=== PATIENT | male | born 1990 | race Two or more races ===

== ENCOUNTER 2021-09-11 11:18 | Inpatient (IN) | payer MEDICAID ==
[~2021-09-11] VITALS: Ht 170.2 cm; Wt 81.5 kg
[2021-09-11] MEDS ORDERED: REMDESIVIR PER PHARMACY 0 ML IV SCH (11:30)
[2021-09-11] MEDS ORDERED: ZINC SULFATE 220mg CAP or TAB PO ONE (11:30)
[2021-09-11] MEDS ORDERED: ASCORBIC ACID 500 MG TAB PO ONE (11:30)
[2021-09-11] MEDS ORDERED: AZITHROMYCIN 500MG/ 250ML 250 ML IV ONE (11:30)
[2021-09-11] MEDS ORDERED: CHOLECALCIFEROL (VITD3) 2,000 UNIT CAP/TAB PO ONE (11:30)
[2021-09-11] MEDS ORDERED: methylPREDNISolone SOD SUCC 125 MG/2 ML VL IV ONE (11:30)
[2021-09-11 11:59] LABS: Basophils # (auto) 0 10 ^3/uL (0-0.2); Basophils % (auto) 0.2 % (0.0-2.0); Eosinophils # (auto) 0 10 ^3/uL (0-0.8); Hematocrit 41.9 % (41.0-53.0); Hemoglobin 14.7 g/dL (13.5-17.5); Lymphocytes # (auto) 1.1 10 ^3/uL (0.4-5.4); Lymphocytes % (auto) 9.3 % (10.0-50.0); Mean Corpuscular Hemoglobin 27.9 pg (28.0-32.0); Mean Corpuscular Hgb Conc. 35.2 g/dL (32.0-36.0); Mean Corpuscular Volume 79.5 fL (80.0-100.0); Monocytes # (auto) 0.6 10 ^3/uL (0-1.3); Monocytes % (auto) 5.3 % (0.0-12.0); Neutrophils # (auto) 9.9 10 ^3/uL (1.6-8.6); Neutrophils % (auto) 85.2 % (37.0-80.0); Nucleated Red Blood Cells % 0.1 %; Red Blood Cells 5.27 10^6/uL (4.5-5.90); Red Cell Distribution Width 13.5 % (11.8-14.3); White Blood Cell 11.6 10^3/uL (4.4-10.8)
[2021-09-11] MEDS ORDERED: ALBUTEROL SULF HFA 90MCG INH 200DOSE IN PRN (12:00)
[2021-09-11] MEDS ORDERED: BUDESONIDE (INHALATION) 180 MCG IH IN SCH (12:02)
[2021-09-11 12:18] LABS: Potassium 3.3 mmol/L (3.5-5.1)
[2021-09-11 12:22] LABS: Albumin 2.3 g/dL (3.4-5.0); BUN/Creatinine Ratio 9.5; Calcium 7.8 mg/dL (8.5-10.1)
[2021-09-11 12:30] LABS: Bilirubin, Total 0.6 mg/dL (0.2-1.0); CRP High Sensitivity 13.8 mg/dL (< 0.3)
[2021-09-11] MEDS ORDERED: POTASSIUM CHL 20 Meq TABLET PO ONE (14:15)
[2021-09-11] MEDS ORDERED: ACETAMINOPHEN 500 MG TAB PO PRN (14:15)
[2021-09-11 16:11] VITALS: BP 110/65
[2021-09-11] MEDS ORDERED: REMDESIVIR 200 MG in NS 210ml LOADING DOSE ADULT IV ONE (21:00)
[2021-09-11] MEDS: BUDESONIDE (INHALATION) 180 MCG IH IN SCH (21:09)
[2021-09-11] MEDS: ALBUTEROL SULF HFA 90MCG INH 200DOSE IN PRN (21:09)
[2021-09-11] MEDS: ENOXAPARIN SOD 40 MG/0.4 ML SYRINGE SC SCH (22:13)
[2021-09-11 22:20] VITALS: BP 133/75
[2021-09-12 05:00] VITALS: BP 121/70
[2021-09-12 07:04] LABS: Basophils # (auto) 0 10 ^3/uL (0-0.2); Basophils % (auto) 0.2 % (0.0-2.0); Eosinophils # (auto) 0 10 ^3/uL (0-0.8); Hematocrit 43.9 % (41.0-53.0); Hemoglobin 15.1 g/dL (13.5-17.5); Lymphocytes % (auto) 8.1 % (10.0-50.0); Mean Corpuscular Hgb Conc. 34.5 g/dL (32.0-36.0); Mean Corpuscular Volume 81.3 fL (80.0-100.0); Monocytes # (auto) 1.1 10 ^3/uL (0-1.3); Neutrophils % (auto) 82.7 % (37.0-80.0); Nucleated Red Blood Cells % 0.1 %; Red Cell Distribution Width 13.8 % (11.8-14.3); White Blood Cell 12.1 10^3/uL (4.4-10.8)
[2021-09-12 07:31] LABS: Albumin 2.4 g/dL (3.4-5.0); BUN/Creatinine Ratio 16.4; Bilirubin, Total 0.5 mg/dL (0.2-1.0); Calcium 7.7 mg/dL (8.5-10.1); Total Protein 6.6 g/dL (6.4-8.2)
[2021-09-12 09:00] VITALS: BP 128/71
[2021-09-12] MEDS: DexAMETHasone SOD PHOS 10MG/1ML VIAL INJ IV SCH (09:53)
[2021-09-12] MEDS: ZINC SULFATE 220mg CAP or TAB PO SCH (09:54)
[2021-09-12] MEDS: ASCORBIC ACID 1,000 MG TAB PO SCH (09:54)
[2021-09-12] MEDS: AZITHROMYCIN 500MG/ 250ML 250 ML IV SCH (09:54)
[2021-09-12] MEDS: ENOXAPARIN SOD 40 MG/0.4 ML SYRINGE SC SCH ×2 (09:54→21:17)
[2021-09-12] MEDS: IVERMECTIN 3 MG TAB PO SCH (09:54)
[2021-09-12] MEDS: CHOLECALCIFEROL (VITD3) 2,000 UNIT CAP/TAB PO SCH (09:54)
[2021-09-12] MEDS: BUDESONIDE (INHALATION) 180 MCG IH IN SCH ×2 (10:00→19:56)
[2021-09-12 13:00] VITALS: BP 130/80
[2021-09-12] MEDS: REMDESIVIR 100mg 100 MG in SODIUM CHL 0.9% 230 ML IV SCH (15:35)
[2021-09-12 17:00] VITALS: BP 106/58
[2021-09-12] MEDS: ALBUTEROL SULF HFA 90MCG INH 200DOSE IN PRN (19:56)
[2021-09-12 22:00] VITALS: BP 123/71
[2021-09-13 05:00] VITALS: BP 128/73
[2021-09-13 06:55] LABS: Basophils # (auto) 0 10 ^3/uL (0-0.2); Basophils % (auto) 0.1 % (0.0-2.0); Eosinophils # (auto) 0 10 ^3/uL (0-0.8); Hemoglobin 14.9 g/dL (13.5-17.5); Lymphocytes # (auto) 0.8 10 ^3/uL (0.4-5.4); Lymphocytes % (auto) 4.5 % (10.0-50.0); Mean Corpuscular Hemoglobin 28.5 pg (28.0-32.0); Mean Corpuscular Hgb Conc. 34.6 g/dL (32.0-36.0); Mean Corpuscular Volume 82.6 fL (80.0-100.0); Monocytes # (auto) 1.3 10 ^3/uL (0-1.3); Neutrophils # (auto) 16.4 10 ^3/uL (1.6-8.6); Neutrophils % (auto) 88.4 % (37.0-80.0); Nucleated Red Blood Cells % 0.1 %; Red Blood Cells 5.21 10^6/uL (4.5-5.90); Red Cell Distribution Width 13.4 % (11.8-14.3); White Blood Cell 18.6 10^3/uL (4.4-10.8)
[2021-09-13 07:05] LABS: Albumin 2.3 g/dL (3.4-5.0); Calcium 7.9 mg/dL (8.5-10.1)
[2021-09-13 07:08] LABS: Bilirubin, Total 0.6 mg/dL (0.2-1.0)
[2021-09-13] MEDS: BUDESONIDE (INHALATION) 180 MCG IH IN SCH ×3 (08:10→22:01)
[2021-09-13] MEDS: ALBUTEROL SULF HFA 90MCG INH 200DOSE IN PRN ×2 (08:10→22:01)
[2021-09-13 09:00] VITALS: BP 131/72
[2021-09-13] MEDS: DexAMETHasone SOD PHOS 10MG/1ML VIAL INJ IV SCH (09:04)
[2021-09-13] MEDS: ASCORBIC ACID 1,000 MG TAB PO SCH (09:05)
[2021-09-13] MEDS: CHOLECALCIFEROL (VITD3) 2,000 UNIT CAP/TAB PO SCH (09:05)
[2021-09-13] MEDS: ZINC SULFATE 220mg CAP or TAB PO SCH (09:05)
[2021-09-13] MEDS: AZITHROMYCIN 500MG/ 250ML 250 ML IV SCH (09:05)
[2021-09-13] MEDS: ENOXAPARIN SOD 40 MG/0.4 ML SYRINGE SC SCH ×2 (09:05→22:00)
[2021-09-13] MEDS: IVERMECTIN 3 MG TAB PO SCH (09:06)
[2021-09-13 13:00] VITALS: BP 133/71
[2021-09-13] MEDS: REMDESIVIR 100mg 100 MG in SODIUM CHL 0.9% 230 ML IV SCH (14:49)
[2021-09-13 17:00] VITALS: BP 138/84
[2021-09-13 22:00] VITALS: BP 135/83
[2021-09-14] VITALS (75 sets, daily range): BP systolic 84–140; BP diastolic 44–113
[2021-09-14] MEDS ORDERED: LORazepam 0.5 MG TAB PO PRN (03:45)
[2021-09-14] MEDS: ALBUTEROL SULF HFA 90MCG INH 200DOSE IN PRN (05:58)
[2021-09-14] MEDS ORDERED: ETOMIDATE (2MG/ML) 20ML VIAL IV ONE ×2 (06:59→08:00)
[2021-09-14] MEDS ORDERED: SUCCINYLCHOLINE CHLORIDE 20 MG/ML 10ML VIAL IV ONE ×2 (06:59→08:00)
[2021-09-14] MEDS ORDERED: ROCURONIUM 10MG/ML 10ML VIAL IV ONE ×3 (06:59→07:45)
[2021-09-14] MEDS ORDERED: PROPOFOL 100 ML IV ONE (07:06)
[2021-09-14] MEDS ORDERED: fentaNYL Drip 2500mCg/250mlNS 250 ML IV ONE (07:06)
[2021-09-14 07:15] LABS: Albumin 2.4 g/dL (3.4-5.0); BUN/Creatinine Ratio 19.1; Bilirubin, Total 1.1 mg/dL (0.2-1.0); Calcium 7.8 mg/dL (8.5-10.1); Total Protein 6.2 g/dL (6.4-8.2)
[2021-09-14] MEDS: MIDAZOLAM DRIP 50 mg/50mL 50 ML IV SCH (07:25)
[2021-09-14] MEDS: PROPOFOL 100 ML IV SCH (07:25)
[2021-09-14] MEDS ORDERED: MIDAZOLAM DRIP 50 mg/50mL 50 ML IV ONE (07:30)
[2021-09-14] MEDS ORDERED: fentaNYL Drip 2500mCg/250mlNS 250 ML IV SCH (07:45)
[2021-09-14] MEDS: NOREPINEPHRINE 8 MG/250ML KIT 250 ML IV SCH (08:20)
[2021-09-14 09:46] LABS: Hematocrit 43.7 % (41.0-53.0); Hemoglobin 14.6 g/dL (13.5-17.5); Mean Corpuscular Hemoglobin 28.4 pg (28.0-32.0); Mean Corpuscular Hgb Conc. 33.3 g/dL (32.0-36.0); Mean Corpuscular Volume 85.1 fL (80.0-100.0); Red Blood Cells 5.14 10^6/uL (4.5-5.90); Red Cell Distribution Width 13.7 % (11.8-14.3); White Blood Cell 24.6 10^3/uL (4.4-10.8)
[2021-09-14 09:47] LABS: Basophils % (manual) 0 (0.0-2.0); Blast Cells 0; Eosinophils % (manual) 0 (0-7); Metamyelocytes % 0; Myelocytes % 0; Promyelocytes % 0; Reactive Lymphocytes 0
[2021-09-14] MEDS: BUDESONIDE (INHALATION) 0.5 MG/2 ML NEB NEB SCH ×2 (10:00→22:08)
[2021-09-14 10:10] LABS: Albumin 2.3 g/dL (3.4-5.0); Calcium 7.9 mg/dL (8.5-10.1)
[2021-09-14 10:13] LABS: BUN/Creatinine Ratio 15.2; Bilirubin, Total 1.3 mg/dL (0.2-1.0); Total Protein 6.8 g/dL (6.4-8.2)
[2021-09-14] MEDS: IVERMECTIN 3 MG TAB PO SCH (10:22)
[2021-09-14] MEDS: AZITHROMYCIN 500MG/ 250ML 250 ML IV SCH (10:22)
[2021-09-14] MEDS: DexAMETHasone SOD PHOS 10MG/1ML VIAL INJ IV SCH ×2 (10:22→22:13)
[2021-09-14] MEDS: ZINC SULFATE 220mg CAP or TAB PO SCH (10:22)
[2021-09-14] MEDS: ASCORBIC ACID 1,000 MG TAB PO SCH (10:22)
[2021-09-14] MEDS: ENOXAPARIN SOD 40 MG/0.4 ML SYRINGE SC SCH ×2 (10:23→22:14)
[2021-09-14] MEDS: CHOLECALCIFEROL (VITD3) 2,000 UNIT CAP/TAB PO SCH (10:23)
[2021-09-14 10:28] LABS: INR 1.38 (0.9-1.15); Partial Thromboplastin Time 28.2 sec (23.6-33.0)
[2021-09-14] MEDS: ATRACURIUM BESYLATE 1,000 MG in D5W 5% 150 ML IV SCH (10:44)
[2021-09-14 11:54] LABS: Band Neutrophils % (manual) 14; Lymphocytes % (manual) 7 (10.0-50.0); Monocytes % (manual) 3 (0-12)
[2021-09-14] MEDS: fentaNYL Drip 2500mCg/250mlNS 250 ML IV SCH (13:45)
[2021-09-14] MEDS: ALBUTEROL SULF 2.5 MG/0.5ML(0.5%) NEB SOLN NEB SCH ×2 (13:53→22:08)
[2021-09-14] MEDS ORDERED: PIPERACILLIN-TAZOB 3.375GM 100 ML IV ONE (14:15)
[2021-09-14] MEDS ORDERED: ARTIFICIAL TEAR OPTH(EYE) OINT 3.5GM EACHEYE ONE (14:30)
[2021-09-14] MEDS ORDERED: PANTOPRAZOLE 40 MG/10 ML VIAL INJ IV ONE (14:45)
[2021-09-14] MEDS: REMDESIVIR 100mg 100 MG in SODIUM CHL 0.9% 230 ML IV SCH (16:18)
[2021-09-14] MEDS ORDERED: ARTIFICIAL TEAR OPTH(EYE) OINT 3.5GM EACHEYE SCH (22:00)
[2021-09-14] MEDS: PIPERACILLIN-TAZOB 3.375GM 100 ML IV SCH (22:14)
[2021-09-15] VITALS (103 sets, daily range): BP systolic 86–140; BP diastolic 35–74
[2021-09-15 05:18] LABS: Hemoglobin 13.8 g/dL (13.5-17.5); Mean Corpuscular Hemoglobin 29.6 pg (28.0-32.0); Mean Corpuscular Hgb Conc. 34.6 g/dL (32.0-36.0); Mean Corpuscular Volume 85.4 fL (80.0-100.0); Red Blood Cells 4.68 10^6/uL (4.5-5.90); Red Cell Distribution Width 13.6 % (11.8-14.3); White Blood Cell 18.2 10^3/uL (4.4-10.8)
[2021-09-15 05:26] LABS: Basophils % (manual) 0 (0.0-2.0); Blast Cells 0; Eosinophils % (manual) 0 (0-7); Promyelocytes % 0; Reactive Lymphocytes 0
[2021-09-15 05:32] LABS: Potassium 4.3 mmol/L (3.5-5.1)
[2021-09-15 05:42] LABS: Albumin 1.9 g/dL (3.4-5.0); BUN/Creatinine Ratio 15.8; Bilirubin, Total 0.8 mg/dL (0.2-1.0); Calcium 8.2 mg/dL (8.5-10.1); Total Protein 6.6 g/dL (6.4-8.2)
[2021-09-15] MEDS: PIPERACILLIN-TAZOB 3.375GM 100 ML IV SCH ×3 (06:00→21:15)
[2021-09-15] MEDS: ALBUTEROL SULF 2.5 MG/0.5ML(0.5%) NEB SOLN NEB SCH ×3 (06:08→19:00)
[2021-09-15] MEDS: BUDESONIDE (INHALATION) 0.5 MG/2 ML NEB NEB SCH ×2 (06:08→19:00)
[2021-09-15 06:10] LABS: Band Neutrophils % (manual) 22; Lymphocytes % (manual) 4 (10.0-50.0); Metamyelocytes % 1; Monocytes % (manual) 5 (0-12); Myelocytes % 2
[2021-09-15] MEDS: MIDAZOLAM DRIP 50 mg/50mL 50 ML IV SCH (07:45)
[2021-09-15] MEDS: NOREPINEPHRINE 8 MG/250ML KIT 250 ML IV SCH (07:45)
[2021-09-15] MEDS: PROPOFOL 100 ML IV SCH ×2 (07:45→14:25)
[2021-09-15] MEDS: ATRACURIUM BESYLATE 1,000 MG in D5W 5% 150 ML IV SCH (09:00)
[2021-09-15] MEDS: ZINC SULFATE 220mg CAP or TAB PO SCH (09:54)
[2021-09-15] MEDS: PANTOPRAZOLE 40 MG/10 ML VIAL INJ IV SCH (09:54)
[2021-09-15] MEDS: DexAMETHasone SOD PHOS 10MG/1ML VIAL INJ IV SCH ×2 (09:54→21:15)
[2021-09-15] MEDS: CHOLECALCIFEROL (VITD3) 2,000 UNIT CAP/TAB PO SCH (09:55)
[2021-09-15] MEDS: IVERMECTIN 3 MG TAB PO SCH (09:55)
[2021-09-15] MEDS: ENOXAPARIN SOD 40 MG/0.4 ML SYRINGE SC SCH ×2 (09:55→21:16)
[2021-09-15] MEDS: ASCORBIC ACID 1,000 MG TAB PO SCH (09:55)
[2021-09-15] MEDS: fentaNYL Drip 2500mCg/250mlNS 250 ML IV SCH (13:21)
[2021-09-15] MEDS ORDERED: Jevity 1.2 Cal/Fiber 1 Liter GT SCH (14:15)
[2021-09-15] MEDS: REMDESIVIR 100mg 100 MG in SODIUM CHL 0.9% 230 ML IV SCH (15:03)
[2021-09-15] MEDS: SODIUM CHLOR 0.9% PF (SALINE LOCK) 10ML VIAL/SYR IV SCH (21:15)
[2021-09-15] MEDS ORDERED: TOCILIZUMAB 400 MG in SODIUM CHL 0.9% 80 ML IV SCH (22:00)
[2021-09-16] VITALS (96 sets, daily range): BP systolic 118–147; BP diastolic 58–83
[2021-09-16 02:59] LABS: Albumin 1.8 g/dL (3.4-5.0); BUN/Creatinine Ratio 15.4; Calcium 7.8 mg/dL (8.5-10.1); Potassium 3.8 mmol/L (3.5-5.1)
[2021-09-16 03:00] LABS: Hematocrit 35.1 % (41.0-53.0); Mean Corpuscular Hemoglobin 29.4 pg (28.0-32.0); Mean Corpuscular Hgb Conc. 34.2 g/dL (32.0-36.0); Mean Corpuscular Volume 85.9 fL (80.0-100.0); Red Blood Cells 4.09 10^6/uL (4.5-5.90); White Blood Cell 18.5 10^3/uL (4.4-10.8)
[2021-09-16 03:02] LABS: Basophils % (manual) 0 (0.0-2.0); Bilirubin, Total 0.6 mg/dL (0.2-1.0); Blast Cells 0; Eosinophils % (manual) 0 (0-7); Metamyelocytes % 0; Promyelocytes % 0; Reactive Lymphocytes 0; Total Protein 6.2 g/dL (6.4-8.2)
[2021-09-16] MEDS: PIPERACILLIN-TAZOB 3.375GM 100 ML IV SCH ×3 (05:30→22:05)
[2021-09-16 06:59] LABS: Band Neutrophils % (manual) 17; Lymphocytes % (manual) 5 (10.0-50.0); Monocytes % (manual) 4 (0-12); Myelocytes % 6
[2021-09-16] MEDS: NOREPINEPHRINE 8 MG/250ML KIT 250 ML IV SCH (07:45)
[2021-09-16] MEDS: ALBUTEROL SULF 2.5 MG/0.5ML(0.5%) NEB SOLN NEB SCH ×2 (08:34→22:36)
[2021-09-16] MEDS: BUDESONIDE (INHALATION) 0.5 MG/2 ML NEB NEB SCH ×2 (08:34→22:36)
[2021-09-16] MEDS: ZINC SULFATE 220mg CAP or TAB PO SCH (09:16)
[2021-09-16] MEDS: MIDAZOLAM DRIP 50 mg/50mL 50 ML IV SCH ×4 (09:16→20:13)
[2021-09-16] MEDS: ASCORBIC ACID 1,000 MG TAB PO SCH (09:17)
[2021-09-16] MEDS: CHOLECALCIFEROL (VITD3) 2,000 UNIT CAP/TAB PO SCH (09:17)
[2021-09-16] MEDS: ENOXAPARIN SOD 40 MG/0.4 ML SYRINGE SC SCH ×2 (09:17→22:02)
[2021-09-16] MEDS: IVERMECTIN 3 MG TAB PO SCH (09:17)
[2021-09-16] MEDS: DexAMETHasone SOD PHOS 10MG/1ML VIAL INJ IV SCH (09:21)
[2021-09-16] MEDS: PANTOPRAZOLE 40 MG/10 ML VIAL INJ IV SCH ×2 (09:23→22:02)
[2021-09-16] MEDS: SODIUM CHLOR 0.9% PF (SALINE LOCK) 10ML VIAL/SYR IV SCH ×2 (09:24→22:02)
[2021-09-16] MEDS: PROPOFOL 100 ML IV SCH ×6 (10:09→23:20)
[2021-09-16] MEDS: fentaNYL Drip 2500mCg/250mlNS 250 ML IV SCH (13:00)
[2021-09-16] MEDS: TOCILIZUMAB 400 MG in SODIUM CHL 0.9% 80 ML IV SCH (20:03)
[2021-09-16] MEDS: ATRACURIUM BESYLATE 1,000 MG in D5W 5% 150 ML IV SCH (20:11)
[2021-09-16] MEDS: DexAMETHasone SOD PHOS 4 MG/1ML SDV INJ IV SCH (22:01)
[2021-09-17] VITALS (89 sets, daily range): BP systolic 110–149; BP diastolic 45–82
[2021-09-17] MEDS: PROPOFOL 100 ML IV SCH ×4 (02:06→19:35)
[2021-09-17 05:42] LABS: Potassium 3.2 mmol/L (3.5-5.1)
[2021-09-17] MEDS: PIPERACILLIN-TAZOB 3.375GM 100 ML IV SCH ×3 (05:49→22:06)
[2021-09-17] MEDS: MIDAZOLAM DRIP 50 mg/50mL 50 ML IV SCH ×3 (06:18→23:44)
[2021-09-17 06:35] LABS: Hematocrit 31.4 % (41.0-53.0); Hemoglobin 11.5 g/dL (13.5-17.5); Mean Corpuscular Hemoglobin 30.9 pg (28.0-32.0); Mean Corpuscular Volume 84.3 fL (80.0-100.0); Red Blood Cells 3.72 10^6/uL (4.5-5.90); White Blood Cell 12.3 10^3/uL (4.4-10.8)
[2021-09-17 06:36] LABS: Mean Corpuscular Hgb Conc. 36.6 g/dL (32.0-36.0)
[2021-09-17 06:37] LABS: Basophils % (manual) 0 (0.0-2.0); Blast Cells 0; Eosinophils % (manual) 0 (0-7); Promyelocytes % 0; Reactive Lymphocytes 0
[2021-09-17] MEDS: BUDESONIDE (INHALATION) 0.5 MG/2 ML NEB NEB SCH ×2 (06:39→22:48)
[2021-09-17] MEDS: ALBUTEROL SULF 2.5 MG/0.5ML(0.5%) NEB SOLN NEB SCH ×3 (06:39→22:48)
[2021-09-17 06:51] LABS: Calcium 5.6 mg/dL (8.5-10.1)
[2021-09-17] MEDS: NOREPINEPHRINE 8 MG/250ML KIT 250 ML IV SCH (07:45)
[2021-09-17 08:12] LABS: Band Neutrophils % (manual) 13; Lymphocytes % (manual) 8 (10.0-50.0); Metamyelocytes % 3; Monocytes % (manual) 7 (0-12); Myelocytes % 1
[2021-09-17] MEDS: ATRACURIUM BESYLATE 1,000 MG in D5W 5% 150 ML IV SCH (09:00)
[2021-09-17] MEDS ORDERED: FUROSEMIDE 20 MG/2 ML VIAL IV ONE (09:30)
[2021-09-17] MEDS ORDERED: CALCIUM GLUC 1,000mg/50ml-NS 50 ML IV ONE (09:30)
[2021-09-17] MEDS: TOCILIZUMAB 400 MG in SODIUM CHL 0.9% 80 ML IV SCH (09:50)
[2021-09-17] MEDS: POTASSIUM CHL 20MEQ/100ML 100 ML IV SCH ×3 (10:44→15:08)
[2021-09-17] MEDS: ENOXAPARIN SOD 40 MG/0.4 ML SYRINGE SC SCH ×2 (10:45→22:06)
[2021-09-17] MEDS: PANTOPRAZOLE 40 MG/10 ML VIAL INJ IV SCH ×2 (10:45→22:06)
[2021-09-17] MEDS: DexAMETHasone SOD PHOS 4 MG/1ML SDV INJ IV SCH ×2 (10:45→22:06)
[2021-09-17] MEDS: ZINC SULFATE 220mg CAP or TAB PO SCH (10:46)
[2021-09-17] MEDS: CHOLECALCIFEROL (VITD3) 2,000 UNIT CAP/TAB PO SCH (10:46)
[2021-09-17] MEDS: ASCORBIC ACID 1,000 MG TAB PO SCH (10:46)
[2021-09-17] MEDS: SODIUM CHLOR 0.9% PF (SALINE LOCK) 10ML VIAL/SYR IV SCH ×2 (10:47→22:07)
[2021-09-17] MEDS: fentaNYL Drip 2500mCg/250mlNS 250 ML IV SCH ×2 (11:00→19:34)
[2021-09-17] MEDS ORDERED: TPN PER PHARMACY 0 ML IV SCH (13:00)
[2021-09-17] MEDS ORDERED: REMDESIVIR PER PHARMACY 0 ML IV SCH (13:30)
[2021-09-17] MEDS: REMDESIVIR 100mg 100 MG in SODIUM CHL 0.9% 230 ML IV SCH (17:00)
[2021-09-17] MEDS ORDERED: AMINO ACID INFUSION IN D10W 1,000 ML IV NR (20:00)
[2021-09-17] MEDS ORDERED: POTASSIUM PHOSP 22MEQ(15MMOLE) in NS 100 ML IV ONE (21:00)
[2021-09-18] VITALS (106 sets, daily range): BP systolic 124–159; BP diastolic 56–84
[2021-09-18] MEDS ORDERED: DEXTROSE (50%) 50ML SYRG IV SCH
[2021-09-18] MEDS: InsuLIN REG 1unit/0.01ml Soln (100units/ml) SC SCH ×4 (00:06→18:25)
[2021-09-18] MEDS: ACCU-CHEK COMFORT CURVE STRIP VI SCH ×4 (00:06→18:25)
[2021-09-18] MEDS: PROPOFOL 100 ML IV SCH ×3 (00:25→22:29)
[2021-09-18] MEDS: fentaNYL Drip 2500mCg/250mlNS 250 ML IV SCH (02:42)
[2021-09-18] MEDS: ATRACURIUM BESYLATE 1,000 MG in D5W 5% 150 ML IV SCH (02:44)
[2021-09-18 04:14] LABS: Hemoglobin 11.7 g/dL (13.5-17.5)
[2021-09-18 04:17] LABS: Hematocrit 35.4 % (41.0-53.0); Mean Corpuscular Hemoglobin 28.8 pg (28.0-32.0); Mean Corpuscular Hgb Conc. 32.9 g/dL (32.0-36.0); Mean Corpuscular Volume 87.5 fL (80.0-100.0); Red Blood Cells 4.05 10^6/uL (4.5-5.90); Red Cell Distribution Width 14.4 % (11.8-14.3); White Blood Cell 14.5 10^3/uL (4.4-10.8)
[2021-09-18 04:33] LABS: Basophils % (manual) 0 (0.0-2.0); Blast Cells 0; Eosinophils % (manual) 0 (0-7); Metamyelocytes % 0; Promyelocytes % 0; Reactive Lymphocytes 0
[2021-09-18 04:45] LABS: Albumin 1.6 g/dL (3.4-5.0); Bilirubin, Direct 0.7 mg/dL (0-0.2); Calcium 6.7 mg/dL (8.5-10.1); Magnesium 3.3 mg/dL (1.6-2.6); Potassium 4.9 mmol/L (3.5-5.1)
[2021-09-18 05:00] LABS: BUN/Creatinine Ratio 30.8; Bilirubin, Total 0.9 mg/dL (0.2-1.0); Phosphorus 4.5 mg/dL (2.5-4.90); Total Protein 5.8 g/dL (6.4-8.2)
[2021-09-18] MEDS: MIDAZOLAM DRIP 50 mg/50mL 50 ML IV SCH ×2 (05:02→23:32)
[2021-09-18 05:21] LABS: Band Neutrophils % (manual) 13; Lymphocytes % (manual) 5 (10.0-50.0); Monocytes % (manual) 5 (0-12); Myelocytes % 13
[2021-09-18 05:22] LABS: Pre Albumin 25.3 mg/dL (20.0-40.0)
[2021-09-18] MEDS: PIPERACILLIN-TAZOB 3.375GM 100 ML IV SCH ×3 (05:46→22:27)
[2021-09-18] MEDS: ALBUTEROL SULF 2.5 MG/0.5ML(0.5%) NEB SOLN NEB SCH ×3 (06:16→22:27)
[2021-09-18] MEDS: BUDESONIDE (INHALATION) 0.5 MG/2 ML NEB NEB SCH ×2 (06:18→22:27)
[2021-09-18] MEDS: NOREPINEPHRINE 8 MG/250ML KIT 250 ML IV SCH (07:45)
[2021-09-18] MEDS: DexAMETHasone SOD PHOS 4 MG/1ML SDV INJ IV SCH ×2 (10:23→22:28)
[2021-09-18] MEDS: PANTOPRAZOLE 40 MG/10 ML VIAL INJ IV SCH ×2 (10:23→22:28)
[2021-09-18] MEDS: SODIUM CHLOR 0.9% PF (SALINE LOCK) 10ML VIAL/SYR IV SCH ×2 (10:23→22:12)
[2021-09-18] MEDS: FUROSEMIDE 20 MG/2 ML VIAL IV SCH (10:23)
[2021-09-18] MEDS: ZINC SULFATE 220mg CAP or TAB PO SCH (10:24)
[2021-09-18] MEDS: POTASSIUM CHL 20 Meq TABLET PO SCH (10:24)
[2021-09-18] MEDS: ASCORBIC ACID 1,000 MG TAB PO SCH (10:25)
[2021-09-18] MEDS: ENOXAPARIN SOD 40 MG/0.4 ML SYRINGE SC SCH ×2 (10:25→22:28)
[2021-09-18] MEDS: CHOLECALCIFEROL (VITD3) 2,000 UNIT CAP/TAB PO SCH (10:25)
[2021-09-18] MEDS: REMDESIVIR 100mg 100 MG in SODIUM CHL 0.9% 230 ML IV SCH (15:00)
[2021-09-18] MEDS: TPN PER PHARMACY IV NR ×6 (20:53)
[2021-09-19] VITALS (105 sets, daily range): BP systolic 99–172; BP diastolic 44–91
[2021-09-19] MEDS: ACCU-CHEK COMFORT CURVE STRIP VI SCH ×5 (00:27→23:42)
[2021-09-19] MEDS: InsuLIN REG 1unit/0.01ml Soln (100units/ml) SC SCH ×4 (00:28→17:35)
[2021-09-19] MEDS: PROPOFOL 100 ML IV SCH ×9 (00:32→23:31)
[2021-09-19] MEDS: MIDAZOLAM DRIP 50 mg/50mL 50 ML IV SCH ×6 (03:18→21:30)
[2021-09-19] MEDS: fentaNYL Drip 2500mCg/250mlNS 250 ML IV SCH ×3 (03:25→17:41)
[2021-09-19 04:52] LABS: Hemoglobin 12.6 g/dL (13.5-17.5); Mean Corpuscular Hemoglobin 29.2 pg (28.0-32.0); Mean Corpuscular Hgb Conc. 33.3 g/dL (32.0-36.0); Mean Corpuscular Volume 87.6 fL (80.0-100.0); Red Blood Cells 4.33 10^6/uL (4.5-5.90); Red Cell Distribution Width 13.8 % (11.8-14.3); White Blood Cell 13.3 10^3/uL (4.4-10.8)
[2021-09-19 05:04] LABS: Basophils % (manual) 0 (0.0-2.0); Blast Cells 0; Eosinophils % (manual) 0 (0-7); Promyelocytes % 0; Reactive Lymphocytes 0
[2021-09-19 05:08] LABS: Potassium 4.9 mmol/L (3.5-5.1)
[2021-09-19 05:17] LABS: BUN/Creatinine Ratio 35.2; Bilirubin, Total 0.7 mg/dL (0.2-1.0); Calcium 7.5 mg/dL (8.5-10.1); Magnesium 3.1 mg/dL (1.6-2.6); Phosphorus 3.2 mg/dL (2.5-4.90); Total Protein 6.4 g/dL (6.4-8.2)
[2021-09-19] MEDS: PIPERACILLIN-TAZOB 3.375GM 100 ML IV SCH ×3 (05:47→21:56)
[2021-09-19] MEDS: BUDESONIDE (INHALATION) 0.5 MG/2 ML NEB NEB SCH ×2 (06:12→22:09)
[2021-09-19] MEDS: ALBUTEROL SULF 2.5 MG/0.5ML(0.5%) NEB SOLN NEB SCH ×3 (06:12→22:09)
[2021-09-19] MEDS: NOREPINEPHRINE 8 MG/250ML KIT 250 ML IV SCH (07:45)
[2021-09-19] MEDS: ATRACURIUM BESYLATE 1,000 MG in D5W 5% 150 ML IV SCH (09:00)
[2021-09-19] MEDS: PANTOPRAZOLE 40 MG/10 ML VIAL INJ IV SCH ×2 (09:58→21:56)
[2021-09-19] MEDS: DexAMETHasone SOD PHOS 4 MG/1ML SDV INJ IV SCH ×2 (09:58→21:56)
[2021-09-19] MEDS: FUROSEMIDE 20 MG/2 ML VIAL IV SCH (09:58)
[2021-09-19] MEDS: SODIUM CHLOR 0.9% PF (SALINE LOCK) 10ML VIAL/SYR IV SCH ×2 (09:58→21:56)
[2021-09-19] MEDS: POTASSIUM CHL 20 Meq TABLET PO SCH (09:59)
[2021-09-19] MEDS: ASCORBIC ACID 1,000 MG TAB PO SCH (09:59)
[2021-09-19] MEDS: CHOLECALCIFEROL (VITD3) 2,000 UNIT CAP/TAB PO SCH (09:59)
[2021-09-19] MEDS: ENOXAPARIN SOD 40 MG/0.4 ML SYRINGE SC SCH (09:59)
[2021-09-19] MEDS: ZINC SULFATE 220mg CAP or TAB PO SCH (09:59)
[2021-09-19 10:50] LABS: Band Neutrophils % (manual) 8; Lymphocytes % (manual) 4 (10.0-50.0); Metamyelocytes % 4; Monocytes % (manual) 6 (0-12); Myelocytes % 1
[2021-09-19] MEDS ORDERED: ENOXAPARIN SOD 80 MG/0.8ML SYRINGE SC ONE (14:00)
[2021-09-19] MEDS: REMDESIVIR 100mg 100 MG in SODIUM CHL 0.9% 230 ML IV SCH (15:35)
[2021-09-19] MEDS: TPN PER PHARMACY IV NR ×6 (19:33)
[2021-09-19] MEDS ORDERED: TPN PER PHARMACY IV NR ×7 (20:00)
[2021-09-19] MEDS: ENOXAPARIN SOD 120 MG/0.8 ML SYRINGE SC SCH (21:56)
[2021-09-20] VITALS (106 sets, daily range): BP systolic 106–137; BP diastolic 40–77
[2021-09-20] MEDS: InsuLIN REG 1unit/0.01ml Soln (100units/ml) SC SCH ×5 (00:09→23:03)
[2021-09-20] MEDS: MIDAZOLAM DRIP 50 mg/50mL 50 ML IV SCH ×6 (02:19→18:21)
[2021-09-20] MEDS: fentaNYL Drip 2500mCg/250mlNS 250 ML IV SCH ×3 (02:28→15:36)
[2021-09-20] MEDS: PROPOFOL 100 ML IV SCH ×5 (02:28→18:20)
[2021-09-20 04:35] LABS: Hematocrit 39.5 % (41.0-53.0); Mean Corpuscular Hemoglobin 28.6 pg (28.0-32.0); Mean Corpuscular Hgb Conc. 32.9 g/dL (32.0-36.0); Red Blood Cells 4.54 10^6/uL (4.5-5.90); Red Cell Distribution Width 13.7 % (11.8-14.3); White Blood Cell 19.2 10^3/uL (4.4-10.8)
[2021-09-20 04:47] LABS: Magnesium 2.7 mg/dL (1.6-2.6)
[2021-09-20 04:50] LABS: BUN/Creatinine Ratio 32.2
[2021-09-20 04:53] LABS: Basophils % (manual) 0 (0.0-2.0); Bilirubin, Total 0.6 mg/dL (0.2-1.0); Blast Cells 0; Phosphorus 4.3 mg/dL (2.5-4.90); Promyelocytes % 0; Reactive Lymphocytes 0; Total Protein 6.1 g/dL (6.4-8.2)
[2021-09-20] MEDS: PIPERACILLIN-TAZOB 3.375GM 100 ML IV SCH ×3 (05:49→21:36)
[2021-09-20] MEDS: ACCU-CHEK COMFORT CURVE STRIP VI SCH ×4 (05:50→23:03)
[2021-09-20] MEDS: BUDESONIDE (INHALATION) 0.5 MG/2 ML NEB NEB SCH ×2 (06:29→19:09)
[2021-09-20] MEDS: ALBUTEROL SULF 2.5 MG/0.5ML(0.5%) NEB SOLN NEB SCH ×3 (06:29→19:09)
[2021-09-20] MEDS: ATRACURIUM BESYLATE 1,000 MG in D5W 5% 150 ML IV SCH (06:53)
[2021-09-20] MEDS: NOREPINEPHRINE 8 MG/250ML KIT 250 ML IV SCH (07:45)
[2021-09-20 08:02] LABS: Band Neutrophils % (manual) 7; Eosinophils % (manual) 1 (0-7); Lymphocytes % (manual) 7 (10.0-50.0); Metamyelocytes % 5; Monocytes % (manual) 7 (0-12); Myelocytes % 2
[2021-09-20] MEDS: POTASSIUM CHL 20 Meq TABLET PO SCH (10:00)
[2021-09-20] MEDS: DexAMETHasone SOD PHOS 4 MG/1ML SDV INJ IV SCH ×2 (10:04→21:35)
[2021-09-20] MEDS: PANTOPRAZOLE 40 MG/10 ML VIAL INJ IV SCH ×2 (10:04→21:36)
[2021-09-20] MEDS: ZINC SULFATE 220mg CAP or TAB PO SCH (10:04)
[2021-09-20] MEDS: SODIUM CHLOR 0.9% PF (SALINE LOCK) 10ML VIAL/SYR IV SCH ×2 (10:04→21:36)
[2021-09-20] MEDS: FUROSEMIDE 20 MG/2 ML VIAL IV SCH (10:04)
[2021-09-20] MEDS: ENOXAPARIN SOD 120 MG/0.8 ML SYRINGE SC SCH ×2 (10:05→21:36)
[2021-09-20] MEDS: CHOLECALCIFEROL (VITD3) 2,000 UNIT CAP/TAB PO SCH (10:05)
[2021-09-20] MEDS: ASCORBIC ACID 1,000 MG TAB PO SCH (10:05)
[2021-09-20] MEDS: REMDESIVIR 100mg 100 MG in SODIUM CHL 0.9% 230 ML IV SCH (15:35)
[2021-09-20] MEDS ORDERED: TPN PER PHARMACY IV NR ×5 (20:00)
[2021-09-21] VITALS (106 sets, daily range): BP systolic 91–120; BP diastolic 45–70
[2021-09-21] MEDS ORDERED: ATRACURIUM BESYLATE (10 MG/ ML) 10 ML VIAL ONE (00:05)
[2021-09-21 03:56] LABS: Hemoglobin 12.9 g/dL (13.5-17.5); Mean Corpuscular Hemoglobin 27.6 pg (28.0-32.0); Mean Corpuscular Hgb Conc. 32.9 g/dL (32.0-36.0); Mean Corpuscular Volume 83.9 fL (80.0-100.0); Red Blood Cells 4.65 10^6/uL (4.5-5.90); Red Cell Distribution Width 13.6 % (11.8-14.3); White Blood Cell 18.4 10^3/uL (4.4-10.8)
[2021-09-21 04:13] LABS: Basophils % (manual) 0 (0.0-2.0); Blast Cells 0; Eosinophils % (manual) 0 (0-7); Promyelocytes % 0; Reactive Lymphocytes 0
[2021-09-21 04:23] LABS: Calcium 6.8 mg/dL (8.5-10.1); Potassium 3.3 mmol/L (3.5-5.1)
[2021-09-21 04:28] LABS: Albumin 1.7 g/dL (3.4-5.0); BUN/Creatinine Ratio 30.1; Bilirubin, Total 0.6 mg/dL (0.2-1.0); Magnesium 2.1 mg/dL (1.6-2.6); Phosphorus 1.7 mg/dL (2.5-4.90); Total Protein 5.4 g/dL (6.4-8.2)
[2021-09-21 05:09] LABS: Band Neutrophils % (manual) 3; Lymphocytes % (manual) 17 (10.0-50.0); Metamyelocytes % 1; Monocytes % (manual) 7 (0-12); Myelocytes % 18
[2021-09-21] MEDS: InsuLIN REG 1unit/0.01ml Soln (100units/ml) SC SCH ×4 (05:30→23:57)
[2021-09-21] MEDS: ACCU-CHEK COMFORT CURVE STRIP VI SCH ×4 (05:31→23:57)
[2021-09-21] MEDS: PIPERACILLIN-TAZOB 3.375GM 100 ML IV SCH ×3 (05:41→22:00)
[2021-09-21] MEDS: BUDESONIDE (INHALATION) 0.5 MG/2 ML NEB NEB SCH ×2 (06:11→22:18)
[2021-09-21] MEDS: ALBUTEROL SULF 2.5 MG/0.5ML(0.5%) NEB SOLN NEB SCH ×3 (06:11→22:18)
[2021-09-21] MEDS: NOREPINEPHRINE 8 MG/250ML KIT 250 ML IV SCH (07:45)
[2021-09-21] MEDS: PROPOFOL 100 ML IV SCH ×4 (08:33→15:14)
[2021-09-21] MEDS: ATRACURIUM BESYLATE 1,000 MG in D5W 5% 150 ML IV SCH (09:00)
[2021-09-21] MEDS ORDERED: POTASSIUM PHOSPHATE 44 MEQ in D5W 5% 250 ML IV ONE (09:00)
[2021-09-21] MEDS: ZINC SULFATE 220mg CAP or TAB PO SCH (09:28)
[2021-09-21] MEDS: PANTOPRAZOLE 40 MG/10 ML VIAL INJ IV SCH ×2 (09:28→22:00)
[2021-09-21] MEDS: DexAMETHasone SOD PHOS 4 MG/1ML SDV INJ IV SCH ×2 (09:28→22:00)
[2021-09-21] MEDS: ASCORBIC ACID 1,000 MG TAB PO SCH (09:28)
[2021-09-21] MEDS: SODIUM CHLOR 0.9% PF (SALINE LOCK) 10ML VIAL/SYR IV SCH ×2 (09:28→22:00)
[2021-09-21] MEDS: FUROSEMIDE 20 MG/2 ML VIAL IV SCH (09:28)
[2021-09-21] MEDS: ENOXAPARIN SOD 120 MG/0.8 ML SYRINGE SC SCH ×2 (09:29→22:00)
[2021-09-21] MEDS: CHOLECALCIFEROL (VITD3) 2,000 UNIT CAP/TAB PO SCH (09:29)
[2021-09-21] MEDS: fentaNYL Drip 2500mCg/250mlNS 250 ML IV SCH (14:11)
[2021-09-21] MEDS: REMDESIVIR 100mg 100 MG in SODIUM CHL 0.9% 230 ML IV SCH (14:37)
[2021-09-21] MEDS ORDERED: POTASSIUM EFFERVESENT TAB 25 MEQ GT ONE (16:00)
[2021-09-21] MEDS: MIDAZOLAM DRIP 50 mg/50mL 50 ML IV SCH (16:35)
[2021-09-21] MEDS ORDERED: TPN PER PHARMACY IV NR ×10 (20:00)
[2021-09-21] MEDS: LACTULOSE 20Gm/30ML SOLN PO SCH (22:00)
[2021-09-22] VITALS (99 sets, daily range): BP systolic 91–125; BP diastolic 43–74
[2021-09-22 03:19] LABS: Hematocrit 39.3 % (41.0-53.0); Hemoglobin 13.2 g/dL (13.5-17.5); Mean Corpuscular Hemoglobin 28.2 pg (28.0-32.0); Mean Corpuscular Hgb Conc. 33.5 g/dL (32.0-36.0); Mean Corpuscular Volume 84.3 fL (80.0-100.0); Red Blood Cells 4.66 10^6/uL (4.5-5.90); Red Cell Distribution Width 13.5 % (11.8-14.3); White Blood Cell 23.4 10^3/uL (4.4-10.8)
[2021-09-22 03:23] LABS: Basophils % (manual) 0 (0.0-2.0); Blast Cells 0; Eosinophils % (manual) 0 (0-7); Metamyelocytes % 0; Promyelocytes % 0; Reactive Lymphocytes 0
[2021-09-22 03:27] LABS: Albumin 1.7 g/dL (3.4-5.0); BUN/Creatinine Ratio 30.8; Calcium 7.1 mg/dL (8.5-10.1); Magnesium 2.2 mg/dL (1.6-2.6); Potassium 4.2 mmol/L (3.5-5.1)
[2021-09-22 03:30] LABS: Bilirubin, Total 0.6 mg/dL (0.2-1.0); Phosphorus 3.4 mg/dL (2.5-4.90); Total Protein 5.2 g/dL (6.4-8.2)
[2021-09-22 04:11] LABS: Band Neutrophils % (manual) 11; Lymphocytes % (manual) 8 (10.0-50.0); Monocytes % (manual) 4 (0-12); Myelocytes % 11
[2021-09-22] MEDS: InsuLIN REG 1unit/0.01ml Soln (100units/ml) SC SCH ×4 (05:52→23:31)
[2021-09-22] MEDS: ACCU-CHEK COMFORT CURVE STRIP VI SCH ×4 (05:52→23:31)
[2021-09-22] MEDS: PIPERACILLIN-TAZOB 3.375GM 100 ML IV SCH ×3 (06:05→21:41)
[2021-09-22] MEDS: BUDESONIDE (INHALATION) 0.5 MG/2 ML NEB NEB SCH ×2 (06:28→21:03)
[2021-09-22] MEDS: ALBUTEROL SULF 2.5 MG/0.5ML(0.5%) NEB SOLN NEB SCH ×3 (06:28→21:03)
[2021-09-22] MEDS: NOREPINEPHRINE 8 MG/250ML KIT 250 ML IV SCH (07:20)
[2021-09-22] MEDS: ASCORBIC ACID 1,000 MG TAB PO SCH (09:18)
[2021-09-22] MEDS: CHOLECALCIFEROL (VITD3) 2,000 UNIT CAP/TAB PO SCH (09:19)
[2021-09-22] MEDS: PANTOPRAZOLE 40 MG/10 ML VIAL INJ IV SCH ×2 (09:19→21:40)
[2021-09-22] MEDS: LACTULOSE 20Gm/30ML SOLN PO SCH ×2 (09:19→21:41)
[2021-09-22] MEDS: ZINC SULFATE 220mg CAP or TAB PO SCH (09:19)
[2021-09-22] MEDS: DexAMETHasone SOD PHOS 4 MG/1ML SDV INJ IV SCH ×2 (09:19→21:40)
[2021-09-22] MEDS: ENOXAPARIN SOD 120 MG/0.8 ML SYRINGE SC SCH ×2 (09:20→21:41)
[2021-09-22] MEDS: SODIUM CHLOR 0.9% PF (SALINE LOCK) 10ML VIAL/SYR IV SCH ×2 (09:20→21:40)
[2021-09-22] MEDS: FUROSEMIDE 20 MG/2 ML VIAL IV SCH (09:20)
[2021-09-22] MEDS: PROPOFOL 100 ML IV SCH ×4 (09:22→18:51)
[2021-09-22] MEDS: MIDAZOLAM DRIP 50 mg/50mL 50 ML IV SCH ×3 (09:24→17:33)
[2021-09-22] MEDS: fentaNYL Drip 2500mCg/250mlNS 250 ML IV SCH (14:16)
[2021-09-22] MEDS: ATRACURIUM BESYLATE 1,000 MG in D5W 5% 150 ML IV SCH (15:28)
[2021-09-22] MEDS ORDERED: TPN PER PHARMACY IV NR ×10 (20:00)
[2021-09-23] VITALS (104 sets, daily range): BP systolic 94–109; BP diastolic 46–61
[2021-09-23 02:14] LABS: Hematocrit 39.2 % (41.0-53.0); Hemoglobin 12.7 g/dL (13.5-17.5); Mean Corpuscular Hemoglobin 27.5 pg (28.0-32.0); Mean Corpuscular Hgb Conc. 32.3 g/dL (32.0-36.0); Red Blood Cells 4.61 10^6/uL (4.5-5.90); Red Cell Distribution Width 13.5 % (11.8-14.3)
[2021-09-23 02:16] LABS: Basophils % (manual) 0 (0.0-2.0); Blast Cells 0; Eosinophils % (manual) 0 (0-7); Promyelocytes % 0; Reactive Lymphocytes 0
[2021-09-23 02:31] LABS: Band Neutrophils % (manual) 18; Lymphocytes % (manual) 5 (10.0-50.0); Metamyelocytes % 2; Monocytes % (manual) 4 (0-12); Myelocytes % 7
[2021-09-23 02:32] LABS: BUN/Creatinine Ratio 34.6; Calcium 7.8 mg/dL (8.5-10.1); Magnesium 2.3 mg/dL (1.6-2.6)
[2021-09-23 02:35] LABS: Bilirubin, Total 0.4 mg/dL (0.2-1.0); Total Protein 5.6 g/dL (6.4-8.2)
[2021-09-23] MEDS: ACCU-CHEK COMFORT CURVE STRIP VI SCH ×3 (06:00→17:23)
[2021-09-23] MEDS: PIPERACILLIN-TAZOB 3.375GM 100 ML IV SCH ×3 (06:00→22:00)
[2021-09-23] MEDS: InsuLIN REG 1unit/0.01ml Soln (100units/ml) SC SCH ×3 (06:00→17:23)
[2021-09-23] MEDS: ALBUTEROL SULF 2.5 MG/0.5ML(0.5%) NEB SOLN NEB SCH ×3 (06:48→22:24)
[2021-09-23] MEDS: BUDESONIDE (INHALATION) 0.5 MG/2 ML NEB NEB SCH ×2 (06:49→22:23)
[2021-09-23] MEDS: PROPOFOL 100 ML IV SCH ×4 (07:39→16:38)
[2021-09-23] MEDS: NOREPINEPHRINE 8 MG/250ML KIT 250 ML IV SCH (07:45)
[2021-09-23] MEDS: FUROSEMIDE 20 MG/2 ML VIAL IV SCH (09:18)
[2021-09-23] MEDS: DexAMETHasone SOD PHOS 4 MG/1ML SDV INJ IV SCH ×2 (09:18→22:00)
[2021-09-23] MEDS: ZINC SULFATE 220mg CAP or TAB PO SCH (09:19)
[2021-09-23] MEDS: ASCORBIC ACID 1,000 MG TAB PO SCH (09:19)
[2021-09-23] MEDS: CHOLECALCIFEROL (VITD3) 2,000 UNIT CAP/TAB PO SCH (09:19)
[2021-09-23] MEDS: LACTULOSE 20Gm/30ML SOLN PO SCH ×2 (09:19→22:00)
[2021-09-23] MEDS: SODIUM CHLOR 0.9% PF (SALINE LOCK) 10ML VIAL/SYR IV SCH ×2 (09:20→22:00)
[2021-09-23] MEDS: ENOXAPARIN SOD 120 MG/0.8 ML SYRINGE SC SCH ×2 (09:20→22:00)
[2021-09-23] MEDS: PANTOPRAZOLE 40 MG/10 ML VIAL INJ IV SCH ×2 (09:21→22:00)
[2021-09-23] MEDS: MIDAZOLAM DRIP 50 mg/50mL 50 ML IV SCH ×3 (09:53→16:38)
[2021-09-23] MEDS: ATRACURIUM BESYLATE 1,000 MG in D5W 5% 150 ML IV SCH (09:54)
[2021-09-23] MEDS ORDERED: FUROSEMIDE 20 MG/2 ML VIAL IV ONE (13:30)
[2021-09-23 14:10] LABS: Urine Bacteria FEW /hpf (None Seen); Urine Blood Negative /uL (Negative); Urine Specific Gravity 1.005 (1.001-1.035); Urine WBC <1 /hpf (0 - 3)
[2021-09-23] MEDS: fentaNYL Drip 2500mCg/250mlNS 250 ML IV SCH (14:34)
[2021-09-23] MEDS ORDERED: TPN PER PHARMACY IV NR ×10 (20:00)
[2021-09-24] VITALS (107 sets, daily range): BP systolic 93–155; BP diastolic 45–80
[2021-09-24 02:49] LABS: Hematocrit 34.6 % (41.0-53.0); Hemoglobin 12.3 g/dL (13.5-17.5); Mean Corpuscular Hemoglobin 30.1 pg (28.0-32.0); Mean Corpuscular Hgb Conc. 35.6 g/dL (32.0-36.0); Mean Corpuscular Volume 84.5 fL (80.0-100.0); Red Blood Cells 4.09 10^6/uL (4.5-5.90); Red Cell Distribution Width 13.2 % (11.8-14.3); White Blood Cell 18.5 10^3/uL (4.4-10.8)
[2021-09-24 03:06] LABS: Albumin 1.7 g/dL (3.4-5.0); Calcium 6.1 mg/dL (8.5-10.1); Magnesium 2.4 mg/dL (1.6-2.6); Potassium 4.2 mmol/L (3.5-5.1)
[2021-09-24 03:11] LABS: Bilirubin, Total 0.8 mg/dL (0.2-1.0); Phosphorus 2.8 mg/dL (2.5-4.90)
[2021-09-24 03:19] LABS: Basophils % (manual) 0 (0.0-2.0); Blast Cells 0; Eosinophils % (manual) 0 (0-7); Metamyelocytes % 0; Monocytes % (manual) 0 (0-12); Promyelocytes % 0; Reactive Lymphocytes 0
[2021-09-24 03:44] LABS: BUN/Creatinine Ratio 52.5
[2021-09-24 04:43] LABS: Total Protein 5.2 g/dL (6.4-8.2)
[2021-09-24] MEDS: ACCU-CHEK COMFORT CURVE STRIP VI SCH ×4 (05:54→17:24)
[2021-09-24] MEDS: InsuLIN REG 1unit/0.01ml Soln (100units/ml) SC SCH ×5 (05:54→23:58)
[2021-09-24] MEDS: PIPERACILLIN-TAZOB 3.375GM 100 ML IV SCH ×3 (05:54→22:06)
[2021-09-24 06:08] LABS: Band Neutrophils % (manual) 25; Lymphocytes % (manual) 7 (10.0-50.0); Myelocytes % 15
[2021-09-24] MEDS: ALBUTEROL SULF 2.5 MG/0.5ML(0.5%) NEB SOLN NEB SCH ×3 (06:39→21:59)
[2021-09-24] MEDS: BUDESONIDE (INHALATION) 0.5 MG/2 ML NEB NEB SCH ×2 (06:39→21:59)
[2021-09-24] MEDS: fentaNYL Drip 2500mCg/250mlNS 250 ML IV SCH ×2 (06:57→14:48)
[2021-09-24] MEDS: MIDAZOLAM DRIP 50 mg/50mL 50 ML IV SCH ×5 (07:00→22:07)
[2021-09-24] MEDS: NOREPINEPHRINE 8 MG/250ML KIT 250 ML IV SCH (07:45)
[2021-09-24] MEDS: PROPOFOL 100 ML IV SCH ×5 (07:59→22:09)
[2021-09-24] MEDS: ATRACURIUM BESYLATE 1,000 MG in D5W 5% 150 ML IV SCH (09:00)
[2021-09-24] MEDS: CHOLECALCIFEROL (VITD3) 2,000 UNIT CAP/TAB PO SCH (09:24)
[2021-09-24] MEDS: ZINC SULFATE 220mg CAP or TAB PO SCH (09:24)
[2021-09-24] MEDS: ASCORBIC ACID 1,000 MG TAB PO SCH (09:24)
[2021-09-24] MEDS: DexAMETHasone SOD PHOS 4 MG/1ML SDV INJ IV SCH ×2 (09:25→22:05)
[2021-09-24] MEDS: LACTULOSE 20Gm/30ML SOLN PO SCH ×2 (09:25→22:06)
[2021-09-24] MEDS: FUROSEMIDE 20 MG/2 ML VIAL IV SCH (09:25)
[2021-09-24] MEDS: PANTOPRAZOLE 40 MG/10 ML VIAL INJ IV SCH ×2 (09:25→22:06)
[2021-09-24] MEDS: ENOXAPARIN SOD 120 MG/0.8 ML SYRINGE SC SCH ×2 (09:26→22:06)
[2021-09-24] MEDS: SODIUM CHLOR 0.9% PF (SALINE LOCK) 10ML VIAL/SYR IV SCH ×2 (09:26→22:06)
[2021-09-24] MEDS ORDERED: CALCIUM GLUC 1,000mg/50ml-NS 50 ML IV ONE (10:00)
[2021-09-24] MEDS ORDERED: TPN PER PHARMACY IV NR ×11 (20:00)
[2021-09-25] VITALS (107 sets, daily range): BP systolic 95–117; BP diastolic 47–64
[2021-09-25] MEDS: PROPOFOL 100 ML IV SCH ×8 (01:07→21:40)
[2021-09-25] MEDS: MIDAZOLAM DRIP 50 mg/50mL 50 ML IV SCH ×6 (01:08→21:40)
[2021-09-25] MEDS: ACCU-CHEK COMFORT CURVE STRIP VI SCH ×5 (01:09→23:33)
[2021-09-25 05:08] LABS: Hematocrit 31.4 % (41.0-53.0); Hemoglobin 11.2 g/dL (13.5-17.5); Mean Corpuscular Hemoglobin 30.9 pg (28.0-32.0); Mean Corpuscular Hgb Conc. 35.8 g/dL (32.0-36.0); Mean Corpuscular Volume 86.5 fL (80.0-100.0); Red Blood Cells 3.63 10^6/uL (4.5-5.90); Red Cell Distribution Width 13.7 % (11.8-14.3); White Blood Cell 21.6 10^3/uL (4.4-10.8)
[2021-09-25 05:23] LABS: Basophils % (manual) 0 (0.0-2.0); Blast Cells 0; Eosinophils % (manual) 0 (0-7); Promyelocytes % 0; Reactive Lymphocytes 0
[2021-09-25 05:53] LABS: Albumin 1.8 g/dL (3.4-5.0); Magnesium 2.6 mg/dL (1.6-2.6); Potassium 3.2 mmol/L (3.5-5.1)
[2021-09-25 05:57] LABS: Metamyelocytes % 2; Myelocytes % 11
[2021-09-25 05:58] LABS: Bilirubin, Total 0.9 mg/dL (0.2-1.0); Phosphorus 3.8 mg/dL (2.5-4.90)
[2021-09-25 05:59] LABS: Band Neutrophils % (manual) 25; Lymphocytes % (manual) 5 (10.0-50.0); Monocytes % (manual) 4 (0-12)
[2021-09-25] MEDS: PIPERACILLIN-TAZOB 3.375GM 100 ML IV SCH ×3 (05:59→21:39)
[2021-09-25] MEDS: InsuLIN REG 1unit/0.01ml Soln (100units/ml) SC SCH ×4 (06:00→23:34)
[2021-09-25 06:10] LABS: Pre Albumin > 60.0 mg/dL (20.0-40.0); Triglycerides 1990 mg/dL (< 150)
[2021-09-25 06:32] LABS: BUN/Creatinine Ratio 38.9; Total Protein 4.9 g/dL (6.4-8.2)
[2021-09-25 06:38] LABS: Calcium 5.4 mg/dL (8.5-10.1)
[2021-09-25] MEDS: fentaNYL Drip 2500mCg/250mlNS 250 ML IV SCH ×3 (07:01→14:50)
[2021-09-25] MEDS: NOREPINEPHRINE 8 MG/250ML KIT 250 ML IV SCH (07:45)
[2021-09-25] MEDS: ALBUTEROL SULF 2.5 MG/0.5ML(0.5%) NEB SOLN NEB SCH ×3 (07:49→22:12)
[2021-09-25] MEDS: BUDESONIDE (INHALATION) 0.5 MG/2 ML NEB NEB SCH ×2 (07:49→22:11)
[2021-09-25] MEDS: POTASSIUM CHL 20MEQ/100ML 100 ML IV SCH ×4 (08:50→16:41)
[2021-09-25] MEDS: ATRACURIUM BESYLATE 1,000 MG in D5W 5% 150 ML IV SCH (09:00)
[2021-09-25] MEDS: ASCORBIC ACID 1,000 MG TAB PO SCH (09:20)
[2021-09-25] MEDS: CHOLECALCIFEROL (VITD3) 2,000 UNIT CAP/TAB PO SCH (09:21)
[2021-09-25] MEDS: LACTULOSE 20Gm/30ML SOLN PO SCH ×3 (09:21→23:24)
[2021-09-25] MEDS: ZINC SULFATE 220mg CAP or TAB PO SCH (09:21)
[2021-09-25] MEDS: FUROSEMIDE 20 MG/2 ML VIAL IV SCH (09:21)
[2021-09-25] MEDS: ENOXAPARIN SOD 120 MG/0.8 ML SYRINGE SC SCH ×2 (09:21→21:39)
[2021-09-25] MEDS: PANTOPRAZOLE 40 MG/10 ML VIAL INJ IV SCH ×2 (09:21→21:38)
[2021-09-25] MEDS: DexAMETHasone SOD PHOS 4 MG/1ML SDV INJ IV SCH ×2 (09:21→21:38)
[2021-09-25] MEDS: SODIUM CHLOR 0.9% PF (SALINE LOCK) 10ML VIAL/SYR IV SCH ×2 (09:22→22:00)
[2021-09-25] MEDS ORDERED: FUROSEMIDE 20 MG/2 ML VIAL IV ONE (14:45)
[2021-09-25] MEDS ORDERED: TPN PER PHARMACY IV NR ×9 (20:00)
[2021-09-26] VITALS (104 sets, daily range): BP systolic 92–134; BP diastolic 45–78
[2021-09-26] MEDS: MIDAZOLAM DRIP 50 mg/50mL 50 ML IV SCH ×4 (00:47→22:54)
[2021-09-26] MEDS: PROPOFOL 100 ML IV SCH ×6 (00:55→22:00)
[2021-09-26] MEDS: fentaNYL Drip 2500mCg/250mlNS 250 ML IV SCH ×4 (00:57→22:00)
[2021-09-26] MEDS: PIPERACILLIN-TAZOB 3.375GM 100 ML IV SCH ×3 (05:29→22:00)
[2021-09-26] MEDS: ACCU-CHEK COMFORT CURVE STRIP VI SCH ×3 (05:55→18:17)
[2021-09-26] MEDS: LACTULOSE 20Gm/30ML SOLN PO SCH ×3 (05:55→17:06)
[2021-09-26] MEDS: InsuLIN REG 1unit/0.01ml Soln (100units/ml) SC SCH ×3 (05:56→18:00)
[2021-09-26] MEDS: BUDESONIDE (INHALATION) 0.5 MG/2 ML NEB NEB SCH ×2 (07:02→22:03)
[2021-09-26] MEDS: ALBUTEROL SULF 2.5 MG/0.5ML(0.5%) NEB SOLN NEB SCH ×3 (07:02→22:03)
[2021-09-26] MEDS: NOREPINEPHRINE 8 MG/250ML KIT 250 ML IV SCH (07:45)
[2021-09-26] MEDS: ATRACURIUM BESYLATE 1,000 MG in D5W 5% 150 ML IV SCH (09:00)
[2021-09-26 09:21] LABS: Hematocrit 34.3 % (41.0-53.0); Hemoglobin 11.5 g/dL (13.5-17.5); Mean Corpuscular Hgb Conc. 33.4 g/dL (32.0-36.0); Mean Corpuscular Volume 83.7 fL (80.0-100.0); Red Cell Distribution Width 13.4 % (11.8-14.3); White Blood Cell 17.7 10^3/uL (4.4-10.8)
[2021-09-26 09:34] LABS: BUN/Creatinine Ratio 47.1; Calcium 8.1 mg/dL (8.5-10.1); Potassium 3.7 mmol/L (3.5-5.1)
[2021-09-26 09:53] LABS: Basophils % (manual) 0 (0.0-2.0); Blast Cells 0; Promyelocytes % 0; Reactive Lymphocytes 0
[2021-09-26] MEDS: ENOXAPARIN SOD 120 MG/0.8 ML SYRINGE SC SCH ×2 (10:00→22:00)
[2021-09-26] MEDS: FUROSEMIDE 20 MG/2 ML VIAL IV SCH (10:52)
[2021-09-26] MEDS: DexAMETHasone SOD PHOS 4 MG/1ML SDV INJ IV SCH ×2 (10:52→22:00)
[2021-09-26] MEDS: SODIUM CHLOR 0.9% PF (SALINE LOCK) 10ML VIAL/SYR IV SCH ×2 (10:52→22:00)
[2021-09-26] MEDS: ZINC SULFATE 220mg CAP or TAB PO SCH (10:52)
[2021-09-26] MEDS: PANTOPRAZOLE 40 MG/10 ML VIAL INJ IV SCH ×2 (10:52→22:00)
[2021-09-26] MEDS: CHOLECALCIFEROL (VITD3) 2,000 UNIT CAP/TAB PO SCH (10:53)
[2021-09-26] MEDS: ASCORBIC ACID 1,000 MG TAB PO SCH (10:53)
[2021-09-26 11:04] LABS: Band Neutrophils % (manual) 8; Eosinophils % (manual) 2 (0-7); Lymphocytes % (manual) 10 (10.0-50.0); Metamyelocytes % 1; Monocytes % (manual) 3 (0-12); Myelocytes % 3
[2021-09-26 13:27] LABS: Albumin 2.3 g/dL (3.4-5.0); Calcium 7.8 mg/dL (8.5-10.1); Potassium 3.7 mmol/L (3.5-5.1)
[2021-09-26 13:30] LABS: BUN/Creatinine Ratio 53.2; Bilirubin, Total 0.4 mg/dL (0.2-1.0); Total Protein 5.4 g/dL (6.4-8.2)
[2021-09-26] MEDS ORDERED: FUROSEMIDE 20 MG/2 ML VIAL IV ONE (15:00)
[2021-09-26] MEDS ORDERED: MAGNESIUM CITRATE SOLUTION 300 ML BTL PO ONE (15:00)
[2021-09-26] MEDS: TPN PER PHARMACY IV NR ×8 (19:48)
[2021-09-27] VITALS (101 sets, daily range): BP systolic 87–128; BP diastolic 51–82
[2021-09-27] MEDS: MIDAZOLAM DRIP 50 mg/50mL 50 ML IV SCH ×6 (00:47→22:44)
[2021-09-27] MEDS: PROPOFOL 100 ML IV SCH ×4 (01:23→19:54)
[2021-09-27] MEDS: PIPERACILLIN-TAZOB 3.375GM 100 ML IV SCH ×3 (05:59→21:25)
[2021-09-27] MEDS: InsuLIN REG 1unit/0.01ml Soln (100units/ml) SC SCH ×4 (05:59→17:50)
[2021-09-27] MEDS: LACTULOSE 20Gm/30ML SOLN PO SCH ×4 (05:59→17:50)
[2021-09-27] MEDS: ACCU-CHEK COMFORT CURVE STRIP VI SCH ×4 (06:00→17:50)
[2021-09-27] MEDS: fentaNYL Drip 2500mCg/250mlNS 250 ML IV SCH ×3 (06:12→22:46)
[2021-09-27] MEDS: ALBUTEROL SULF 2.5 MG/0.5ML(0.5%) NEB SOLN NEB SCH ×3 (06:50→22:31)
[2021-09-27] MEDS: BUDESONIDE (INHALATION) 0.5 MG/2 ML NEB NEB SCH ×2 (06:50→22:31)
[2021-09-27] MEDS: NOREPINEPHRINE 8 MG/250ML KIT 250 ML IV SCH (07:45)
[2021-09-27] MEDS: ATRACURIUM BESYLATE 1,000 MG in D5W 5% 150 ML IV SCH (09:00)
[2021-09-27 09:34] LABS: Hematocrit 33.1 % (41.0-53.0); Hemoglobin 11.7 g/dL (13.5-17.5); Mean Corpuscular Hemoglobin 30.2 pg (28.0-32.0); Mean Corpuscular Hgb Conc. 35.2 g/dL (32.0-36.0); Mean Corpuscular Volume 85.7 fL (80.0-100.0); Red Blood Cells 3.86 10^6/uL (4.5-5.90); Red Cell Distribution Width 13.7 % (11.8-14.3); White Blood Cell 17.9 10^3/uL (4.4-10.8)
[2021-09-27 09:39] LABS: Basophils % (manual) 0 (0.0-2.0); Blast Cells 0; Eosinophils % (manual) 0 (0-7); Promyelocytes % 0; Reactive Lymphocytes 0
[2021-09-27 09:46] LABS: Albumin 2.3 g/dL (3.4-5.0); Calcium 6.4 mg/dL (8.5-10.1); Potassium 3.1 mmol/L (3.5-5.1)
[2021-09-27 09:52] LABS: Bilirubin, Total 0.8 mg/dL (0.2-1.0); Phosphorus 2.4 mg/dL (2.5-4.90)
[2021-09-27] MEDS: PANTOPRAZOLE 40 MG/10 ML VIAL INJ IV SCH ×2 (09:52→21:26)
[2021-09-27] MEDS: ZINC SULFATE 220mg CAP or TAB PO SCH (09:52)
[2021-09-27] MEDS: CHOLECALCIFEROL (VITD3) 2,000 UNIT CAP/TAB PO SCH (09:52)
[2021-09-27] MEDS: ASCORBIC ACID 1,000 MG TAB PO SCH (09:52)
[2021-09-27] MEDS: DexAMETHasone SOD PHOS 4 MG/1ML SDV INJ IV SCH ×2 (09:52→21:26)
[2021-09-27] MEDS: SODIUM CHLOR 0.9% PF (SALINE LOCK) 10ML VIAL/SYR IV SCH ×2 (09:53→21:26)
[2021-09-27] MEDS: ENOXAPARIN SOD 120 MG/0.8 ML SYRINGE SC SCH ×2 (10:00→21:26)
[2021-09-27 10:05] LABS: Total Protein 5.3 g/dL (6.4-8.2)
[2021-09-27] MEDS ORDERED: CALCIUM GLUC 1,000mg/50ml-NS 50 ML IV ONE (10:30)
[2021-09-27 12:04] LABS: Band Neutrophils % (manual) 6; Lymphocytes % (manual) 10 (10.0-50.0); Metamyelocytes % 4; Monocytes % (manual) 7 (0-12); Myelocytes % 2
[2021-09-27] MEDS: POTASSIUM CHL 20MEQ/100ML 100 ML IV SCH ×2 (13:10→15:04)
[2021-09-27] MEDS: FUROSEMIDE 20 MG/2 ML VIAL IV SCH (13:22)
[2021-09-27] MEDS ORDERED: SODIUM PHOSPHATES 20 MEQ in SODIUM CHL 0.9% 100 ML IV ONE (15:00)
[2021-09-27] MEDS: TPN PER PHARMACY IV NR ×8 (19:02)
[2021-09-27] MEDS ORDERED: TPN PER PHARMACY IV NR ×9 (20:00)
[2021-09-28] VITALS (105 sets, daily range): BP systolic 101–137; BP diastolic 56–84
[2021-09-28] MEDS: ACCU-CHEK COMFORT CURVE STRIP VI SCH ×5 (00:11→23:35)
[2021-09-28] MEDS: LACTULOSE 20Gm/30ML SOLN PO SCH ×3 (00:11→12:00)
[2021-09-28] MEDS: PROPOFOL 100 ML IV SCH ×5 (00:26→21:07)
[2021-09-28 04:18] LABS: Hematocrit 34.3 % (41.0-53.0); Hemoglobin 11.6 g/dL (13.5-17.5); Mean Corpuscular Hemoglobin 28.2 pg (28.0-32.0); Mean Corpuscular Volume 83.1 fL (80.0-100.0); Red Blood Cells 4.13 10^6/uL (4.5-5.90); Red Cell Distribution Width 13.6 % (11.8-14.3); White Blood Cell 18.9 10^3/uL (4.4-10.8)
[2021-09-28 04:28] LABS: Basophils % (manual) 0 (0.0-2.0); Blast Cells 0; Eosinophils % (manual) 0 (0-7); Metamyelocytes % 0; Promyelocytes % 0; Reactive Lymphocytes 0
[2021-09-28 04:37] LABS: Calcium 7.4 mg/dL (8.5-10.1); Potassium 3.9 mmol/L (3.5-5.1)
[2021-09-28 04:43] LABS: Albumin 2.4 g/dL (3.4-5.0); Bilirubin, Total 0.5 mg/dL (0.2-1.0); Magnesium 3.2 mg/dL (1.6-2.6); Phosphorus 3.2 mg/dL (2.5-4.90); Total Protein 5.4 g/dL (6.4-8.2)
[2021-09-28] MEDS: MIDAZOLAM DRIP 50 mg/50mL 50 ML IV SCH ×3 (04:45→19:17)
[2021-09-28] MEDS: ARTIFICIAL TEARS 15ml EACHEYE PRN ×2 (04:46→05:36)
[2021-09-28 05:18] LABS: Band Neutrophils % (manual) 7; Lymphocytes % (manual) 6 (10.0-50.0); Monocytes % (manual) 4 (0-12); Myelocytes % 3
[2021-09-28] MEDS: PIPERACILLIN-TAZOB 3.375GM 100 ML IV SCH ×3 (05:34→22:04)
[2021-09-28] MEDS: ACETAMINOPHEN 650 mg PER 20.3 mL UD GT PRN (05:35)
[2021-09-28] MEDS: InsuLIN REG 1unit/0.01ml Soln (100units/ml) SC SCH ×5 (06:00→23:36)
[2021-09-28] MEDS: BUDESONIDE (INHALATION) 0.5 MG/2 ML NEB NEB SCH ×2 (06:18→22:22)
[2021-09-28] MEDS: ALBUTEROL SULF 2.5 MG/0.5ML(0.5%) NEB SOLN NEB SCH ×3 (06:18→22:22)
[2021-09-28] MEDS: fentaNYL Drip 2500mCg/250mlNS 250 ML IV SCH ×2 (06:20→21:38)
[2021-09-28] MEDS: NOREPINEPHRINE 8 MG/250ML KIT 250 ML IV SCH (07:45)
[2021-09-28] MEDS: ATRACURIUM BESYLATE 1,000 MG in D5W 5% 150 ML IV SCH (09:00)
[2021-09-28] MEDS: DexAMETHasone SOD PHOS 4 MG/1ML SDV INJ IV SCH ×2 (09:45→22:04)
[2021-09-28] MEDS: ZINC SULFATE 220mg CAP or TAB PO SCH (09:45)
[2021-09-28] MEDS: CHOLECALCIFEROL (VITD3) 2,000 UNIT CAP/TAB PO SCH (09:45)
[2021-09-28] MEDS: ASCORBIC ACID 1,000 MG TAB PO SCH (09:45)
[2021-09-28] MEDS: PANTOPRAZOLE 40 MG/10 ML VIAL INJ IV SCH ×2 (09:45→22:04)
[2021-09-28] MEDS: FUROSEMIDE 20 MG/2 ML VIAL IV SCH (09:46)
[2021-09-28] MEDS: SODIUM CHLOR 0.9% PF (SALINE LOCK) 10ML VIAL/SYR IV SCH ×2 (09:46→22:04)
[2021-09-28] MEDS: ENOXAPARIN SOD 120 MG/0.8 ML SYRINGE SC SCH ×2 (10:00→22:00)
[2021-09-28] MEDS ORDERED: TPN PER PHARMACY IV NR ×9 (20:00)
[2021-09-28 22:03] LABS: Urine WBC None Seen /hpf (0 - 3)
[2021-09-28 22:36] LABS: Urine Amorphous Crystal FEW /hpf (None Seen); Urine Bacteria NONE SEEN /hpf (None Seen); Urine Blood 3+ /uL (Negative); Urine Specific Gravity 1.038 (1.001-1.035)
[2021-09-29] VITALS (103 sets, daily range): BP systolic 91–124; BP diastolic 39–76
[2021-09-29] MEDS: ACETAMINOPHEN 650 mg PER 20.3 mL UD GT PRN (00:40)
[2021-09-29] MEDS: ARTIFICIAL TEARS 15ml EACHEYE PRN (00:40)
[2021-09-29] MEDS: PROPOFOL 100 ML IV SCH ×4 (01:40→21:43)
[2021-09-29] MEDS: MIDAZOLAM DRIP 50 mg/50mL 50 ML IV SCH ×2 (04:26→19:59)
[2021-09-29 04:39] LABS: Hematocrit 39.2 % (41.0-53.0); Hemoglobin 12.9 g/dL (13.5-17.5); Mean Corpuscular Hemoglobin 28.2 pg (28.0-32.0); Mean Corpuscular Hgb Conc. 33.1 g/dL (32.0-36.0); Mean Corpuscular Volume 85.4 fL (80.0-100.0); Red Blood Cells 4.58 10^6/uL (4.5-5.90); Red Cell Distribution Width 13.4 % (11.8-14.3); White Blood Cell 26.4 10^3/uL (4.4-10.8)
[2021-09-29 04:47] LABS: Albumin 2.3 g/dL (3.4-5.0); Calcium 7.2 mg/dL (8.5-10.1); Magnesium 2.9 mg/dL (1.6-2.6); Potassium 3.3 mmol/L (3.5-5.1)
[2021-09-29 04:48] LABS: Basophils % (manual) 0 (0.0-2.0); Blast Cells 0; Eosinophils % (manual) 0 (0-7); Metamyelocytes % 0; Promyelocytes % 0; Reactive Lymphocytes 0
[2021-09-29 04:50] LABS: Bilirubin, Total 0.6 mg/dL (0.2-1.0); Phosphorus 3.2 mg/dL (2.5-4.90); Total Protein 5.2 g/dL (6.4-8.2)
[2021-09-29] MEDS: InsuLIN REG 1unit/0.01ml Soln (100units/ml) SC SCH ×4 (06:00→23:24)
[2021-09-29] MEDS: PIPERACILLIN-TAZOB 3.375GM 100 ML IV SCH ×3 (06:02→22:04)
[2021-09-29] MEDS: ACCU-CHEK COMFORT CURVE STRIP VI SCH ×3 (06:03→23:21)
[2021-09-29] MEDS: fentaNYL Drip 2500mCg/250mlNS 250 ML IV SCH ×2 (06:05→20:01)
[2021-09-29 06:55] LABS: Band Neutrophils % (manual) 20; Lymphocytes % (manual) 4 (10.0-50.0); Monocytes % (manual) 5 (0-12); Myelocytes % 1
[2021-09-29] MEDS ORDERED: IOHEXOL 350 MG/ML 100ML IJ ONE (08:15)
[2021-09-29] MEDS: ATRACURIUM BESYLATE 1,000 MG in D5W 5% 150 ML IV SCH (08:30)
[2021-09-29] MEDS: NOREPINEPHRINE 8 MG/250ML KIT 250 ML IV SCH (08:30)
[2021-09-29] MEDS: BUDESONIDE (INHALATION) 0.5 MG/2 ML NEB NEB SCH ×2 (08:56→21:40)
[2021-09-29] MEDS: ALBUTEROL SULF 2.5 MG/0.5ML(0.5%) NEB SOLN NEB SCH ×3 (08:56→21:40)
[2021-09-29] MEDS: ENOXAPARIN SOD 120 MG/0.8 ML SYRINGE SC SCH (10:00)
[2021-09-29] MEDS: CHOLECALCIFEROL (VITD3) 2,000 UNIT CAP/TAB PO SCH (10:00)
[2021-09-29] MEDS: DexAMETHasone SOD PHOS 4 MG/1ML SDV INJ IV SCH ×2 (10:08→22:02)
[2021-09-29] MEDS: PANTOPRAZOLE 40 MG/10 ML VIAL INJ IV SCH ×2 (10:08→22:02)
[2021-09-29] MEDS: ASCORBIC ACID 1,000 MG TAB PO SCH (10:09)
[2021-09-29] MEDS: SODIUM CHLOR 0.9% PF (SALINE LOCK) 10ML VIAL/SYR IV SCH ×2 (10:09→22:03)
[2021-09-29] MEDS: FUROSEMIDE 20 MG/2 ML VIAL IV SCH (10:09)
[2021-09-29] MEDS: ZINC SULFATE 220mg CAP or TAB PO SCH (10:10)
[2021-09-29] MEDS: POTASSIUM CHL 20MEQ/100ML 100 ML IV SCH ×2 (11:55→14:00)
[2021-09-29] MEDS ORDERED: MEROPENEM 1GM IVPB 100 ML IV ONE (13:00)
[2021-09-29] MEDS ORDERED: TPN PER PHARMACY IV NR ×9 (20:00)
[2021-09-29] MEDS: MEROPENEM 1GM IVPB 100 ML IV SCH (22:02)
[2021-09-29] MEDS: ENOXAPARIN SOD 60 MG/0.6 ML SYRINGE SC SCH (22:02)
[2021-09-30] VITALS (100 sets, daily range): BP systolic 88–123; BP diastolic 41–70
[2021-09-30] MEDS: PROPOFOL 100 ML IV SCH ×6 (03:02→23:50)
[2021-09-30] MEDS: fentaNYL Drip 2500mCg/250mlNS 250 ML IV SCH ×3 (03:29→21:00)
[2021-09-30] MEDS: MEROPENEM 1GM IVPB 100 ML IV SCH ×3 (04:44→22:27)
[2021-09-30 04:47] LABS: Basophils # (auto) 0 10 ^3/uL (0-0.2); Basophils % (auto) 0.2 % (0.0-2.0); Eosinophils # (auto) 0 10 ^3/uL (0-0.8); Eosinophils % (auto) 0.2 % (0.0-7.0); Hematocrit 32.4 % (41.0-53.0); Hemoglobin 10.9 g/dL (13.5-17.5); Lymphocytes # (auto) 0.9 10 ^3/uL (0.4-5.4); Lymphocytes % (auto) 4.9 % (10.0-50.0); Mean Corpuscular Hemoglobin 27.8 pg (28.0-32.0); Mean Corpuscular Hgb Conc. 33.5 g/dL (32.0-36.0); Mean Corpuscular Volume 82.9 fL (80.0-100.0); Monocytes # (auto) 0.7 10 ^3/uL (0-1.3); Monocytes % (auto) 3.7 % (0.0-12.0); Neutrophils # (auto) 16.8 10 ^3/uL (1.6-8.6); Nucleated Red Blood Cells % 0.2 %; Red Blood Cells 3.91 10^6/uL (4.5-5.90); Red Cell Distribution Width 13.6 % (11.8-14.3); White Blood Cell 18.5 10^3/uL (4.4-10.8)
[2021-09-30 05:06] LABS: Potassium 3.6 mmol/L (3.5-5.1)
[2021-09-30 05:15] LABS: Albumin 2.2 g/dL (3.4-5.0); BUN/Creatinine Ratio 64.3; Bilirubin, Total 0.6 mg/dL (0.2-1.0); Calcium 7.2 mg/dL (8.5-10.1); Magnesium 2.8 mg/dL (1.6-2.6); Phosphorus 2.6 mg/dL (2.5-4.90)
[2021-09-30] MEDS: PIPERACILLIN-TAZOB 3.375GM 100 ML IV SCH (05:56)
[2021-09-30] MEDS: ACCU-CHEK COMFORT CURVE STRIP VI SCH ×2 (05:56→11:36)
[2021-09-30] MEDS: InsuLIN REG 1unit/0.01ml Soln (100units/ml) SC SCH ×2 (05:57→11:36)
[2021-09-30] MEDS: NOREPINEPHRINE 8 MG/250ML KIT 250 ML IV SCH (07:45)
[2021-09-30] MEDS: ATRACURIUM BESYLATE 1,000 MG in D5W 5% 150 ML IV SCH (09:00)
[2021-09-30] MEDS: ENOXAPARIN SOD 60 MG/0.6 ML SYRINGE SC SCH ×2 (09:06→22:27)
[2021-09-30] MEDS: CHOLECALCIFEROL (VITD3) 2,000 UNIT CAP/TAB PO SCH (09:06)
[2021-09-30] MEDS: DexAMETHasone SOD PHOS 4 MG/1ML SDV INJ IV SCH ×2 (09:06→22:27)
[2021-09-30] MEDS: FUROSEMIDE 20 MG/2 ML VIAL IV SCH (09:06)
[2021-09-30] MEDS: ASCORBIC ACID 1,000 MG TAB PO SCH (09:07)
[2021-09-30] MEDS: SODIUM CHLOR 0.9% PF (SALINE LOCK) 10ML VIAL/SYR IV SCH ×2 (09:07→22:27)
[2021-09-30] MEDS: PANTOPRAZOLE 40 MG/10 ML VIAL INJ IV SCH ×2 (09:07→22:27)
[2021-09-30] MEDS: MIDAZOLAM DRIP 50 mg/50mL 50 ML IV SCH ×3 (11:46→22:25)
[2021-09-30] MEDS: ALBUTEROL SULF 2.5 MG/0.5ML(0.5%) NEB SOLN NEB SCH ×3 (14:34→18:28)
[2021-09-30] MEDS: BUDESONIDE (INHALATION) 0.5 MG/2 ML NEB NEB SCH ×2 (14:35→18:28)
[2021-09-30] MEDS ORDERED: TPN PER PHARMACY IV NR ×9 (20:00)
[2021-10-01] VITALS (106 sets, daily range): BP systolic 90–125; BP diastolic 47–79
[2021-10-01] MEDS: fentaNYL Drip 2500mCg/250mlNS 250 ML IV SCH ×3 (03:17→20:30)
[2021-10-01 04:38] LABS: Basophils # (auto) 0.1 10 ^3/uL (0-0.2); Basophils % (auto) 0.6 % (0.0-2.0); Eosinophils # (auto) 0.1 10 ^3/uL (0-0.8); Eosinophils % (auto) 0.6 % (0.0-7.0); Hematocrit 31.9 % (41.0-53.0); Hemoglobin 10.6 g/dL (13.5-17.5); Lymphocytes # (auto) 0.9 10 ^3/uL (0.4-5.4); Lymphocytes % (auto) 7.1 % (10.0-50.0); Mean Corpuscular Hemoglobin 27.7 pg (28.0-32.0); Mean Corpuscular Hgb Conc. 33.3 g/dL (32.0-36.0); Mean Corpuscular Volume 83.3 fL (80.0-100.0); Monocytes # (auto) 0.6 10 ^3/uL (0-1.3); Monocytes % (auto) 4.5 % (0.0-12.0); Neutrophils # (auto) 11.4 10 ^3/uL (1.6-8.6); Neutrophils % (auto) 87.2 % (37.0-80.0); Nucleated Red Blood Cells % 0.1 %; Red Blood Cells 3.83 10^6/uL (4.5-5.90); Red Cell Distribution Width 13.3 % (11.8-14.3)
[2021-10-01 05:08] LABS: Albumin 2.3 g/dL (3.4-5.0); BUN/Creatinine Ratio 67.6; Calcium 7.3 mg/dL (8.5-10.1); Potassium 3.9 mmol/L (3.5-5.1)
[2021-10-01] MEDS: PROPOFOL 100 ML IV SCH ×4 (05:10→21:09)
[2021-10-01 05:11] LABS: Bilirubin, Total 0.6 mg/dL (0.2-1.0); Total Protein 4.9 g/dL (6.4-8.2)
[2021-10-01] MEDS: MEROPENEM 1GM IVPB 100 ML IV SCH ×3 (05:30→21:08)
[2021-10-01] MEDS: Jevity 1.2 Cal/Fiber 1 Liter GT SCH (06:35)
[2021-10-01] MEDS: BUDESONIDE (INHALATION) 0.5 MG/2 ML NEB NEB SCH ×2 (07:21→23:05)
[2021-10-01] MEDS: ALBUTEROL SULF 2.5 MG/0.5ML(0.5%) NEB SOLN NEB SCH ×3 (07:21→23:06)
[2021-10-01] MEDS: NOREPINEPHRINE 8 MG/250ML KIT 250 ML IV SCH (07:35)
[2021-10-01] MEDS: MIDAZOLAM DRIP 50 mg/50mL 50 ML IV SCH ×2 (07:51→15:44)
[2021-10-01] MEDS: ATRACURIUM BESYLATE 1,000 MG in D5W 5% 150 ML IV SCH (09:00)
[2021-10-01] MEDS: FUROSEMIDE 20 MG/2 ML VIAL IV SCH (09:04)
[2021-10-01] MEDS: CHOLECALCIFEROL (VITD3) 2,000 UNIT CAP/TAB PO SCH (09:04)
[2021-10-01] MEDS: ASCORBIC ACID 1,000 MG TAB PO SCH (09:04)
[2021-10-01] MEDS: DexAMETHasone SOD PHOS 4 MG/1ML SDV INJ IV SCH ×2 (09:04→22:00)
[2021-10-01] MEDS: PANTOPRAZOLE 40 MG/10 ML VIAL INJ IV SCH ×2 (09:05→21:08)
[2021-10-01] MEDS: SODIUM CHLOR 0.9% PF (SALINE LOCK) 10ML VIAL/SYR IV SCH ×2 (09:05→21:08)
[2021-10-01] MEDS: ENOXAPARIN SOD 60 MG/0.6 ML SYRINGE SC SCH ×2 (09:05→21:08)
[2021-10-02] VITALS (108 sets, daily range): BP systolic 82–119; BP diastolic 44–89
[2021-10-02] MEDS: MIDAZOLAM DRIP 50 mg/50mL 50 ML IV SCH ×4 (01:09→18:40)
[2021-10-02] MEDS: fentaNYL Drip 2500mCg/250mlNS 250 ML IV SCH ×3 (04:02→21:59)
[2021-10-02 05:03] LABS: Basophils # (auto) 0.1 10 ^3/uL (0-0.2); Basophils % (auto) 0.8 % (0.0-2.0); Eosinophils # (auto) 0 10 ^3/uL (0-0.8); Eosinophils % (auto) 0.3 % (0.0-7.0); Hematocrit 31.2 % (41.0-53.0); Hemoglobin 10.9 g/dL (13.5-17.5); Lymphocytes # (auto) 1.2 10 ^3/uL (0.4-5.4); Lymphocytes % (auto) 10.9 % (10.0-50.0); Mean Corpuscular Hemoglobin 28.9 pg (28.0-32.0); Mean Corpuscular Hgb Conc. 34.8 g/dL (32.0-36.0); Monocytes # (auto) 0.8 10 ^3/uL (0-1.3); Monocytes % (auto) 7.1 % (0.0-12.0); Neutrophils # (auto) 8.9 10 ^3/uL (1.6-8.6); Neutrophils % (auto) 80.9 % (37.0-80.0); Nucleated Red Blood Cells % 0.4 %; Red Blood Cells 3.76 10^6/uL (4.5-5.90); Red Cell Distribution Width 13.4 % (11.8-14.3)
[2021-10-02 05:26] LABS: Calcium 7.7 mg/dL (8.5-10.1); Potassium 3.5 mmol/L (3.5-5.1)
[2021-10-02 05:30] LABS: BUN/Creatinine Ratio 56.8
[2021-10-02] MEDS: MEROPENEM 1GM IVPB 100 ML IV SCH ×3 (05:32→22:00)
[2021-10-02] MEDS: PROPOFOL 100 ML IV SCH ×4 (05:33→16:18)
[2021-10-02] MEDS: BUDESONIDE (INHALATION) 0.5 MG/2 ML NEB NEB SCH ×2 (06:31→21:54)
[2021-10-02] MEDS: ALBUTEROL SULF 2.5 MG/0.5ML(0.5%) NEB SOLN NEB SCH ×3 (06:31→21:55)
[2021-10-02] MEDS: NOREPINEPHRINE 8 MG/250ML KIT 250 ML IV SCH (07:17)
[2021-10-02] MEDS: ASCORBIC ACID 1,000 MG TAB PO SCH (09:15)
[2021-10-02] MEDS: CHOLECALCIFEROL (VITD3) 2,000 UNIT CAP/TAB PO SCH (09:15)
[2021-10-02] MEDS: PANTOPRAZOLE 40 MG/10 ML VIAL INJ IV SCH ×2 (09:16→22:00)
[2021-10-02] MEDS: DexAMETHasone SOD PHOS 4 MG/1ML SDV INJ IV SCH ×2 (09:16→22:00)
[2021-10-02] MEDS: FUROSEMIDE 20 MG/2 ML VIAL IV SCH (09:16)
[2021-10-02] MEDS: ENOXAPARIN SOD 60 MG/0.6 ML SYRINGE SC SCH ×2 (09:16→22:01)
[2021-10-02] MEDS: SODIUM CHLOR 0.9% PF (SALINE LOCK) 10ML VIAL/SYR IV SCH ×2 (09:16→22:00)
[2021-10-03] VITALS (105 sets, daily range): BP systolic 84–119; BP diastolic 46–72
[2021-10-03] MEDS: MIDAZOLAM DRIP 50 mg/50mL 50 ML IV SCH ×6 (00:02→21:15)
[2021-10-03] MEDS: fentaNYL Drip 2500mCg/250mlNS 250 ML IV SCH ×3 (04:02→19:52)
[2021-10-03 05:53] LABS: Calcium 7.9 mg/dL (8.5-10.1); Potassium 3.8 mmol/L (3.5-5.1)
[2021-10-03 05:57] LABS: BUN/Creatinine Ratio 54.3
[2021-10-03 06:02] LABS: Basophils # (auto) 0.1 10 ^3/uL (0-0.2); Basophils % (auto) 0.4 % (0.0-2.0); Eosinophils # (auto) 0 10 ^3/uL (0-0.8); Eosinophils % (auto) 0.3 % (0.0-7.0); Hematocrit 33.3 % (41.0-53.0); Hemoglobin 11.1 g/dL (13.5-17.5); Lymphocytes # (auto) 1.5 10 ^3/uL (0.4-5.4); Lymphocytes % (auto) 11.6 % (10.0-50.0); Mean Corpuscular Hemoglobin 27.8 pg (28.0-32.0); Mean Corpuscular Hgb Conc. 33.2 g/dL (32.0-36.0); Mean Corpuscular Volume 83.5 fL (80.0-100.0); Monocytes # (auto) 0.9 10 ^3/uL (0-1.3); Monocytes % (auto) 6.8 % (0.0-12.0); Neutrophils # (auto) 10.8 10 ^3/uL (1.6-8.6); Neutrophils % (auto) 80.9 % (37.0-80.0); Nucleated Red Blood Cells % 0.6 %; Red Blood Cells 3.99 10^6/uL (4.5-5.90); Red Cell Distribution Width 13.7 % (11.8-14.3); White Blood Cell 13.3 10^3/uL (4.4-10.8)
[2021-10-03] MEDS: MEROPENEM 1GM IVPB 100 ML IV SCH ×3 (06:45→21:40)
[2021-10-03] MEDS: PROPOFOL 100 ML IV SCH ×6 (06:54→23:10)
[2021-10-03] MEDS: NOREPINEPHRINE 8 MG/250ML KIT 250 ML IV SCH (07:45)
[2021-10-03] MEDS: PANTOPRAZOLE 40 MG/10 ML VIAL INJ IV SCH ×2 (09:02→21:41)
[2021-10-03] MEDS: FUROSEMIDE 20 MG/2 ML VIAL IV SCH (09:02)
[2021-10-03] MEDS: CHOLECALCIFEROL (VITD3) 2,000 UNIT CAP/TAB PO SCH (09:03)
[2021-10-03] MEDS: SODIUM CHLOR 0.9% PF (SALINE LOCK) 10ML VIAL/SYR IV SCH ×2 (09:03→21:41)
[2021-10-03] MEDS: ASCORBIC ACID 1,000 MG TAB PO SCH (09:03)
[2021-10-03] MEDS: DexAMETHasone SOD PHOS 4 MG/1ML SDV INJ IV SCH ×2 (09:03→21:40)
[2021-10-03] MEDS: ENOXAPARIN SOD 60 MG/0.6 ML SYRINGE SC SCH ×2 (09:03→21:41)
[2021-10-03] MEDS: BUDESONIDE (INHALATION) 0.5 MG/2 ML NEB NEB SCH ×2 (15:51→18:40)
[2021-10-03] MEDS: ALBUTEROL SULF 2.5 MG/0.5ML(0.5%) NEB SOLN NEB SCH ×2 (15:51→18:40)
[2021-10-04] VITALS (108 sets, daily range): BP systolic 90–132; BP diastolic 50–85
[2021-10-04] MEDS: PROPOFOL 100 ML IV SCH ×9 (03:15→22:45)
[2021-10-04] MEDS: fentaNYL Drip 2500mCg/250mlNS 250 ML IV SCH ×3 (04:49→17:56)
[2021-10-04 05:07] LABS: Basophils # (auto) 0 10 ^3/uL (0-0.2); Basophils % (auto) 0.4 % (0.0-2.0); Eosinophils # (auto) 0.1 10 ^3/uL (0-0.8); Eosinophils % (auto) 0.7 % (0.0-7.0); Hematocrit 30.1 % (41.0-53.0); Hemoglobin 10.8 g/dL (13.5-17.5); Lymphocytes # (auto) 1.1 10 ^3/uL (0.4-5.4); Lymphocytes % (auto) 10.4 % (10.0-50.0); Mean Corpuscular Hemoglobin 30.7 pg (28.0-32.0); Mean Corpuscular Hgb Conc. 35.8 g/dL (32.0-36.0); Mean Corpuscular Volume 85.6 fL (80.0-100.0); Monocytes # (auto) 0.7 10 ^3/uL (0-1.3); Monocytes % (auto) 6.6 % (0.0-12.0); Neutrophils # (auto) 8.4 10 ^3/uL (1.6-8.6); Neutrophils % (auto) 81.9 % (37.0-80.0); Nucleated Red Blood Cells % 0.6 %; Red Blood Cells 3.52 10^6/uL (4.5-5.90); Red Cell Distribution Width 13.8 % (11.8-14.3); White Blood Cell 10.3 10^3/uL (4.4-10.8)
[2021-10-04] MEDS: MEROPENEM 1GM IVPB 100 ML IV SCH ×3 (05:39→22:00)
[2021-10-04] MEDS: MIDAZOLAM DRIP 50 mg/50mL 50 ML IV SCH ×6 (05:39→22:46)
[2021-10-04] MEDS: BUDESONIDE (INHALATION) 0.5 MG/2 ML NEB NEB SCH ×2 (06:30→22:23)
[2021-10-04] MEDS: ALBUTEROL SULF 2.5 MG/0.5ML(0.5%) NEB SOLN NEB SCH ×3 (06:30→22:23)
[2021-10-04] MEDS: NOREPINEPHRINE 8 MG/250ML KIT 250 ML IV SCH (07:45)
[2021-10-04] MEDS: PANTOPRAZOLE 40 MG/10 ML VIAL INJ IV SCH ×2 (09:07→22:00)
[2021-10-04] MEDS: SODIUM CHLOR 0.9% PF (SALINE LOCK) 10ML VIAL/SYR IV SCH ×2 (09:07→22:01)
[2021-10-04] MEDS: DexAMETHasone SOD PHOS 4 MG/1ML SDV INJ IV SCH ×2 (09:07→22:00)
[2021-10-04] MEDS: FUROSEMIDE 20 MG/2 ML VIAL IV SCH (09:07)
[2021-10-04] MEDS: ENOXAPARIN SOD 60 MG/0.6 ML SYRINGE SC SCH ×2 (09:08→22:00)
[2021-10-04] MEDS: ASCORBIC ACID 1,000 MG TAB PO SCH (09:08)
[2021-10-04] MEDS: CHOLECALCIFEROL (VITD3) 2,000 UNIT CAP/TAB PO SCH (09:08)
[2021-10-05] VITALS (104 sets, daily range): BP systolic 85–126; BP diastolic 41–78
[2021-10-05] MEDS: MIDAZOLAM DRIP 50 mg/50mL 50 ML IV SCH ×3 (01:46→22:02)
[2021-10-05] MEDS: PROPOFOL 100 ML IV SCH ×7 (01:46→22:02)
[2021-10-05] MEDS: fentaNYL Drip 2500mCg/250mlNS 250 ML IV SCH ×4 (01:56→23:33)
[2021-10-05] MEDS: MEROPENEM 1GM IVPB 100 ML IV SCH ×3 (05:13→21:59)
[2021-10-05] MEDS: ALBUTEROL SULF 2.5 MG/0.5ML(0.5%) NEB SOLN NEB SCH ×3 (06:20→22:21)
[2021-10-05] MEDS: BUDESONIDE (INHALATION) 0.5 MG/2 ML NEB NEB SCH ×2 (06:20→22:21)
[2021-10-05] MEDS: NOREPINEPHRINE 8 MG/250ML KIT 250 ML IV SCH (07:45)
[2021-10-05 08:14] LABS: Basophils # (auto) 0.1 10 ^3/uL (0-0.2); Basophils % (auto) 0.8 % (0.0-2.0); Eosinophils # (auto) 0.2 10 ^3/uL (0-0.8); Eosinophils % (auto) 1.9 % (0.0-7.0); Hematocrit 35.5 % (41.0-53.0); Hemoglobin 11.7 g/dL (13.5-17.5); Lymphocytes % (auto) 21.7 % (10.0-50.0); Mean Corpuscular Hemoglobin 28.3 pg (28.0-32.0); Mean Corpuscular Hgb Conc. 32.9 g/dL (32.0-36.0); Monocytes # (auto) 0.6 10 ^3/uL (0-1.3); Monocytes % (auto) 6.8 % (0.0-12.0); Neutrophils # (auto) 6.3 10 ^3/uL (1.6-8.6); Neutrophils % (auto) 68.8 % (37.0-80.0); Nucleated Red Blood Cells % 0.6 %; Red Blood Cells 4.13 10^6/uL (4.5-5.90); Red Cell Distribution Width 14.1 % (11.8-14.3); White Blood Cell 9.1 10^3/uL (4.4-10.8)
[2021-10-05 08:35] LABS: Albumin 2.7 g/dL (3.4-5.0); Potassium 3.4 mmol/L (3.5-5.1)
[2021-10-05 08:40] LABS: BUN/Creatinine Ratio 51.5; Bilirubin, Total 0.5 mg/dL (0.2-1.0); Total Protein 5.7 g/dL (6.4-8.2)
[2021-10-05] MEDS: DexAMETHasone SOD PHOS 4 MG/1ML SDV INJ IV SCH ×2 (09:39→21:59)
[2021-10-05] MEDS: SODIUM CHLOR 0.9% PF (SALINE LOCK) 10ML VIAL/SYR IV SCH ×2 (09:40→22:00)
[2021-10-05] MEDS: CHOLECALCIFEROL (VITD3) 2,000 UNIT CAP/TAB PO SCH (09:40)
[2021-10-05] MEDS: PANTOPRAZOLE 40 MG/10 ML VIAL INJ IV SCH ×2 (09:40→21:59)
[2021-10-05] MEDS: FUROSEMIDE 20 MG/2 ML VIAL IV SCH (09:40)
[2021-10-05] MEDS: ASCORBIC ACID 1,000 MG TAB PO SCH (09:40)
[2021-10-05] MEDS: ENOXAPARIN SOD 60 MG/0.6 ML SYRINGE SC SCH ×2 (09:40→21:59)
[2021-10-05] MEDS: POTASSIUM CHL 20MEQ/100ML 100 ML IV SCH ×2 (10:53→12:32)
[2021-10-06] VITALS (101 sets, daily range): BP systolic 91–119; BP diastolic 53–80
[2021-10-06] MEDS: PROPOFOL 100 ML IV SCH ×6 (02:47→22:41)
[2021-10-06] MEDS: MIDAZOLAM DRIP 50 mg/50mL 50 ML IV SCH ×5 (02:48→22:40)
[2021-10-06 03:05] LABS: Calcium 8.1 mg/dL (8.5-10.1)
[2021-10-06 03:07] LABS: BUN/Creatinine Ratio 46.3
[2021-10-06] MEDS: MEROPENEM 1GM IVPB 100 ML IV SCH ×3 (06:00→22:06)
[2021-10-06] MEDS: BUDESONIDE (INHALATION) 0.5 MG/2 ML NEB NEB SCH ×2 (06:15→20:20)
[2021-10-06] MEDS: ALBUTEROL SULF 2.5 MG/0.5ML(0.5%) NEB SOLN NEB SCH ×3 (06:15→20:20)
[2021-10-06] MEDS: fentaNYL Drip 2500mCg/250mlNS 250 ML IV SCH ×3 (07:23→22:44)
[2021-10-06] MEDS: NOREPINEPHRINE 8 MG/250ML KIT 250 ML IV SCH (07:45)
[2021-10-06] MEDS: DexAMETHasone SOD PHOS 4 MG/1ML SDV INJ IV SCH ×2 (09:23→22:05)
[2021-10-06] MEDS: PANTOPRAZOLE 40 MG/10 ML VIAL INJ IV SCH ×2 (09:24→22:06)
[2021-10-06] MEDS: FUROSEMIDE 20 MG/2 ML VIAL IV SCH (09:24)
[2021-10-06] MEDS: SODIUM CHLOR 0.9% PF (SALINE LOCK) 10ML VIAL/SYR IV SCH ×2 (09:24→22:06)
[2021-10-06] MEDS: CHOLECALCIFEROL (VITD3) 2,000 UNIT CAP/TAB PO SCH (09:25)
[2021-10-06] MEDS: ASCORBIC ACID 1,000 MG TAB PO SCH (09:25)
[2021-10-06] MEDS: ENOXAPARIN SOD 60 MG/0.6 ML SYRINGE SC SCH ×2 (09:25→22:06)
[2021-10-06 12:53] LABS: Basophils # (auto) 0.1 10 ^3/uL (0-0.2); Basophils % (auto) 0.5 % (0.0-2.0); Eosinophils # (auto) 0.1 10 ^3/uL (0-0.8); Eosinophils % (auto) 0.6 % (0.0-7.0); Hematocrit 36.1 % (41.0-53.0); Hemoglobin 11.5 g/dL (13.5-17.5); Lymphocytes # (auto) 0.9 10 ^3/uL (0.4-5.4); Lymphocytes % (auto) 7.7 % (10.0-50.0); Mean Corpuscular Hgb Conc. 31.8 g/dL (32.0-36.0); Mean Corpuscular Volume 87.9 fL (80.0-100.0); Monocytes # (auto) 0.7 10 ^3/uL (0-1.3); Monocytes % (auto) 5.5 % (0.0-12.0); Neutrophils # (auto) 10.5 10 ^3/uL (1.6-8.6); Neutrophils % (auto) 85.7 % (37.0-80.0); Nucleated Red Blood Cells % 0.1 %; Red Blood Cells 4.11 10^6/uL (4.5-5.90); Red Cell Distribution Width 14.6 % (11.8-14.3); White Blood Cell 12.3 10^3/uL (4.4-10.8)
[2021-10-07] VITALS (99 sets, daily range): BP systolic 89–124; BP diastolic 48–74
[2021-10-07] MEDS: MIDAZOLAM DRIP 50 mg/50mL 50 ML IV SCH ×6 (02:10→22:54)
[2021-10-07] MEDS: PROPOFOL 100 ML IV SCH ×6 (02:10→22:55)
[2021-10-07 04:03] LABS: Basophils # (auto) 0 10 ^3/uL (0-0.2); Basophils % (auto) 0.4 % (0.0-2.0); Eosinophils # (auto) 0.1 10 ^3/uL (0-0.8); Eosinophils % (auto) 0.6 % (0.0-7.0); Hematocrit 29.9 % (41.0-53.0); Hemoglobin 10.8 g/dL (13.5-17.5); Lymphocytes # (auto) 0.6 10 ^3/uL (0.4-5.4); Mean Corpuscular Hemoglobin 31.5 pg (28.0-32.0); Mean Corpuscular Hgb Conc. 36.1 g/dL (32.0-36.0); Mean Corpuscular Volume 87.2 fL (80.0-100.0); Monocytes # (auto) 0.5 10 ^3/uL (0-1.3); Neutrophils # (auto) 8.6 10 ^3/uL (1.6-8.6); Nucleated Red Blood Cells % 0.1 %; Red Blood Cells 3.43 10^6/uL (4.5-5.90); Red Cell Distribution Width 15.3 % (11.8-14.3); White Blood Cell 9.8 10^3/uL (4.4-10.8)
[2021-10-07 04:18] LABS: Calcium 6.1 mg/dL (8.5-10.1); Potassium 3.8 mmol/L (3.5-5.1)
[2021-10-07 04:57] LABS: BUN/Creatinine Ratio 58.8
[2021-10-07] MEDS: MEROPENEM 1GM IVPB 100 ML IV SCH ×3 (05:20→22:26)
[2021-10-07] MEDS: Jevity 1.2 Cal/Fiber 1 Liter GT SCH (05:38)
[2021-10-07] MEDS: ALBUTEROL SULF 2.5 MG/0.5ML(0.5%) NEB SOLN NEB SCH ×3 (06:00→22:14)
[2021-10-07] MEDS: NOREPINEPHRINE 8 MG/250ML KIT 250 ML IV SCH (07:45)
[2021-10-07] MEDS: BUDESONIDE (INHALATION) 0.5 MG/2 ML NEB NEB SCH ×2 (10:00→22:14)
[2021-10-07] MEDS: DexAMETHasone SOD PHOS 4 MG/1ML SDV INJ IV SCH ×2 (10:28→22:26)
[2021-10-07] MEDS: ASCORBIC ACID 1,000 MG TAB PO SCH (10:29)
[2021-10-07] MEDS: CHOLECALCIFEROL (VITD3) 2,000 UNIT CAP/TAB PO SCH (10:29)
[2021-10-07] MEDS: FUROSEMIDE 20 MG/2 ML VIAL IV SCH (10:29)
[2021-10-07] MEDS: PANTOPRAZOLE 40 MG/10 ML VIAL INJ IV SCH ×2 (10:29→22:26)
[2021-10-07] MEDS: SODIUM CHLOR 0.9% PF (SALINE LOCK) 10ML VIAL/SYR IV SCH ×2 (10:29→22:28)
[2021-10-07] MEDS: ENOXAPARIN SOD 60 MG/0.6 ML SYRINGE SC SCH ×2 (10:30→22:28)
[2021-10-07] MEDS: fentaNYL Drip 2500mCg/250mlNS 250 ML IV SCH (10:32)
[2021-10-07] MEDS: ATRACURIUM BESYLATE 1,000 MG in D5W 5% 150 ML IV SCH (16:00)
[2021-10-07] MEDS: LACTULOSE 20Gm/30ML SOLN PO SCH ×2 (17:49→18:08)
[2021-10-07] MEDS: MORPHINE SULFATE INJECTION 2 MG/ML SYRG IV PRN (18:00)
[2021-10-07] MEDS: ACETAMINOPHEN 650 mg PER 20.3 mL UD GT PRN (23:34)
[2021-10-08] VITALS (105 sets, daily range): BP systolic 90–132; BP diastolic 44–80
[2021-10-08] MEDS: fentaNYL Drip 2500mCg/250mlNS 250 ML IV SCH ×3 (01:20→18:47)
[2021-10-08] MEDS: PROPOFOL 100 ML IV SCH ×6 (01:51→21:49)
[2021-10-08 03:57] LABS: Hematocrit 29.9 % (41.0-53.0); Hemoglobin 10.9 g/dL (13.5-17.5); Mean Corpuscular Hemoglobin 31.4 pg (28.0-32.0); Mean Corpuscular Hgb Conc. 36.4 g/dL (32.0-36.0); Mean Corpuscular Volume 86.3 fL (80.0-100.0); Red Blood Cells 3.46 10^6/uL (4.5-5.90); Red Cell Distribution Width 15.4 % (11.8-14.3); White Blood Cell 9.7 10^3/uL (4.4-10.8)
[2021-10-08 04:21] LABS: Basophils % (manual) 0 (0.0-2.0); Blast Cells 0; Metamyelocytes % 0; Promyelocytes % 0; Reactive Lymphocytes 0
[2021-10-08 04:26] LABS: Potassium 3.1 mmol/L (3.5-5.1)
[2021-10-08] MEDS: MIDAZOLAM DRIP 50 mg/50mL 50 ML IV SCH ×4 (04:26→22:46)
[2021-10-08 04:50] LABS: Calcium 5.8 mg/dL (8.5-10.1)
[2021-10-08] MEDS: LACTULOSE 20Gm/30ML SOLN PO SCH ×4 (06:22→17:33)
[2021-10-08 06:23] LABS: Band Neutrophils % (manual) 29; Eosinophils % (manual) 1 (0-7); Lymphocytes % (manual) 7 (10.0-50.0); Monocytes % (manual) 4 (0-12); Myelocytes % 3
[2021-10-08] MEDS: MEROPENEM 1GM IVPB 100 ML IV SCH ×3 (07:39→21:49)
[2021-10-08] MEDS: NOREPINEPHRINE 8 MG/250ML KIT 250 ML IV SCH (07:39)
[2021-10-08] MEDS: DexAMETHasone SOD PHOS 4 MG/1ML SDV INJ IV SCH (09:28)
[2021-10-08] MEDS: FUROSEMIDE 20 MG/2 ML VIAL IV SCH (09:30)
[2021-10-08] MEDS: PANTOPRAZOLE 40 MG/10 ML VIAL INJ IV SCH ×2 (09:31→21:49)
[2021-10-08] MEDS: SODIUM CHLOR 0.9% PF (SALINE LOCK) 10ML VIAL/SYR IV SCH ×2 (09:31→21:50)
[2021-10-08] MEDS: ASCORBIC ACID 1,000 MG TAB PO SCH (09:31)
[2021-10-08] MEDS: CHOLECALCIFEROL (VITD3) 2,000 UNIT CAP/TAB PO SCH (09:32)
[2021-10-08] MEDS: ENOXAPARIN SOD 60 MG/0.6 ML SYRINGE SC SCH ×2 (09:32→21:50)
[2021-10-08] MEDS: ALBUTEROL SULF 2.5 MG/0.5ML(0.5%) NEB SOLN NEB SCH ×2 (09:44→19:25)
[2021-10-08] MEDS: BUDESONIDE (INHALATION) 0.5 MG/2 ML NEB NEB SCH ×2 (09:44→19:26)
[2021-10-08 10:07] LABS: BUN/Creatinine Ratio 47.8
[2021-10-08] MEDS ORDERED: POTASSIUM EFFERVESENT TAB 25 MEQ GT ONE (10:30)
[2021-10-08] MEDS: MORPHINE SULFATE INJECTION 2 MG/ML SYRG IV PRN (12:27)
[2021-10-08] MEDS ORDERED: CALCIUM GLUC 1,000mg/50ml-NS 50 ML IV ONE (14:30)
[2021-10-08] MEDS ORDERED: MORPHINE SULFATE INJECTION 2 MG/ML SYRG IV ONE (15:00)
[2021-10-08] MEDS ORDERED: SODIUM CHLORIDE 0.9% 250 ML IV ONE (15:00)
[2021-10-08] MEDS: ATRACURIUM BESYLATE 1,000 MG in D5W 5% 150 ML IV SCH (15:58)
[2021-10-09] VITALS (102 sets, daily range): BP systolic 74–114; BP diastolic 41–69
[2021-10-09] MEDS: PROPOFOL 100 ML IV SCH ×6 (00:27→22:50)
[2021-10-09] MEDS: fentaNYL Drip 2500mCg/250mlNS 250 ML IV SCH ×2 (02:04→18:56)
[2021-10-09] MEDS: MIDAZOLAM DRIP 50 mg/50mL 50 ML IV SCH ×5 (02:39→19:54)
[2021-10-09] MEDS: MORPHINE SULFATE INJECTION 2 MG/ML SYRG IV PRN (02:57)
[2021-10-09 04:37] LABS: Basophils # (auto) 0.1 10 ^3/uL (0-0.2); Eosinophils # (auto) 0.7 10 ^3/uL (0-0.8)
[2021-10-09 04:39] LABS: Basophils % (auto) 0.7 % (0.0-2.0); Hemoglobin 11.3 g/dL (13.5-17.5); Lymphocytes # (auto) 1.1 10 ^3/uL (0.4-5.4); Lymphocytes % (auto) 9.6 % (10.0-50.0); Mean Corpuscular Hemoglobin 31.4 pg (28.0-32.0); Mean Corpuscular Hgb Conc. 36.4 g/dL (32.0-36.0); Mean Corpuscular Volume 86.4 fL (80.0-100.0); Monocytes # (auto) 0.5 10 ^3/uL (0-1.3); Monocytes % (auto) 4.4 % (0.0-12.0); Neutrophils # (auto) 8.8 10 ^3/uL (1.6-8.6); Neutrophils % (auto) 79.3 % (37.0-80.0); Nucleated Red Blood Cells % 0.1 %; Red Blood Cells 3.59 10^6/uL (4.5-5.90); Red Cell Distribution Width 16.2 % (11.8-14.3); White Blood Cell 11.2 10^3/uL (4.4-10.8)
[2021-10-09 05:03] LABS: Albumin 1.7 g/dL (3.4-5.0); Calcium 6.1 mg/dL (8.5-10.1)
[2021-10-09 05:12] LABS: Bilirubin, Total 1.3 mg/dL (0.2-1.0)
[2021-10-09] MEDS: MEROPENEM 1GM IVPB 100 ML IV SCH ×3 (06:10→21:00)
[2021-10-09] MEDS: LACTULOSE 20Gm/30ML SOLN PO SCH ×5 (06:11→23:20)
[2021-10-09] MEDS: ALBUTEROL SULF 2.5 MG/0.5ML(0.5%) NEB SOLN NEB SCH ×3 (07:03→22:24)
[2021-10-09] MEDS: BUDESONIDE (INHALATION) 0.5 MG/2 ML NEB NEB SCH ×2 (07:03→22:24)
[2021-10-09] MEDS: NOREPINEPHRINE 8 MG/250ML KIT 250 ML IV SCH (07:40)
[2021-10-09] MEDS: DexAMETHasone SOD PHOS 4 MG/1ML SDV INJ IV SCH (08:31)
[2021-10-09] MEDS: FUROSEMIDE 20 MG/2 ML VIAL IV SCH (08:31)
[2021-10-09] MEDS: ASCORBIC ACID 1,000 MG TAB PO SCH (08:32)
[2021-10-09] MEDS: ENOXAPARIN SOD 60 MG/0.6 ML SYRINGE SC SCH ×2 (08:32→21:00)
[2021-10-09] MEDS: SODIUM CHLOR 0.9% PF (SALINE LOCK) 10ML VIAL/SYR IV SCH ×2 (08:32→21:01)
[2021-10-09] MEDS: PANTOPRAZOLE 40 MG/10 ML VIAL INJ IV SCH ×2 (08:32→21:01)
[2021-10-09] MEDS: CHOLECALCIFEROL (VITD3) 2,000 UNIT CAP/TAB PO SCH (08:32)
[2021-10-09 08:33] LABS: Total Protein 4.1 g/dL (6.4-8.2)
[2021-10-09] MEDS: ATRACURIUM BESYLATE 1,000 MG in D5W 5% 150 ML IV SCH (14:45)
[2021-10-09] MEDS: POTASSIUM CHL 20MEQ/100ML 100 ML IV SCH ×2 (15:34→19:17)
[2021-10-09] MEDS ORDERED: FUROSEMIDE 20 MG/2 ML VIAL IV ONE (20:00)
[2021-10-09] MEDS ORDERED: POTASSIUM CHL 20MEQ/100ML 100 ML IV SCH (20:00)
[2021-10-09] MEDS: ROCURONIUM 10MG/ML 10ML VIAL IV SCH (23:21)
[2021-10-10] VITALS (107 sets, daily range): BP systolic 90–169; BP diastolic 45–90
[2021-10-10] MEDS: MIDAZOLAM DRIP 50 mg/50mL 50 ML IV SCH ×4 (00:20→22:00)
[2021-10-10] MEDS: PROPOFOL 100 ML IV SCH ×5 (00:50→20:00)
[2021-10-10] MEDS: fentaNYL Drip 2500mCg/250mlNS 250 ML IV SCH ×3 (01:22→16:21)
[2021-10-10] MEDS: ATRACURIUM BESYLATE 1,000 MG in D5W 5% 150 ML IV SCH (01:31)
[2021-10-10] MEDS: ROCURONIUM 10MG/ML 10ML VIAL IV SCH ×3 (06:00→18:00)
[2021-10-10] MEDS: LACTULOSE 20Gm/30ML SOLN PO SCH ×3 (06:00→18:00)
[2021-10-10] MEDS: ALBUTEROL SULF 2.5 MG/0.5ML(0.5%) NEB SOLN NEB SCH ×3 (06:40→22:12)
[2021-10-10] MEDS: BUDESONIDE (INHALATION) 0.5 MG/2 ML NEB NEB SCH ×2 (06:40→22:12)
[2021-10-10] MEDS: MEROPENEM 1GM IVPB 100 ML IV SCH ×3 (07:19→22:00)
[2021-10-10] MEDS: FUROSEMIDE 20 MG/2 ML VIAL IV SCH (07:21)
[2021-10-10] MEDS: NOREPINEPHRINE 8 MG/250ML KIT 250 ML IV SCH (07:45)
[2021-10-10 09:40] LABS: Albumin 1.4 g/dL (3.4-5.0); Potassium 3.1 mmol/L (3.5-5.1)
[2021-10-10 09:44] LABS: BUN/Creatinine Ratio 38.5; Bilirubin, Total 0.6 mg/dL (0.2-1.0); Total Protein 3.7 g/dL (6.4-8.2)
[2021-10-10] MEDS: SODIUM CHLOR 0.9% PF (SALINE LOCK) 10ML VIAL/SYR IV SCH ×2 (10:02→22:00)
[2021-10-10] MEDS: DexAMETHasone SOD PHOS 4 MG/1ML SDV INJ IV SCH (10:02)
[2021-10-10] MEDS: PANTOPRAZOLE 40 MG/10 ML VIAL INJ IV SCH ×2 (10:02→22:00)
[2021-10-10] MEDS: ASCORBIC ACID 1,000 MG TAB PO SCH (10:02)
[2021-10-10] MEDS: CHOLECALCIFEROL (VITD3) 2,000 UNIT CAP/TAB PO SCH (10:02)
[2021-10-10] MEDS: ENOXAPARIN SOD 60 MG/0.6 ML SYRINGE SC SCH ×2 (10:03→22:00)
[2021-10-10 10:10] LABS: Calcium 5.8 mg/dL (8.5-10.1)
[2021-10-10] MEDS ORDERED: CALCIUM GLUC 1,000mg/50ml-NS 50 ML IV ONE ×2 (10:24→10:30)
[2021-10-10] MEDS: POTASSIUM CHL 20MEQ/100ML 100 ML IV SCH ×2 (10:50→13:50)
[2021-10-10 12:02] LABS: Basophils # (auto) 0.1 10 ^3/uL (0-0.2); Basophils % (auto) 0.6 % (0.0-2.0); Eosinophils # (auto) 0.1 10 ^3/uL (0-0.8); Eosinophils % (auto) 0.9 % (0.0-7.0); Hematocrit 26.5 % (41.0-53.0); Hemoglobin 9.7 g/dL (13.5-17.5); Lymphocytes # (auto) 0.7 10 ^3/uL (0.4-5.4); Lymphocytes % (auto) 7.5 % (10.0-50.0); Mean Corpuscular Hemoglobin 32.9 pg (28.0-32.0); Mean Corpuscular Volume 89.4 fL (80.0-100.0); Monocytes # (auto) 0.7 10 ^3/uL (0-1.3); Monocytes % (auto) 7.2 % (0.0-12.0); Neutrophils # (auto) 8.3 10 ^3/uL (1.6-8.6); Neutrophils % (auto) 83.8 % (37.0-80.0); Nucleated Red Blood Cells % 0.5 %; Red Blood Cells 2.96 10^6/uL (4.5-5.90); Red Cell Distribution Width 16.5 % (11.8-14.3); White Blood Cell 9.9 10^3/uL (4.4-10.8)
[2021-10-10 12:03] LABS: Mean Corpuscular Hgb Conc. 36.8 g/dL (32.0-36.0)
[2021-10-10] MEDS ORDERED: SOD CHL 0.9%/ KCL 40MEQ 1,000 ML IV ONE (12:30)
[2021-10-10] MEDS ORDERED: MAGNESIUM SULFATE 1GM/100ML 100 ML IV ONE (12:45)
[2021-10-10] MEDS: LINEZOLID 600MG/300ML 300 ML IV SCH (16:47)
[2021-10-11] VITALS (100 sets, daily range): BP systolic 88–124; BP diastolic 48–72
[2021-10-11] MEDS: MIDAZOLAM DRIP 50 mg/50mL 50 ML IV SCH ×4 (01:30→18:04)
[2021-10-11] MEDS: LINEZOLID 600MG/300ML 300 ML IV SCH ×2 (03:38→16:06)
[2021-10-11 04:32] LABS: Basophils # (auto) 0 10 ^3/uL (0-0.2); Basophils % (auto) 0.2 % (0.0-2.0); Eosinophils # (auto) 0 10 ^3/uL (0-0.8); Eosinophils % (auto) 0.4 % (0.0-7.0); Hematocrit 27.8 % (41.0-53.0); Hemoglobin 9.4 g/dL (13.5-17.5); Lymphocytes # (auto) 0.7 10 ^3/uL (0.4-5.4); Lymphocytes % (auto) 7.5 % (10.0-50.0); Mean Corpuscular Hgb Conc. 33.8 g/dL (32.0-36.0); Mean Corpuscular Volume 85.8 fL (80.0-100.0); Monocytes # (auto) 0.9 10 ^3/uL (0-1.3); Monocytes % (auto) 9.4 % (0.0-12.0); Neutrophils # (auto) 7.6 10 ^3/uL (1.6-8.6); Neutrophils % (auto) 82.5 % (37.0-80.0); Nucleated Red Blood Cells % 0.2 %; Red Blood Cells 3.25 10^6/uL (4.5-5.90); Red Cell Distribution Width 15.6 % (11.8-14.3); White Blood Cell 9.3 10^3/uL (4.4-10.8)
[2021-10-11] MEDS: PROPOFOL 100 ML IV SCH ×7 (04:44→22:58)
[2021-10-11 04:45] LABS: Potassium 5.1 mmol/L (3.5-5.1)
[2021-10-11 04:49] LABS: Albumin 1.7 g/dL (3.4-5.0); BUN/Creatinine Ratio 58.3; Calcium 7.6 mg/dL (8.5-10.1); Magnesium 2.3 mg/dL (1.6-2.6)
[2021-10-11 04:52] LABS: Bilirubin, Total 0.4 mg/dL (0.2-1.0); Phosphorus 2.9 mg/dL (2.5-4.90); Total Protein 4.6 g/dL (6.4-8.2)
[2021-10-11] MEDS: LACTULOSE 20Gm/30ML SOLN PO SCH ×5 (06:00→23:26)
[2021-10-11] MEDS: MEROPENEM 1GM IVPB 100 ML IV SCH ×3 (06:00→22:11)
[2021-10-11] MEDS: ROCURONIUM 10MG/ML 10ML VIAL IV SCH ×5 (06:00→23:26)
[2021-10-11] MEDS: NOREPINEPHRINE 8 MG/250ML KIT 250 ML IV SCH (07:45)
[2021-10-11] MEDS: BUDESONIDE (INHALATION) 0.5 MG/2 ML NEB NEB SCH ×2 (09:36→22:27)
[2021-10-11] MEDS: ALBUTEROL SULF 2.5 MG/0.5ML(0.5%) NEB SOLN NEB SCH ×3 (09:36→22:27)
[2021-10-11] MEDS: FUROSEMIDE 20 MG/2 ML VIAL IV SCH (09:56)
[2021-10-11] MEDS: DexAMETHasone SOD PHOS 4 MG/1ML SDV INJ IV SCH (09:56)
[2021-10-11] MEDS: ASCORBIC ACID 1,000 MG TAB PO SCH (09:57)
[2021-10-11] MEDS: ENOXAPARIN SOD 60 MG/0.6 ML SYRINGE SC SCH ×2 (09:57→22:37)
[2021-10-11] MEDS: CHOLECALCIFEROL (VITD3) 2,000 UNIT CAP/TAB PO SCH (09:57)
[2021-10-11] MEDS: PANTOPRAZOLE 40 MG/10 ML VIAL INJ IV SCH ×2 (09:57→22:37)
[2021-10-11] MEDS: SODIUM CHLOR 0.9% PF (SALINE LOCK) 10ML VIAL/SYR IV SCH ×2 (09:57→22:09)
[2021-10-11] MEDS: fentaNYL Drip 2500mCg/250mlNS 250 ML IV SCH ×2 (14:30→20:30)
[2021-10-11] MEDS: ATRACURIUM BESYLATE 1,000 MG in D5W 5% 150 ML IV SCH (16:00)
[2021-10-12] VITALS (99 sets, daily range): BP systolic 90–129; BP diastolic 45–80
[2021-10-12] MEDS: PROPOFOL 100 ML IV SCH ×6 (01:35→23:01)
[2021-10-12] MEDS: LINEZOLID 600MG/300ML 300 ML IV SCH ×2 (04:46→16:05)
[2021-10-12 05:28] LABS: Basophils # (auto) 0 10 ^3/uL (0-0.2); Basophils % (auto) 0.4 % (0.0-2.0); Eosinophils # (auto) 0.1 10 ^3/uL (0-0.8); Eosinophils % (auto) 1.5 % (0.0-7.0); Hematocrit 29.6 % (41.0-53.0); Hemoglobin 9.8 g/dL (13.5-17.5); Lymphocytes # (auto) 1.4 10 ^3/uL (0.4-5.4); Lymphocytes % (auto) 14.7 % (10.0-50.0); Mean Corpuscular Hemoglobin 28.5 pg (28.0-32.0); Mean Corpuscular Hgb Conc. 33.1 g/dL (32.0-36.0); Mean Corpuscular Volume 86.4 fL (80.0-100.0); Monocytes # (auto) 1.2 10 ^3/uL (0-1.3); Monocytes % (auto) 12.5 % (0.0-12.0); Neutrophils % (auto) 70.9 % (37.0-80.0); Nucleated Red Blood Cells % 0.6 %; Red Blood Cells 3.43 10^6/uL (4.5-5.90); Red Cell Distribution Width 15.7 % (11.8-14.3); White Blood Cell 9.8 10^3/uL (4.4-10.8)
[2021-10-12] MEDS: MIDAZOLAM DRIP 50 mg/50mL 50 ML IV SCH ×5 (05:30→22:39)
[2021-10-12 05:47] LABS: Calcium 7.7 mg/dL (8.5-10.1)
[2021-10-12] MEDS: ROCURONIUM 10MG/ML 10ML VIAL IV SCH ×4 (06:00→23:56)
[2021-10-12] MEDS: LACTULOSE 20Gm/30ML SOLN PO SCH ×4 (06:00→23:56)
[2021-10-12] MEDS: ALBUTEROL SULF 2.5 MG/0.5ML(0.5%) NEB SOLN NEB SCH ×3 (06:28→22:40)
[2021-10-12] MEDS: BUDESONIDE (INHALATION) 0.5 MG/2 ML NEB NEB SCH ×2 (06:28→22:40)
[2021-10-12] MEDS: fentaNYL Drip 2500mCg/250mlNS 250 ML IV SCH ×3 (06:33→22:20)
[2021-10-12] MEDS: MEROPENEM 1GM IVPB 100 ML IV SCH ×3 (06:33→22:12)
[2021-10-12] MEDS: NOREPINEPHRINE 8 MG/250ML KIT 250 ML IV SCH (07:45)
[2021-10-12] MEDS: FUROSEMIDE 20 MG/2 ML VIAL IV SCH (09:23)
[2021-10-12] MEDS: DexAMETHasone SOD PHOS 4 MG/1ML SDV INJ IV SCH (09:23)
[2021-10-12] MEDS: PANTOPRAZOLE 40 MG/10 ML VIAL INJ IV SCH ×2 (09:23→22:17)
[2021-10-12] MEDS: ASCORBIC ACID 1,000 MG TAB PO SCH (09:24)
[2021-10-12] MEDS: SODIUM CHLOR 0.9% PF (SALINE LOCK) 10ML VIAL/SYR IV SCH ×2 (09:24→22:19)
[2021-10-12] MEDS: ENOXAPARIN SOD 60 MG/0.6 ML SYRINGE SC SCH ×2 (09:24→22:19)
[2021-10-12] MEDS: CHOLECALCIFEROL (VITD3) 2,000 UNIT CAP/TAB PO SCH (09:24)
[2021-10-12] MEDS ORDERED: SODIUM CHLORIDE 0.9% 250 ML IV ONE (13:15)
[2021-10-12] MEDS: ATRACURIUM BESYLATE 1,000 MG in D5W 5% 150 ML IV SCH ×2 (16:00→22:38)
[2021-10-12] MEDS ORDERED: FUROSEMIDE 20 MG/2 ML VIAL IV ONE (17:30)
[2021-10-13] VITALS (101 sets, daily range): BP systolic 90–131; BP diastolic 45–83
[2021-10-13] MEDS: PROPOFOL 100 ML IV SCH ×6 (01:34→17:22)
[2021-10-13] MEDS: MIDAZOLAM DRIP 50 mg/50mL 50 ML IV SCH ×5 (02:00→16:32)
[2021-10-13] MEDS: LINEZOLID 600MG/300ML 300 ML IV SCH ×2 (04:22→15:50)
[2021-10-13 04:50] LABS: Calcium 7.9 mg/dL (8.5-10.1); Potassium 3.3 mmol/L (3.5-5.1)
[2021-10-13 04:54] LABS: BUN/Creatinine Ratio 45.8; Bilirubin, Total 0.4 mg/dL (0.2-1.0)
[2021-10-13 05:10] LABS: Basophils # (auto) 0.1 10 ^3/uL (0-0.2); Basophils % (auto) 0.6 % (0.0-2.0); Eosinophils # (auto) 0.3 10 ^3/uL (0-0.8); Eosinophils % (auto) 2.7 % (0.0-7.0); Hemoglobin 9.8 g/dL (13.5-17.5); Lymphocytes # (auto) 1.6 10 ^3/uL (0.4-5.4); Lymphocytes % (auto) 15.3 % (10.0-50.0); Mean Corpuscular Hemoglobin 28.2 pg (28.0-32.0); Mean Corpuscular Hgb Conc. 32.7 g/dL (32.0-36.0); Mean Corpuscular Volume 86.3 fL (80.0-100.0); Monocytes # (auto) 1.4 10 ^3/uL (0-1.3); Monocytes % (auto) 13.1 % (0.0-12.0); Neutrophils # (auto) 7.3 10 ^3/uL (1.6-8.6); Neutrophils % (auto) 68.3 % (37.0-80.0); Nucleated Red Blood Cells % 0.1 %; Red Blood Cells 3.48 10^6/uL (4.5-5.90); Red Cell Distribution Width 15.4 % (11.8-14.3); White Blood Cell 10.7 10^3/uL (4.4-10.8)
[2021-10-13] MEDS: ROCURONIUM 10MG/ML 10ML VIAL IV SCH ×3 (06:00→17:18)
[2021-10-13] MEDS: LACTULOSE 20Gm/30ML SOLN PO SCH ×3 (06:00→17:18)
[2021-10-13] MEDS: fentaNYL Drip 2500mCg/250mlNS 250 ML IV SCH ×2 (06:24→13:48)
[2021-10-13] MEDS: ALBUTEROL SULF 2.5 MG/0.5ML(0.5%) NEB SOLN NEB SCH ×3 (06:28→19:02)
[2021-10-13] MEDS: MEROPENEM 1GM IVPB 100 ML IV SCH ×3 (06:36→21:30)
[2021-10-13] MEDS: NOREPINEPHRINE 8 MG/250ML KIT 250 ML IV SCH (07:27)
[2021-10-13] MEDS ORDERED: POTASSIUM CHL 20MEQ/100ML 100 ML IV ONE (07:30)
[2021-10-13] MEDS: ATRACURIUM BESYLATE 1,000 MG in D5W 5% 150 ML IV SCH ×2 (07:59→17:56)
[2021-10-13] MEDS ORDERED: DexAMETHasone SOD PHOS 4 MG/1ML SDV INJ ONE (09:18)
[2021-10-13] MEDS: ASCORBIC ACID 1,000 MG TAB PO SCH (09:21)
[2021-10-13] MEDS: PANTOPRAZOLE 40 MG/10 ML VIAL INJ IV SCH ×2 (09:22→21:30)
[2021-10-13] MEDS: FUROSEMIDE 20 MG/2 ML VIAL IV SCH (09:22)
[2021-10-13] MEDS: ENOXAPARIN SOD 60 MG/0.6 ML SYRINGE SC SCH ×2 (09:22→21:30)
[2021-10-13] MEDS: CHOLECALCIFEROL (VITD3) 2,000 UNIT CAP/TAB PO SCH (09:22)
[2021-10-13] MEDS: SODIUM CHLOR 0.9% PF (SALINE LOCK) 10ML VIAL/SYR IV SCH ×2 (09:23→21:30)
[2021-10-13] MEDS: BUDESONIDE (INHALATION) 0.5 MG/2 ML NEB NEB SCH ×2 (10:12→19:02)
[2021-10-13] MEDS: DexAMETHasone SOD PHOS 4 MG/1ML SDV INJ IV SCH (10:44)
[2021-10-13] MEDS ORDERED: FUROSEMIDE 20 MG/2 ML VIAL IV ONE (13:45)
[2021-10-13] MEDS ORDERED: POTASSIUM EFFERVESENT TAB 25 MEQ GT ONE (13:45)
[2021-10-13] MEDS: ALBUMIN 25% 50 ML IV SCH ×2 (14:11→21:15)
[2021-10-13] MEDS ORDERED: TPN PER PHARMACY 0 ML IV SCH (14:45)
[2021-10-13] MEDS: TOCILIZUMAB 400 MG in SODIUM CHL 0.9% 80 ML IV SCH (18:11)
[2021-10-14] VITALS (99 sets, daily range): BP systolic 93–146; BP diastolic 49–90
[2021-10-14 03:52] LABS: Albumin 2.3 g/dL (3.4-5.0); Potassium 3.5 mmol/L (3.5-5.1)
[2021-10-14 03:59] LABS: Bilirubin, Total 0.6 mg/dL (0.2-1.0); Total Protein 4.9 g/dL (6.4-8.2)
[2021-10-14] MEDS: LINEZOLID 600MG/300ML 300 ML IV SCH ×2 (04:00→16:21)
[2021-10-14 04:01] LABS: Hematocrit 28.8 % (41.0-53.0); Hemoglobin 9.5 g/dL (13.5-17.5); Mean Corpuscular Hemoglobin 28.4 pg (28.0-32.0); Mean Corpuscular Volume 86.1 fL (80.0-100.0); Red Blood Cells 3.34 10^6/uL (4.5-5.90); Red Cell Distribution Width 15.7 % (11.8-14.3); White Blood Cell 9.8 10^3/uL (4.4-10.8)
[2021-10-14 04:07] LABS: Basophils % (manual) 0 (0.0-2.0); Blast Cells 0; Promyelocytes % 0; Reactive Lymphocytes 0
[2021-10-14] MEDS: ALBUMIN 25% 50 ML IV SCH (05:30)
[2021-10-14] MEDS: LACTULOSE 20Gm/30ML SOLN PO SCH ×4 (05:34→17:11)
[2021-10-14] MEDS: ROCURONIUM 10MG/ML 10ML VIAL IV SCH ×4 (05:34→17:11)
[2021-10-14 05:48] LABS: Band Neutrophils % (manual) 24; Eosinophils % (manual) 5 (0-7); Lymphocytes % (manual) 16 (10.0-50.0); Metamyelocytes % 3
[2021-10-14 05:49] LABS: Monocytes % (manual) 7 (0-12); Myelocytes % 5
[2021-10-14] MEDS: MEROPENEM 1GM IVPB 100 ML IV SCH ×3 (06:00→21:00)
[2021-10-14] MEDS: NOREPINEPHRINE 8 MG/250ML KIT 250 ML IV SCH (07:38)
[2021-10-14] MEDS: TOCILIZUMAB 400 MG in SODIUM CHL 0.9% 80 ML IV SCH (08:18)
[2021-10-14] MEDS: PROPOFOL 100 ML IV SCH ×4 (08:49→17:47)
[2021-10-14] MEDS: MIDAZOLAM DRIP 50 mg/50mL 50 ML IV SCH ×3 (08:50→16:21)
[2021-10-14] MEDS: ASCORBIC ACID 1,000 MG TAB PO SCH (09:27)
[2021-10-14] MEDS: ENOXAPARIN SOD 60 MG/0.6 ML SYRINGE SC SCH ×2 (09:27→21:00)
[2021-10-14] MEDS: PANTOPRAZOLE 40 MG/10 ML VIAL INJ IV SCH ×2 (09:27→21:00)
[2021-10-14] MEDS: CHOLECALCIFEROL (VITD3) 2,000 UNIT CAP/TAB PO SCH (09:28)
[2021-10-14] MEDS: DexAMETHasone SOD PHOS 4 MG/1ML SDV INJ IV SCH (09:28)
[2021-10-14] MEDS: FUROSEMIDE 20 MG/2 ML VIAL IV SCH (09:28)
[2021-10-14] MEDS: SODIUM CHLOR 0.9% PF (SALINE LOCK) 10ML VIAL/SYR IV SCH ×2 (09:29→21:00)
[2021-10-14] MEDS: BUDESONIDE (INHALATION) 0.5 MG/2 ML NEB NEB SCH ×2 (10:00→22:10)
[2021-10-14] MEDS: ATRACURIUM BESYLATE 1,000 MG in D5W 5% 150 ML IV SCH (14:16)
[2021-10-14] MEDS: fentaNYL Drip 2500mCg/250mlNS 250 ML IV SCH (14:19)
[2021-10-14] MEDS ORDERED: HYDROmorphone HCL 2 MG/ML VL IV ONE (16:45)
[2021-10-14] MEDS: ALBUTEROL SULF 2.5 MG/0.5ML(0.5%) NEB SOLN NEB PRN (22:10)
[2021-10-15] VITALS (102 sets, daily range): BP systolic 92–144; BP diastolic 53–88
[2021-10-15] MEDS: ROCURONIUM 10MG/ML 10ML VIAL IV SCH ×4 (01:20→17:11)
[2021-10-15 04:00] LABS: Basophils # (auto) 0.1 10 ^3/uL (0-0.2); Basophils % (auto) 0.9 % (0.0-2.0); Eosinophils # (auto) 0.4 10 ^3/uL (0-0.8); Eosinophils % (auto) 3.3 % (0.0-7.0); Hematocrit 33.8 % (41.0-53.0); Hemoglobin 11.1 g/dL (13.5-17.5); Lymphocytes % (auto) 18.1 % (10.0-50.0); Mean Corpuscular Hemoglobin 28.3 pg (28.0-32.0); Mean Corpuscular Volume 85.5 fL (80.0-100.0); Monocytes # (auto) 0.6 10 ^3/uL (0-1.3); Monocytes % (auto) 5.6 % (0.0-12.0); Neutrophils # (auto) 7.8 10 ^3/uL (1.6-8.6); Neutrophils % (auto) 72.1 % (37.0-80.0); Nucleated Red Blood Cells % 0.1 %; Red Blood Cells 3.95 10^6/uL (4.5-5.90); Red Cell Distribution Width 15.8 % (11.8-14.3); White Blood Cell 10.8 10^3/uL (4.4-10.8)
[2021-10-15 04:17] LABS: BUN/Creatinine Ratio 40.9; Calcium 8.2 mg/dL (8.5-10.1); Potassium 3.5 mmol/L (3.5-5.1)
[2021-10-15] MEDS: LINEZOLID 600MG/300ML 300 ML IV SCH ×2 (04:30→16:11)
[2021-10-15] MEDS: MEROPENEM 1GM IVPB 100 ML IV SCH ×3 (06:00→21:45)
[2021-10-15] MEDS: LACTULOSE 20Gm/30ML SOLN PO SCH ×4 (06:00→17:11)
[2021-10-15] MEDS: NOREPINEPHRINE 8 MG/250ML KIT 250 ML IV SCH (07:45)
[2021-10-15] MEDS: BUDESONIDE (INHALATION) 0.5 MG/2 ML NEB NEB SCH ×2 (07:49→22:06)
[2021-10-15] MEDS: ALBUTEROL SULF 2.5 MG/0.5ML(0.5%) NEB SOLN NEB PRN ×2 (07:49→22:06)
[2021-10-15] MEDS: PROPOFOL 100 ML IV SCH ×6 (08:25→23:09)
[2021-10-15] MEDS: FUROSEMIDE 20 MG/2 ML VIAL IV SCH (09:30)
[2021-10-15] MEDS: DexAMETHasone SOD PHOS 4 MG/1ML SDV INJ IV SCH (09:30)
[2021-10-15] MEDS: ASCORBIC ACID 1,000 MG TAB PO SCH (09:30)
[2021-10-15] MEDS: CHOLECALCIFEROL (VITD3) 2,000 UNIT CAP/TAB PO SCH (09:30)
[2021-10-15] MEDS: ENOXAPARIN SOD 60 MG/0.6 ML SYRINGE SC SCH ×2 (09:31→21:46)
[2021-10-15] MEDS: PANTOPRAZOLE 40 MG/10 ML VIAL INJ IV SCH ×2 (09:31→21:45)
[2021-10-15] MEDS: SODIUM CHLOR 0.9% PF (SALINE LOCK) 10ML VIAL/SYR IV SCH ×2 (09:31→21:46)
[2021-10-15] MEDS: MIDAZOLAM DRIP 50 mg/50mL 50 ML IV SCH ×4 (10:14→21:45)
[2021-10-15] MEDS: ATRACURIUM BESYLATE 1,000 MG in D5W 5% 150 ML IV SCH ×2 (12:38→23:51)
[2021-10-15] MEDS: fentaNYL Drip 2500mCg/250mlNS 250 ML IV SCH ×2 (14:20→22:41)
[2021-10-15] MEDS ORDERED: FUROSEMIDE 20 MG/2 ML VIAL IV ONE (15:15)
[2021-10-15] MEDS ORDERED: POTASSIUM EFFERVESENT TAB 25 MEQ GT ONE (15:15)
[2021-10-15] MEDS ORDERED: AMINO ACID INFUSION IN D10W 1,000 ML IV NR (22:00)
[2021-10-16] VITALS (100 sets, daily range): BP systolic 105–144; BP diastolic 56–88
[2021-10-16] MEDS ORDERED: DEXTROSE (50%) 50ML SYRG IV SCH
[2021-10-16] MEDS: ACCU-CHEK COMFORT CURVE STRIP VI SCH ×5 (01:12→23:51)
[2021-10-16] MEDS: LACTULOSE 20Gm/30ML SOLN PO SCH ×5 (01:12→23:52)
[2021-10-16] MEDS: ROCURONIUM 10MG/ML 10ML VIAL IV SCH ×5 (01:13→20:26)
[2021-10-16] MEDS: PROPOFOL 100 ML IV SCH ×6 (02:26→20:33)
[2021-10-16] MEDS: MIDAZOLAM DRIP 50 mg/50mL 50 ML IV SCH ×5 (02:27→20:34)
[2021-10-16] MEDS: LINEZOLID 600MG/300ML 300 ML IV SCH ×2 (04:43→16:54)
[2021-10-16 05:03] LABS: Basophils # (auto) 0.1 10 ^3/uL (0-0.2); Basophils % (auto) 0.8 % (0.0-2.0); Eosinophils # (auto) 0.4 10 ^3/uL (0-0.8); Eosinophils % (auto) 2.8 % (0.0-7.0); Hematocrit 36.2 % (41.0-53.0); Hemoglobin 11.9 g/dL (13.5-17.5); Lymphocytes # (auto) 2.7 10 ^3/uL (0.4-5.4); Lymphocytes % (auto) 19.3 % (10.0-50.0); Mean Corpuscular Hemoglobin 28.2 pg (28.0-32.0); Mean Corpuscular Hgb Conc. 32.9 g/dL (32.0-36.0); Mean Corpuscular Volume 85.7 fL (80.0-100.0); Monocytes # (auto) 0.7 10 ^3/uL (0-1.3); Monocytes % (auto) 5.3 % (0.0-12.0); Neutrophils # (auto) 9.9 10 ^3/uL (1.6-8.6); Neutrophils % (auto) 71.8 % (37.0-80.0); Nucleated Red Blood Cells % 0.2 %; Red Blood Cells 4.23 10^6/uL (4.5-5.90); Red Cell Distribution Width 16.1 % (11.8-14.3); White Blood Cell 13.7 10^3/uL (4.4-10.8)
[2021-10-16 05:32] LABS: Albumin 2.7 g/dL (3.4-5.0); Magnesium 2.6 mg/dL (1.6-2.6)
[2021-10-16 05:36] LABS: BUN/Creatinine Ratio 34.5; Bilirubin, Total 0.4 mg/dL (0.2-1.0); Phosphorus 3.5 mg/dL (2.5-4.90); Pre Albumin 31.4 mg/dL (20.0-40.0); Total Protein 5.4 g/dL (6.4-8.2)
[2021-10-16] MEDS: InsuLIN REG 1unit/0.01ml Soln (100units/ml) SC SCH ×5 (06:00→23:51)
[2021-10-16] MEDS: ALBUTEROL SULF 2.5 MG/0.5ML(0.5%) NEB SOLN NEB PRN ×2 (06:50→18:37)
[2021-10-16] MEDS: BUDESONIDE (INHALATION) 0.5 MG/2 ML NEB NEB SCH ×2 (06:50→18:37)
[2021-10-16] MEDS: MEROPENEM 1GM IVPB 100 ML IV SCH ×3 (07:00→22:09)
[2021-10-16] MEDS: NOREPINEPHRINE 8 MG/250ML KIT 250 ML IV SCH (07:45)
[2021-10-16] MEDS ORDERED: POTASSIUM EFFERVESENT TAB 25 MEQ GT ONE ×2 (08:00→09:20)
[2021-10-16] MEDS ORDERED: POTASSIUM CHL 20MEQ/50ML 50 ML IV SCH (08:45)
[2021-10-16] MEDS: ENOXAPARIN SOD 60 MG/0.6 ML SYRINGE SC SCH ×2 (09:14→22:10)
[2021-10-16] MEDS: DexAMETHasone SOD PHOS 4 MG/1ML SDV INJ IV SCH (09:15)
[2021-10-16] MEDS: ASCORBIC ACID 1,000 MG TAB PO SCH (09:15)
[2021-10-16] MEDS: PANTOPRAZOLE 40 MG/10 ML VIAL INJ IV SCH ×2 (09:15→22:09)
[2021-10-16] MEDS: CHOLECALCIFEROL (VITD3) 2,000 UNIT CAP/TAB PO SCH (09:15)
[2021-10-16] MEDS: SODIUM CHLOR 0.9% PF (SALINE LOCK) 10ML VIAL/SYR IV SCH ×2 (09:15→22:10)
[2021-10-16] MEDS: FUROSEMIDE 20 MG/2 ML VIAL IV SCH (09:17)
[2021-10-16] MEDS: ATRACURIUM BESYLATE 1,000 MG in D5W 5% 150 ML IV SCH ×2 (10:02→20:26)
[2021-10-16] MEDS: fentaNYL Drip 2500mCg/250mlNS 250 ML IV SCH ×2 (13:52→23:10)
[2021-10-16] MEDS ORDERED: TPN PER PHARMACY IV NR ×8 (20:00)
[2021-10-17] VITALS (97 sets, daily range): BP systolic 89–149; BP diastolic 51–86
[2021-10-17] MEDS: MIDAZOLAM DRIP 50 mg/50mL 50 ML IV SCH ×6 (00:10→23:49)
[2021-10-17] MEDS: PROPOFOL 100 ML IV SCH ×6 (02:01→21:58)
[2021-10-17] MEDS: LINEZOLID 600MG/300ML 300 ML IV SCH ×2 (04:14→15:38)
[2021-10-17 04:27] LABS: Basophils # (auto) 0.1 10 ^3/uL (0-0.2); Basophils % (auto) 0.5 % (0.0-2.0); Eosinophils # (auto) 0.2 10 ^3/uL (0-0.8); Eosinophils % (auto) 2.3 % (0.0-7.0); Hemoglobin 11.9 g/dL (13.5-17.5); Lymphocytes # (auto) 2.1 10 ^3/uL (0.4-5.4); Lymphocytes % (auto) 19.4 % (10.0-50.0); Mean Corpuscular Hemoglobin 27.7 pg (28.0-32.0); Mean Corpuscular Hgb Conc. 32.2 g/dL (32.0-36.0); Monocytes # (auto) 0.7 10 ^3/uL (0-1.3); Monocytes % (auto) 6.6 % (0.0-12.0); Neutrophils # (auto) 7.7 10 ^3/uL (1.6-8.6); Neutrophils % (auto) 71.2 % (37.0-80.0); Red Cell Distribution Width 16.4 % (11.8-14.3); White Blood Cell 10.9 10^3/uL (4.4-10.8)
[2021-10-17 04:52] LABS: Potassium 3.4 mmol/L (3.5-5.1)
[2021-10-17 05:00] LABS: Albumin 2.7 g/dL (3.4-5.0); Bilirubin, Total 0.3 mg/dL (0.2-1.0); Calcium 8.1 mg/dL (8.5-10.1); Magnesium 2.6 mg/dL (1.6-2.6); Phosphorus 2.5 mg/dL (2.5-4.90); Total Protein 5.2 g/dL (6.4-8.2)
[2021-10-17] MEDS: ROCURONIUM 10MG/ML 10ML VIAL IV SCH (05:40)
[2021-10-17] MEDS: LACTULOSE 20Gm/30ML SOLN PO SCH ×4 (05:40→23:50)
[2021-10-17] MEDS: ACCU-CHEK COMFORT CURVE STRIP VI SCH ×4 (05:41→23:51)
[2021-10-17] MEDS: MEROPENEM 1GM IVPB 100 ML IV SCH ×3 (05:41→22:21)
[2021-10-17] MEDS: InsuLIN REG 1unit/0.01ml Soln (100units/ml) SC SCH ×4 (05:42→23:51)
[2021-10-17] MEDS: BUDESONIDE (INHALATION) 0.5 MG/2 ML NEB NEB SCH ×2 (06:01→22:22)
[2021-10-17] MEDS: ALBUTEROL SULF 2.5 MG/0.5ML(0.5%) NEB SOLN NEB PRN ×3 (06:15→22:22)
[2021-10-17] MEDS: NOREPINEPHRINE 8 MG/250ML KIT 250 ML IV SCH (06:27)
[2021-10-17] MEDS: ATRACURIUM BESYLATE 1,000 MG in D5W 5% 150 ML IV SCH ×2 (06:57→16:15)
[2021-10-17] MEDS ORDERED: ROCURONIUM 10MG/ML 10ML VIAL IV PRN (09:30)
[2021-10-17] MEDS: CHOLECALCIFEROL (VITD3) 2,000 UNIT CAP/TAB PO SCH (09:40)
[2021-10-17] MEDS: ENOXAPARIN SOD 60 MG/0.6 ML SYRINGE SC SCH ×2 (09:40→22:22)
[2021-10-17] MEDS: FUROSEMIDE 20 MG/2 ML VIAL IV SCH ×2 (09:40→22:21)
[2021-10-17] MEDS: DexAMETHasone SOD PHOS 4 MG/1ML SDV INJ IV SCH (09:40)
[2021-10-17] MEDS: SODIUM CHLOR 0.9% PF (SALINE LOCK) 10ML VIAL/SYR IV SCH ×2 (09:41→22:21)
[2021-10-17] MEDS: PANTOPRAZOLE 40 MG/10 ML VIAL INJ IV SCH ×2 (09:41→22:21)
[2021-10-17] MEDS: ASCORBIC ACID 1,000 MG TAB PO SCH (09:41)
[2021-10-17] MEDS ORDERED: POTASSIUM EFFERVESENT TAB 25 MEQ GT ONE ×2 (10:00→14:45)
[2021-10-17] MEDS ORDERED: FUROSEMIDE 20 MG/2 ML VIAL IV ONE (14:45)
[2021-10-17] MEDS: fentaNYL Drip 2500mCg/250mlNS 250 ML IV SCH ×2 (15:20→22:49)
[2021-10-17] MEDS ORDERED: TPN PER PHARMACY IV NR ×9 (20:00)
[2021-10-17] MEDS: POTASSIUM EFFERVESENT TAB 25 MEQ GT SCH (22:20)
[2021-10-18] VITALS (94 sets, daily range): BP systolic 82–135; BP diastolic 39–72
[2021-10-18] MEDS: PROPOFOL 100 ML IV SCH ×6 (01:00→18:02)
[2021-10-18] MEDS: ATRACURIUM BESYLATE 1,000 MG in D5W 5% 150 ML IV SCH ×2 (03:24→13:11)
[2021-10-18] MEDS: MIDAZOLAM DRIP 50 mg/50mL 50 ML IV SCH ×3 (03:25→13:09)
[2021-10-18] MEDS: LINEZOLID 600MG/300ML 300 ML IV SCH (04:07)
[2021-10-18 05:22] LABS: Basophils # (auto) 0.1 10 ^3/uL (0-0.2); Basophils % (auto) 0.8 % (0.0-2.0); Eosinophils # (auto) 0.3 10 ^3/uL (0-0.8); Eosinophils % (auto) 1.9 % (0.0-7.0); Hematocrit 37.5 % (41.0-53.0); Hemoglobin 12.2 g/dL (13.5-17.5); Lymphocytes # (auto) 2.3 10 ^3/uL (0.4-5.4); Lymphocytes % (auto) 13.9 % (10.0-50.0); Mean Corpuscular Hemoglobin 28.2 pg (28.0-32.0); Mean Corpuscular Hgb Conc. 32.4 g/dL (32.0-36.0); Mean Corpuscular Volume 86.9 fL (80.0-100.0); Monocytes # (auto) 0.8 10 ^3/uL (0-1.3); Monocytes % (auto) 4.9 % (0.0-12.0); Neutrophils # (auto) 13.1 10 ^3/uL (1.6-8.6); Neutrophils % (auto) 78.5 % (37.0-80.0); Nucleated Red Blood Cells % 0.1 %; Red Blood Cells 4.32 10^6/uL (4.5-5.90); Red Cell Distribution Width 16.7 % (11.8-14.3); White Blood Cell 16.7 10^3/uL (4.4-10.8)
[2021-10-18 05:24] LABS: Albumin 2.7 g/dL (3.4-5.0); Calcium 8.1 mg/dL (8.5-10.1); Magnesium 1.8 mg/dL (1.6-2.6)
[2021-10-18 05:28] LABS: BUN/Creatinine Ratio 33.3; Bilirubin, Total 0.3 mg/dL (0.2-1.0); Phosphorus 2.5 mg/dL (2.5-4.90); Total Protein 5.2 g/dL (6.4-8.2)
[2021-10-18] MEDS: ACCU-CHEK COMFORT CURVE STRIP VI SCH ×3 (05:58→17:33)
[2021-10-18] MEDS: InsuLIN REG 1unit/0.01ml Soln (100units/ml) SC SCH ×3 (05:59→17:34)
[2021-10-18] MEDS: LACTULOSE 20Gm/30ML SOLN PO SCH ×3 (05:59→18:00)
[2021-10-18] MEDS: BUDESONIDE (INHALATION) 0.5 MG/2 ML NEB NEB SCH ×2 (06:14→22:20)
[2021-10-18] MEDS: ALBUTEROL SULF 2.5 MG/0.5ML(0.5%) NEB SOLN NEB PRN ×2 (06:15→22:19)
[2021-10-18] MEDS: NOREPINEPHRINE 8 MG/250ML KIT 250 ML IV SCH (07:45)
[2021-10-18] MEDS: MEROPENEM 1GM IVPB 100 ML IV SCH (09:35)
[2021-10-18] MEDS: PANTOPRAZOLE 40 MG/10 ML VIAL INJ IV SCH ×2 (09:41→22:06)
[2021-10-18] MEDS: FUROSEMIDE 20 MG/2 ML VIAL IV SCH ×3 (09:42→22:06)
[2021-10-18] MEDS: DexAMETHasone SOD PHOS 4 MG/1ML SDV INJ IV SCH (09:42)
[2021-10-18] MEDS: ENOXAPARIN SOD 60 MG/0.6 ML SYRINGE SC SCH ×2 (09:42→22:07)
[2021-10-18] MEDS: ASCORBIC ACID 1,000 MG TAB PO SCH (09:42)
[2021-10-18] MEDS: POTASSIUM EFFERVESENT TAB 25 MEQ GT SCH ×2 (09:43→22:05)
[2021-10-18] MEDS: CHOLECALCIFEROL (VITD3) 2,000 UNIT CAP/TAB PO SCH (09:43)
[2021-10-18] MEDS: SODIUM CHLOR 0.9% PF (SALINE LOCK) 10ML VIAL/SYR IV SCH ×2 (09:43→22:06)
[2021-10-18] MEDS ORDERED: GENTAMICIN SULFATE 280 MG in D5W 5% 100 ML IV ONE (10:30)
[2021-10-18] MEDS ORDERED: levoFLOXacin 500MG 100 ML IV ONE (10:30)
[2021-10-18] MEDS ORDERED: MICAFUNGIN SODIUM 100 MG in SODIUM CHL 0.9% 100 ML IV ONE (10:30)
[2021-10-18] MEDS: ARTIFICIAL TEARS 15ml EACHEYE PRN (13:11)
[2021-10-18] MEDS: fentaNYL Drip 2500mCg/250mlNS 250 ML IV SCH (15:14)
[2021-10-18] MEDS: TPN PER PHARMACY IV NR ×8 (19:58)
[2021-10-19] VITALS (100 sets, daily range): BP systolic 95–130; BP diastolic 52–79
[2021-10-19 02:42] LABS: Albumin 2.4 g/dL (3.4-5.0); BUN/Creatinine Ratio 45.5; Calcium 7.7 mg/dL (8.5-10.1); Magnesium 1.3 mg/dL (1.6-2.6); Potassium 3.4 mmol/L (3.5-5.1)
[2021-10-19 02:46] LABS: Bilirubin, Total 0.5 mg/dL (0.2-1.0); Phosphorus 1.9 mg/dL (2.5-4.90); Total Protein 4.6 g/dL (6.4-8.2)
[2021-10-19 02:47] LABS: Basophils # (auto) 0.1 10 ^3/uL (0-0.2); Basophils % (auto) 0.9 % (0.0-2.0); Eosinophils # (auto) 0.2 10 ^3/uL (0-0.8); Eosinophils % (auto) 1.3 % (0.0-7.0); Hematocrit 33.2 % (41.0-53.0); Lymphocytes % (auto) 12.6 % (10.0-50.0); Mean Corpuscular Hemoglobin 28.3 pg (28.0-32.0); Mean Corpuscular Hgb Conc. 33.1 g/dL (32.0-36.0); Mean Corpuscular Volume 85.5 fL (80.0-100.0); Monocytes # (auto) 0.9 10 ^3/uL (0-1.3); Monocytes % (auto) 5.4 % (0.0-12.0); Neutrophils # (auto) 12.7 10 ^3/uL (1.6-8.6); Neutrophils % (auto) 79.8 % (37.0-80.0); Nucleated Red Blood Cells % 0.1 %; Red Blood Cells 3.88 10^6/uL (4.5-5.90); Red Cell Distribution Width 16.9 % (11.8-14.3); White Blood Cell 15.9 10^3/uL (4.4-10.8)
[2021-10-19] MEDS: LACTULOSE 20Gm/30ML SOLN PO SCH ×4 (05:18→17:30)
[2021-10-19] MEDS: ACCU-CHEK COMFORT CURVE STRIP VI SCH ×4 (05:18→18:00)
[2021-10-19] MEDS: InsuLIN REG 1unit/0.01ml Soln (100units/ml) SC SCH ×4 (05:18→18:00)
[2021-10-19] MEDS: ATRACURIUM BESYLATE 1,000 MG in D5W 5% 150 ML IV SCH (07:30)
[2021-10-19] MEDS: NOREPINEPHRINE 8 MG/250ML KIT 250 ML IV SCH (08:16)
[2021-10-19] MEDS ORDERED: POTASSIUM PHOSPHATE 44 MEQ in D5W 5% 250 ML IV ONE (08:30)
[2021-10-19] MEDS: PROPOFOL 100 ML IV SCH ×3 (09:15→23:00)
[2021-10-19] MEDS: MIDAZOLAM DRIP 50 mg/50mL 50 ML IV SCH ×3 (09:15→23:00)
[2021-10-19] MEDS: POTASSIUM EFFERVESENT TAB 25 MEQ GT SCH ×2 (09:30→21:42)
[2021-10-19] MEDS: ASCORBIC ACID 1,000 MG TAB PO SCH (09:31)
[2021-10-19] MEDS: DexAMETHasone SOD PHOS 4 MG/1ML SDV INJ IV SCH (09:32)
[2021-10-19] MEDS: CHOLECALCIFEROL (VITD3) 2,000 UNIT CAP/TAB PO SCH (09:32)
[2021-10-19] MEDS: FUROSEMIDE 20 MG/2 ML VIAL IV SCH ×2 (09:34→21:46)
[2021-10-19] MEDS: levoFLOXacin 500MG 100 ML IV SCH (09:35)
[2021-10-19] MEDS: PANTOPRAZOLE 40 MG/10 ML VIAL INJ IV SCH ×2 (09:35→21:47)
[2021-10-19] MEDS: SODIUM CHLOR 0.9% PF (SALINE LOCK) 10ML VIAL/SYR IV SCH ×2 (09:36→21:47)
[2021-10-19] MEDS: ENOXAPARIN SOD 60 MG/0.6 ML SYRINGE SC SCH ×2 (09:36→21:47)
[2021-10-19] MEDS: MICAFUNGIN SODIUM 100 MG in SODIUM CHL 0.9% 100 ML IV SCH (10:00)
[2021-10-19] MEDS: BUDESONIDE (INHALATION) 0.5 MG/2 ML NEB NEB SCH ×2 (12:09→22:08)
[2021-10-19] MEDS ORDERED: MAGNESIUM SULFATE 1GM/100ML 100 ML IV ONE (15:00)
[2021-10-19] MEDS: fentaNYL Drip 2500mCg/250mlNS 250 ML IV SCH ×2 (15:07→23:00)
[2021-10-19] MEDS ORDERED: Jevity 1.2 Cal/Fiber 1 Liter GT SCH (15:15)
[2021-10-19] MEDS: ROCURONIUM BROMIDE 1,000 MG in D5W 5% 150 ML IV SCH (15:21)
[2021-10-19] MEDS: TPN PER PHARMACY IV NR ×8 (19:57)
[2021-10-19] MEDS ORDERED: TPN PER PHARMACY IV NR ×8 (20:00)
[2021-10-19] MEDS: ALBUTEROL SULF 2.5 MG/0.5ML(0.5%) NEB SOLN NEB PRN (22:08)
[2021-10-20] VITALS (100 sets, daily range): BP systolic 98–135; BP diastolic 46–87
[2021-10-20] MEDS: ACCU-CHEK COMFORT CURVE STRIP VI SCH ×4 (00:14→17:50)
[2021-10-20 05:09] LABS: Albumin 2.7 g/dL (3.4-5.0); Calcium 8.1 mg/dL (8.5-10.1); Magnesium 2.5 mg/dL (1.6-2.6); Potassium 3.7 mmol/L (3.5-5.1)
[2021-10-20 05:15] LABS: BUN/Creatinine Ratio 45.7; Bilirubin, Total 0.4 mg/dL (0.2-1.0); Phosphorus 5.1 mg/dL (2.5-4.90)
[2021-10-20] MEDS: ROCURONIUM BROMIDE 1,000 MG in D5W 5% 150 ML IV SCH ×2 (05:22→23:33)
[2021-10-20 05:32] LABS: Basophils # (auto) 0.1 10 ^3/uL (0-0.2); Basophils % (auto) 0.9 % (0.0-2.0); Eosinophils # (auto) 0.2 10 ^3/uL (0-0.8); Eosinophils % (auto) 1.8 % (0.0-7.0); Hematocrit 34.6 % (41.0-53.0); Hemoglobin 11.4 g/dL (13.5-17.5); Lymphocytes # (auto) 2.8 10 ^3/uL (0.4-5.4); Mean Corpuscular Volume 85.1 fL (80.0-100.0); Monocytes # (auto) 1.1 10 ^3/uL (0-1.3); Monocytes % (auto) 8.3 % (0.0-12.0); Neutrophils # (auto) 8.9 10 ^3/uL (1.6-8.6); Nucleated Red Blood Cells % 0.3 %; Red Blood Cells 4.07 10^6/uL (4.5-5.90); Red Cell Distribution Width 17.3 % (11.8-14.3); White Blood Cell 13.1 10^3/uL (4.4-10.8)
[2021-10-20] MEDS: LACTULOSE 20Gm/30ML SOLN PO SCH ×4 (05:46→17:49)
[2021-10-20] MEDS: InsuLIN REG 1unit/0.01ml Soln (100units/ml) SC SCH ×4 (05:47→17:51)
[2021-10-20] MEDS: BUDESONIDE (INHALATION) 0.5 MG/2 ML NEB NEB SCH ×2 (05:58→23:15)
[2021-10-20] MEDS: ALBUTEROL SULF 2.5 MG/0.5ML(0.5%) NEB SOLN NEB PRN ×2 (05:59→23:15)
[2021-10-20] MEDS: PROPOFOL 100 ML IV SCH ×6 (06:00→23:34)
[2021-10-20] MEDS: MIDAZOLAM DRIP 50 mg/50mL 50 ML IV SCH ×5 (06:00→23:34)
[2021-10-20] MEDS: fentaNYL Drip 2500mCg/250mlNS 250 ML IV SCH ×3 (06:30→23:46)
[2021-10-20] MEDS: ENOXAPARIN SOD 60 MG/0.6 ML SYRINGE SC SCH ×2 (09:23→21:24)
[2021-10-20] MEDS: CHOLECALCIFEROL (VITD3) 2,000 UNIT CAP/TAB PO SCH (09:23)
[2021-10-20] MEDS: ASCORBIC ACID 500 MG TAB PO SCH (09:24)
[2021-10-20] MEDS: PANTOPRAZOLE 40 MG/10 ML VIAL INJ IV SCH ×2 (09:24→21:24)
[2021-10-20] MEDS: SODIUM CHLOR 0.9% PF (SALINE LOCK) 10ML VIAL/SYR IV SCH ×2 (09:24→21:24)
[2021-10-20] MEDS: POTASSIUM EFFERVESENT TAB 25 MEQ GT SCH ×2 (09:26→21:24)
[2021-10-20] MEDS: MICAFUNGIN SODIUM 100 MG in SODIUM CHL 0.9% 100 ML IV SCH (09:26)
[2021-10-20] MEDS: levoFLOXacin 500MG 100 ML IV SCH (09:26)
[2021-10-20] MEDS: DexAMETHasone SOD PHOS 4 MG/1ML SDV INJ IV SCH (09:28)
[2021-10-20] MEDS: FUROSEMIDE 20 MG/2 ML VIAL IV SCH ×2 (09:28→21:25)
[2021-10-20] MEDS: NOREPINEPHRINE 8 MG/250ML KIT 250 ML IV SCH (12:39)
[2021-10-20] MEDS ORDERED: SODIUM CHLORIDE IV NR ×8 (20:00)
[2021-10-20] MEDS ORDERED: POTASSIUM CHLORIDE IV NR ×8 (20:00)
[2021-10-20] MEDS ORDERED: [UNRECOGNIZED DRUG - OTHER] IV NR ×8 (20:00)
[2021-10-20 21:27] LABS: Basophils # (auto) 0.2 10 ^3/uL (0-0.2); Basophils % (auto) 1.1 % (0.0-2.0); Eosinophils # (auto) 0.1 10 ^3/uL (0-0.8); Eosinophils % (auto) 0.4 % (0.0-7.0); Hematocrit 34.9 % (41.0-53.0); Hemoglobin 11.7 g/dL (13.5-17.5); Lymphocytes # (auto) 1.5 10 ^3/uL (0.4-5.4); Lymphocytes % (auto) 10.3 % (10.0-50.0); Mean Corpuscular Hemoglobin 28.6 pg (28.0-32.0); Mean Corpuscular Hgb Conc. 33.6 g/dL (32.0-36.0); Mean Corpuscular Volume 85.2 fL (80.0-100.0); Monocytes # (auto) 1.1 10 ^3/uL (0-1.3); Monocytes % (auto) 7.2 % (0.0-12.0); Neutrophils # (auto) 11.9 10 ^3/uL (1.6-8.6); White Blood Cell 14.7 10^3/uL (4.4-10.8)
[2021-10-21] VITALS (99 sets, daily range): BP systolic 109–154; BP diastolic 58–98
[2021-10-21] MEDS: ACCU-CHEK COMFORT CURVE STRIP VI SCH ×4 (01:11→17:42)
[2021-10-21 04:35] LABS: Basophils # (auto) 0.1 10 ^3/uL (0-0.2); Basophils % (auto) 0.8 % (0.0-2.0); Eosinophils # (auto) 0.3 10 ^3/uL (0-0.8); Eosinophils % (auto) 1.7 % (0.0-7.0); Hematocrit 34.3 % (41.0-53.0); Hemoglobin 11.4 g/dL (13.5-17.5); Lymphocytes # (auto) 2.3 10 ^3/uL (0.4-5.4); Lymphocytes % (auto) 15.6 % (10.0-50.0); Mean Corpuscular Hemoglobin 28.9 pg (28.0-32.0); Mean Corpuscular Hgb Conc. 33.3 g/dL (32.0-36.0); Mean Corpuscular Volume 86.8 fL (80.0-100.0); Monocytes # (auto) 1.5 10 ^3/uL (0-1.3); Monocytes % (auto) 10.4 % (0.0-12.0); Neutrophils # (auto) 10.5 10 ^3/uL (1.6-8.6); Neutrophils % (auto) 71.5 % (37.0-80.0); Nucleated Red Blood Cells % 0.1 %; Red Blood Cells 3.95 10^6/uL (4.5-5.90); Red Cell Distribution Width 17.6 % (11.8-14.3); White Blood Cell 14.7 10^3/uL (4.4-10.8)
[2021-10-21 04:54] LABS: Albumin 2.6 g/dL (3.4-5.0); Calcium 6.9 mg/dL (8.5-10.1); Magnesium 2.3 mg/dL (1.6-2.6); Potassium 3.3 mmol/L (3.5-5.1)
[2021-10-21 04:59] LABS: BUN/Creatinine Ratio 39.4; Bilirubin, Total 0.5 mg/dL (0.2-1.0); Phosphorus 3.6 mg/dL (2.5-4.90)
[2021-10-21] MEDS: LACTULOSE 20Gm/30ML SOLN PO SCH ×5 (05:37→23:05)
[2021-10-21] MEDS: InsuLIN REG 1unit/0.01ml Soln (100units/ml) SC SCH ×4 (05:38→17:42)
[2021-10-21] MEDS: MIDAZOLAM DRIP 50 mg/50mL 50 ML IV SCH ×5 (05:39→16:49)
[2021-10-21] MEDS: PROPOFOL 100 ML IV SCH ×5 (05:39→16:49)
[2021-10-21] MEDS: ROCURONIUM BROMIDE 1,000 MG in D5W 5% 150 ML IV SCH (08:46)
[2021-10-21] MEDS: MICAFUNGIN SODIUM 100 MG in SODIUM CHL 0.9% 100 ML IV SCH (09:26)
[2021-10-21] MEDS: fentaNYL Drip 2500mCg/250mlNS 250 ML IV SCH ×2 (09:27→17:42)
[2021-10-21] MEDS: ASCORBIC ACID 500 MG TAB PO SCH (09:28)
[2021-10-21] MEDS: DexAMETHasone SOD PHOS 4 MG/1ML SDV INJ IV SCH (09:28)
[2021-10-21] MEDS: FUROSEMIDE 20 MG/2 ML VIAL IV SCH ×2 (09:28→23:05)
[2021-10-21] MEDS: PANTOPRAZOLE 40 MG/10 ML VIAL INJ IV SCH ×2 (09:28→23:03)
[2021-10-21] MEDS: SODIUM CHLOR 0.9% PF (SALINE LOCK) 10ML VIAL/SYR IV SCH ×2 (09:29→23:03)
[2021-10-21] MEDS: levoFLOXacin 500MG 100 ML IV SCH (09:30)
[2021-10-21] MEDS: ENOXAPARIN SOD 60 MG/0.6 ML SYRINGE SC SCH ×2 (10:00→22:00)
[2021-10-21] MEDS: POTASSIUM EFFERVESENT TAB 25 MEQ GT SCH ×2 (10:00→23:03)
[2021-10-21] MEDS: CHOLECALCIFEROL (VITD3) 2,000 UNIT CAP/TAB PO SCH (11:13)
[2021-10-21] MEDS: POTASSIUM CHL 20MEQ/50ML 50 ML IV SCH ×2 (11:14→15:15)
[2021-10-21] MEDS ORDERED: CALCIUM GLUC 1,000mg/50ml-NS 50 ML IV ONE (14:00)
[2021-10-21] MEDS: ALBUTEROL SULF 2.5 MG/0.5ML(0.5%) NEB SOLN NEB PRN (18:34)
[2021-10-21] MEDS: BUDESONIDE (INHALATION) 0.5 MG/2 ML NEB NEB SCH (18:34)
[2021-10-21] MEDS ORDERED: TPN PER PHARMACY IV NR ×9 (20:00)
[2021-10-22] VITALS (98 sets, daily range): BP systolic 95–150; BP diastolic 51–95
[2021-10-22] MEDS: ACCU-CHEK COMFORT CURVE STRIP VI SCH ×4 (00:02→17:41)
[2021-10-22 03:18] LABS: Hematocrit 32.6 % (41.0-53.0); Hemoglobin 10.8 g/dL (13.5-17.5); Mean Corpuscular Hemoglobin 28.4 pg (28.0-32.0); Mean Corpuscular Volume 86.1 fL (80.0-100.0); Red Blood Cells 3.79 10^6/uL (4.5-5.90); Red Cell Distribution Width 17.5 % (11.8-14.3)
[2021-10-22 03:29] LABS: Basophils % (manual) 0 (0.0-2.0); Blast Cells 0; Metamyelocytes % 0; Promyelocytes % 0; Reactive Lymphocytes 0
[2021-10-22 03:35] LABS: Albumin 2.8 g/dL (3.4-5.0); Calcium 7.6 mg/dL (8.5-10.1); Magnesium 2.2 mg/dL (1.6-2.6); Potassium 3.6 mmol/L (3.5-5.1)
[2021-10-22 03:37] LABS: BUN/Creatinine Ratio 56.3; Bilirubin, Total 0.4 mg/dL (0.2-1.0); Phosphorus 3.2 mg/dL (2.5-4.90); Total Protein 5.4 g/dL (6.4-8.2)
[2021-10-22 04:04] LABS: Eosinophils % (manual) 2 (0-7); Lymphocytes % (manual) 17 (10.0-50.0); Monocytes % (manual) 14 (0-12); Myelocytes % 7
[2021-10-22 04:05] LABS: Band Neutrophils % (manual) 15
[2021-10-22] MEDS: InsuLIN REG 1unit/0.01ml Soln (100units/ml) SC SCH ×4 (06:00→17:55)
[2021-10-22] MEDS: LACTULOSE 20Gm/30ML SOLN PO SCH ×4 (06:00→21:48)
[2021-10-22] MEDS: NOREPINEPHRINE 8 MG/250ML KIT 250 ML IV SCH ×2 (06:35→20:00)
[2021-10-22] MEDS: ROCURONIUM BROMIDE 1,000 MG in D5W 5% 150 ML IV SCH ×2 (06:43→11:16)
[2021-10-22] MEDS: MIDAZOLAM DRIP 50 mg/50mL 50 ML IV SCH ×4 (06:44→17:34)
[2021-10-22] MEDS: PROPOFOL 100 ML IV SCH ×5 (06:44→17:32)
[2021-10-22] MEDS: ARTIFICIAL TEARS 15ml EACHEYE PRN (06:44)
[2021-10-22] MEDS: BUDESONIDE (INHALATION) 0.5 MG/2 ML NEB NEB SCH ×2 (07:21→18:13)
[2021-10-22] MEDS: PANTOPRAZOLE 40 MG/10 ML VIAL INJ IV SCH ×2 (09:08→21:47)
[2021-10-22] MEDS: DexAMETHasone SOD PHOS 4 MG/1ML SDV INJ IV SCH (09:08)
[2021-10-22] MEDS: FUROSEMIDE 20 MG/2 ML VIAL IV SCH ×2 (09:08→21:47)
[2021-10-22] MEDS: MICAFUNGIN SODIUM 100 MG in SODIUM CHL 0.9% 100 ML IV SCH (09:09)
[2021-10-22] MEDS: CHOLECALCIFEROL (VITD3) 2,000 UNIT CAP/TAB PO SCH (09:09)
[2021-10-22] MEDS: ENOXAPARIN SOD 60 MG/0.6 ML SYRINGE SC SCH ×2 (09:09→21:47)
[2021-10-22] MEDS: ASCORBIC ACID 500 MG TAB PO SCH (09:09)
[2021-10-22] MEDS: levoFLOXacin 500MG 100 ML IV SCH (09:10)
[2021-10-22] MEDS: fentaNYL Drip 2500mCg/250mlNS 250 ML IV SCH ×2 (11:14→17:33)
[2021-10-22] MEDS: POTASSIUM EFFERVESENT TAB 25 MEQ GT SCH ×2 (12:46→21:46)
[2021-10-22] MEDS: SODIUM CHLOR 0.9% PF (SALINE LOCK) 10ML VIAL/SYR IV SCH ×2 (12:47→21:47)
[2021-10-22] MEDS: ALBUTEROL SULF 2.5 MG/0.5ML(0.5%) NEB SOLN NEB PRN (18:12)
[2021-10-22] MEDS ORDERED: TPN PER PHARMACY IV NR ×9 (20:00)
[2021-10-23] VITALS (97 sets, daily range): BP systolic 102–149; BP diastolic 56–88
[2021-10-23 05:20] LABS: Pre Albumin 49.5 mg/dL (20.0-40.0)
[2021-10-23] MEDS: LACTULOSE 20Gm/30ML SOLN PO SCH ×3 (05:37→17:30)
[2021-10-23] MEDS: ACCU-CHEK COMFORT CURVE STRIP VI SCH ×4 (05:38→18:00)
[2021-10-23] MEDS: InsuLIN REG 1unit/0.01ml Soln (100units/ml) SC SCH ×4 (05:38→18:00)
[2021-10-23] MEDS: NOREPINEPHRINE 8 MG/250ML KIT 250 ML IV SCH (05:39)
[2021-10-23 09:30] LABS: Basophils # (auto) 0.1 10 ^3/uL (0-0.2); Basophils % (auto) 1.1 % (0.0-2.0); Eosinophils # (auto) 0.3 10 ^3/uL (0-0.8); Eosinophils % (auto) 3.1 % (0.0-7.0); Hematocrit 35.6 % (41.0-53.0); Hemoglobin 11.8 g/dL (13.5-17.5); Lymphocytes # (auto) 2.1 10 ^3/uL (0.4-5.4); Lymphocytes % (auto) 18.4 % (10.0-50.0); Mean Corpuscular Hemoglobin 28.3 pg (28.0-32.0); Mean Corpuscular Hgb Conc. 33.1 g/dL (32.0-36.0); Mean Corpuscular Volume 85.2 fL (80.0-100.0); Monocytes # (auto) 1.2 10 ^3/uL (0-1.3); Monocytes % (auto) 10.5 % (0.0-12.0); Neutrophils # (auto) 7.6 10 ^3/uL (1.6-8.6); Neutrophils % (auto) 66.9 % (37.0-80.0); Nucleated Red Blood Cells % 0.5 %; Red Blood Cells 4.17 10^6/uL (4.5-5.90); Red Cell Distribution Width 17.3 % (11.8-14.3); White Blood Cell 11.4 10^3/uL (4.4-10.8)
[2021-10-23] MEDS: MIDAZOLAM DRIP 50 mg/50mL 50 ML IV SCH ×4 (09:46→20:59)
[2021-10-23] MEDS: PANTOPRAZOLE 40 MG/10 ML VIAL INJ IV SCH ×2 (09:47→20:58)
[2021-10-23] MEDS: CHOLECALCIFEROL (VITD3) 2,000 UNIT CAP/TAB PO SCH (09:47)
[2021-10-23] MEDS: FUROSEMIDE 20 MG/2 ML VIAL IV SCH ×2 (09:47→20:58)
[2021-10-23] MEDS: ENOXAPARIN SOD 60 MG/0.6 ML SYRINGE SC SCH ×2 (09:47→20:58)
[2021-10-23] MEDS: ASCORBIC ACID 500 MG TAB PO SCH (09:47)
[2021-10-23] MEDS: DexAMETHasone SOD PHOS 4 MG/1ML SDV INJ IV SCH (09:48)
[2021-10-23] MEDS: PROPOFOL 100 ML IV SCH ×5 (09:49→20:58)
[2021-10-23] MEDS: POTASSIUM EFFERVESENT TAB 25 MEQ GT SCH ×2 (09:49→20:57)
[2021-10-23] MEDS: levoFLOXacin 500MG 100 ML IV SCH (09:49)
[2021-10-23 09:57] LABS: Albumin 3.2 g/dL (3.4-5.0); Calcium 8.3 mg/dL (8.5-10.1); Potassium 3.2 mmol/L (3.5-5.1)
[2021-10-23 09:59] LABS: BUN/Creatinine Ratio 91.7; Bilirubin, Total 0.5 mg/dL (0.2-1.0); Total Protein 5.6 g/dL (6.4-8.2)
[2021-10-23] MEDS: fentaNYL Drip 2500mCg/250mlNS 250 ML IV SCH ×2 (10:30→17:59)
[2021-10-23] MEDS: SODIUM CHLOR 0.9% PF (SALINE LOCK) 10ML VIAL/SYR IV SCH ×2 (10:32→19:54)
[2021-10-23] MEDS: MICAFUNGIN SODIUM 100 MG in SODIUM CHL 0.9% 100 ML IV SCH (10:32)
[2021-10-23] MEDS: POTASSIUM CHL 20MEQ/50ML 50 ML IV SCH ×2 (12:45→14:52)
[2021-10-23] MEDS: BUDESONIDE (INHALATION) 0.5 MG/2 ML NEB NEB SCH ×2 (14:59→18:56)
[2021-10-23] MEDS: LABETALOL HCL 5 MG/ML 4ML SYRINGE IV PRN (16:50)
[2021-10-23] MEDS: ALBUTEROL SULF 2.5 MG/0.5ML(0.5%) NEB SOLN NEB PRN (18:56)
[2021-10-23] MEDS: ROCURONIUM BROMIDE 1,000 MG in D5W 5% 150 ML IV SCH (19:08)
[2021-10-23] MEDS ORDERED: TPN PER PHARMACY IV NR ×8 (20:00)
[2021-10-24] VITALS (99 sets, daily range): BP systolic 85–148; BP diastolic 30–91
[2021-10-24 04:37] LABS: Hematocrit 33.4 % (41.0-53.0); Hemoglobin 11.5 g/dL (13.5-17.5); Mean Corpuscular Hemoglobin 29.2 pg (28.0-32.0); Mean Corpuscular Hgb Conc. 34.3 g/dL (32.0-36.0); Mean Corpuscular Volume 85.2 fL (80.0-100.0); Red Blood Cells 3.92 10^6/uL (4.5-5.90); Red Cell Distribution Width 17.2 % (11.8-14.3); White Blood Cell 11.3 10^3/uL (4.4-10.8)
[2021-10-24 04:42] LABS: Basophils % (manual) 0 (0.0-2.0); Blast Cells 0; Promyelocytes % 0; Reactive Lymphocytes 0
[2021-10-24 04:51] LABS: Potassium 3.6 mmol/L (3.5-5.1)
[2021-10-24 04:59] LABS: Albumin 3.1 g/dL (3.4-5.0); Bilirubin, Total 0.4 mg/dL (0.2-1.0); Calcium 8.1 mg/dL (8.5-10.1); Magnesium 2.8 mg/dL (1.6-2.6); Phosphorus 4.4 mg/dL (2.5-4.90); Total Protein 5.6 g/dL (6.4-8.2)
[2021-10-24] MEDS: LACTULOSE 20Gm/30ML SOLN PO SCH ×5 (05:06→20:28)
[2021-10-24] MEDS: ACCU-CHEK COMFORT CURVE STRIP VI SCH ×5 (05:28→23:32)
[2021-10-24] MEDS: InsuLIN REG 1unit/0.01ml Soln (100units/ml) SC SCH ×5 (05:28→23:32)
[2021-10-24] MEDS: ALBUTEROL SULF 2.5 MG/0.5ML(0.5%) NEB SOLN NEB PRN ×2 (05:56→22:32)
[2021-10-24] MEDS: BUDESONIDE (INHALATION) 0.5 MG/2 ML NEB NEB SCH ×2 (05:57→22:32)
[2021-10-24 06:01] LABS: Band Neutrophils % (manual) 12; Eosinophils % (manual) 3 (0-7); Lymphocytes % (manual) 27 (10.0-50.0); Metamyelocytes % 2; Monocytes % (manual) 4 (0-12); Myelocytes % 4
[2021-10-24] MEDS: NOREPINEPHRINE 8 MG/250ML KIT 250 ML IV SCH ×2 (07:45→20:50)
[2021-10-24] MEDS: SODIUM CHLOR 0.9% PF (SALINE LOCK) 10ML VIAL/SYR IV SCH ×2 (10:00→20:28)
[2021-10-24] MEDS: DexAMETHasone SOD PHOS 4 MG/1ML SDV INJ IV SCH (11:07)
[2021-10-24] MEDS: POTASSIUM EFFERVESENT TAB 25 MEQ GT SCH ×2 (11:07→20:48)
[2021-10-24] MEDS: FUROSEMIDE 20 MG/2 ML VIAL IV SCH ×2 (11:08→20:48)
[2021-10-24] MEDS: levoFLOXacin 500MG 100 ML IV SCH (11:08)
[2021-10-24] MEDS: ENOXAPARIN SOD 60 MG/0.6 ML SYRINGE SC SCH ×2 (11:08→20:49)
[2021-10-24] MEDS: ASCORBIC ACID 500 MG TAB PO SCH (11:08)
[2021-10-24] MEDS: PANTOPRAZOLE 40 MG/10 ML VIAL INJ IV SCH ×2 (11:08→20:49)
[2021-10-24] MEDS: CHOLECALCIFEROL (VITD3) 2,000 UNIT CAP/TAB PO SCH (11:09)
[2021-10-24] MEDS: PROPOFOL 100 ML IV SCH ×2 (11:16→20:49)
[2021-10-24] MEDS: MICAFUNGIN SODIUM 100 MG in SODIUM CHL 0.9% 100 ML IV SCH (12:00)
[2021-10-24] MEDS: TPN PER PHARMACY IV NR ×7 (19:59)
[2021-10-24] MEDS: MIDAZOLAM DRIP 50 mg/50mL 50 ML IV SCH (20:50)
[2021-10-24] MEDS: ROCURONIUM BROMIDE 1,000 MG in D5W 5% 150 ML IV SCH (21:04)
[2021-10-25] VITALS (93 sets, daily range): BP systolic 90–144; BP diastolic 37–93
[2021-10-25] MEDS: LACTULOSE 20Gm/30ML SOLN PO SCH ×4 (01:43→22:29)
[2021-10-25 04:20] LABS: Hematocrit 30.4 % (41.0-53.0); Hemoglobin 10.8 g/dL (13.5-17.5); Mean Corpuscular Hgb Conc. 35.5 g/dL (32.0-36.0); Mean Corpuscular Volume 84.5 fL (80.0-100.0); Red Blood Cells 3.59 10^6/uL (4.5-5.90); Red Cell Distribution Width 18.2 % (11.8-14.3)
[2021-10-25 04:41] LABS: Albumin 2.8 g/dL (3.4-5.0); Calcium 8.1 mg/dL (8.5-10.1); Magnesium 1.5 mg/dL (1.6-2.6); Potassium 3.7 mmol/L (3.5-5.1)
[2021-10-25 04:44] LABS: Bilirubin, Total 0.4 mg/dL (0.2-1.0); Phosphorus 3.8 mg/dL (2.5-4.90); Total Protein 5.1 g/dL (6.4-8.2)
[2021-10-25 04:45] LABS: Basophils % (manual) 0 (0.0-2.0); Blast Cells 0; Promyelocytes % 0; Reactive Lymphocytes 0
[2021-10-25] MEDS: InsuLIN REG 1unit/0.01ml Soln (100units/ml) SC SCH ×3 (06:00→18:00)
[2021-10-25] MEDS: ACCU-CHEK COMFORT CURVE STRIP VI SCH ×3 (06:15→18:00)
[2021-10-25 06:22] LABS: Band Neutrophils % (manual) 16; Eosinophils % (manual) 2 (0-7); Lymphocytes % (manual) 33 (10.0-50.0); Metamyelocytes % 3; Monocytes % (manual) 10 (0-12); Myelocytes % 1
[2021-10-25] MEDS: BUDESONIDE (INHALATION) 0.5 MG/2 ML NEB NEB SCH ×2 (08:30→21:55)
[2021-10-25] MEDS: ASCORBIC ACID 500 MG TAB PO SCH (10:07)
[2021-10-25] MEDS: CHOLECALCIFEROL (VITD3) 2,000 UNIT CAP/TAB PO SCH (10:08)
[2021-10-25] MEDS: ENOXAPARIN SOD 60 MG/0.6 ML SYRINGE SC SCH ×2 (10:08→20:59)
[2021-10-25] MEDS: FUROSEMIDE 20 MG/2 ML VIAL IV SCH ×2 (10:11→21:00)
[2021-10-25] MEDS: DexAMETHasone SOD PHOS 4 MG/1ML SDV INJ IV SCH (10:12)
[2021-10-25] MEDS: levoFLOXacin 500MG 100 ML IV SCH (10:12)
[2021-10-25] MEDS: MICAFUNGIN SODIUM 100 MG in SODIUM CHL 0.9% 100 ML IV SCH (10:12)
[2021-10-25] MEDS: PANTOPRAZOLE 40 MG/10 ML VIAL INJ IV SCH ×2 (10:12→20:59)
[2021-10-25] MEDS: POTASSIUM EFFERVESENT TAB 25 MEQ GT SCH ×2 (10:13→20:59)
[2021-10-25] MEDS: SODIUM CHLOR 0.9% PF (SALINE LOCK) 10ML VIAL/SYR IV SCH ×2 (10:13→19:38)
[2021-10-25] MEDS: PROPOFOL 100 ML IV SCH ×5 (10:54→21:00)
[2021-10-25] MEDS: MIDAZOLAM DRIP 50 mg/50mL 50 ML IV SCH ×4 (10:56→21:01)
[2021-10-25] MEDS ORDERED: MAGNESIUM SULFATE 1GM/100ML 100 ML IV ONE (11:00)
[2021-10-25] MEDS: fentaNYL Drip 2500mCg/250mlNS 250 ML IV SCH ×2 (11:09→18:18)
[2021-10-25] MEDS: ROCURONIUM BROMIDE 1,000 MG in D5W 5% 150 ML IV SCH (15:41)
[2021-10-25] MEDS ORDERED: TPN PER PHARMACY IV NR ×8 (20:00)
[2021-10-25] MEDS: TPN PER PHARMACY IV NR ×7 (20:11)
[2021-10-26] VITALS (97 sets, daily range): BP systolic 97–174; BP diastolic 58–96
[2021-10-26] MEDS ORDERED: ROCURONIUM 10MG/ML 10ML VIAL IV ONE ×4 (02:27→02:32)
[2021-10-26] MEDS: ROCURONIUM BROMIDE 1,000 MG in D5W 5% 150 ML IV SCH (02:45)
[2021-10-26 03:42] LABS: Hematocrit 35.2 % (41.0-53.0); Mean Corpuscular Hemoglobin 29.1 pg (28.0-32.0); Mean Corpuscular Volume 85.6 fL (80.0-100.0); Red Blood Cells 4.11 10^6/uL (4.5-5.90); Red Cell Distribution Width 18.5 % (11.8-14.3); White Blood Cell 10.3 10^3/uL (4.4-10.8)
[2021-10-26 04:02] LABS: Basophils % (manual) 0 (0.0-2.0); Blast Cells 0; Metamyelocytes % 0; Monocytes % (manual) 0 (0-12); Potassium 4.1 mmol/L (3.5-5.1); Promyelocytes % 0; Reactive Lymphocytes 0
[2021-10-26 04:06] LABS: Albumin 3.2 g/dL (3.4-5.0); BUN/Creatinine Ratio 74.1; Calcium 8.5 mg/dL (8.5-10.1); Magnesium 1.9 mg/dL (1.6-2.6)
[2021-10-26 04:08] LABS: Bilirubin, Total 0.4 mg/dL (0.2-1.0); Phosphorus 5.7 mg/dL (2.5-4.90); Total Protein 5.7 g/dL (6.4-8.2)
[2021-10-26] MEDS: LACTULOSE 20Gm/30ML SOLN PO SCH ×3 (05:41→17:26)
[2021-10-26] MEDS: InsuLIN REG 1unit/0.01ml Soln (100units/ml) SC SCH ×4 (05:41→18:00)
[2021-10-26] MEDS: ACCU-CHEK COMFORT CURVE STRIP VI SCH ×4 (05:42→18:00)
[2021-10-26] MEDS: BUDESONIDE (INHALATION) 0.5 MG/2 ML NEB NEB SCH ×2 (06:20→21:43)
[2021-10-26] MEDS: ALBUTEROL SULF 2.5 MG/0.5ML(0.5%) NEB SOLN NEB PRN (06:20)
[2021-10-26 07:03] LABS: Band Neutrophils % (manual) 24; Eosinophils % (manual) 3 (0-7); Lymphocytes % (manual) 20 (10.0-50.0); Myelocytes % 2
[2021-10-26] MEDS: NOREPINEPHRINE 8 MG/250ML KIT 250 ML IV SCH (07:45)
[2021-10-26] MEDS: FUROSEMIDE 20 MG/2 ML VIAL IV SCH ×2 (09:39→22:18)
[2021-10-26] MEDS: ASCORBIC ACID 500 MG TAB PO SCH (09:39)
[2021-10-26] MEDS: ENOXAPARIN SOD 60 MG/0.6 ML SYRINGE SC SCH ×2 (09:39→22:19)
[2021-10-26] MEDS: PANTOPRAZOLE 40 MG/10 ML VIAL INJ IV SCH ×2 (09:39→22:18)
[2021-10-26] MEDS: DexAMETHasone SOD PHOS 4 MG/1ML SDV INJ IV SCH (09:40)
[2021-10-26] MEDS: CHOLECALCIFEROL (VITD3) 2,000 UNIT CAP/TAB PO SCH (09:40)
[2021-10-26] MEDS: SODIUM CHLOR 0.9% PF (SALINE LOCK) 10ML VIAL/SYR IV SCH ×2 (09:40→22:18)
[2021-10-26] MEDS: POTASSIUM EFFERVESENT TAB 25 MEQ GT SCH ×2 (09:40→22:18)
[2021-10-26] MEDS: levoFLOXacin 500MG 100 ML IV SCH (09:40)
[2021-10-26] MEDS ORDERED: Jevity 1.2 Cal/Fiber 1 Liter GT SCH (10:15)
[2021-10-26] MEDS: PROPOFOL 100 ML IV SCH ×4 (10:15→17:50)
[2021-10-26] MEDS: MIDAZOLAM DRIP 50 mg/50mL 50 ML IV SCH ×3 (10:15→17:43)
[2021-10-26] MEDS: fentaNYL Drip 2500mCg/250mlNS 250 ML IV SCH ×2 (10:18→17:44)
[2021-10-26] MEDS ORDERED: TPN PER PHARMACY IV NR ×8 (20:00)
[2021-10-27] VITALS (97 sets, daily range): BP systolic 96–132; BP diastolic 59–88
[2021-10-27] MEDS: ACCU-CHEK COMFORT CURVE STRIP VI SCH ×5 (00:18→23:35)
[2021-10-27] MEDS: ROCURONIUM BROMIDE 1,000 MG in D5W 5% 150 ML IV SCH ×2 (01:25→18:56)
[2021-10-27 05:20] LABS: Basophils # (auto) 0.1 10 ^3/uL (0-0.2); Basophils % (auto) 1.4 % (0.0-2.0); Eosinophils # (auto) 0.3 10 ^3/uL (0-0.8); Eosinophils % (auto) 2.7 % (0.0-7.0); Hematocrit 33.1 % (41.0-53.0); Hemoglobin 11.3 g/dL (13.5-17.5); Lymphocytes % (auto) 20.3 % (10.0-50.0); Mean Corpuscular Hemoglobin 29.3 pg (28.0-32.0); Mean Corpuscular Hgb Conc. 34.2 g/dL (32.0-36.0); Mean Corpuscular Volume 85.8 fL (80.0-100.0); Monocytes # (auto) 1.7 10 ^3/uL (0-1.3); Monocytes % (auto) 17.5 % (0.0-12.0); Neutrophils # (auto) 5.7 10 ^3/uL (1.6-8.6); Neutrophils % (auto) 58.1 % (37.0-80.0); Nucleated Red Blood Cells % 1.5 %; Red Blood Cells 3.86 10^6/uL (4.5-5.90); Red Cell Distribution Width 18.7 % (11.8-14.3); White Blood Cell 9.8 10^3/uL (4.4-10.8)
[2021-10-27 05:49] LABS: Albumin 3.1 g/dL (3.4-5.0); Calcium 8.4 mg/dL (8.5-10.1); Magnesium 2.3 mg/dL (1.6-2.6); Potassium 3.2 mmol/L (3.5-5.1)
[2021-10-27 05:53] LABS: BUN/Creatinine Ratio 70.4; Bilirubin, Total 0.4 mg/dL (0.2-1.0); Phosphorus 4.1 mg/dL (2.5-4.90); Total Protein 5.5 g/dL (6.4-8.2)
[2021-10-27] MEDS: BUDESONIDE (INHALATION) 0.5 MG/2 ML NEB NEB SCH ×2 (06:00→22:21)
[2021-10-27] MEDS: InsuLIN REG 1unit/0.01ml Soln (100units/ml) SC SCH ×5 (06:00→23:35)
[2021-10-27] MEDS: ALBUTEROL SULF 2.5 MG/0.5ML(0.5%) NEB SOLN NEB PRN ×2 (06:00→22:21)
[2021-10-27] MEDS: LACTULOSE 20Gm/30ML SOLN PO SCH ×5 (06:00→23:34)
[2021-10-27] MEDS: MIDAZOLAM DRIP 50 mg/50mL 50 ML IV SCH ×3 (07:27→16:35)
[2021-10-27] MEDS: PROPOFOL 100 ML IV SCH ×4 (07:27→18:41)
[2021-10-27] MEDS: NOREPINEPHRINE 8 MG/250ML KIT 250 ML IV SCH (07:45)
[2021-10-27] MEDS: POTASSIUM EFFERVESENT TAB 25 MEQ GT SCH ×2 (09:32→23:32)
[2021-10-27] MEDS: DexAMETHasone SOD PHOS 4 MG/1ML SDV INJ IV SCH (09:32)
[2021-10-27] MEDS: PANTOPRAZOLE 40 MG/10 ML VIAL INJ IV SCH ×2 (09:32→23:33)
[2021-10-27] MEDS: ENOXAPARIN SOD 60 MG/0.6 ML SYRINGE SC SCH ×2 (09:32→23:34)
[2021-10-27] MEDS: ASCORBIC ACID 500 MG TAB PO SCH (09:32)
[2021-10-27] MEDS: levoFLOXacin 500MG 100 ML IV SCH (09:33)
[2021-10-27] MEDS: FUROSEMIDE 20 MG/2 ML VIAL IV SCH ×2 (09:33→23:33)
[2021-10-27] MEDS: POTASSIUM CHL 20MEQ/50ML 50 ML IV SCH ×2 (09:34→12:34)
[2021-10-27] MEDS: fentaNYL Drip 2500mCg/250mlNS 250 ML IV SCH ×2 (10:14→17:17)
[2021-10-27] MEDS ORDERED: POTASSIUM EFFERVESENT TAB 25 MEQ GT ONE (11:00)
[2021-10-27] MEDS: SODIUM CHLOR 0.9% PF (SALINE LOCK) 10ML VIAL/SYR IV SCH ×2 (12:32→22:00)
[2021-10-27] MEDS: CHOLECALCIFEROL (VITD3) 2,000 UNIT CAP/TAB PO SCH (12:32)
[2021-10-27] MEDS ORDERED: TPN PER PHARMACY IV NR ×9 (20:00)
[2021-10-28] VITALS (67 sets, daily range): BP systolic 103–150; BP diastolic 60–102
[2021-10-28] MEDS: fentaNYL Drip 2500mCg/250mlNS 250 ML IV SCH ×3 (02:10→18:03)
[2021-10-28] MEDS: LACTULOSE 20Gm/30ML SOLN PO SCH ×3 (06:00→18:00)
[2021-10-28] MEDS: InsuLIN REG 1unit/0.01ml Soln (100units/ml) SC SCH ×3 (06:00→18:00)
[2021-10-28 06:04] LABS: Albumin 3.1 g/dL (3.4-5.0); Calcium 8.2 mg/dL (8.5-10.1); Magnesium 2.1 mg/dL (1.6-2.6); Potassium 3.5 mmol/L (3.5-5.1)
[2021-10-28 06:09] LABS: Bilirubin, Total 0.4 mg/dL (0.2-1.0); Phosphorus 4.2 mg/dL (2.5-4.90); Pre Albumin 38.2 mg/dL (20.0-40.0); Total Protein 5.4 g/dL (6.4-8.2)
[2021-10-28] MEDS: ACCU-CHEK COMFORT CURVE STRIP VI SCH ×3 (06:26→18:00)
[2021-10-28] MEDS: BUDESONIDE (INHALATION) 0.5 MG/2 ML NEB NEB SCH ×2 (06:30→18:37)
[2021-10-28] MEDS: NOREPINEPHRINE 8 MG/250ML KIT 250 ML IV SCH (07:45)
[2021-10-28] MEDS: PROPOFOL 100 ML IV SCH ×6 (08:59→22:21)
[2021-10-28] MEDS: MIDAZOLAM DRIP 50 mg/50mL 50 ML IV SCH ×4 (08:59→22:22)
[2021-10-28] MEDS: DexAMETHasone SOD PHOS 4 MG/1ML SDV INJ IV SCH (09:03)
[2021-10-28] MEDS: FUROSEMIDE 20 MG/2 ML VIAL IV SCH ×2 (09:03→21:49)
[2021-10-28] MEDS: CHOLECALCIFEROL (VITD3) 2,000 UNIT CAP/TAB PO SCH (09:04)
[2021-10-28] MEDS: ASCORBIC ACID 500 MG TAB PO SCH (09:04)
[2021-10-28] MEDS: PANTOPRAZOLE 40 MG/10 ML VIAL INJ IV SCH ×2 (09:04→21:49)
[2021-10-28] MEDS: ENOXAPARIN SOD 60 MG/0.6 ML SYRINGE SC SCH ×2 (09:04→21:49)
[2021-10-28] MEDS: levoFLOXacin 500MG 100 ML IV SCH (09:04)
[2021-10-28] MEDS: POTASSIUM EFFERVESENT TAB 25 MEQ GT SCH ×2 (09:04→21:48)
[2021-10-28] MEDS: SODIUM CHLOR 0.9% PF (SALINE LOCK) 10ML VIAL/SYR IV SCH ×2 (09:05→21:49)
[2021-10-28 09:44] LABS: Basophils # (auto) 0.1 10 ^3/uL (0-0.2); Basophils % (auto) 1.3 % (0.0-2.0); Eosinophils # (auto) 0.4 10 ^3/uL (0-0.8); Eosinophils % (auto) 3.5 % (0.0-7.0); Hematocrit 34.5 % (41.0-53.0); Hemoglobin 11.8 g/dL (13.5-17.5); Lymphocytes # (auto) 2.6 10 ^3/uL (0.4-5.4); Lymphocytes % (auto) 23.5 % (10.0-50.0); Mean Corpuscular Hgb Conc. 34.1 g/dL (32.0-36.0); Monocytes # (auto) 1.5 10 ^3/uL (0-1.3); Monocytes % (auto) 13.2 % (0.0-12.0); Neutrophils # (auto) 6.6 10 ^3/uL (1.6-8.6); Neutrophils % (auto) 58.5 % (37.0-80.0); Nucleated Red Blood Cells % 0.7 %; Red Blood Cells 4.06 10^6/uL (4.5-5.90); Red Cell Distribution Width 19.3 % (11.8-14.3); White Blood Cell 11.2 10^3/uL (4.4-10.8)
[2021-10-28] MEDS: ALBUTEROL SULF 2.5 MG/0.5ML(0.5%) NEB SOLN NEB PRN (18:37)
[2021-10-28] MEDS: ROCURONIUM BROMIDE 1,000 MG in D5W 5% 150 ML IV SCH (18:47)
[2021-10-28] MEDS ORDERED: TPN PER PHARMACY IV NR ×9 (20:00)
[2021-10-29] VITALS (76 sets, daily range): BP systolic 93–130; BP diastolic 38–87
[2021-10-29] MEDS: LACTULOSE 20Gm/30ML SOLN PO SCH ×5 (00:20→22:25)
[2021-10-29] MEDS: ACCU-CHEK COMFORT CURVE STRIP VI SCH ×5 (00:21→23:43)
[2021-10-29] MEDS: ROCURONIUM BROMIDE 1,000 MG in D5W 5% 150 ML IV SCH ×2 (00:45→18:58)
[2021-10-29] MEDS: fentaNYL Drip 2500mCg/250mlNS 250 ML IV SCH ×4 (02:25→23:19)
[2021-10-29] MEDS: PROPOFOL 100 ML IV SCH ×9 (02:26→23:18)
[2021-10-29] MEDS: MIDAZOLAM DRIP 50 mg/50mL 50 ML IV SCH ×8 (02:27→23:20)
[2021-10-29] MEDS: InsuLIN REG 1unit/0.01ml Soln (100units/ml) SC SCH ×5 (06:00→23:43)
[2021-10-29 07:41] LABS: Hematocrit 30.1 % (41.0-53.0); Hemoglobin 10.6 g/dL (13.5-17.5); Mean Corpuscular Hemoglobin 30.1 pg (28.0-32.0); Mean Corpuscular Hgb Conc. 35.3 g/dL (32.0-36.0); Mean Corpuscular Volume 85.2 fL (80.0-100.0); Red Blood Cells 3.53 10^6/uL (4.5-5.90); Red Cell Distribution Width 19.6 % (11.8-14.3)
[2021-10-29] MEDS: NOREPINEPHRINE 8 MG/250ML KIT 250 ML IV SCH (07:45)
[2021-10-29 07:52] LABS: Basophils % (manual) 0 (0.0-2.0); Blast Cells 0; Metamyelocytes % 0; Myelocytes % 0; Promyelocytes % 0; Reactive Lymphocytes 0
[2021-10-29 08:08] LABS: Albumin 2.8 g/dL (3.4-5.0); Calcium 8.2 mg/dL (8.5-10.1); Magnesium 2.7 mg/dL (1.6-2.6); Potassium 3.7 mmol/L (3.5-5.1)
[2021-10-29 08:12] LABS: Bilirubin, Total 0.4 mg/dL (0.2-1.0); Phosphorus 4.3 mg/dL (2.5-4.90); Total Protein 5.2 g/dL (6.4-8.2)
[2021-10-29 08:40] LABS: Band Neutrophils % (manual) 11; Eosinophils % (manual) 4 (0-7); Lymphocytes % (manual) 18 (10.0-50.0); Monocytes % (manual) 7 (0-12)
[2021-10-29] MEDS: levoFLOXacin 500MG 100 ML IV SCH (09:31)
[2021-10-29] MEDS: SODIUM CHLOR 0.9% PF (SALINE LOCK) 10ML VIAL/SYR IV SCH ×2 (09:31→22:25)
[2021-10-29] MEDS: ENOXAPARIN SOD 60 MG/0.6 ML SYRINGE SC SCH ×2 (09:31→22:25)
[2021-10-29] MEDS: POTASSIUM EFFERVESENT TAB 25 MEQ GT SCH ×2 (09:31→22:24)
[2021-10-29] MEDS: PANTOPRAZOLE 40 MG/10 ML VIAL INJ IV SCH ×2 (09:31→22:24)
[2021-10-29] MEDS: CHOLECALCIFEROL (VITD3) 2,000 UNIT CAP/TAB PO SCH (09:31)
[2021-10-29] MEDS: ASCORBIC ACID 500 MG TAB PO SCH (09:31)
[2021-10-29] MEDS: DexAMETHasone SOD PHOS 4 MG/1ML SDV INJ IV SCH (09:36)
[2021-10-29] MEDS: FUROSEMIDE 20 MG/2 ML VIAL IV SCH ×2 (09:37→22:24)
[2021-10-29] MEDS: BUDESONIDE (INHALATION) 0.5 MG/2 ML NEB NEB SCH ×2 (11:28→22:08)
[2021-10-29] MEDS: ALBUTEROL SULF 2.5 MG/0.5ML(0.5%) NEB SOLN NEB PRN (11:28)
[2021-10-29] MEDS: LABETALOL HCL 5 MG/ML 4ML SYRINGE IV PRN (13:37)
[2021-10-29] MEDS ORDERED: TPN PER PHARMACY IV NR ×8 (20:00)
[2021-10-30] VITALS (76 sets, daily range): BP systolic 108–148; BP diastolic 57–85
[2021-10-30] MEDS: PROPOFOL 100 ML IV SCH ×7 (02:37→22:35)
[2021-10-30] MEDS: MIDAZOLAM DRIP 50 mg/50mL 50 ML IV SCH ×7 (02:37→22:35)
[2021-10-30] MEDS: LACTULOSE 20Gm/30ML SOLN PO SCH ×4 (05:10→22:14)
[2021-10-30] MEDS: ACCU-CHEK COMFORT CURVE STRIP VI SCH ×2 (05:38→12:00)
[2021-10-30] MEDS: InsuLIN REG 1unit/0.01ml Soln (100units/ml) SC SCH ×2 (05:39→12:00)
[2021-10-30] MEDS: BUDESONIDE (INHALATION) 0.5 MG/2 ML NEB NEB SCH ×2 (06:35→22:02)
[2021-10-30] MEDS: ALBUTEROL SULF 2.5 MG/0.5ML(0.5%) NEB SOLN NEB PRN ×2 (06:35→22:02)
[2021-10-30] MEDS: NOREPINEPHRINE 8 MG/250ML KIT 250 ML IV SCH (08:00)
[2021-10-30 08:26] LABS: Basophils # (auto) 0.2 10 ^3/uL (0-0.2); Basophils % (auto) 1.3 % (0.0-2.0); Eosinophils # (auto) 0.7 10 ^3/uL (0-0.8); Eosinophils % (auto) 4.7 % (0.0-7.0); Hematocrit 39.3 % (41.0-53.0); Lymphocytes # (auto) 2.6 10 ^3/uL (0.4-5.4); Mean Corpuscular Hemoglobin 29.4 pg (28.0-32.0); Monocytes # (auto) 1.7 10 ^3/uL (0-1.3); Monocytes % (auto) 10.9 % (0.0-12.0); Neutrophils % (auto) 66.1 % (37.0-80.0); Nucleated Red Blood Cells % 0.8 %; Red Blood Cells 4.42 10^6/uL (4.5-5.90); Red Cell Distribution Width 20.4 % (11.8-14.3); White Blood Cell 15.2 10^3/uL (4.4-10.8)
[2021-10-30 09:05] LABS: Calcium 8.5 mg/dL (8.5-10.1); Magnesium 2.4 mg/dL (1.6-2.6); Potassium 3.6 mmol/L (3.5-5.1)
[2021-10-30] MEDS: PANTOPRAZOLE 40 MG/10 ML VIAL INJ IV SCH ×2 (09:07→22:11)
[2021-10-30 09:08] LABS: Bilirubin, Total 0.4 mg/dL (0.2-1.0); Phosphorus 5.1 mg/dL (2.5-4.90); Total Protein 5.3 g/dL (6.4-8.2)
[2021-10-30] MEDS: DexAMETHasone SOD PHOS 4 MG/1ML SDV INJ IV SCH (09:08)
[2021-10-30] MEDS: ENOXAPARIN SOD 60 MG/0.6 ML SYRINGE SC SCH ×2 (09:08→22:14)
[2021-10-30] MEDS: FUROSEMIDE 20 MG/2 ML VIAL IV SCH (09:08)
[2021-10-30] MEDS: CHOLECALCIFEROL (VITD3) 2,000 UNIT CAP/TAB PO SCH (09:08)
[2021-10-30] MEDS: ASCORBIC ACID 500 MG TAB PO SCH (09:09)
[2021-10-30] MEDS: POTASSIUM EFFERVESENT TAB 25 MEQ GT SCH ×2 (09:09→22:10)
[2021-10-30] MEDS: levoFLOXacin 500MG 100 ML IV SCH (09:09)
[2021-10-30] MEDS: SODIUM CHLOR 0.9% PF (SALINE LOCK) 10ML VIAL/SYR IV SCH ×2 (09:10→22:11)
[2021-10-30] MEDS: fentaNYL Drip 2500mCg/250mlNS 250 ML IV SCH ×2 (10:26→17:48)
[2021-10-30] MEDS ORDERED: METOPROLOL TARTRATE 1MG/1ML-5ML VIAL IV ONE (11:00)
[2021-10-30] MEDS ORDERED: AMIODARONE 450mg/250ml AE 250 ML IV SCH (14:30)
[2021-10-30] MEDS: ROCURONIUM BROMIDE 1,000 MG in D5W 5% 150 ML IV SCH ×3 (15:42→22:37)
[2021-10-30] MEDS ORDERED: TPN PER PHARMACY IV NR ×7 (20:00)
[2021-10-30] MEDS: AMIODARONE 450mg/250ml AE 250 ML IV SCH (20:18)
[2021-10-30] MEDS ORDERED: ROCURONIUM BROMIDE 1,000 MG in D5W 5% 150 ML IV SCH (20:45)
[2021-10-31] VITALS (87 sets, daily range): BP systolic 97–151; BP diastolic 48–83
[2021-10-31 05:38] LABS: Basophils # (auto) 0.1 10 ^3/uL (0-0.2); Basophils % (auto) 1.1 % (0.0-2.0); Eosinophils # (auto) 0.2 10 ^3/uL (0-0.8); Eosinophils % (auto) 2.1 % (0.0-7.0); Hemoglobin 10.3 g/dL (13.5-17.5); Lymphocytes # (auto) 1.2 10 ^3/uL (0.4-5.4); Lymphocytes % (auto) 11.6 % (10.0-50.0); Mean Corpuscular Hemoglobin 31.5 pg (28.0-32.0); Mean Corpuscular Hgb Conc. 35.4 g/dL (32.0-36.0); Mean Corpuscular Volume 88.9 fL (80.0-100.0); Monocytes # (auto) 1.1 10 ^3/uL (0-1.3); Monocytes % (auto) 11.3 % (0.0-12.0); Neutrophils # (auto) 7.4 10 ^3/uL (1.6-8.6); Neutrophils % (auto) 73.9 % (37.0-80.0); Nucleated Red Blood Cells % 0.3 %; Red Blood Cells 3.26 10^6/uL (4.5-5.90)
[2021-10-31 05:39] LABS: Red Cell Distribution Width 20.2 % (11.8-14.3)
[2021-10-31] MEDS: LACTULOSE 20Gm/30ML SOLN PO SCH ×3 (06:00→18:00)
[2021-10-31] MEDS: BUDESONIDE (INHALATION) 0.5 MG/2 ML NEB NEB SCH ×2 (06:30→21:42)
[2021-10-31] MEDS: ALBUTEROL SULF 2.5 MG/0.5ML(0.5%) NEB SOLN NEB PRN ×2 (06:30→21:42)
[2021-10-31] MEDS: NOREPINEPHRINE 8 MG/250ML KIT 250 ML IV SCH (07:45)
[2021-10-31] MEDS: POTASSIUM EFFERVESENT TAB 25 MEQ GT SCH ×2 (09:59→22:35)
[2021-10-31] MEDS: DexAMETHasone SOD PHOS 4 MG/1ML SDV INJ IV SCH (10:00)
[2021-10-31] MEDS: PANTOPRAZOLE 40 MG/10 ML VIAL INJ IV SCH ×2 (10:01→22:34)
[2021-10-31] MEDS: FUROSEMIDE 20 MG/2 ML VIAL IV SCH (10:01)
[2021-10-31] MEDS: levoFLOXacin 500MG 100 ML IV SCH (10:01)
[2021-10-31] MEDS: SODIUM CHLOR 0.9% PF (SALINE LOCK) 10ML VIAL/SYR IV SCH ×2 (10:01→22:25)
[2021-10-31] MEDS: CHOLECALCIFEROL (VITD3) 2,000 UNIT CAP/TAB PO SCH (10:02)
[2021-10-31] MEDS: ASCORBIC ACID 500 MG TAB PO SCH (10:02)
[2021-10-31] MEDS: ENOXAPARIN SOD 60 MG/0.6 ML SYRINGE SC SCH ×2 (10:02→22:34)
[2021-10-31] MEDS ORDERED: ALBUMIN 25% 100 ML IV ONE (10:30)
[2021-10-31] MEDS ORDERED: SODIUM CHLORIDE 0.9% 1,000 ML IV ONE (10:30)
[2021-10-31] MEDS: PROPOFOL 100 ML IV SCH ×2 (11:25→21:15)
[2021-10-31] MEDS: fentaNYL Drip 2500mCg/250mlNS 250 ML IV SCH (11:27)
[2021-10-31] MEDS: AMIODARONE 450mg/250ml AE 250 ML IV SCH (11:30)
[2021-10-31] MEDS: ROCURONIUM BROMIDE 1,000 MG in D5W 5% 150 ML IV SCH (21:17)
[2021-10-31] MEDS: MIDAZOLAM DRIP 50 mg/50mL 50 ML IV SCH (22:39)
[2021-11-01] VITALS (103 sets, daily range): BP systolic 87–141; BP diastolic 49–82
[2021-11-01] MEDS: MIDAZOLAM DRIP 50 mg/50mL 50 ML IV SCH ×4 (02:21→23:07)
[2021-11-01] MEDS: AMIODARONE 450mg/250ml AE 250 ML IV SCH ×2 (02:30→17:30)
[2021-11-01] MEDS: fentaNYL Drip 2500mCg/250mlNS 250 ML IV SCH ×2 (02:33→11:11)
[2021-11-01] MEDS: LACTULOSE 20Gm/30ML SOLN PO SCH ×4 (05:30→17:36)
[2021-11-01] MEDS: ALBUTEROL SULF 2.5 MG/0.5ML(0.5%) NEB SOLN NEB PRN ×2 (06:20→22:36)
[2021-11-01] MEDS: BUDESONIDE (INHALATION) 0.5 MG/2 ML NEB NEB SCH ×2 (06:20→22:36)
[2021-11-01] MEDS ORDERED: VANCOMYCIN PER PHARMACY 0 MG IV SCH (06:45)
[2021-11-01] MEDS: NOREPINEPHRINE 8 MG/250ML KIT 250 ML IV SCH (07:45)
[2021-11-01] MEDS: DexAMETHasone SOD PHOS 4 MG/1ML SDV INJ IV SCH (09:19)
[2021-11-01] MEDS: levoFLOXacin 500MG 100 ML IV SCH (09:20)
[2021-11-01] MEDS: SODIUM CHLOR 0.9% PF (SALINE LOCK) 10ML VIAL/SYR IV SCH ×2 (09:20→22:08)
[2021-11-01] MEDS: ASCORBIC ACID 500 MG TAB PO SCH (09:20)
[2021-11-01] MEDS: PANTOPRAZOLE 40 MG/10 ML VIAL INJ IV SCH ×2 (09:20→22:07)
[2021-11-01] MEDS: CHOLECALCIFEROL (VITD3) 2,000 UNIT CAP/TAB PO SCH (09:21)
[2021-11-01] MEDS: ENOXAPARIN SOD 60 MG/0.6 ML SYRINGE SC SCH ×2 (09:21→22:08)
[2021-11-01 09:27] LABS: Basophils # (auto) 0.1 10 ^3/uL (0-0.2); Basophils % (auto) 1.1 % (0.0-2.0); Eosinophils # (auto) 0.2 10 ^3/uL (0-0.8); Eosinophils % (auto) 2.1 % (0.0-7.0); Hematocrit 29.2 % (41.0-53.0); Hemoglobin 10.3 g/dL (13.5-17.5); Lymphocytes # (auto) 1.6 10 ^3/uL (0.4-5.4); Lymphocytes % (auto) 17.4 % (10.0-50.0); Mean Corpuscular Hemoglobin 31.1 pg (28.0-32.0); Mean Corpuscular Hgb Conc. 35.4 g/dL (32.0-36.0); Monocytes # (auto) 1.1 10 ^3/uL (0-1.3); Monocytes % (auto) 12.5 % (0.0-12.0); Neutrophils # (auto) 6.2 10 ^3/uL (1.6-8.6); Neutrophils % (auto) 66.9 % (37.0-80.0); Nucleated Red Blood Cells % 0.5 %; Red Blood Cells 3.32 10^6/uL (4.5-5.90); Red Cell Distribution Width 20.5 % (11.8-14.3); White Blood Cell 9.2 10^3/uL (4.4-10.8)
[2021-11-01 09:40] LABS: Albumin 2.6 g/dL (3.4-5.0); Calcium 6.4 mg/dL (8.5-10.1)
[2021-11-01 09:44] LABS: Bilirubin, Total 0.8 mg/dL (0.2-1.0)
[2021-11-01 09:52] LABS: BUN/Creatinine Ratio 42.1
[2021-11-01] MEDS: POTASSIUM EFFERVESENT TAB 25 MEQ GT SCH ×2 (11:07→22:07)
[2021-11-01] MEDS: FUROSEMIDE 20 MG/2 ML VIAL IV SCH (11:08)
[2021-11-01] MEDS: PROPOFOL 100 ML IV SCH ×2 (11:09→23:07)
[2021-11-01] MEDS: VANCOMYCIN 1GM/250ML 250 ML IV SCH ×2 (11:42→18:12)
[2021-11-01] MEDS ORDERED: POTASSIUM EFFERVESENT TAB 25 MEQ PO ONE (12:15)
[2021-11-01] MEDS ORDERED: POTASSIUM CHLORIDE 60 MEQ, LIDOCAINE 1% (LOCAL ANESTH.) 6 ML in SODIUM CHL 0.9% 500 ML IV ONE (12:15)
[2021-11-01] MEDS ORDERED: CALCIUM GLUC 1,000mg/50ml-NS 50 ML IV ONE (12:15)
[2021-11-01] MEDS: FLUCONAZOLE 200MG/100ML 100 ML IV SCH ×2 (13:00→14:00)
[2021-11-01] MEDS: MEROPENEM 1GM IVPB 100 ML IV SCH ×2 (14:56→22:08)
[2021-11-01] MEDS: ROCURONIUM BROMIDE 1,000 MG in D5W 5% 150 ML IV SCH (15:38)
[2021-11-02] VITALS (100 sets, daily range): BP systolic 99–136; BP diastolic 51–83
[2021-11-02] MEDS: VANCOMYCIN 1GM/250ML 250 ML IV SCH ×4 (00:25→18:00)
[2021-11-02 04:23] LABS: Basophils # (auto) 0.1 10 ^3/uL (0-0.2); Basophils % (auto) 1.3 % (0.0-2.0); Eosinophils # (auto) 0.1 10 ^3/uL (0-0.8); Eosinophils % (auto) 0.9 % (0.0-7.0); Hematocrit 27.2 % (41.0-53.0); Hemoglobin 9.7 g/dL (13.5-17.5); Lymphocytes # (auto) 1.6 10 ^3/uL (0.4-5.4); Lymphocytes % (auto) 19.2 % (10.0-50.0); Mean Corpuscular Hemoglobin 30.6 pg (28.0-32.0); Mean Corpuscular Hgb Conc. 35.6 g/dL (32.0-36.0); Mean Corpuscular Volume 86.1 fL (80.0-100.0); Neutrophils # (auto) 5.6 10 ^3/uL (1.6-8.6); Neutrophils % (auto) 66.6 % (37.0-80.0); Nucleated Red Blood Cells % 0.4 %; Red Blood Cells 3.16 10^6/uL (4.5-5.90); White Blood Cell 8.4 10^3/uL (4.4-10.8)
[2021-11-02 04:40] LABS: Red Cell Distribution Width 20.3 % (11.8-14.3)
[2021-11-02 04:56] LABS: Albumin 2.7 g/dL (3.4-5.0); BUN/Creatinine Ratio 46.7; Calcium 7.5 mg/dL (8.5-10.1); Magnesium 1.8 mg/dL (1.6-2.6)
[2021-11-02 04:59] LABS: Bilirubin, Total 0.6 mg/dL (0.2-1.0)
[2021-11-02 05:31] LABS: Total Protein 4.6 g/dL (6.4-8.2)
[2021-11-02] MEDS: MEROPENEM 1GM IVPB 100 ML IV SCH ×3 (05:33→23:10)
[2021-11-02] MEDS: LACTULOSE 20Gm/30ML SOLN PO SCH ×4 (05:59→18:00)
[2021-11-02] MEDS ORDERED: POTASSIUM CHL 20MEQ/50ML 50 ML IV ONE (06:00)
[2021-11-02] MEDS: ALBUTEROL SULF 2.5 MG/0.5ML(0.5%) NEB SOLN NEB PRN ×2 (06:00→22:26)
[2021-11-02] MEDS: BUDESONIDE (INHALATION) 0.5 MG/2 ML NEB NEB SCH ×2 (06:00→22:26)
[2021-11-02] MEDS: MAGNESIUM SULFATE 1GM/100ML 100 ML IV SCH ×2 (07:00→08:00)
[2021-11-02] MEDS: NOREPINEPHRINE 8 MG/250ML KIT 250 ML IV SCH (07:45)
[2021-11-02] MEDS: AMIODARONE 450mg/250ml AE 250 ML IV SCH (08:30)
[2021-11-02] MEDS: POTASSIUM EFFERVESENT TAB 25 MEQ GT SCH ×2 (10:00→22:58)
[2021-11-02] MEDS: CHOLECALCIFEROL (VITD3) 2,000 UNIT CAP/TAB PO SCH (10:00)
[2021-11-02] MEDS: DexAMETHasone SOD PHOS 4 MG/1ML SDV INJ IV SCH (10:00)
[2021-11-02] MEDS: FLUCONAZOLE 200MG/100ML 100 ML IV SCH (10:00)
[2021-11-02] MEDS: PANTOPRAZOLE 40 MG/10 ML VIAL INJ IV SCH ×2 (10:00→23:08)
[2021-11-02] MEDS: SODIUM CHLOR 0.9% PF (SALINE LOCK) 10ML VIAL/SYR IV SCH ×2 (10:00→23:10)
[2021-11-02] MEDS: ENOXAPARIN SOD 60 MG/0.6 ML SYRINGE SC SCH ×2 (10:00→23:12)
[2021-11-02] MEDS: FUROSEMIDE 20 MG/2 ML VIAL IV SCH (10:00)
[2021-11-02] MEDS: ASCORBIC ACID 500 MG TAB PO SCH (10:00)
[2021-11-02] MEDS: fentaNYL Drip 2500mCg/250mlNS 250 ML IV SCH (13:00)
[2021-11-02 17:21] LABS: INR 1.06 (0.9-1.15); Partial Thromboplastin Time 24.7 sec (23.6-33.0)
[2021-11-03] VITALS (100 sets, daily range): BP systolic 101–169; BP diastolic 60–102
[2021-11-03] MEDS: VANCOMYCIN 1GM/250ML 250 ML IV SCH ×4 (06:00→18:00)
[2021-11-03] MEDS: LACTULOSE 20Gm/30ML SOLN PO SCH ×4 (06:00→18:00)
[2021-11-03] MEDS: ALBUTEROL SULF 2.5 MG/0.5ML(0.5%) NEB SOLN NEB PRN ×2 (06:21→22:44)
[2021-11-03] MEDS: BUDESONIDE (INHALATION) 0.5 MG/2 ML NEB NEB SCH ×2 (06:21→22:44)
[2021-11-03 06:47] LABS: Hemoglobin 10.5 g/dL (13.5-17.5); Mean Corpuscular Hgb Conc. 33.9 g/dL (32.0-36.0); Mean Corpuscular Volume 85.5 fL (80.0-100.0); Red Blood Cells 3.62 10^6/uL (4.5-5.90); White Blood Cell 11.2 10^3/uL (4.4-10.8)
[2021-11-03 06:57] LABS: Red Cell Distribution Width 20.2 % (11.8-14.3)
[2021-11-03 06:58] LABS: Basophils % (manual) 0 (0.0-2.0); Blast Cells 0; Metamyelocytes % 0; Promyelocytes % 0; Reactive Lymphocytes 0
[2021-11-03 07:06] LABS: Anion Gap 6 (5-15); Blood Urea Nitrogen 6 mg/dL (7-18); Calcium 8.4 mg/dL (8.5-10.1); Carbon Dioxide 32 mmol/L (21-32); Chloride 103 mmol/L (98-107); Glucose 90 mg/dL (74-106); Potassium 3.2 mmol/L (3.5-5.1); Sodium 141 mmol/L (136-145)
[2021-11-03 07:08] LABS: GFR African American 994 mL/min; GFR Non-African American 822 mL/min
[2021-11-03 07:38] LABS: Band Neutrophils % (manual) 9; Eosinophils % (manual) 1 (0-7); Lymphocytes % (manual) 19 (10.0-50.0); Monocytes % (manual) 14 (0-12); Myelocytes % 1
[2021-11-03] MEDS: ROCURONIUM BROMIDE 1,000 MG in D5W 5% 150 ML IV SCH ×2 (10:00→16:53)
[2021-11-03] MEDS: NOREPINEPHRINE 8 MG/250ML KIT 250 ML IV SCH (10:00)
[2021-11-03] MEDS: FLUCONAZOLE 200MG/100ML 100 ML IV SCH (10:17)
[2021-11-03] MEDS: DexAMETHasone SOD PHOS 4 MG/1ML SDV INJ IV SCH (10:17)
[2021-11-03] MEDS: PANTOPRAZOLE 40 MG/10 ML VIAL INJ IV SCH ×2 (10:17→22:25)
[2021-11-03] MEDS: POTASSIUM EFFERVESENT TAB 25 MEQ GT SCH ×2 (10:18→22:25)
[2021-11-03] MEDS: FUROSEMIDE 20 MG/2 ML VIAL IV SCH (10:18)
[2021-11-03] MEDS: SODIUM CHLOR 0.9% PF (SALINE LOCK) 10ML VIAL/SYR IV SCH ×2 (10:19→22:25)
[2021-11-03] MEDS: ASCORBIC ACID 500 MG TAB PO SCH (10:19)
[2021-11-03] MEDS: CHOLECALCIFEROL (VITD3) 2,000 UNIT CAP/TAB PO SCH (10:19)
[2021-11-03] MEDS: ENOXAPARIN SOD 60 MG/0.6 ML SYRINGE SC SCH ×2 (10:19→22:25)
[2021-11-03] MEDS: MIDAZOLAM DRIP 50 mg/50mL 50 ML IV SCH ×2 (10:20→17:11)
[2021-11-03] MEDS: PROPOFOL 100 ML IV SCH ×4 (10:21→17:12)
[2021-11-03] MEDS: fentaNYL Drip 2500mCg/250mlNS 250 ML IV SCH (11:49)
[2021-11-03] MEDS ORDERED: LIDOCAINE 1% (LOCAL ANESTH.) PF 5ml SDV ID ONE (12:00)
[2021-11-03] MEDS ORDERED: FUROSEMIDE 20 MG/2 ML VIAL IV ONE (13:30)
[2021-11-03] MEDS: POTASSIUM CHL 20MEQ/50ML 50 ML IV SCH ×2 (13:38→14:44)
[2021-11-03] MEDS: MEROPENEM 1GM IVPB 100 ML IV SCH ×2 (13:40→22:25)
[2021-11-04] VITALS (101 sets, daily range): BP systolic 105–154; BP diastolic 57–98
[2021-11-04] MEDS: VANCOMYCIN 1GM/250ML 250 ML IV SCH ×4 (00:30→18:07)
[2021-11-04 04:46] LABS: Basophils # (auto) 0.2 10 ^3/uL (0-0.2); Eosinophils # (auto) 0.2 10 ^3/uL (0-0.8); Eosinophils % (auto) 0.9 % (0.0-7.0); Hematocrit 34.4 % (41.0-53.0); Hemoglobin 11.3 g/dL (13.5-17.5); Lymphocytes # (auto) 2.2 10 ^3/uL (0.4-5.4); Lymphocytes % (auto) 12.8 % (10.0-50.0); Mean Corpuscular Hemoglobin 28.1 pg (28.0-32.0); Mean Corpuscular Hgb Conc. 32.9 g/dL (32.0-36.0); Mean Corpuscular Volume 85.5 fL (80.0-100.0); Monocytes # (auto) 1.7 10 ^3/uL (0-1.3); Monocytes % (auto) 9.9 % (0.0-12.0); Neutrophils # (auto) 13.2 10 ^3/uL (1.6-8.6); Neutrophils % (auto) 75.4 % (37.0-80.0); Nucleated Red Blood Cells % 0.1 %; Red Blood Cells 4.02 10^6/uL (4.5-5.90); Red Cell Distribution Width 19.9 % (11.8-14.3); White Blood Cell 17.4 10^3/uL (4.4-10.8)
[2021-11-04 05:07] LABS: BUN/Creatinine Ratio 26.9; Calcium 8.8 mg/dL (8.5-10.1); Potassium 3.6 mmol/L (3.5-5.1)
[2021-11-04] MEDS: LACTULOSE 20Gm/30ML SOLN PO SCH ×4 (05:36→18:00)
[2021-11-04] MEDS: BUDESONIDE (INHALATION) 0.5 MG/2 ML NEB NEB SCH ×2 (06:09→18:59)
[2021-11-04] MEDS: ALBUTEROL SULF 2.5 MG/0.5ML(0.5%) NEB SOLN NEB PRN ×2 (06:09→18:59)
[2021-11-04] MEDS: MEROPENEM 1GM IVPB 100 ML IV SCH ×3 (06:30→22:09)
[2021-11-04] MEDS: NOREPINEPHRINE 8 MG/250ML KIT 250 ML IV SCH (07:45)
[2021-11-04] MEDS: FUROSEMIDE 20 MG/2 ML VIAL IV SCH (09:53)
[2021-11-04] MEDS: FLUCONAZOLE 200MG/100ML 100 ML IV SCH (09:53)
[2021-11-04] MEDS: ENOXAPARIN SOD 60 MG/0.6 ML SYRINGE SC SCH ×2 (09:54→22:12)
[2021-11-04] MEDS: POTASSIUM EFFERVESENT TAB 25 MEQ GT SCH ×2 (09:54→22:09)
[2021-11-04] MEDS: ASCORBIC ACID 500 MG TAB PO SCH (09:54)
[2021-11-04] MEDS: CHOLECALCIFEROL (VITD3) 2,000 UNIT CAP/TAB PO SCH (09:54)
[2021-11-04] MEDS: SODIUM CHLOR 0.9% PF (SALINE LOCK) 10ML VIAL/SYR IV SCH ×2 (09:54→22:12)
[2021-11-04] MEDS: DexAMETHasone SOD PHOS 4 MG/1ML SDV INJ IV SCH (09:54)
[2021-11-04] MEDS: ROCURONIUM BROMIDE 1,000 MG in D5W 5% 150 ML IV SCH (09:55)
[2021-11-04] MEDS: PANTOPRAZOLE 40 MG/10 ML VIAL INJ IV SCH ×2 (10:00→22:12)
[2021-11-04] MEDS: fentaNYL Drip 2500mCg/250mlNS 250 ML IV SCH ×2 (13:00→17:17)
[2021-11-04] MEDS: PROPOFOL 100 ML IV SCH (20:09)
[2021-11-04] MEDS: MIDAZOLAM DRIP 50 mg/50mL 50 ML IV SCH (22:00)
[2021-11-05] VITALS (100 sets, daily range): BP systolic 95–134; BP diastolic 51–93
[2021-11-05] MEDS: MIDAZOLAM DRIP 50 mg/50mL 50 ML IV SCH ×3 (01:25→22:42)
[2021-11-05] MEDS: PROPOFOL 100 ML IV SCH ×2 (03:30→22:37)
[2021-11-05 04:53] LABS: Basophils # (auto) 0.1 10 ^3/uL (0-0.2); Basophils % (auto) 0.6 % (0.0-2.0); Eosinophils # (auto) 0.2 10 ^3/uL (0-0.8); Eosinophils % (auto) 1.3 % (0.0-7.0); Hematocrit 33.3 % (41.0-53.0); Hemoglobin 10.9 g/dL (13.5-17.5); Lymphocytes # (auto) 1.8 10 ^3/uL (0.4-5.4); Lymphocytes % (auto) 12.1 % (10.0-50.0); Mean Corpuscular Hemoglobin 28.3 pg (28.0-32.0); Mean Corpuscular Hgb Conc. 32.7 g/dL (32.0-36.0); Mean Corpuscular Volume 86.3 fL (80.0-100.0); Monocytes # (auto) 1.5 10 ^3/uL (0-1.3); Monocytes % (auto) 10.2 % (0.0-12.0); Neutrophils # (auto) 11.1 10 ^3/uL (1.6-8.6); Neutrophils % (auto) 75.8 % (37.0-80.0); Nucleated Red Blood Cells % 0.1 %; Red Blood Cells 3.85 10^6/uL (4.5-5.90); Red Cell Distribution Width 19.9 % (11.8-14.3); White Blood Cell 14.6 10^3/uL (4.4-10.8)
[2021-11-05] MEDS: VANCOMYCIN 1GM/250ML 250 ML IV SCH ×3 (05:00→19:45)
[2021-11-05] MEDS: LACTULOSE 20Gm/30ML SOLN PO SCH ×4 (05:33→19:45)
[2021-11-05] MEDS: fentaNYL Drip 2500mCg/250mlNS 250 ML IV SCH (05:35)
[2021-11-05] MEDS: ROCURONIUM BROMIDE 1,000 MG in D5W 5% 150 ML IV SCH (06:01)
[2021-11-05] MEDS: MEROPENEM 1GM IVPB 100 ML IV SCH ×3 (06:37→22:10)
[2021-11-05] MEDS: NOREPINEPHRINE 8 MG/250ML KIT 250 ML IV SCH (07:45)
[2021-11-05] MEDS: DexAMETHasone SOD PHOS 4 MG/1ML SDV INJ IV SCH (10:04)
[2021-11-05] MEDS: FLUCONAZOLE 200MG/100ML 100 ML IV SCH (10:04)
[2021-11-05] MEDS: POTASSIUM EFFERVESENT TAB 25 MEQ GT SCH ×2 (10:04→22:10)
[2021-11-05] MEDS: FUROSEMIDE 20 MG/2 ML VIAL IV SCH (10:05)
[2021-11-05] MEDS: ASCORBIC ACID 500 MG TAB PO SCH (10:06)
[2021-11-05] MEDS: ENOXAPARIN SOD 60 MG/0.6 ML SYRINGE SC SCH ×2 (10:06→22:11)
[2021-11-05] MEDS: SODIUM CHLOR 0.9% PF (SALINE LOCK) 10ML VIAL/SYR IV SCH ×2 (10:06→22:10)
[2021-11-05] MEDS: PANTOPRAZOLE 40 MG/10 ML VIAL INJ IV SCH (10:06)
[2021-11-05] MEDS: CHOLECALCIFEROL (VITD3) 2,000 UNIT CAP/TAB PO SCH (14:25)
[2021-11-05] MEDS: BUDESONIDE (INHALATION) 0.5 MG/2 ML NEB NEB SCH (21:52)
[2021-11-06] VITALS (101 sets, daily range): BP systolic 63–148; BP diastolic 31–90
[2021-11-06] MEDS: VANCOMYCIN 1GM/250ML 250 ML IV SCH ×4 (00:56→17:33)
[2021-11-06] MEDS: PROPOFOL 100 ML IV SCH ×5 (00:57→23:59)
[2021-11-06] MEDS: MIDAZOLAM DRIP 50 mg/50mL 50 ML IV SCH ×4 (02:58→19:57)
[2021-11-06 04:32] LABS: Hematocrit 33.2 % (41.0-53.0); Hemoglobin 10.7 g/dL (13.5-17.5); Mean Corpuscular Hgb Conc. 32.3 g/dL (32.0-36.0); Mean Corpuscular Volume 86.6 fL (80.0-100.0); Red Blood Cells 3.83 10^6/uL (4.5-5.90); Red Cell Distribution Width 19.9 % (11.8-14.3); White Blood Cell 13.2 10^3/uL (4.4-10.8)
[2021-11-06 04:57] LABS: Potassium 3.7 mmol/L (3.5-5.1)
[2021-11-06 05:02] LABS: Basophils % (manual) 0 (0.0-2.0); Blast Cells 0; Metamyelocytes % 0; Promyelocytes % 0; Reactive Lymphocytes 0
[2021-11-06 05:09] LABS: Albumin 2.9 g/dL (3.4-5.0); Bilirubin, Total 0.3 mg/dL (0.2-1.0); Calcium 8.8 mg/dL (8.5-10.1); Total Protein 5.3 g/dL (6.4-8.2)
[2021-11-06] MEDS: LACTULOSE 20Gm/30ML SOLN PO SCH ×5 (05:25→23:43)
[2021-11-06] MEDS: MEROPENEM 1GM IVPB 100 ML IV SCH ×3 (06:23→21:45)
[2021-11-06] MEDS: fentaNYL Drip 2500mCg/250mlNS 250 ML IV SCH (06:25)
[2021-11-06 06:50] LABS: Band Neutrophils % (manual) 11; Eosinophils % (manual) 1 (0-7); Lymphocytes % (manual) 13 (10.0-50.0); Monocytes % (manual) 2 (0-12); Myelocytes % 5
[2021-11-06] MEDS: NOREPINEPHRINE 8 MG/250ML KIT 250 ML IV SCH (08:27)
[2021-11-06] MEDS: ASCORBIC ACID 500 MG TAB PO SCH (10:15)
[2021-11-06] MEDS: PANTOPRAZOLE 40 MG/10 ML VIAL INJ IV SCH (10:15)
[2021-11-06] MEDS: DexAMETHasone SOD PHOS 4 MG/1ML SDV INJ IV SCH (10:15)
[2021-11-06] MEDS: SODIUM CHLOR 0.9% PF (SALINE LOCK) 10ML VIAL/SYR IV SCH ×2 (10:15→22:00)
[2021-11-06] MEDS: CHOLECALCIFEROL (VITD3) 2,000 UNIT CAP/TAB PO SCH (10:15)
[2021-11-06] MEDS: FLUCONAZOLE 200MG/100ML 100 ML IV SCH (10:15)
[2021-11-06] MEDS: ENOXAPARIN SOD 60 MG/0.6 ML SYRINGE SC SCH ×2 (10:15→22:00)
[2021-11-06] MEDS: BUDESONIDE (INHALATION) 0.5 MG/2 ML NEB NEB SCH ×2 (11:01→22:14)
[2021-11-06] MEDS: ALBUTEROL SULF 2.5 MG/0.5ML(0.5%) NEB SOLN NEB PRN (22:14)
[2021-11-07] VITALS (103 sets, daily range): BP systolic 97–131; BP diastolic 51–87
[2021-11-07] MEDS: VANCOMYCIN 1GM/250ML 250 ML IV SCH ×3 (00:30→11:38)
[2021-11-07] MEDS: MIDAZOLAM DRIP 50 mg/50mL 50 ML IV SCH ×5 (03:30→21:15)
[2021-11-07] MEDS: PROPOFOL 100 ML IV SCH ×7 (03:30→22:15)
[2021-11-07] MEDS: fentaNYL Drip 2500mCg/250mlNS 250 ML IV SCH ×2 (05:18→16:42)
[2021-11-07] MEDS: LACTULOSE 20Gm/30ML SOLN PO SCH ×3 (06:00→22:13)
[2021-11-07] MEDS: ALBUTEROL SULF 2.5 MG/0.5ML(0.5%) NEB SOLN NEB PRN (06:00)
[2021-11-07] MEDS: BUDESONIDE (INHALATION) 0.5 MG/2 ML NEB NEB SCH ×2 (06:01→23:38)
[2021-11-07] MEDS: MEROPENEM 1GM IVPB 100 ML IV SCH ×3 (06:25→22:12)
[2021-11-07] MEDS: NOREPINEPHRINE 8 MG/250ML KIT 250 ML IV SCH (07:45)
[2021-11-07] MEDS: SODIUM CHLOR 0.9% PF (SALINE LOCK) 10ML VIAL/SYR IV SCH ×2 (09:10→22:12)
[2021-11-07] MEDS: PANTOPRAZOLE 40 MG/10 ML VIAL INJ IV SCH (09:10)
[2021-11-07] MEDS: FLUCONAZOLE 200MG/100ML 100 ML IV SCH (09:10)
[2021-11-07] MEDS: DexAMETHasone SOD PHOS 4 MG/1ML SDV INJ IV SCH (09:10)
[2021-11-07] MEDS: ENOXAPARIN SOD 60 MG/0.6 ML SYRINGE SC SCH ×2 (09:11→22:13)
[2021-11-07] MEDS: ASCORBIC ACID 500 MG TAB PO SCH (09:11)
[2021-11-07] MEDS: CHOLECALCIFEROL (VITD3) 2,000 UNIT CAP/TAB PO SCH (09:11)
[2021-11-08] VITALS (98 sets, daily range): BP systolic 99–147; BP diastolic 55–86
[2021-11-08] MEDS: PROPOFOL 100 ML IV SCH ×9 (00:15→22:15)
[2021-11-08] MEDS: MIDAZOLAM DRIP 50 mg/50mL 50 ML IV SCH ×6 (01:15→22:15)
[2021-11-08 04:15] LABS: Basophils # (auto) 0.1 10 ^3/uL (0-0.2); Basophils % (auto) 1.1 % (0.0-2.0); Eosinophils # (auto) 0.3 10 ^3/uL (0-0.8); Eosinophils % (auto) 2.9 % (0.0-7.0); Hematocrit 31.1 % (41.0-53.0); Hemoglobin 11.3 g/dL (13.5-17.5); Lymphocytes # (auto) 1.5 10 ^3/uL (0.4-5.4); Lymphocytes % (auto) 14.5 % (10.0-50.0); Mean Corpuscular Hemoglobin 31.8 pg (28.0-32.0); Mean Corpuscular Hgb Conc. 36.4 g/dL (32.0-36.0); Mean Corpuscular Volume 87.2 fL (80.0-100.0); Monocytes % (auto) 10.1 % (0.0-12.0); Neutrophils # (auto) 7.4 10 ^3/uL (1.6-8.6); Neutrophils % (auto) 71.4 % (37.0-80.0); Nucleated Red Blood Cells % 0.1 %; Red Blood Cells 3.57 10^6/uL (4.5-5.90); Red Cell Distribution Width 19.7 % (11.8-14.3); White Blood Cell 10.3 10^3/uL (4.4-10.8)
[2021-11-08] MEDS: fentaNYL Drip 2500mCg/250mlNS 250 ML IV SCH ×2 (04:15→16:59)
[2021-11-08 04:25] LABS: Anion Gap 8 (5-15); Carbon Dioxide 27 mmol/L (21-32); Chloride 100 mmol/L (98-107); Glucose 189 mg/dL (74-106); Potassium 3.3 mmol/L (3.5-5.1); Sodium 135 mmol/L (136-145)
[2021-11-08 04:54] LABS: Blood Urea Nitrogen 6 mg/dL (7-18); GFR African American 994 mL/min; GFR Non-African American 822 mL/min
[2021-11-08 04:55] LABS: Calcium 6.8 mg/dL (8.5-10.1)
[2021-11-08] MEDS: MEROPENEM 1GM IVPB 100 ML IV SCH ×3 (06:07→22:16)
[2021-11-08] MEDS: BUDESONIDE (INHALATION) 0.5 MG/2 ML NEB NEB SCH ×2 (07:23→22:11)
[2021-11-08] MEDS: ALBUTEROL SULF 2.5 MG/0.5ML(0.5%) NEB SOLN NEB PRN (07:23)
[2021-11-08] MEDS: NOREPINEPHRINE 8 MG/250ML KIT 250 ML IV SCH (07:45)
[2021-11-08] MEDS: DexAMETHasone SOD PHOS 4 MG/1ML SDV INJ IV SCH (09:12)
[2021-11-08] MEDS: ASCORBIC ACID 500 MG TAB PO SCH (09:13)
[2021-11-08] MEDS: FLUCONAZOLE 200MG/100ML 100 ML IV SCH (09:13)
[2021-11-08] MEDS: LACTULOSE 20Gm/30ML SOLN PO SCH ×2 (09:13→22:00)
[2021-11-08] MEDS: PANTOPRAZOLE 40 MG/10 ML VIAL INJ IV SCH (09:13)
[2021-11-08] MEDS: CHOLECALCIFEROL (VITD3) 2,000 UNIT CAP/TAB PO SCH (09:13)
[2021-11-08] MEDS: SODIUM CHLOR 0.9% PF (SALINE LOCK) 10ML VIAL/SYR IV SCH ×2 (09:13→22:16)
[2021-11-08] MEDS: ENOXAPARIN SOD 60 MG/0.6 ML SYRINGE SC SCH ×2 (09:13→22:17)
[2021-11-08] MEDS ORDERED: POTASSIUM CHL 20MEQ/50ML 50 ML IV ONE (10:45)
[2021-11-08] MEDS: POTASSIUM CHL 20MEQ/50ML 50 ML IV SCH ×2 (10:57→12:59)
[2021-11-09] VITALS (100 sets, daily range): BP systolic 109–142; BP diastolic 65–100
[2021-11-09] MEDS: PROPOFOL 100 ML IV SCH ×6 (00:15→23:42)
[2021-11-09] MEDS: MIDAZOLAM DRIP 50 mg/50mL 50 ML IV SCH ×6 (01:15→19:33)
[2021-11-09] MEDS: fentaNYL Drip 2500mCg/250mlNS 250 ML IV SCH ×2 (04:15→15:15)
[2021-11-09] MEDS: BUDESONIDE (INHALATION) 0.5 MG/2 ML NEB NEB SCH ×2 (05:40→22:19)
[2021-11-09] MEDS: ALBUTEROL SULF 2.5 MG/0.5ML(0.5%) NEB SOLN NEB PRN ×2 (05:40→22:19)
[2021-11-09] MEDS: MEROPENEM 1GM IVPB 100 ML IV SCH ×3 (06:11→21:35)
[2021-11-09] MEDS: NOREPINEPHRINE 8 MG/250ML KIT 250 ML IV SCH (07:45)
[2021-11-09] MEDS: FLUCONAZOLE 200MG/100ML 100 ML IV SCH (11:12)
[2021-11-09] MEDS: ENOXAPARIN SOD 60 MG/0.6 ML SYRINGE SC SCH ×2 (11:12→21:35)
[2021-11-09] MEDS: PANTOPRAZOLE 40 MG/10 ML VIAL INJ IV SCH (11:12)
[2021-11-09] MEDS: DexAMETHasone SOD PHOS 4 MG/1ML SDV INJ IV SCH (11:12)
[2021-11-09] MEDS: ASCORBIC ACID 500 MG TAB PO SCH (11:13)
[2021-11-09] MEDS: LACTULOSE 20Gm/30ML SOLN PO SCH ×2 (11:13→21:35)
[2021-11-09] MEDS: SODIUM CHLOR 0.9% PF (SALINE LOCK) 10ML VIAL/SYR IV SCH ×2 (11:13→21:35)
[2021-11-09] MEDS: CHOLECALCIFEROL (VITD3) 2,000 UNIT CAP/TAB PO SCH (11:13)
[2021-11-10] VITALS (99 sets, daily range): BP systolic 88–139; BP diastolic 51–93
[2021-11-10 05:35] LABS: Hematocrit 38.1 % (41.0-53.0); Hemoglobin 12.4 g/dL (13.5-17.5); Mean Corpuscular Hgb Conc. 32.6 g/dL (32.0-36.0); Mean Corpuscular Volume 85.7 fL (80.0-100.0); Red Blood Cells 4.45 10^6/uL (4.5-5.90); Red Cell Distribution Width 19.1 % (11.8-14.3); White Blood Cell 12.9 10^3/uL (4.4-10.8)
[2021-11-10] MEDS: BUDESONIDE (INHALATION) 0.5 MG/2 ML NEB NEB SCH ×2 (05:50→18:47)
[2021-11-10] MEDS: ALBUTEROL SULF 2.5 MG/0.5ML(0.5%) NEB SOLN NEB PRN ×2 (05:50→18:47)
[2021-11-10 05:54] LABS: Chloride 106 mmol/L (98-107); Potassium 3.8 mmol/L (3.5-5.1); Sodium 143 mmol/L (136-145)
[2021-11-10 05:58] LABS: Anion Gap 7 (5-15); Blood Urea Nitrogen 6 mg/dL (7-18); Calcium 8.5 mg/dL (8.5-10.1); Carbon Dioxide 30 mmol/L (21-32); GFR African American 994 mL/min; GFR Non-African American 822 mL/min; Glucose 86 mg/dL (74-106)
[2021-11-10 06:04] LABS: Basophils % (manual) 0 (0.0-2.0); Blast Cells 0; Metamyelocytes % 0; Promyelocytes % 0; Reactive Lymphocytes 0
[2021-11-10] MEDS: MEROPENEM 1GM IVPB 100 ML IV SCH ×3 (06:28→21:17)
[2021-11-10 07:06] LABS: Band Neutrophils % (manual) 6; Eosinophils % (manual) 5 (0-7); Lymphocytes % (manual) 25 (10.0-50.0); Monocytes % (manual) 10 (0-12); Myelocytes % 1
[2021-11-10] MEDS: NOREPINEPHRINE 8 MG/250ML KIT 250 ML IV SCH (07:45)
[2021-11-10] MEDS: PROPOFOL 100 ML IV SCH ×3 (08:50→23:57)
[2021-11-10] MEDS: CHOLECALCIFEROL (VITD3) 2,000 UNIT CAP/TAB PO SCH (10:00)
[2021-11-10] MEDS ORDERED: DexAMETHasone SOD PHOS 4 MG/1ML SDV INJ IV SCH (10:00)
[2021-11-10] MEDS: PANTOPRAZOLE 40 MG/10 ML VIAL INJ IV SCH (10:05)
[2021-11-10] MEDS: SODIUM CHLOR 0.9% PF (SALINE LOCK) 10ML VIAL/SYR IV SCH ×2 (10:05→21:17)
[2021-11-10] MEDS: ENOXAPARIN SOD 60 MG/0.6 ML SYRINGE SC SCH ×2 (10:07→21:18)
[2021-11-10] MEDS: ASCORBIC ACID 500 MG TAB PO SCH (10:07)
[2021-11-10] MEDS: LACTULOSE 20Gm/30ML SOLN PO SCH ×2 (10:07→21:18)
[2021-11-10] MEDS: MIDAZOLAM DRIP 50 mg/50mL 50 ML IV SCH ×2 (14:55→23:58)
[2021-11-10] MEDS ORDERED: MICAFUNGIN SODIUM 100 MG in SODIUM CHL 0.9% 100 ML IV ONE (16:15)
[2021-11-11] VITALS (98 sets, daily range): BP systolic 100–145; BP diastolic 63–94
[2021-11-11] MEDS: PROPOFOL 100 ML IV SCH ×5 (01:51→19:56)
[2021-11-11] MEDS: MIDAZOLAM DRIP 50 mg/50mL 50 ML IV SCH ×5 (01:53→19:58)
[2021-11-11] MEDS: fentaNYL Drip 2500mCg/250mlNS 250 ML IV SCH ×2 (01:56→18:50)
[2021-11-11 04:44] LABS: Basophils # (auto) 0.1 10 ^3/uL (0-0.2); Basophils % (auto) 0.9 % (0.0-2.0); Eosinophils % (auto) 7.2 % (0.0-7.0); Hematocrit 36.3 % (41.0-53.0); Hemoglobin 11.9 g/dL (13.5-17.5); Lymphocytes # (auto) 2.3 10 ^3/uL (0.4-5.4); Lymphocytes % (auto) 17.6 % (10.0-50.0); Mean Corpuscular Hemoglobin 28.1 pg (28.0-32.0); Mean Corpuscular Hgb Conc. 32.9 g/dL (32.0-36.0); Mean Corpuscular Volume 85.5 fL (80.0-100.0); Monocytes # (auto) 1.4 10 ^3/uL (0-1.3); Monocytes % (auto) 10.4 % (0.0-12.0); Neutrophils # (auto) 8.5 10 ^3/uL (1.6-8.6); Neutrophils % (auto) 63.9 % (37.0-80.0); Nucleated Red Blood Cells % 0.1 %; Red Blood Cells 4.25 10^6/uL (4.5-5.90); White Blood Cell 13.3 10^3/uL (4.4-10.8)
[2021-11-11] MEDS: ALBUTEROL SULF 2.5 MG/0.5ML(0.5%) NEB SOLN NEB PRN ×2 (06:28→18:55)
[2021-11-11] MEDS: BUDESONIDE (INHALATION) 0.5 MG/2 ML NEB NEB SCH ×2 (06:28→18:55)
[2021-11-11] MEDS: NOREPINEPHRINE 8 MG/250ML KIT 250 ML IV SCH (07:45)
[2021-11-11] MEDS: MEROPENEM 1GM IVPB 100 ML IV SCH ×3 (07:55→21:24)
[2021-11-11 09:12] LABS: Blood Urea Nitrogen 6 mg/dL (7-18); Calcium 8.7 mg/dL (8.5-10.1); Carbon Dioxide 29 mmol/L (21-32); Glucose 94 mg/dL (74-106)
[2021-11-11 09:15] LABS: Anion Gap 8 (5-15); Chloride 106 mmol/L (98-107); Potassium 3.6 mmol/L (3.5-5.1); Sodium 143 mmol/L (136-145)
[2021-11-11 09:25] LABS: GFR African American 994 mL/min; GFR Non-African American 822 mL/min
[2021-11-11] MEDS: MICAFUNGIN SODIUM 100 MG in SODIUM CHL 0.9% 100 ML IV SCH (10:23)
[2021-11-11] MEDS: ASCORBIC ACID 500 MG TAB PO SCH (10:23)
[2021-11-11] MEDS: ENOXAPARIN SOD 60 MG/0.6 ML SYRINGE SC SCH ×2 (10:24→21:23)
[2021-11-11] MEDS: CHOLECALCIFEROL (VITD3) 2,000 UNIT CAP/TAB PO SCH (10:24)
[2021-11-11] MEDS: SODIUM CHLOR 0.9% PF (SALINE LOCK) 10ML VIAL/SYR IV SCH ×2 (10:24→21:23)
[2021-11-11] MEDS: PANTOPRAZOLE 40 MG/10 ML VIAL INJ IV SCH (10:24)
[2021-11-11] MEDS: LACTULOSE 20Gm/30ML SOLN PO SCH ×2 (10:24→21:23)
[2021-11-12] VITALS (102 sets, daily range): BP systolic 101–144; BP diastolic 57–96
[2021-11-12] MEDS: MIDAZOLAM DRIP 50 mg/50mL 50 ML IV SCH ×6 (01:41→22:47)
[2021-11-12] MEDS: PROPOFOL 100 ML IV SCH ×6 (01:41→22:46)
[2021-11-12] MEDS: ACETAMINOPHEN 650 mg PER 20.3 mL UD GT PRN ×2 (01:44→10:40)
[2021-11-12 05:36] LABS: Basophils # (auto) 0.3 10 ^3/uL (0-0.2); Basophils % (auto) 1.3 % (0.0-2.0); Eosinophils # (auto) 1.7 10 ^3/uL (0-0.8); Eosinophils % (auto) 8.6 % (0.0-7.0); Hematocrit 37.6 % (41.0-53.0); Hemoglobin 12.3 g/dL (13.5-17.5); Lymphocytes # (auto) 1.8 10 ^3/uL (0.4-5.4); Lymphocytes % (auto) 9.1 % (10.0-50.0); Mean Corpuscular Hgb Conc. 32.6 g/dL (32.0-36.0); Mean Corpuscular Volume 85.7 fL (80.0-100.0); Monocytes # (auto) 1.7 10 ^3/uL (0-1.3); Monocytes % (auto) 8.4 % (0.0-12.0); Neutrophils # (auto) 14.3 10 ^3/uL (1.6-8.6); Neutrophils % (auto) 72.6 % (37.0-80.0); Nucleated Red Blood Cells % 0.1 %; Red Blood Cells 4.39 10^6/uL (4.5-5.90); White Blood Cell 19.7 10^3/uL (4.4-10.8)
[2021-11-12 05:54] LABS: Anion Gap 4 (5-15); Blood Urea Nitrogen 4 mg/dL (7-18); Calcium 8.2 mg/dL (8.5-10.1); Carbon Dioxide 29 mmol/L (21-32); Chloride 106 mmol/L (98-107); Glucose 100 mg/dL (74-106); Potassium 3.1 mmol/L (3.5-5.1); Sodium 139 mmol/L (136-145)
[2021-11-12 05:57] LABS: BUN/Creatinine Ratio 26.7; GFR African American 994 mL/min; GFR Non-African American 822 mL/min
[2021-11-12] MEDS: MEROPENEM 1GM IVPB 100 ML IV SCH ×3 (06:29→22:44)
[2021-11-12] MEDS: fentaNYL Drip 2500mCg/250mlNS 250 ML IV SCH ×2 (06:33→18:57)
[2021-11-12] MEDS: NOREPINEPHRINE 8 MG/250ML KIT 250 ML IV SCH (07:45)
[2021-11-12] MEDS: LACTULOSE 20Gm/30ML SOLN PO SCH ×2 (10:00→22:45)
[2021-11-12] MEDS ORDERED: POTASSIUM EFFERVESENT TAB 25 MEQ PO ONE (10:00)
[2021-11-12] MEDS: ASCORBIC ACID 500 MG TAB PO SCH (11:23)
[2021-11-12] MEDS: ENOXAPARIN SOD 60 MG/0.6 ML SYRINGE SC SCH ×2 (11:23→22:45)
[2021-11-12] MEDS: CHOLECALCIFEROL (VITD3) 2,000 UNIT CAP/TAB PO SCH (11:23)
[2021-11-12] MEDS: MICAFUNGIN SODIUM 100 MG in SODIUM CHL 0.9% 100 ML IV SCH (11:24)
[2021-11-12] MEDS: SODIUM CHLOR 0.9% PF (SALINE LOCK) 10ML VIAL/SYR IV SCH ×2 (11:24→22:45)
[2021-11-12] MEDS: PANTOPRAZOLE 40 MG/10 ML VIAL INJ IV SCH (11:24)
[2021-11-12] MEDS: LINEZOLID 600MG/300ML 300 ML IV SCH (17:48)
[2021-11-12] MEDS: BUDESONIDE (INHALATION) 0.5 MG/2 ML NEB NEB SCH (22:48)
[2021-11-13] VITALS (101 sets, daily range): BP systolic 90–126; BP diastolic 48–86
[2021-11-13] MEDS: MIDAZOLAM DRIP 50 mg/50mL 50 ML IV SCH ×3 (02:47→22:05)
[2021-11-13] MEDS: PROPOFOL 100 ML IV SCH ×3 (02:48→22:04)
[2021-11-13 04:27] LABS: Basophils # (auto) 0.2 10 ^3/uL (0-0.2); Basophils % (auto) 1.2 % (0.0-2.0); Eosinophils # (auto) 1.9 10 ^3/uL (0-0.8); Eosinophils % (auto) 14.4 % (0.0-7.0); Hematocrit 36.7 % (41.0-53.0); Hemoglobin 11.8 g/dL (13.5-17.5); Lymphocytes # (auto) 1.7 10 ^3/uL (0.4-5.4); Lymphocytes % (auto) 13.1 % (10.0-50.0); Mean Corpuscular Hemoglobin 27.9 pg (28.0-32.0); Mean Corpuscular Hgb Conc. 32.3 g/dL (32.0-36.0); Mean Corpuscular Volume 86.4 fL (80.0-100.0); Monocytes # (auto) 1.3 10 ^3/uL (0-1.3); Monocytes % (auto) 9.9 % (0.0-12.0); Neutrophils # (auto) 8.1 10 ^3/uL (1.6-8.6); Neutrophils % (auto) 61.4 % (37.0-80.0); Nucleated Red Blood Cells % 0.1 %; Red Blood Cells 4.24 10^6/uL (4.5-5.90); Red Cell Distribution Width 18.5 % (11.8-14.3); White Blood Cell 13.2 10^3/uL (4.4-10.8)
[2021-11-13 04:42] LABS: Chloride 103 mmol/L (98-107); Sodium 142 mmol/L (136-145)
[2021-11-13 04:46] LABS: Alanine Aminotransferase 34 U/L (16-61); Albumin 2.3 g/dL (3.4-5.0); Alkaline Phosphatase 114 U/L (45-117); Anion Gap 7 (5-15); Aspartate Aminotransferase 17 U/L (15-37); Blood Urea Nitrogen 3 mg/dL (7-18); Calcium 8.5 mg/dL (8.5-10.1); Carbon Dioxide 32 mmol/L (21-32); Glucose 100 mg/dL (74-106); Total Protein 5.5 g/dL (6.4-8.2)
[2021-11-13 04:48] LABS: Bilirubin, Total 0.3 mg/dL (0.2-1.0)
[2021-11-13] MEDS: MEROPENEM 1GM IVPB 100 ML IV SCH ×3 (05:39→21:45)
[2021-11-13] MEDS: LINEZOLID 600MG/300ML 300 ML IV SCH ×2 (05:40→17:10)
[2021-11-13 05:43] LABS: GFR African American 994 mL/min; GFR Non-African American 822 mL/min; Potassium 2.9 mmol/L (3.5-5.1)
[2021-11-13] MEDS: ALBUTEROL SULF 2.5 MG/0.5ML(0.5%) NEB SOLN NEB PRN ×2 (06:26→22:03)
[2021-11-13] MEDS: BUDESONIDE (INHALATION) 0.5 MG/2 ML NEB NEB SCH ×2 (06:26→22:03)
[2021-11-13] MEDS: POTASSIUM CHL 20MEQ/50ML 50 ML IV SCH ×3 (07:29→12:48)
[2021-11-13] MEDS: fentaNYL Drip 2500mCg/250mlNS 250 ML IV SCH ×2 (07:36→22:11)
[2021-11-13] MEDS: NOREPINEPHRINE 8 MG/250ML KIT 250 ML IV SCH (07:45)
[2021-11-13] MEDS: PANTOPRAZOLE 40 MG/10 ML VIAL INJ IV SCH (09:20)
[2021-11-13] MEDS: MICAFUNGIN SODIUM 100 MG in SODIUM CHL 0.9% 100 ML IV SCH (09:20)
[2021-11-13] MEDS: ASCORBIC ACID 500 MG TAB PO SCH (09:21)
[2021-11-13] MEDS: SODIUM CHLOR 0.9% PF (SALINE LOCK) 10ML VIAL/SYR IV SCH ×2 (09:21→21:47)
[2021-11-13] MEDS: CHOLECALCIFEROL (VITD3) 2,000 UNIT CAP/TAB PO SCH (09:21)
[2021-11-13] MEDS: LACTULOSE 20Gm/30ML SOLN PO SCH ×2 (09:21→21:46)
[2021-11-13] MEDS: ENOXAPARIN SOD 60 MG/0.6 ML SYRINGE SC SCH ×2 (10:00→21:46)
[2021-11-13] MEDS: MAGNESIUM SULFATE 1GM/100ML 100 ML IV SCH ×2 (10:30→11:30)
[2021-11-13] MEDS ORDERED: POTASSIUM EFFERVESENT TAB 25 MEQ PO ONE (11:30)
[2021-11-14] VITALS (73 sets, daily range): BP systolic 100–139; BP diastolic 52–88
[2021-11-14] MEDS: PROPOFOL 100 ML IV SCH ×5 (02:37→22:17)
[2021-11-14] MEDS: MIDAZOLAM DRIP 50 mg/50mL 50 ML IV SCH ×3 (03:55→20:37)
[2021-11-14] MEDS: LINEZOLID 600MG/300ML 300 ML IV SCH ×2 (05:09→18:00)
[2021-11-14] MEDS: MEROPENEM 1GM IVPB 100 ML IV SCH ×3 (05:09→22:18)
[2021-11-14 05:27] LABS: Anion Gap 6 (5-15); Blood Urea Nitrogen 3 mg/dL (7-18); Calcium 8.4 mg/dL (8.5-10.1); Carbon Dioxide 33 mmol/L (21-32); Chloride 101 mmol/L (98-107); Glucose 109 mg/dL (74-106); Magnesium 1.8 mg/dL (1.6-2.6); Phosphorus 4.2 mg/dL (2.5-4.90); Potassium 3.9 mmol/L (3.5-5.1); Sodium 140 mmol/L (136-145)
[2021-11-14 05:28] LABS: INR 1.08 (0.9-1.15); Partial Thromboplastin Time 34.7 sec (23.6-33.0)
[2021-11-14 05:34] LABS: GFR African American 994 mL/min; GFR Non-African American 822 mL/min
[2021-11-14] MEDS: BUDESONIDE (INHALATION) 0.5 MG/2 ML NEB NEB SCH ×2 (06:07→22:29)
[2021-11-14] MEDS: ALBUTEROL SULF 2.5 MG/0.5ML(0.5%) NEB SOLN NEB PRN ×2 (06:08→22:29)
[2021-11-14] MEDS: fentaNYL Drip 2500mCg/250mlNS 250 ML IV SCH ×2 (06:49→20:38)
[2021-11-14] MEDS: NOREPINEPHRINE 8 MG/250ML KIT 250 ML IV SCH (07:45)
[2021-11-14] MEDS: MICAFUNGIN SODIUM 100 MG in SODIUM CHL 0.9% 100 ML IV SCH (10:14)
[2021-11-14] MEDS: PANTOPRAZOLE 40 MG/10 ML VIAL INJ IV SCH (10:15)
[2021-11-14] MEDS: ENOXAPARIN SOD 60 MG/0.6 ML SYRINGE SC SCH ×2 (10:15→22:19)
[2021-11-14] MEDS: ASCORBIC ACID 500 MG TAB PO SCH (10:15)
[2021-11-14] MEDS: SODIUM CHLOR 0.9% PF (SALINE LOCK) 10ML VIAL/SYR IV SCH ×2 (10:15→22:19)
[2021-11-14] MEDS: LACTULOSE 20Gm/30ML SOLN PO SCH ×2 (10:15→22:19)
[2021-11-14] MEDS: CHOLECALCIFEROL (VITD3) 2,000 UNIT CAP/TAB PO SCH (10:15)
[2021-11-15] VITALS (83 sets, daily range): BP systolic 93–137; BP diastolic 52–82
[2021-11-15] MEDS: PROPOFOL 100 ML IV SCH ×5 (01:48→19:56)
[2021-11-15] MEDS: MIDAZOLAM DRIP 50 mg/50mL 50 ML IV SCH ×3 (01:48→19:57)
[2021-11-15] MEDS: ACETAMINOPHEN 650 mg PER 20.3 mL UD GT PRN (03:26)
[2021-11-15] MEDS ORDERED: ACETAMINOPHEN 650 MG RECT SUPP PR ONE (03:58)
[2021-11-15 04:58] LABS: Basophils # (auto) 0.3 10 ^3/uL (0-0.2); Basophils % (auto) 1.2 % (0.0-2.0); Eosinophils # (auto) 2.1 10 ^3/uL (0-0.8); Eosinophils % (auto) 8.3 % (0.0-7.0); Hematocrit 37.9 % (41.0-53.0); Hemoglobin 12.2 g/dL (13.5-17.5); Lymphocytes # (auto) 1.6 10 ^3/uL (0.4-5.4); Lymphocytes % (auto) 6.3 % (10.0-50.0); Mean Corpuscular Hemoglobin 27.5 pg (28.0-32.0); Mean Corpuscular Volume 85.9 fL (80.0-100.0); Monocytes # (auto) 2.1 10 ^3/uL (0-1.3); Monocytes % (auto) 8.2 % (0.0-12.0); Neutrophils # (auto) 19.4 10 ^3/uL (1.6-8.6); Nucleated Red Blood Cells % 0.1 %; Red Blood Cells 4.41 10^6/uL (4.5-5.90); Red Cell Distribution Width 18.4 % (11.8-14.3); White Blood Cell 25.5 10^3/uL (4.4-10.8)
[2021-11-15 05:18] LABS: Potassium 3.9 mmol/L (3.5-5.1)
[2021-11-15 05:21] LABS: BUN/Creatinine Ratio 17.6; Calcium 8.6 mg/dL (8.5-10.1)
[2021-11-15] MEDS: ALBUTEROL SULF 2.5 MG/0.5ML(0.5%) NEB SOLN NEB PRN ×2 (05:50→21:36)
[2021-11-15] MEDS: BUDESONIDE (INHALATION) 0.5 MG/2 ML NEB NEB SCH ×2 (05:50→21:36)
[2021-11-15] MEDS: LINEZOLID 600MG/300ML 300 ML IV SCH ×2 (06:05→20:30)
[2021-11-15] MEDS: MEROPENEM 1GM IVPB 100 ML IV SCH ×3 (06:05→21:32)
[2021-11-15] MEDS: NOREPINEPHRINE 8 MG/250ML KIT 250 ML IV SCH (07:45)
[2021-11-15] MEDS: LACTULOSE 20Gm/30ML SOLN PO SCH ×2 (10:00→21:32)
[2021-11-15] MEDS: MICAFUNGIN SODIUM 100 MG in SODIUM CHL 0.9% 100 ML IV SCH (10:00)
[2021-11-15] MEDS: fentaNYL Drip 2500mCg/250mlNS 250 ML IV SCH (10:16)
[2021-11-15] MEDS: ENOXAPARIN SOD 60 MG/0.6 ML SYRINGE SC SCH ×2 (10:18→21:31)
[2021-11-15] MEDS: CHOLECALCIFEROL (VITD3) 2,000 UNIT CAP/TAB PO SCH (10:18)
[2021-11-15] MEDS: PANTOPRAZOLE 40 MG/10 ML VIAL INJ IV SCH (10:18)
[2021-11-15] MEDS: SODIUM CHLOR 0.9% PF (SALINE LOCK) 10ML VIAL/SYR IV SCH ×2 (10:18→21:32)
[2021-11-15] MEDS: ASCORBIC ACID 500 MG TAB PO SCH (10:18)
[2021-11-15] MEDS ORDERED: FUROSEMIDE 40 MG/4 ML VIAL IV ONE (15:00)
[2021-11-15] MEDS ORDERED: FUROSEMIDE 40 MG/4 ML VIAL ONE (15:01)
[2021-11-16] VITALS (83 sets, daily range): BP systolic 85–157; BP diastolic 40–97
[2021-11-16] MEDS: fentaNYL Drip 2500mCg/250mlNS 250 ML IV SCH (00:41)
[2021-11-16] MEDS: PROPOFOL 100 ML IV SCH ×3 (00:43→07:27)
[2021-11-16] MEDS: MIDAZOLAM DRIP 50 mg/50mL 50 ML IV SCH (01:00)
[2021-11-16] MEDS ORDERED: NOREPINEPHRINE BITARTRATE 1 ML IV ONE (03:00)
[2021-11-16] MEDS: NOREPINEPHRINE 8 MG/250ML KIT 250 ML IV SCH (03:00)
[2021-11-16 05:10] LABS: Basophils # (auto) 0.1 10 ^3/uL (0-0.2); Basophils % (auto) 0.5 % (0.0-2.0); Eosinophils # (auto) 0 10 ^3/uL (0-0.8); Eosinophils % (auto) 0.1 % (0.0-7.0); Hemoglobin 10.7 g/dL (13.5-17.5); Lymphocytes # (auto) 0.9 10 ^3/uL (0.4-5.4); Lymphocytes % (auto) 7.7 % (10.0-50.0); Mean Corpuscular Hemoglobin 28.2 pg (28.0-32.0); Mean Corpuscular Hgb Conc. 33.4 g/dL (32.0-36.0); Mean Corpuscular Volume 84.3 fL (80.0-100.0); Monocytes % (auto) 8.9 % (0.0-12.0); Neutrophils # (auto) 9.2 10 ^3/uL (1.6-8.6); Neutrophils % (auto) 82.8 % (37.0-80.0); Nucleated Red Blood Cells % 0.1 %; Red Blood Cells 3.79 10^6/uL (4.5-5.90); Red Cell Distribution Width 17.6 % (11.8-14.3); White Blood Cell 11.1 10^3/uL (4.4-10.8)
[2021-11-16 05:26] LABS: Chloride 102 mmol/L (98-107); Potassium 3.5 mmol/L (3.5-5.1); Sodium 143 mmol/L (136-145)
[2021-11-16 05:36] LABS: Alanine Aminotransferase 22 U/L (16-61); Albumin 2.2 g/dL (3.4-5.0); Alkaline Phosphatase 107 U/L (45-117); Anion Gap 3 (5-15); Aspartate Aminotransferase 11 U/L (15-37); Bilirubin, Total 0.2 mg/dL (0.2-1.0); Blood Urea Nitrogen 4 mg/dL (7-18); Calcium 8.4 mg/dL (8.5-10.1); Carbon Dioxide 38 mmol/L (21-32); Glucose 133 mg/dL (74-106); Magnesium 2.7 mg/dL (1.6-2.6); Phosphorus 3.9 mg/dL (2.5-4.90); Total Protein 5.9 g/dL (6.4-8.2)
[2021-11-16] MEDS: BUDESONIDE (INHALATION) 0.5 MG/2 ML NEB NEB SCH ×2 (05:57→18:42)
[2021-11-16] MEDS: ALBUTEROL SULF 2.5 MG/0.5ML(0.5%) NEB SOLN NEB PRN ×2 (05:57→18:42)
[2021-11-16] MEDS: LINEZOLID 600MG/300ML 300 ML IV SCH ×2 (06:19→18:00)
[2021-11-16] MEDS: MEROPENEM 1GM IVPB 100 ML IV SCH ×3 (06:21→22:57)
[2021-11-16 06:29] LABS: BUN/Creatinine Ratio 26.7; GFR African American 994 mL/min; GFR Non-African American 822 mL/min
[2021-11-16] MEDS: ASCORBIC ACID 500 MG TAB PO SCH (10:00)
[2021-11-16] MEDS: CHOLECALCIFEROL (VITD3) 2,000 UNIT CAP/TAB PO SCH (10:00)
[2021-11-16] MEDS: MICAFUNGIN SODIUM 100 MG in SODIUM CHL 0.9% 100 ML IV SCH (10:00)
[2021-11-16] MEDS: SODIUM CHLOR 0.9% PF (SALINE LOCK) 10ML VIAL/SYR IV SCH ×2 (10:00→22:58)
[2021-11-16] MEDS: PANTOPRAZOLE 40 MG/10 ML VIAL INJ IV SCH (10:00)
[2021-11-16] MEDS: ENOXAPARIN SOD 60 MG/0.6 ML SYRINGE SC SCH ×2 (10:00→22:58)
[2021-11-16] MEDS: LACTULOSE 20Gm/30ML SOLN PO SCH ×2 (10:00→22:00)
[2021-11-16] MEDS ORDERED: POTASSIUM EFFERVESENT TAB 25 MEQ GT ONE (15:30)
[2021-11-17] VITALS (71 sets, daily range): BP systolic 108–157; BP diastolic 58–109
[2021-11-17] MEDS: MIDAZOLAM DRIP 50 mg/50mL 50 ML IV SCH ×4 (02:24→23:11)
[2021-11-17] MEDS: fentaNYL Drip 2500mCg/250mlNS 250 ML IV SCH (02:25)
[2021-11-17] MEDS: MEROPENEM 1GM IVPB 100 ML IV SCH ×3 (04:08→22:16)
[2021-11-17 04:36] LABS: Basophils # (auto) 0.1 10 ^3/uL (0-0.2); Basophils % (auto) 0.4 % (0.0-2.0); Eosinophils # (auto) 1.1 10 ^3/uL (0-0.8); Eosinophils % (auto) 6.3 % (0.0-7.0); Hematocrit 37.2 % (41.0-53.0); Hemoglobin 11.9 g/dL (13.5-17.5); Lymphocytes # (auto) 2.7 10 ^3/uL (0.4-5.4); Lymphocytes % (auto) 15.2 % (10.0-50.0); Mean Corpuscular Hemoglobin 27.4 pg (28.0-32.0); Mean Corpuscular Volume 85.5 fL (80.0-100.0); Monocytes # (auto) 2.3 10 ^3/uL (0-1.3); Monocytes % (auto) 12.8 % (0.0-12.0); Neutrophils # (auto) 11.6 10 ^3/uL (1.6-8.6); Neutrophils % (auto) 65.3 % (37.0-80.0); Nucleated Red Blood Cells % 0.1 %; Red Blood Cells 4.35 10^6/uL (4.5-5.90); Red Cell Distribution Width 18.6 % (11.8-14.3); White Blood Cell 17.7 10^3/uL (4.4-10.8)
[2021-11-17 04:53] LABS: Anion Gap 5 (5-15); BUN/Creatinine Ratio 33.3; Blood Urea Nitrogen 5 mg/dL (7-18); Calcium 8.5 mg/dL (8.5-10.1); Carbon Dioxide 39 mmol/L (21-32); Chloride 99 mmol/L (98-107); GFR African American 994 mL/min; GFR Non-African American 822 mL/min; Glucose 90 mg/dL (74-106); Potassium 3.6 mmol/L (3.5-5.1); Sodium 143 mmol/L (136-145)
[2021-11-17] MEDS: ACETAMINOPHEN 650 mg PER 20.3 mL UD GT PRN ×2 (05:11→20:19)
[2021-11-17] MEDS: LINEZOLID 600MG/300ML 300 ML IV SCH ×2 (05:44→18:00)
[2021-11-17] MEDS: BUDESONIDE (INHALATION) 0.5 MG/2 ML NEB NEB SCH ×2 (06:05→18:48)
[2021-11-17] MEDS: ALBUTEROL SULF 2.5 MG/0.5ML(0.5%) NEB SOLN NEB PRN ×2 (06:05→18:48)
[2021-11-17] MEDS: NOREPINEPHRINE 8 MG/250ML KIT 250 ML IV SCH (07:45)
[2021-11-17] MEDS: PROPOFOL 100 ML IV SCH ×3 (08:03→23:37)
[2021-11-17] MEDS: POTASSIUM EFFERVESENT TAB 25 MEQ GT SCH (09:54)
[2021-11-17] MEDS: SODIUM CHLOR 0.9% PF (SALINE LOCK) 10ML VIAL/SYR IV SCH ×2 (09:55→22:16)
[2021-11-17] MEDS: PANTOPRAZOLE 40 MG/10 ML VIAL INJ IV SCH (09:55)
[2021-11-17] MEDS: FUROSEMIDE 20 MG/2 ML VIAL IV SCH (09:55)
[2021-11-17] MEDS: MICAFUNGIN SODIUM 100 MG in SODIUM CHL 0.9% 100 ML IV SCH (09:55)
[2021-11-17] MEDS: CHOLECALCIFEROL (VITD3) 2,000 UNIT CAP/TAB PO SCH (09:56)
[2021-11-17] MEDS: ASCORBIC ACID 500 MG TAB PO SCH (09:56)
[2021-11-17] MEDS: ENOXAPARIN SOD 60 MG/0.6 ML SYRINGE SC SCH ×2 (09:56→22:25)
[2021-11-17] MEDS: LACTULOSE 20Gm/30ML SOLN PO SCH ×2 (09:57→22:00)
[2021-11-17] MEDS ORDERED: methylPREDNISolone SOD SUCC 40 MG/ML VL IV ONE (14:30)
[2021-11-17] MEDS: methylPREDNISolone SOD SUCC 40 MG/ML VL IV SCH (22:28)
[2021-11-18] VITALS (72 sets, daily range): BP systolic 102–151; BP diastolic 61–107
[2021-11-18] MEDS: PROPOFOL 100 ML IV SCH ×5 (02:30→23:58)
[2021-11-18] MEDS: MIDAZOLAM DRIP 50 mg/50mL 50 ML IV SCH ×5 (02:34→17:05)
[2021-11-18] MEDS: MEROPENEM 1GM IVPB 100 ML IV SCH ×3 (04:18→22:28)
[2021-11-18 05:27] LABS: Anion Gap 5 (5-15); Calcium 8.7 mg/dL (8.5-10.1); Carbon Dioxide 35 mmol/L (21-32); Chloride 104 mmol/L (98-107); Glucose 131 mg/dL (74-106); Potassium 3.7 mmol/L (3.5-5.1); Sodium 144 mmol/L (136-145)
[2021-11-18] MEDS: fentaNYL Drip 2500mCg/250mlNS 250 ML IV SCH ×2 (05:30→16:10)
[2021-11-18 05:36] LABS: BUN/Creatinine Ratio 26.7; Blood Urea Nitrogen 4 mg/dL (7-18); GFR African American 994 mL/min; GFR Non-African American 822 mL/min
[2021-11-18] MEDS: Jevity 1.2 Cal/Fiber 1 Liter GT SCH (05:43)
[2021-11-18] MEDS: BUDESONIDE (INHALATION) 0.5 MG/2 ML NEB NEB SCH ×2 (06:36→22:20)
[2021-11-18] MEDS: ALBUTEROL SULF 2.5 MG/0.5ML(0.5%) NEB SOLN NEB PRN ×2 (06:36→22:20)
[2021-11-18] MEDS: LINEZOLID 600MG/300ML 300 ML IV SCH ×2 (07:12→18:25)
[2021-11-18] MEDS: NOREPINEPHRINE 8 MG/250ML KIT 250 ML IV SCH (07:45)
[2021-11-18] MEDS: LACTULOSE 20Gm/30ML SOLN PO SCH ×2 (10:00→22:00)
[2021-11-18] MEDS: FUROSEMIDE 20 MG/2 ML VIAL IV SCH (10:11)
[2021-11-18] MEDS: PANTOPRAZOLE 40 MG/10 ML VIAL INJ IV SCH (10:12)
[2021-11-18] MEDS: MICAFUNGIN SODIUM 100 MG in SODIUM CHL 0.9% 100 ML IV SCH (10:12)
[2021-11-18] MEDS: ENOXAPARIN SOD 60 MG/0.6 ML SYRINGE SC SCH ×2 (10:13→22:30)
[2021-11-18] MEDS: methylPREDNISolone SOD SUCC 40 MG/ML VL IV SCH ×2 (10:13→22:28)
[2021-11-18] MEDS: ASCORBIC ACID 500 MG TAB PO SCH (10:13)
[2021-11-18] MEDS: CHOLECALCIFEROL (VITD3) 2,000 UNIT CAP/TAB PO SCH (10:13)
[2021-11-18] MEDS: SODIUM CHLOR 0.9% PF (SALINE LOCK) 10ML VIAL/SYR IV SCH ×2 (10:13→22:29)
[2021-11-18] MEDS: POTASSIUM EFFERVESENT TAB 25 MEQ GT SCH (10:14)
[2021-11-19] VITALS (77 sets, daily range): BP systolic 101–155; BP diastolic 66–107
[2021-11-19] MEDS: MIDAZOLAM DRIP 50 mg/50mL 50 ML IV SCH ×3 (00:02→22:12)
[2021-11-19 04:19] LABS: Basophils # (auto) 0.1 10 ^3/uL (0-0.2); Basophils % (auto) 0.9 % (0.0-2.0); Eosinophils # (auto) 0 10 ^3/uL (0-0.8); Hematocrit 37.1 % (41.0-53.0); Hemoglobin 12.1 g/dL (13.5-17.5); Lymphocytes # (auto) 1.2 10 ^3/uL (0.4-5.4); Lymphocytes % (auto) 8.7 % (10.0-50.0); Mean Corpuscular Hemoglobin 27.3 pg (28.0-32.0); Mean Corpuscular Hgb Conc. 32.7 g/dL (32.0-36.0); Mean Corpuscular Volume 83.4 fL (80.0-100.0); Monocytes # (auto) 0.5 10 ^3/uL (0-1.3); Monocytes % (auto) 3.9 % (0.0-12.0); Neutrophils # (auto) 11.9 10 ^3/uL (1.6-8.6); Neutrophils % (auto) 86.5 % (37.0-80.0); Nucleated Red Blood Cells % 0.1 %; Red Blood Cells 4.45 10^6/uL (4.5-5.90); Red Cell Distribution Width 17.9 % (11.8-14.3); White Blood Cell 13.8 10^3/uL (4.4-10.8)
[2021-11-19] MEDS: fentaNYL Drip 2500mCg/250mlNS 250 ML IV SCH (04:25)
[2021-11-19 04:53] LABS: Anion Gap 5 (5-15); BUN/Creatinine Ratio 53.3; Blood Urea Nitrogen 8 mg/dL (7-18); Calcium 9.1 mg/dL (8.5-10.1); Carbon Dioxide 37 mmol/L (21-32); Chloride 100 mmol/L (98-107); GFR African American 994 mL/min; GFR Non-African American 822 mL/min; Glucose 118 mg/dL (74-106); Potassium 3.6 mmol/L (3.5-5.1); Sodium 142 mmol/L (136-145)
[2021-11-19] MEDS: LINEZOLID 600MG/300ML 300 ML IV SCH ×2 (05:58→18:00)
[2021-11-19] MEDS: BUDESONIDE (INHALATION) 0.5 MG/2 ML NEB NEB SCH ×2 (06:13→19:09)
[2021-11-19] MEDS: ALBUTEROL SULF 2.5 MG/0.5ML(0.5%) NEB SOLN NEB PRN ×2 (06:13→19:09)
[2021-11-19] MEDS: MEROPENEM 1GM IVPB 100 ML IV SCH ×3 (07:35→22:10)
[2021-11-19] MEDS: NOREPINEPHRINE 8 MG/250ML KIT 250 ML IV SCH (07:45)
[2021-11-19] MEDS: FUROSEMIDE 20 MG/2 ML VIAL IV SCH (09:57)
[2021-11-19] MEDS: PANTOPRAZOLE 40 MG/10 ML VIAL INJ IV SCH (09:57)
[2021-11-19] MEDS: POTASSIUM EFFERVESENT TAB 25 MEQ GT SCH (09:57)
[2021-11-19] MEDS: SODIUM CHLOR 0.9% PF (SALINE LOCK) 10ML VIAL/SYR IV SCH ×2 (09:58→22:11)
[2021-11-19] MEDS: LACTULOSE 20Gm/30ML SOLN PO SCH ×2 (09:58→22:00)
[2021-11-19] MEDS: ENOXAPARIN SOD 60 MG/0.6 ML SYRINGE SC SCH (09:58)
[2021-11-19] MEDS: CHOLECALCIFEROL (VITD3) 2,000 UNIT CAP/TAB PO SCH (09:58)
[2021-11-19] MEDS: methylPREDNISolone SOD SUCC 40 MG/ML VL IV SCH ×2 (09:58→22:11)
[2021-11-19] MEDS: ASCORBIC ACID 500 MG TAB PO SCH (09:58)
[2021-11-19] MEDS: MICAFUNGIN SODIUM 100 MG in SODIUM CHL 0.9% 100 ML IV SCH (09:59)
[2021-11-19] MEDS ORDERED: FUROSEMIDE 20 MG/2 ML VIAL IV ONE (12:15)
[2021-11-19] MEDS ORDERED: POTASSIUM EFFERVESENT TAB 25 MEQ GT ONE (12:15)
[2021-11-19 14:37] LABS: INR 1.07 (0.9-1.15); Partial Thromboplastin Time 27.5 sec (23.6-33.0)
[2021-11-19] MEDS: PROPOFOL 100 ML IV SCH ×2 (20:21→23:34)
[2021-11-20] VITALS (80 sets, daily range): BP systolic 111–143; BP diastolic 67–103
[2021-11-20] MEDS: MIDAZOLAM DRIP 50 mg/50mL 50 ML IV SCH ×4 (01:42→18:25)
[2021-11-20] MEDS: PROPOFOL 100 ML IV SCH ×5 (02:38→18:24)
[2021-11-20] MEDS: LINEZOLID 600MG/300ML 300 ML IV SCH ×2 (05:58→18:23)
[2021-11-20] MEDS: MEROPENEM 1GM IVPB 100 ML IV SCH ×3 (06:00→22:06)
[2021-11-20] MEDS: ALBUTEROL SULF 2.5 MG/0.5ML(0.5%) NEB SOLN NEB PRN ×2 (06:03→22:32)
[2021-11-20] MEDS: BUDESONIDE (INHALATION) 0.5 MG/2 ML NEB NEB SCH ×2 (06:03→22:32)
[2021-11-20] MEDS: fentaNYL Drip 2500mCg/250mlNS 250 ML IV SCH (07:03)
[2021-11-20] MEDS: NOREPINEPHRINE 8 MG/250ML KIT 250 ML IV SCH (07:45)
[2021-11-20] MEDS: LACTULOSE 20Gm/30ML SOLN PO SCH ×2 (10:00→22:07)
[2021-11-20] MEDS: PANTOPRAZOLE 40 MG/10 ML VIAL INJ IV SCH (10:05)
[2021-11-20] MEDS: CHOLECALCIFEROL (VITD3) 2,000 UNIT CAP/TAB PO SCH (10:05)
[2021-11-20] MEDS: FUROSEMIDE 20 MG/2 ML VIAL IV SCH (10:05)
[2021-11-20] MEDS: ASCORBIC ACID 500 MG TAB PO SCH (10:05)
[2021-11-20] MEDS: methylPREDNISolone SOD SUCC 40 MG/ML VL IV SCH ×2 (10:06→22:07)
[2021-11-20] MEDS: SODIUM CHLOR 0.9% PF (SALINE LOCK) 10ML VIAL/SYR IV SCH ×2 (10:06→22:06)
[2021-11-20] MEDS: POTASSIUM EFFERVESENT TAB 25 MEQ GT SCH (10:06)
[2021-11-20] MEDS: MICAFUNGIN SODIUM 100 MG in SODIUM CHL 0.9% 100 ML IV SCH (10:47)
[2021-11-20] MEDS ORDERED: LIDOCAINE 1%-Mpf/Epinephrine 1:200,000 ONE (11:18)
[2021-11-20] MEDS ORDERED: HYDROmorphone HCL 2 MG/ML VL IV PRN (12:00)
[2021-11-20] MEDS ORDERED: LABETALOL HCL 5 MG/ML 4ML SYRINGE IV PRN (12:00)
[2021-11-20] MEDS ORDERED: ePHEDrine SULFATE 50 MG/ML AMP IV PRN (12:00)
[2021-11-20] MEDS ORDERED: MIDAZOLAM HCL 2MG/2ML 2ml VIAL (1mg/ml) IV PRN (12:00)
[2021-11-20] MEDS ORDERED: MORPHINE SULFATE 4 MG/ML SYR/VIAL IV PRN (12:00)
[2021-11-20] MEDS ORDERED: ONDANSETRON HCL 4 MG/2 ML VIAL IV PRN (12:00)
[2021-11-20] MEDS ORDERED: ROCURONIUM 10MG/ML 10ML VIAL IV ONE (12:41)
[2021-11-20] MEDS ORDERED: ceFAZolin 1GM/50ML 100 ML IV ONE (12:45)
[2021-11-21] VITALS (101 sets, daily range): BP systolic 104–141; BP diastolic 64–97
[2021-11-21 05:12] LABS: Hematocrit 37.3 % (41.0-53.0); Hemoglobin 12.3 g/dL (13.5-17.5); Mean Corpuscular Hemoglobin 27.3 pg (28.0-32.0); Mean Corpuscular Hgb Conc. 32.9 g/dL (32.0-36.0); Mean Corpuscular Volume 82.9 fL (80.0-100.0); Red Blood Cells 4.49 10^6/uL (4.5-5.90); White Blood Cell 14.3 10^3/uL (4.4-10.8)
[2021-11-21 05:22] LABS: Basophils % (manual) 0 (0.0-2.0); Blast Cells 0; Myelocytes % 0; Promyelocytes % 0; Reactive Lymphocytes 0
[2021-11-21 05:36] LABS: Albumin 2.6 g/dL (3.4-5.0); Calcium 8.4 mg/dL (8.5-10.1); Potassium 3.4 mmol/L (3.5-5.1)
[2021-11-21 05:41] LABS: BUN/Creatinine Ratio 41.2; Bilirubin, Total 0.3 mg/dL (0.2-1.0); Total Protein 6.1 g/dL (6.4-8.2)
[2021-11-21] MEDS: MEROPENEM 1GM IVPB 100 ML IV SCH ×3 (05:46→22:00)
[2021-11-21] MEDS: ALBUTEROL SULF 2.5 MG/0.5ML(0.5%) NEB SOLN NEB PRN ×2 (06:16→21:19)
[2021-11-21] MEDS: BUDESONIDE (INHALATION) 0.5 MG/2 ML NEB NEB SCH ×2 (06:16→21:19)
[2021-11-21] MEDS: NOREPINEPHRINE 8 MG/250ML KIT 250 ML IV SCH (07:45)
[2021-11-21] MEDS: LINEZOLID 600MG/300ML 300 ML IV SCH ×2 (08:22→17:45)
[2021-11-21] MEDS: PROPOFOL 100 ML IV SCH ×4 (08:22→18:53)
[2021-11-21] MEDS: MIDAZOLAM DRIP 50 mg/50mL 50 ML IV SCH ×2 (08:23→18:53)
[2021-11-21] MEDS: fentaNYL Drip 2500mCg/250mlNS 250 ML IV SCH (08:34)
[2021-11-21] MEDS: methylPREDNISolone SOD SUCC 40 MG/ML VL IV SCH ×2 (09:35→22:00)
[2021-11-21] MEDS: FUROSEMIDE 20 MG/2 ML VIAL IV SCH (09:35)
[2021-11-21] MEDS: PANTOPRAZOLE 40 MG/10 ML VIAL INJ IV SCH (09:35)
[2021-11-21] MEDS: ASCORBIC ACID 500 MG TAB PO SCH (09:36)
[2021-11-21] MEDS: POTASSIUM EFFERVESENT TAB 25 MEQ GT SCH (09:36)
[2021-11-21] MEDS: CHOLECALCIFEROL (VITD3) 2,000 UNIT CAP/TAB PO SCH (09:36)
[2021-11-21] MEDS: LACTULOSE 20Gm/30ML SOLN PO SCH ×2 (09:37→22:00)
[2021-11-21] MEDS: SODIUM CHLOR 0.9% PF (SALINE LOCK) 10ML VIAL/SYR IV SCH ×2 (09:37→22:00)
[2021-11-21] MEDS: MICAFUNGIN SODIUM 100 MG in SODIUM CHL 0.9% 100 ML IV SCH (10:00)
[2021-11-21 11:18] LABS: Band Neutrophils % (manual) 5; Eosinophils % (manual) 1 (0-7); Lymphocytes % (manual) 6 (10.0-50.0); Metamyelocytes % 3; Monocytes % (manual) 6 (0-12)
[2021-11-21] MEDS ORDERED: POTASSIUM EFFERVESENT TAB 25 MEQ GT ONE (17:30)
[2021-11-22] VITALS (101 sets, daily range): BP systolic 96–131; BP diastolic 50–89
[2021-11-22] MEDS: LINEZOLID 600MG/300ML 300 ML IV SCH ×2 (05:42→17:54)
[2021-11-22] MEDS: MEROPENEM 1GM IVPB 100 ML IV SCH ×3 (06:00→21:48)
[2021-11-22] MEDS: NOREPINEPHRINE 8 MG/250ML KIT 250 ML IV SCH (07:45)
[2021-11-22] MEDS: MIDAZOLAM DRIP 50 mg/50mL 50 ML IV SCH ×4 (08:38→23:43)
[2021-11-22] MEDS: PROPOFOL 100 ML IV SCH ×4 (08:38→23:43)
[2021-11-22] MEDS: MICAFUNGIN SODIUM 100 MG in SODIUM CHL 0.9% 100 ML IV SCH (09:46)
[2021-11-22] MEDS: FUROSEMIDE 20 MG/2 ML VIAL IV SCH (09:48)
[2021-11-22] MEDS: PANTOPRAZOLE 40 MG/10 ML VIAL INJ IV SCH (09:48)
[2021-11-22] MEDS: methylPREDNISolone SOD SUCC 40 MG/ML VL IV SCH ×2 (09:49→21:48)
[2021-11-22] MEDS: ASCORBIC ACID 500 MG TAB PO SCH (09:49)
[2021-11-22] MEDS: SODIUM CHLOR 0.9% PF (SALINE LOCK) 10ML VIAL/SYR IV SCH ×2 (09:49→21:48)
[2021-11-22] MEDS: CHOLECALCIFEROL (VITD3) 2,000 UNIT CAP/TAB PO SCH (09:49)
[2021-11-22] MEDS: POTASSIUM EFFERVESENT TAB 25 MEQ GT SCH (09:49)
[2021-11-22] MEDS: LACTULOSE 20Gm/30ML SOLN PO SCH ×2 (09:49→21:49)
[2021-11-22] MEDS: BUDESONIDE (INHALATION) 0.5 MG/2 ML NEB NEB SCH ×2 (10:07→23:07)
[2021-11-22 10:16] LABS: Basophils # (auto) 0.1 10 ^3/uL (0-0.2); Basophils % (auto) 0.5 % (0.0-2.0); Eosinophils # (auto) 0.1 10 ^3/uL (0-0.8); Eosinophils % (auto) 0.4 % (0.0-7.0); Hematocrit 36.9 % (41.0-53.0); Hemoglobin 12.5 g/dL (13.5-17.5); Lymphocytes % (auto) 12.9 % (10.0-50.0); Mean Corpuscular Hemoglobin 28.4 pg (28.0-32.0); Mean Corpuscular Hgb Conc. 33.8 g/dL (32.0-36.0); Mean Corpuscular Volume 83.9 fL (80.0-100.0); Monocytes # (auto) 0.9 10 ^3/uL (0-1.3); Neutrophils # (auto) 12.5 10 ^3/uL (1.6-8.6); Neutrophils % (auto) 80.2 % (37.0-80.0); Nucleated Red Blood Cells % 0.1 %; Red Cell Distribution Width 18.5 % (11.8-14.3); White Blood Cell 15.6 10^3/uL (4.4-10.8)
[2021-11-22 10:33] LABS: Alanine Aminotransferase 42 U/L (16-61); Albumin 2.8 g/dL (3.4-5.0); Alkaline Phosphatase 96 U/L (45-117); Anion Gap 8 (5-15); Aspartate Aminotransferase 25 U/L (15-37); Bilirubin, Total 0.3 mg/dL (0.2-1.0); Blood Urea Nitrogen 6 mg/dL (7-18); Calcium 8.1 mg/dL (8.5-10.1); Carbon Dioxide 28 mmol/L (21-32); Chloride 105 mmol/L (98-107); GFR African American 994 mL/min; GFR Non-African American 822 mL/min; Glucose 120 mg/dL (74-106); Potassium 3.7 mmol/L (3.5-5.1); Sodium 141 mmol/L (136-145); Total Protein 5.3 g/dL (6.4-8.2)
[2021-11-22] MEDS: fentaNYL Drip 2500mCg/250mlNS 250 ML IV SCH ×2 (12:46→22:37)
[2021-11-22] MEDS ORDERED: ENOXAPARIN SOD 40 MG/0.4 ML SYRINGE SC ONE (16:45)
[2021-11-22] MEDS: Jevity 1.2 Cal/Fiber 1 Liter GT SCH (17:54)
[2021-11-22] MEDS: ALBUTEROL SULF 2.5 MG/0.5ML(0.5%) NEB SOLN NEB PRN (23:07)
[2021-11-23] VITALS (43 sets, daily range): BP systolic 105–150; BP diastolic 60–95
[2021-11-23] MEDS: ACETAMINOPHEN 650 mg PER 20.3 mL UD GT PRN (04:13)
[2021-11-23 05:20] LABS: Albumin 2.8 g/dL (3.4-5.0); Potassium 3.7 mmol/L (3.5-5.1)
[2021-11-23] MEDS: MEROPENEM 1GM IVPB 100 ML IV SCH ×3 (05:20→22:47)
[2021-11-23 05:26] LABS: Bilirubin, Total 0.3 mg/dL (0.2-1.0); Calcium 9.1 mg/dL (8.5-10.1); Total Protein 6.2 g/dL (6.4-8.2)
[2021-11-23 05:36] LABS: Hematocrit 38.8 % (41.0-53.0); Hemoglobin 12.6 g/dL (13.5-17.5); Mean Corpuscular Hemoglobin 27.2 pg (28.0-32.0); Mean Corpuscular Hgb Conc. 32.5 g/dL (32.0-36.0); Mean Corpuscular Volume 83.6 fL (80.0-100.0); Red Blood Cells 4.64 10^6/uL (4.5-5.90); Red Cell Distribution Width 18.6 % (11.8-14.3); White Blood Cell 26.7 10^3/uL (4.4-10.8)
[2021-11-23 05:38] LABS: Basophils % (manual) 0 (0.0-2.0); Blast Cells 0; Eosinophils % (manual) 0 (0-7); Metamyelocytes % 0; Promyelocytes % 0; Reactive Lymphocytes 0
[2021-11-23] MEDS: ALBUTEROL SULF 2.5 MG/0.5ML(0.5%) NEB SOLN NEB PRN ×2 (06:25→19:34)
[2021-11-23] MEDS: BUDESONIDE (INHALATION) 0.5 MG/2 ML NEB NEB SCH ×2 (06:25→19:34)
[2021-11-23] MEDS: LINEZOLID 600MG/300ML 300 ML IV SCH (06:57)
[2021-11-23 07:09] LABS: Band Neutrophils % (manual) 11; Lymphocytes % (manual) 7 (10.0-50.0); Monocytes % (manual) 1 (0-12); Myelocytes % 4
[2021-11-23] MEDS: NOREPINEPHRINE 8 MG/250ML KIT 250 ML IV SCH (07:45)
[2021-11-23] MEDS: ASCORBIC ACID 500 MG TAB PO SCH (10:00)
[2021-11-23] MEDS: LACTULOSE 20Gm/30ML SOLN PO SCH ×2 (10:00→22:00)
[2021-11-23] MEDS: CHOLECALCIFEROL (VITD3) 2,000 UNIT CAP/TAB PO SCH (10:00)
[2021-11-23] MEDS: ENOXAPARIN SOD 40 MG/0.4 ML SYRINGE SC SCH (10:00)
[2021-11-23] MEDS: MICAFUNGIN SODIUM 100 MG in SODIUM CHL 0.9% 100 ML IV SCH (10:00)
[2021-11-23] MEDS: PANTOPRAZOLE 40 MG/10 ML VIAL INJ IV SCH (20:24)
[2021-11-23] MEDS: SODIUM CHLOR 0.9% PF (SALINE LOCK) 10ML VIAL/SYR IV SCH ×2 (20:25→22:47)
[2021-11-23] MEDS: methylPREDNISolone SOD SUCC 40 MG/ML VL IV SCH (22:48)
[2021-11-24] VITALS (33 sets, daily range): BP systolic 95–141; BP diastolic 56–96
[2021-11-24] MEDS: PROPOFOL 100 ML IV SCH ×2 (01:12→07:02)
[2021-11-24] MEDS: MIDAZOLAM DRIP 50 mg/50mL 50 ML IV SCH (01:12)
[2021-11-24 04:21] LABS: Hematocrit 38.9 % (41.0-53.0); Hemoglobin 12.8 g/dL (13.5-17.5); Mean Corpuscular Hemoglobin 27.4 pg (28.0-32.0); Mean Corpuscular Hgb Conc. 32.9 g/dL (32.0-36.0); Mean Corpuscular Volume 83.1 fL (80.0-100.0); Red Blood Cells 4.68 10^6/uL (4.5-5.90); Red Cell Distribution Width 19.2 % (11.8-14.3); White Blood Cell 23.4 10^3/uL (4.4-10.8)
[2021-11-24 04:35] LABS: Calcium 9.2 mg/dL (8.5-10.1); Potassium 3.9 mmol/L (3.5-5.1)
[2021-11-24 04:38] LABS: BUN/Creatinine Ratio 18.8
[2021-11-24 05:12] LABS: Basophils % (manual) 0 (0.0-2.0); Blast Cells 0; Eosinophils % (manual) 0 (0-7); Metamyelocytes % 0; Promyelocytes % 0; Reactive Lymphocytes 0
[2021-11-24 05:44] LABS: Band Neutrophils % (manual) 1; Lymphocytes % (manual) 7 (10.0-50.0); Monocytes % (manual) 2 (0-12); Myelocytes % 2
[2021-11-24] MEDS: BUDESONIDE (INHALATION) 0.5 MG/2 ML NEB NEB SCH ×2 (05:55→19:13)
[2021-11-24] MEDS: MEROPENEM 1GM IVPB 100 ML IV SCH ×3 (06:00→22:51)
[2021-11-24] MEDS: NOREPINEPHRINE 8 MG/250ML KIT 250 ML IV SCH (07:45)
[2021-11-24] MEDS: LACTULOSE 20Gm/30ML SOLN PO SCH ×2 (10:00→22:00)
[2021-11-24] MEDS: SODIUM CHLOR 0.9% PF (SALINE LOCK) 10ML VIAL/SYR IV SCH ×2 (13:16→22:00)
[2021-11-24] MEDS: methylPREDNISolone SOD SUCC 40 MG/ML VL IV SCH ×2 (13:17→22:51)
[2021-11-24] MEDS: ASCORBIC ACID 500 MG TAB PO SCH (13:18)
[2021-11-24] MEDS: ENOXAPARIN SOD 40 MG/0.4 ML SYRINGE SC SCH (13:19)
[2021-11-24] MEDS: CHOLECALCIFEROL (VITD3) 2,000 UNIT CAP/TAB PO SCH (13:19)
[2021-11-24] MEDS: fentaNYL Drip 2500mCg/250mlNS 250 ML IV SCH (13:20)
[2021-11-24] MEDS: MICAFUNGIN SODIUM 100 MG in SODIUM CHL 0.9% 100 ML IV SCH (13:21)
[2021-11-24] MEDS: PANTOPRAZOLE 40 MG/10 ML VIAL INJ IV SCH (13:21)
[2021-11-24] MEDS ORDERED: VANCOMYCIN PER PHARMACY 0 MG IV SCH (15:45)
[2021-11-24] MEDS ORDERED: VANCOMYCIN 1GM/250ML 250 ML IV ONE (16:00)
[2021-11-24] MEDS: ALBUTEROL SULF 2.5 MG/0.5ML(0.5%) NEB SOLN NEB PRN (19:13)
[2021-11-25] VITALS (93 sets, daily range): BP systolic 124–155; BP diastolic 78–104
[2021-11-25 02:36] LABS: Urine Bacteria NONE SEEN /hpf (None Seen); Urine Blood 3+ /uL (Negative); Urine Mucus FEW (None Seen); Urine Specific Gravity 1.036 (1.001-1.035); Urine Sperm PRESENT /hpf (None Seen); Urine WBC 11 /hpf (0 - 3)
[2021-11-25] MEDS: ACETAMINOPHEN 650 mg PER 20.3 mL UD GT PRN ×2 (05:11→21:27)
[2021-11-25] MEDS: MEROPENEM 1GM IVPB 100 ML IV SCH ×3 (05:41→21:28)
[2021-11-25] MEDS: ALBUTEROL SULF 2.5 MG/0.5ML(0.5%) NEB SOLN NEB PRN (06:30)
[2021-11-25] MEDS: BUDESONIDE (INHALATION) 0.5 MG/2 ML NEB NEB SCH ×2 (06:30→22:06)
[2021-11-25 07:10] LABS: Hematocrit 35.9 % (41.0-53.0); Hemoglobin 11.6 g/dL (13.5-17.5); Mean Corpuscular Hemoglobin 26.8 pg (28.0-32.0); Mean Corpuscular Hgb Conc. 32.2 g/dL (32.0-36.0); Mean Corpuscular Volume 83.5 fL (80.0-100.0); Red Cell Distribution Width 18.4 % (11.8-14.3)
[2021-11-25 07:16] LABS: White Blood Cell 39.7 10^3/uL (4.4-10.8)
[2021-11-25 07:17] LABS: Basophils % (manual) 0 (0.0-2.0); Blast Cells 0; Promyelocytes % 0; Reactive Lymphocytes 0
[2021-11-25 07:19] LABS: Anion Gap 7 (5-15); Blood Urea Nitrogen 7 mg/dL (7-18); Calcium 8.2 mg/dL (8.5-10.1); Carbon Dioxide 28 mmol/L (21-32); Chloride 104 mmol/L (98-107); Glucose 195 mg/dL (74-106); Sodium 139 mmol/L (136-145)
[2021-11-25 07:21] LABS: BUN/Creatinine Ratio 46.7; GFR African American 994 mL/min; GFR Non-African American 822 mL/min
[2021-11-25 07:38] LABS: Potassium 2.7 mmol/L (3.5-5.1)
[2021-11-25] MEDS: PROPOFOL 100 ML IV SCH (07:45)
[2021-11-25] MEDS: NOREPINEPHRINE 8 MG/250ML KIT 250 ML IV SCH (07:45)
[2021-11-25] MEDS: MIDAZOLAM DRIP 50 mg/50mL 50 ML IV SCH (07:45)
[2021-11-25] MEDS: VANCOMYCIN 1GM/250ML 250 ML IV SCH ×3 (08:52→17:42)
[2021-11-25 09:30] LABS: Band Neutrophils % (manual) 2; Eosinophils % (manual) 3 (0-7); Lymphocytes % (manual) 7 (10.0-50.0); Metamyelocytes % 3; Monocytes % (manual) 3 (0-12); Myelocytes % 2
[2021-11-25] MEDS: ASCORBIC ACID 500 MG TAB PO SCH (10:00)
[2021-11-25] MEDS: PANTOPRAZOLE 40 MG/10 ML VIAL INJ IV SCH (10:00)
[2021-11-25] MEDS: MICAFUNGIN SODIUM 100 MG in SODIUM CHL 0.9% 100 ML IV SCH (10:00)
[2021-11-25] MEDS: ENOXAPARIN SOD 40 MG/0.4 ML SYRINGE SC SCH (10:00)
[2021-11-25] MEDS: ACETAMINOPHEN 650 MG RECT SUPP PR PRN ×2 (10:00→16:15)
[2021-11-25] MEDS: LACTULOSE 20Gm/30ML SOLN PO SCH ×2 (10:00→21:29)
[2021-11-25] MEDS: methylPREDNISolone SOD SUCC 40 MG/ML VL IV SCH (10:00)
[2021-11-25] MEDS: SODIUM CHLOR 0.9% PF (SALINE LOCK) 10ML VIAL/SYR IV SCH ×2 (10:00→21:29)
[2021-11-25] MEDS: POTASSIUM CHL 10MEQ/50ML 50 ML IV SCH ×6 (11:05→18:55)
[2021-11-25] MEDS: fentaNYL Drip 2500mCg/250mlNS 250 ML IV SCH (16:07)
[2021-11-25] MEDS: ARTIFICIAL TEARS 15ml EACHEYE PRN (17:00)
[2021-11-25 21:10] LABS: INR 1.2 (0.9-1.15); Partial Thromboplastin Time 22.6 sec (23.6-33.0)
[2021-11-26] VITALS (78 sets, daily range): BP systolic 122–163; BP diastolic 73–121
[2021-11-26] MEDS: ACETAMINOPHEN 650 MG RECT SUPP PR PRN (03:04)
[2021-11-26 05:26] LABS: Hemoglobin 11.5 g/dL (13.5-17.5)
[2021-11-26 05:30] LABS: Hematocrit 34.5 % (41.0-53.0); Mean Corpuscular Hemoglobin 27.2 pg (28.0-32.0); Mean Corpuscular Hgb Conc. 33.2 g/dL (32.0-36.0); Mean Corpuscular Volume 81.9 fL (80.0-100.0); Red Blood Cells 4.21 10^6/uL (4.5-5.90); Red Cell Distribution Width 18.9 % (11.8-14.3); White Blood Cell 29.3 10^3/uL (4.4-10.8)
[2021-11-26 05:41] LABS: Basophils % (manual) 0 (0.0-2.0); Blast Cells 0; Eosinophils % (manual) 0 (0-7); Metamyelocytes % 0; Myelocytes % 0; Promyelocytes % 0; Reactive Lymphocytes 0
[2021-11-26 05:42] LABS: Albumin 2.4 g/dL (3.4-5.0); Calcium 8.7 mg/dL (8.5-10.1); Potassium 3.3 mmol/L (3.5-5.1)
[2021-11-26 05:47] LABS: Bilirubin, Total 0.6 mg/dL (0.2-1.0)
[2021-11-26] MEDS: MEROPENEM 1GM IVPB 100 ML IV SCH ×3 (06:30→21:32)
[2021-11-26 07:06] LABS: Band Neutrophils % (manual) 4; Lymphocytes % (manual) 5 (10.0-50.0); Monocytes % (manual) 1 (0-12)
[2021-11-26] MEDS: NOREPINEPHRINE 8 MG/250ML KIT 250 ML IV SCH (07:45)
[2021-11-26] MEDS: PROPOFOL 100 ML IV SCH (07:45)
[2021-11-26] MEDS: MIDAZOLAM DRIP 50 mg/50mL 50 ML IV SCH ×2 (07:45→19:32)
[2021-11-26] MEDS: BUDESONIDE (INHALATION) 0.5 MG/2 ML NEB NEB SCH ×2 (08:16→18:09)
[2021-11-26] MEDS: LACTULOSE 20Gm/30ML SOLN PO SCH ×2 (10:00→21:32)
[2021-11-26] MEDS: VANCOMYCIN 1GM/250ML 250 ML IV SCH ×2 (10:20)
[2021-11-26] MEDS: SODIUM CHLOR 0.9% PF (SALINE LOCK) 10ML VIAL/SYR IV SCH ×2 (10:23→21:32)
[2021-11-26] MEDS: PANTOPRAZOLE 40 MG/10 ML VIAL INJ IV SCH (10:23)
[2021-11-26] MEDS: ENOXAPARIN SOD 40 MG/0.4 ML SYRINGE SC SCH (10:23)
[2021-11-26] MEDS: ASCORBIC ACID 500 MG TAB PO SCH (10:24)
[2021-11-26] MEDS: MICAFUNGIN SODIUM 100 MG in SODIUM CHL 0.9% 100 ML IV SCH (11:40)
[2021-11-26] MEDS ORDERED: VANCOMYCIN 1GM/250ML 250 ML IV SCH (12:00)
[2021-11-26] MEDS: fentaNYL Drip 2500mCg/250mlNS 250 ML IV SCH (14:00)
[2021-11-26] MEDS ORDERED: LIDOCAINE 1% (LOCAL ANESTH.) PF 5ml SDV ID ONE (14:15)
[2021-11-26] MEDS ORDERED: POTASSIUM CHL 10MEQ/50ML 100 ML IV ONE (17:20)
[2021-11-26] MEDS: POTASSIUM CHL 10MEQ/50ML 50 ML IV SCH ×2 (17:20→18:30)
[2021-11-26] MEDS: ALBUTEROL SULF 2.5 MG/0.5ML(0.5%) NEB SOLN NEB PRN (18:09)
[2021-11-26] MEDS: ACETAMINOPHEN 650 mg PER 20.3 mL UD GT PRN (19:55)
[2021-11-27] VITALS (75 sets, daily range): BP systolic 92–168; BP diastolic 54–104
[2021-11-27 06:05] LABS: Hematocrit 35.4 % (41.0-53.0); Hemoglobin 11.9 g/dL (13.5-17.5); Mean Corpuscular Hgb Conc. 33.7 g/dL (32.0-36.0); Mean Corpuscular Volume 83.1 fL (80.0-100.0); Red Blood Cells 4.26 10^6/uL (4.5-5.90); Red Cell Distribution Width 19.4 % (11.8-14.3); White Blood Cell 27.9 10^3/uL (4.4-10.8)
[2021-11-27 06:24] LABS: Basophils % (manual) 0 (0.0-2.0); Blast Cells 0; Promyelocytes % 0; Reactive Lymphocytes 0
[2021-11-27 06:45] LABS: Chloride 104 mmol/L (98-107); Potassium 3.1 mmol/L (3.5-5.1); Sodium 139 mmol/L (136-145)
[2021-11-27 06:52] LABS: Anion Gap 7 (5-15); Blood Urea Nitrogen 5 mg/dL (7-18); Calcium 8.8 mg/dL (8.5-10.1); Carbon Dioxide 28 mmol/L (21-32); Glucose 100 mg/dL (74-106)
[2021-11-27] MEDS: ACETAMINOPHEN 650 mg PER 20.3 mL UD GT PRN (06:52)
[2021-11-27] MEDS: MEROPENEM 1GM IVPB 100 ML IV SCH ×3 (06:52→22:11)
[2021-11-27 07:23] LABS: BUN/Creatinine Ratio 33.3; GFR African American 994 mL/min; GFR Non-African American 822 mL/min
[2021-11-27] MEDS: NOREPINEPHRINE 8 MG/250ML KIT 250 ML IV SCH (07:45)
[2021-11-27] MEDS: PROPOFOL 100 ML IV SCH (07:45)
[2021-11-27] MEDS: PANTOPRAZOLE 40 MG/10 ML VIAL INJ IV SCH (09:26)
[2021-11-27] MEDS: ENOXAPARIN SOD 40 MG/0.4 ML SYRINGE SC SCH (09:27)
[2021-11-27] MEDS: ASCORBIC ACID 500 MG TAB PO SCH (09:27)
[2021-11-27] MEDS: SODIUM CHLOR 0.9% PF (SALINE LOCK) 10ML VIAL/SYR IV SCH ×2 (09:27→22:11)
[2021-11-27] MEDS: LACTULOSE 20Gm/30ML SOLN PO SCH ×2 (09:27→22:00)
[2021-11-27] MEDS: MICAFUNGIN SODIUM 100 MG in SODIUM CHL 0.9% 100 ML IV SCH (09:31)
[2021-11-27] MEDS: fentaNYL Drip 2500mCg/250mlNS 250 ML IV SCH ×3 (12:57→13:29)
[2021-11-27 13:21] LABS: Band Neutrophils % (manual) 3; Eosinophils % (manual) 7 (0-7); Lymphocytes % (manual) 9 (10.0-50.0); Metamyelocytes % 1; Monocytes % (manual) 4 (0-12); Myelocytes % 1
[2021-11-27] MEDS: BUDESONIDE (INHALATION) 0.5 MG/2 ML NEB NEB SCH ×2 (13:57→18:36)
[2021-11-27] MEDS: ALBUTEROL SULF 2.5 MG/0.5ML(0.5%) NEB SOLN NEB PRN ×2 (13:57→18:36)
[2021-11-27] MEDS ORDERED: VANCOMYCIN PER PHARMACY 0 MG IV SCH (16:00)
[2021-11-27] MEDS ORDERED: POTASSIUM EFFERVESENT TAB 25 MEQ GT ONE ×2 (16:00→20:00)
[2021-11-27] MEDS ORDERED: VANCOMYCIN 1GM/250ML 250 ML IV SCH (18:15)
[2021-11-27] MEDS: MIDAZOLAM DRIP 50 mg/50mL 50 ML IV SCH (18:55)
[2021-11-27] MEDS: VANCOMYCIN 1GM/250ML 250 ML IV SCH (20:38)
[2021-11-28] VITALS (88 sets, daily range): BP systolic 112–163; BP diastolic 58–104
[2021-11-28] MEDS: VANCOMYCIN 1GM/250ML 250 ML IV SCH ×3 (03:08→17:00)
[2021-11-28 04:49] LABS: Basophils # (auto) 0.2 10 ^3/uL (0-0.2); Basophils % (auto) 0.9 % (0.0-2.0); Eosinophils # (auto) 1.1 10 ^3/uL (0-0.8); Hematocrit 32.5 % (41.0-53.0); Hemoglobin 10.9 g/dL (13.5-17.5); Lymphocytes # (auto) 1.9 10 ^3/uL (0.4-5.4); Lymphocytes % (auto) 8.4 % (10.0-50.0); Mean Corpuscular Hemoglobin 27.5 pg (28.0-32.0); Mean Corpuscular Hgb Conc. 33.4 g/dL (32.0-36.0); Mean Corpuscular Volume 82.4 fL (80.0-100.0); Monocytes # (auto) 2.4 10 ^3/uL (0-1.3); Monocytes % (auto) 10.7 % (0.0-12.0); Neutrophils # (auto) 17.1 10 ^3/uL (1.6-8.6); Nucleated Red Blood Cells % 0.1 %; Red Blood Cells 3.95 10^6/uL (4.5-5.90); Red Cell Distribution Width 18.8 % (11.8-14.3); White Blood Cell 22.8 10^3/uL (4.4-10.8)
[2021-11-28 05:15] LABS: Potassium 3.6 mmol/L (3.5-5.1)
[2021-11-28] MEDS: MEROPENEM 1GM IVPB 100 ML IV SCH ×3 (05:30→21:29)
[2021-11-28 05:31] LABS: Calcium 8.6 mg/dL (8.5-10.1)
[2021-11-28 07:37] LABS: BUN/Creatinine Ratio 15.8
[2021-11-28] MEDS: PROPOFOL 100 ML IV SCH (07:41)
[2021-11-28] MEDS: NOREPINEPHRINE 8 MG/250ML KIT 250 ML IV SCH (07:41)
[2021-11-28 08:30] LABS: Hematocrit 33.7 % (41.0-53.0)
[2021-11-28] MEDS: LACTULOSE 20Gm/30ML SOLN PO SCH ×2 (08:41→21:30)
[2021-11-28] MEDS: SODIUM CHLOR 0.9% PF (SALINE LOCK) 10ML VIAL/SYR IV SCH ×2 (08:41→21:30)
[2021-11-28] MEDS: PANTOPRAZOLE 40 MG/10 ML VIAL INJ IV SCH (08:41)
[2021-11-28] MEDS: ASCORBIC ACID 500 MG TAB PO SCH (08:42)
[2021-11-28] MEDS: MIDAZOLAM DRIP 50 mg/50mL 50 ML IV SCH (08:42)
[2021-11-28] MEDS: ENOXAPARIN SOD 40 MG/0.4 ML SYRINGE SC SCH (08:42)
[2021-11-28] MEDS: MICAFUNGIN SODIUM 100 MG in SODIUM CHL 0.9% 100 ML IV SCH (08:46)
[2021-11-28] MEDS: Jevity 1.2 Cal/Fiber 1 Liter GT SCH (08:47)
[2021-11-28] MEDS: fentaNYL Drip 2500mCg/250mlNS 250 ML IV SCH (08:47)
[2021-11-28] MEDS: ALBUTEROL SULF 2.5 MG/0.5ML(0.5%) NEB SOLN NEB PRN ×2 (16:46→19:11)
[2021-11-28] MEDS: BUDESONIDE (INHALATION) 0.5 MG/2 ML NEB NEB SCH ×2 (16:46→19:11)
[2021-11-28 17:16] LABS: Hematocrit 30.7 % (41.0-53.0); Hemoglobin 10.1 g/dL (13.5-17.5)
[2021-11-28 19:10] LABS: Urine Bacteria FEW /hpf (None Seen); Urine Blood Negative /uL (Negative); Urine Mucus FEW (None Seen); Urine WBC 3 /hpf (0 - 3)
[2021-11-29] VITALS (92 sets, daily range): BP systolic 120–188; BP diastolic 65–118
[2021-11-29] MEDS: VANCOMYCIN 1GM/250ML 250 ML IV SCH ×4 (00:37→21:00)
[2021-11-29 04:34] LABS: Basophils # (auto) 0.2 10 ^3/uL (0-0.2); Basophils % (auto) 1.2 % (0.0-2.0); Eosinophils # (auto) 1.3 10 ^3/uL (0-0.8); Eosinophils % (auto) 6.5 % (0.0-7.0); Hemoglobin 10.8 g/dL (13.5-17.5); Lymphocytes # (auto) 2.1 10 ^3/uL (0.4-5.4); Lymphocytes % (auto) 10.5 % (10.0-50.0); Mean Corpuscular Hemoglobin 27.1 pg (28.0-32.0); Mean Corpuscular Hgb Conc. 32.7 g/dL (32.0-36.0); Mean Corpuscular Volume 82.9 fL (80.0-100.0); Monocytes # (auto) 2.4 10 ^3/uL (0-1.3); Monocytes % (auto) 12.2 % (0.0-12.0); Neutrophils % (auto) 69.6 % (37.0-80.0); Red Blood Cells 3.98 10^6/uL (4.5-5.90); White Blood Cell 20.1 10^3/uL (4.4-10.8)
[2021-11-29] MEDS: MEROPENEM 1GM IVPB 100 ML IV SCH ×3 (04:40→22:02)
[2021-11-29 04:46] LABS: Albumin 2.4 g/dL (3.4-5.0); Blood Urea Nitrogen 3 mg/dL (7-18); Calcium 8.4 mg/dL (8.5-10.1); Chloride 100 mmol/L (98-107); Sodium 136 mmol/L (136-145)
[2021-11-29 04:52] LABS: Alanine Aminotransferase 24 U/L (16-61); Alkaline Phosphatase 104 U/L (45-117); Anion Gap 5 (5-15); Aspartate Aminotransferase 18 U/L (15-37); Bilirubin, Total 0.5 mg/dL (0.2-1.0); Carbon Dioxide 31 mmol/L (21-32); Glucose 100 mg/dL (74-106); Total Protein 5.8 g/dL (6.4-8.2)
[2021-11-29 04:57] LABS: GFR African American 994 mL/min; GFR Non-African American 822 mL/min
[2021-11-29 04:59] LABS: Potassium 2.8 mmol/L (3.5-5.1)
[2021-11-29] MEDS: POTASSIUM CHL 10MEQ/50ML 50 ML IV SCH ×4 (05:30→12:29)
[2021-11-29] MEDS: ALBUTEROL SULF 2.5 MG/0.5ML(0.5%) NEB SOLN NEB PRN ×2 (06:10→22:02)
[2021-11-29] MEDS: BUDESONIDE (INHALATION) 0.5 MG/2 ML NEB NEB SCH ×2 (06:10→22:02)
[2021-11-29] MEDS ORDERED: POTASSIUM EFFERVESENT TAB 25 MEQ GT ONE (07:30)
[2021-11-29] MEDS: PROPOFOL 100 ML IV SCH (07:45)
[2021-11-29] MEDS: NOREPINEPHRINE 8 MG/250ML KIT 250 ML IV SCH (07:45)
[2021-11-29] MEDS: PANTOPRAZOLE 40 MG/10 ML VIAL INJ IV SCH (07:58)
[2021-11-29] MEDS: SODIUM CHLOR 0.9% PF (SALINE LOCK) 10ML VIAL/SYR IV SCH ×2 (07:58→22:02)
[2021-11-29] MEDS: LACTULOSE 20Gm/30ML SOLN PO SCH ×2 (07:58→22:00)
[2021-11-29] MEDS: MIDAZOLAM DRIP 50 mg/50mL 50 ML IV SCH (07:59)
[2021-11-29] MEDS: fentaNYL Drip 2500mCg/250mlNS 250 ML IV SCH (07:59)
[2021-11-29] MEDS: ASCORBIC ACID 500 MG TAB PO SCH (07:59)
[2021-11-29] MEDS: ENOXAPARIN SOD 40 MG/0.4 ML SYRINGE SC SCH (07:59)
[2021-11-29] MEDS: MICAFUNGIN SODIUM 100 MG in SODIUM CHL 0.9% 100 ML IV SCH (11:32)
[2021-11-29] MEDS: Jevity 1.2 Cal/Fiber 1 Liter GT SCH (13:25)
[2021-11-29] MEDS ORDERED: POTASSIUM CHL 10MEQ/50ML 50 ML IV SCH (21:45)
[2021-11-30] VITALS (51 sets, daily range): BP systolic 128–175; BP diastolic 62–107
[2021-11-30] MEDS: VANCOMYCIN 1GM/250ML 250 ML IV SCH ×2 (04:30→22:15)
[2021-11-30 05:56] LABS: Mean Corpuscular Hemoglobin 27.6 pg (28.0-32.0); Mean Corpuscular Hgb Conc. 33.2 g/dL (32.0-36.0); Red Blood Cells 3.98 10^6/uL (4.5-5.90); White Blood Cell 17.1 10^3/uL (4.4-10.8)
[2021-11-30 06:05] LABS: Albumin 2.4 g/dL (3.4-5.0); Anion Gap 5 (5-15); Blood Urea Nitrogen 3 mg/dL (7-18); Calcium 8.6 mg/dL (8.5-10.1); Carbon Dioxide 31 mmol/L (21-32); Chloride 103 mmol/L (98-107); Glucose 97 mg/dL (74-106); Potassium 3.3 mmol/L (3.5-5.1); Sodium 139 mmol/L (136-145)
[2021-11-30 06:11] LABS: Alanine Aminotransferase 21 U/L (16-61); Alkaline Phosphatase 101 U/L (45-117); Aspartate Aminotransferase 12 U/L (15-37); Bilirubin, Total 0.4 mg/dL (0.2-1.0); GFR African American 994 mL/min; GFR Non-African American 822 mL/min; Total Protein 5.8 g/dL (6.4-8.2)
[2021-11-30] MEDS: fentaNYL Drip 2500mCg/250mlNS 250 ML IV SCH (06:12)
[2021-11-30 06:13] LABS: Band Neutrophils % (manual) 0; Basophils % (manual) 0 (0.0-2.0); Blast Cells 0; Metamyelocytes % 0; Promyelocytes % 0; Reactive Lymphocytes 0
[2021-11-30] MEDS: MEROPENEM 1GM IVPB 100 ML IV SCH ×3 (06:13→22:00)
[2021-11-30] MEDS: ALBUTEROL SULF 2.5 MG/0.5ML(0.5%) NEB SOLN NEB PRN ×2 (06:21→22:31)
[2021-11-30] MEDS: BUDESONIDE (INHALATION) 0.5 MG/2 ML NEB NEB SCH ×2 (06:21→22:31)
[2021-11-30 06:53] LABS: Eosinophils % (manual) 9 (0-7); Lymphocytes % (manual) 10 (10.0-50.0); Monocytes % (manual) 12 (0-12); Myelocytes % 2
[2021-11-30] MEDS: PROPOFOL 100 ML IV SCH (07:45)
[2021-11-30] MEDS: NOREPINEPHRINE 8 MG/250ML KIT 250 ML IV SCH (07:45)
[2021-11-30] MEDS: MICAFUNGIN SODIUM 100 MG in SODIUM CHL 0.9% 100 ML IV SCH (09:25)
[2021-11-30] MEDS: SODIUM CHLOR 0.9% PF (SALINE LOCK) 10ML VIAL/SYR IV SCH ×2 (09:26→22:00)
[2021-11-30] MEDS: PANTOPRAZOLE 40 MG/10 ML VIAL INJ IV SCH (09:26)
[2021-11-30] MEDS: ASCORBIC ACID 500 MG TAB PO SCH (09:26)
[2021-11-30] MEDS: LACTULOSE 20Gm/30ML SOLN PO SCH ×2 (09:26→22:00)
[2021-11-30] MEDS: ENOXAPARIN SOD 40 MG/0.4 ML SYRINGE SC SCH (09:27)
[2021-11-30] MEDS ORDERED: POTASSIUM EFFERVESENT TAB 25 MEQ GT ONE (14:30)
[2021-11-30] MEDS: MIDAZOLAM DRIP 50 mg/50mL 50 ML IV SCH (19:30)
[2021-12-01] VITALS (45 sets, daily range): BP systolic 127–166; BP diastolic 78–100
[2021-12-01 04:21] LABS: Hematocrit 33.3 % (41.0-53.0); Hemoglobin 10.9 g/dL (13.5-17.5); Mean Corpuscular Hemoglobin 27.2 pg (28.0-32.0); Mean Corpuscular Hgb Conc. 32.7 g/dL (32.0-36.0); Mean Corpuscular Volume 83.1 fL (80.0-100.0); Red Blood Cells 4.01 10^6/uL (4.5-5.90); Red Cell Distribution Width 18.9 % (11.8-14.3); White Blood Cell 21.6 10^3/uL (4.4-10.8)
[2021-12-01 04:34] LABS: Basophils % (manual) 0 (0.0-2.0); Blast Cells 0; Metamyelocytes % 0; Promyelocytes % 0; Reactive Lymphocytes 0
[2021-12-01 04:40] LABS: Calcium 8.9 mg/dL (8.5-10.1); Magnesium 1.9 mg/dL (1.6-2.6); Potassium 3.4 mmol/L (3.5-5.1)
[2021-12-01 04:41] LABS: BUN/Creatinine Ratio 21.1
[2021-12-01] MEDS: MEROPENEM 1GM IVPB 100 ML IV SCH ×3 (05:00→21:53)
[2021-12-01] MEDS: VANCOMYCIN 1GM/250ML 250 ML IV SCH ×2 (06:31→16:03)
[2021-12-01] MEDS: fentaNYL Drip 2500mCg/250mlNS 250 ML IV SCH (06:48)
[2021-12-01 07:08] LABS: Band Neutrophils % (manual) 7; Eosinophils % (manual) 6 (0-7); Lymphocytes % (manual) 10 (10.0-50.0); Monocytes % (manual) 10 (0-12); Myelocytes % 2
[2021-12-01] MEDS: NOREPINEPHRINE 8 MG/250ML KIT 250 ML IV SCH (07:45)
[2021-12-01] MEDS: PROPOFOL 100 ML IV SCH (07:45)
[2021-12-01] MEDS: LACTULOSE 20Gm/30ML SOLN PO SCH ×2 (10:00→21:54)
[2021-12-01] MEDS: ENOXAPARIN SOD 40 MG/0.4 ML SYRINGE SC SCH (10:09)
[2021-12-01] MEDS: ASCORBIC ACID 500 MG TAB PO SCH (10:09)
[2021-12-01] MEDS: SODIUM CHLOR 0.9% PF (SALINE LOCK) 10ML VIAL/SYR IV SCH ×2 (10:09→21:53)
[2021-12-01] MEDS: PANTOPRAZOLE 40 MG/10 ML VIAL INJ IV SCH (10:09)
[2021-12-01] MEDS: MICAFUNGIN SODIUM 100 MG in SODIUM CHL 0.9% 100 ML IV SCH (10:19)
[2021-12-01] MEDS: BUDESONIDE (INHALATION) 0.5 MG/2 ML NEB NEB SCH ×2 (10:31→19:05)
[2021-12-01] MEDS: ALBUTEROL SULF 2.5 MG/0.5ML(0.5%) NEB SOLN NEB PRN ×2 (10:31→19:05)
[2021-12-01] MEDS ORDERED: predniSONE 20 MG TAB PO ONE (15:15)
[2021-12-01] MEDS ORDERED: METOPROLOL TARTRATE 25 MG TAB PO ONE (15:15)
[2021-12-01] MEDS: MIDAZOLAM DRIP 50 mg/50mL 50 ML IV SCH (19:30)
[2021-12-01] MEDS ORDERED: LORazepam 2MG/ML-1ML VIAL IV PRN (21:30)
[2021-12-01] MEDS ORDERED: LORazepam 2MG/ML-1ML VIAL IM ONE (21:30)
[2021-12-01] MEDS ORDERED: LORazepam 2MG/ML-1ML VIAL ONE (21:31)
[2021-12-01] MEDS: METOPROLOL TARTRATE 25 MG TAB PO SCH (21:54)
[2021-12-01] MEDS ORDERED: predniSONE 20 MG TAB PO SCH (22:00)
[2021-12-02] VITALS (56 sets, daily range): BP systolic 105–157; BP diastolic 55–113
[2021-12-02] MEDS: VANCOMYCIN 1GM/250ML 250 ML IV SCH ×3 (01:30→20:26)
[2021-12-02 04:53] LABS: Hematocrit 34.5 % (41.0-53.0); Hemoglobin 11.4 g/dL (13.5-17.5); Mean Corpuscular Hgb Conc. 32.9 g/dL (32.0-36.0); Mean Corpuscular Volume 81.9 fL (80.0-100.0); Red Blood Cells 4.21 10^6/uL (4.5-5.90); Red Cell Distribution Width 18.4 % (11.8-14.3); White Blood Cell 25.6 10^3/uL (4.4-10.8)
[2021-12-02 04:54] LABS: Basophils % (manual) 0 (0.0-2.0); Blast Cells 0; Eosinophils % (manual) 0 (0-7); Metamyelocytes % 0; Promyelocytes % 0; Reactive Lymphocytes 0
[2021-12-02 05:16] LABS: BUN/Creatinine Ratio 18.8; Calcium 9.1 mg/dL (8.5-10.1); Potassium 3.7 mmol/L (3.5-5.1)
[2021-12-02] MEDS: MEROPENEM 1GM IVPB 100 ML IV SCH ×3 (06:11→22:23)
[2021-12-02 07:07] LABS: Band Neutrophils % (manual) 3; Lymphocytes % (manual) 7 (10.0-50.0); Monocytes % (manual) 7 (0-12); Myelocytes % 1
[2021-12-02] MEDS: NOREPINEPHRINE 8 MG/250ML KIT 250 ML IV SCH (07:45)
[2021-12-02] MEDS: PROPOFOL 100 ML IV SCH (07:45)
[2021-12-02] MEDS: SODIUM CHLOR 0.9% PF (SALINE LOCK) 10ML VIAL/SYR IV SCH ×2 (09:00→22:25)
[2021-12-02] MEDS: LACTULOSE 20Gm/30ML SOLN PO SCH ×2 (09:00→22:00)
[2021-12-02] MEDS: fentaNYL Drip 2500mCg/250mlNS 250 ML IV SCH ×3 (09:00→23:00)
[2021-12-02] MEDS: METOPROLOL TARTRATE 25 MG TAB PO SCH ×2 (10:00→22:24)
[2021-12-02] MEDS: PANTOPRAZOLE 40 MG/10 ML VIAL INJ IV SCH (10:00)
[2021-12-02] MEDS: ASCORBIC ACID 500 MG TAB PO SCH (10:00)
[2021-12-02] MEDS: ENOXAPARIN SOD 40 MG/0.4 ML SYRINGE SC SCH (10:00)
[2021-12-02] MEDS: BUDESONIDE (INHALATION) 0.5 MG/2 ML NEB NEB SCH ×2 (10:05→22:56)
[2021-12-02] MEDS: ALBUTEROL SULF 2.5 MG/0.5ML(0.5%) NEB SOLN NEB PRN ×2 (10:05→22:57)
[2021-12-02] MEDS: LORazepam 2MG/ML-1ML VIAL IV PRN (12:02)
[2021-12-02 12:30] LABS: GFR African American 994 mL/min; GFR Non-African American 822 mL/min
[2021-12-02] MEDS ORDERED: SIMETHICONE 80 MG CHEWABLE TABLET PO PRN (13:45)
[2021-12-02] MEDS ORDERED: ACETYLCYSTEINE 10 %(100MG/ML) SOL 4ML NEB SCH (18:00)
[2021-12-02] MEDS: MIDAZOLAM DRIP 50 mg/50mL 50 ML IV SCH (18:51)
[2021-12-02] MEDS: ALPRAZolam 0.25 MG TAB PO SCH (22:25)
[2021-12-02] MEDS: ACETYLCYSTEINE 10 %(100MG/ML) SOL 4ML NEB SCH (22:57)
[2021-12-03] VITALS (56 sets, daily range): BP systolic 112–162; BP diastolic 68–102
[2021-12-03] MEDS: VANCOMYCIN 1GM/250ML 250 ML IV SCH ×3 (04:30→20:00)
[2021-12-03] MEDS: MEROPENEM 1GM IVPB 100 ML IV SCH ×3 (06:11→21:55)
[2021-12-03 06:41] LABS: Basophils # (auto) 0.2 10 ^3/uL (0-0.2); Hemoglobin 11.7 g/dL (13.5-17.5); Mean Corpuscular Hgb Conc. 32.4 g/dL (32.0-36.0); Monocytes # (auto) 1.6 10 ^3/uL (0-1.3); Red Blood Cells 4.34 10^6/uL (4.5-5.90)
[2021-12-03 06:47] LABS: Basophils % (auto) 1.3 % (0.0-2.0); Eosinophils # (auto) 0.4 10 ^3/uL (0-0.8); Eosinophils % (auto) 3.1 % (0.0-7.0); Hematocrit 36.1 % (41.0-53.0); Lymphocytes # (auto) 2.2 10 ^3/uL (0.4-5.4); Lymphocytes % (auto) 15.1 % (10.0-50.0); Mean Corpuscular Hemoglobin 26.9 pg (28.0-32.0); Mean Corpuscular Volume 83.2 fL (80.0-100.0); Monocytes % (auto) 10.9 % (0.0-12.0); Neutrophils % (auto) 69.6 % (37.0-80.0); Nucleated Red Blood Cells % 0.6 %; White Blood Cell 14.4 10^3/uL (4.4-10.8)
[2021-12-03] MEDS: PROPOFOL 100 ML IV SCH (07:45)
[2021-12-03] MEDS: NOREPINEPHRINE 8 MG/250ML KIT 250 ML IV SCH (07:45)
[2021-12-03] MEDS: METOPROLOL TARTRATE 25 MG TAB PO SCH ×2 (10:00→21:56)
[2021-12-03] MEDS: LACTULOSE 20Gm/30ML SOLN PO SCH ×2 (10:00→21:56)
[2021-12-03] MEDS: ALPRAZolam 0.25 MG TAB PO SCH ×2 (10:00→21:56)
[2021-12-03] MEDS: SODIUM CHLOR 0.9% PF (SALINE LOCK) 10ML VIAL/SYR IV SCH ×2 (10:00→21:56)
[2021-12-03] MEDS: ENOXAPARIN SOD 40 MG/0.4 ML SYRINGE SC SCH (10:00)
[2021-12-03] MEDS: PANTOPRAZOLE 40 MG/10 ML VIAL INJ IV SCH (10:00)
[2021-12-03] MEDS: ASCORBIC ACID 500 MG TAB PO SCH (10:00)
[2021-12-03] MEDS: ALBUTEROL SULF 2.5 MG/0.5ML(0.5%) NEB SOLN NEB PRN ×2 (11:20→22:35)
[2021-12-03] MEDS: BUDESONIDE (INHALATION) 0.5 MG/2 ML NEB NEB SCH ×2 (11:20→22:34)
[2021-12-03] MEDS: ACETYLCYSTEINE 10 %(100MG/ML) SOL 4ML NEB SCH ×3 (11:21→22:35)
[2021-12-03] MEDS: fentaNYL Drip 2500mCg/250mlNS 250 ML IV SCH (11:45)
[2021-12-03] MEDS: Jevity 1.2 Cal/Fiber 1 Liter GT SCH (22:00)
[2021-12-04] VITALS (37 sets, daily range): BP systolic 119–161; BP diastolic 60–98
[2021-12-04 03:57] LABS: Mean Corpuscular Hgb Conc. 32.4 g/dL (32.0-36.0)
[2021-12-04 03:59] LABS: Hematocrit 35.6 % (41.0-53.0); Hemoglobin 11.5 g/dL (13.5-17.5); Mean Corpuscular Hemoglobin 26.9 pg (28.0-32.0); Red Blood Cells 4.29 10^6/uL (4.5-5.90); Red Cell Distribution Width 18.4 % (11.8-14.3); White Blood Cell 17.6 10^3/uL (4.4-10.8)
[2021-12-04 04:12] LABS: Basophils % (manual) 0 (0.0-2.0); Blast Cells 0; Metamyelocytes % 0; Promyelocytes % 0; Reactive Lymphocytes 0
[2021-12-04] MEDS: VANCOMYCIN 1GM/250ML 250 ML IV SCH ×3 (04:33→18:28)
[2021-12-04 04:34] LABS: Albumin 2.5 g/dL (3.4-5.0); BUN/Creatinine Ratio 11.1
[2021-12-04 04:37] LABS: Bilirubin, Total 0.4 mg/dL (0.2-1.0); Total Protein 5.8 g/dL (6.4-8.2)
[2021-12-04 04:41] LABS: Potassium 2.7 mmol/L (3.5-5.1)
[2021-12-04] MEDS: POTASSIUM CHL 10MEQ/50ML 50 ML IV SCH ×6 (06:00→10:30)
[2021-12-04] MEDS: MEROPENEM 1GM IVPB 100 ML IV SCH ×2 (06:10→09:38)
[2021-12-04 07:01] LABS: Band Neutrophils % (manual) 8; Eosinophils % (manual) 5 (0-7); Lymphocytes % (manual) 18 (10.0-50.0); Monocytes % (manual) 5 (0-12); Myelocytes % 6
[2021-12-04] MEDS: PROPOFOL 100 ML IV SCH (07:45)
[2021-12-04] MEDS: NOREPINEPHRINE 8 MG/250ML KIT 250 ML IV SCH (07:45)
[2021-12-04] MEDS: BUDESONIDE (INHALATION) 0.5 MG/2 ML NEB NEB SCH ×2 (08:57→19:08)
[2021-12-04] MEDS: ALBUTEROL SULF 2.5 MG/0.5ML(0.5%) NEB SOLN NEB PRN ×2 (08:58→19:08)
[2021-12-04] MEDS: ACETYLCYSTEINE 10 %(100MG/ML) SOL 4ML NEB SCH ×3 (08:58→19:25)
[2021-12-04] MEDS: METOPROLOL TARTRATE 25 MG TAB PO SCH ×2 (09:38→22:36)
[2021-12-04] MEDS: PANTOPRAZOLE 40 MG/10 ML VIAL INJ IV SCH (09:38)
[2021-12-04] MEDS: LACTULOSE 20Gm/30ML SOLN PO SCH ×2 (09:38→22:00)
[2021-12-04] MEDS: SODIUM CHLOR 0.9% PF (SALINE LOCK) 10ML VIAL/SYR IV SCH ×2 (09:38→22:35)
[2021-12-04] MEDS: ASCORBIC ACID 500 MG TAB PO SCH (09:38)
[2021-12-04] MEDS: ALPRAZolam 0.25 MG TAB PO SCH ×2 (09:39→22:36)
[2021-12-04] MEDS: ENOXAPARIN SOD 40 MG/0.4 ML SYRINGE SC SCH (09:39)
[2021-12-04] MEDS: MAGNESIUM SULFATE 1GM/100ML 100 ML IV SCH ×2 (12:00→13:00)
[2021-12-04] MEDS: fentaNYL Drip 2500mCg/250mlNS 250 ML IV SCH (18:59)
[2021-12-05] VITALS (50 sets, daily range): BP systolic 119–177; BP diastolic 74–107
[2021-12-05] MEDS: VANCOMYCIN 1GM/250ML 250 ML IV SCH ×2 (04:31→14:45)
[2021-12-05 04:47] LABS: Hematocrit 34.8 % (41.0-53.0); Hemoglobin 11.5 g/dL (13.5-17.5); Mean Corpuscular Volume 81.8 fL (80.0-100.0); Red Blood Cells 4.25 10^6/uL (4.5-5.90); Red Cell Distribution Width 18.6 % (11.8-14.3)
[2021-12-05 04:52] LABS: Band Neutrophils % (manual) 0; Basophils % (manual) 0 (0.0-2.0); Blast Cells 0; Metamyelocytes % 0; Myelocytes % 0; Promyelocytes % 0; Reactive Lymphocytes 0
[2021-12-05 04:59] LABS: Anion Gap 8 (5-15); Blood Urea Nitrogen 1 mg/dL (7-18); Calcium 8.7 mg/dL (8.5-10.1); Carbon Dioxide 30 mmol/L (21-32); Chloride 99 mmol/L (98-107); Glucose 84 mg/dL (74-106); Sodium 137 mmol/L (136-145)
[2021-12-05 05:14] LABS: BUN/Creatinine Ratio 6.7; GFR African American 994 mL/min; GFR Non-African American 822 mL/min
[2021-12-05 06:37] LABS: Eosinophils % (manual) 3 (0-7); Lymphocytes % (manual) 10 (10.0-50.0); Monocytes % (manual) 6 (0-12)
[2021-12-05] MEDS: BUDESONIDE (INHALATION) 0.5 MG/2 ML NEB NEB SCH ×2 (07:01→18:43)
[2021-12-05] MEDS: ACETYLCYSTEINE 10 %(100MG/ML) SOL 4ML NEB SCH ×3 (07:01→18:43)
[2021-12-05] MEDS: cefTRIAXone 1GM/50ML D5W 50 ML IV SCH (09:30)
[2021-12-05] MEDS: SODIUM CHLOR 0.9% PF (SALINE LOCK) 10ML VIAL/SYR IV SCH ×2 (10:00→22:46)
[2021-12-05] MEDS: POTASSIUM CHL 10MEQ/50ML 50 ML IV SCH ×2 (10:00→11:00)
[2021-12-05] MEDS ORDERED: fentaNYL 50MCG/HR 50 MCG/HR PAT TD SCH (10:00)
[2021-12-05] MEDS: ASCORBIC ACID 500 MG TAB PO SCH (10:00)
[2021-12-05] MEDS: PANTOPRAZOLE 40 MG/10 ML VIAL INJ IV SCH (10:00)
[2021-12-05] MEDS: LACTULOSE 20Gm/30ML SOLN PO SCH ×2 (10:00→22:00)
[2021-12-05] MEDS: ENOXAPARIN SOD 40 MG/0.4 ML SYRINGE SC SCH (10:30)
[2021-12-05] MEDS: METOPROLOL TARTRATE 25 MG TAB PO SCH ×2 (10:30→22:46)
[2021-12-05] MEDS: ALPRAZolam 0.25 MG TAB PO SCH ×2 (10:30→22:46)
[2021-12-05] MEDS ORDERED: FLORASTOR (S. BOULARDII) 250 MG CAP PO ONE (10:45)
[2021-12-05] MEDS ORDERED: POTASSIUM EFFERVESENT TAB 25 MEQ GT ONE (12:00)
[2021-12-05] MEDS: LEVALBUTEROL HCL 1.25 MG/3 ML NEB NEB SCH ×2 (14:17→18:43)
[2021-12-06] VITALS (48 sets, daily range): BP systolic 117–156; BP diastolic 65–101
[2021-12-06] MEDS: cefTRIAXone 1GM/50ML D5W 50 ML IV SCH (09:20)
[2021-12-06 09:49] LABS: Basophils # (auto) 0.2 10 ^3/uL (0-0.2); Eosinophils # (auto) 0.5 10 ^3/uL (0-0.8)
[2021-12-06 09:52] LABS: Basophils % (auto) 1.2 % (0.0-2.0); Eosinophils % (auto) 2.4 % (0.0-7.0); Hematocrit 36.1 % (41.0-53.0); Hemoglobin 11.7 g/dL (13.5-17.5); Lymphocytes # (auto) 1.5 10 ^3/uL (0.4-5.4); Lymphocytes % (auto) 7.7 % (10.0-50.0); Mean Corpuscular Hemoglobin 26.5 pg (28.0-32.0); Mean Corpuscular Hgb Conc. 32.3 g/dL (32.0-36.0); Mean Corpuscular Volume 82.1 fL (80.0-100.0); Monocytes # (auto) 1.2 10 ^3/uL (0-1.3); Monocytes % (auto) 6.5 % (0.0-12.0); Neutrophils # (auto) 15.8 10 ^3/uL (1.6-8.6); Neutrophils % (auto) 82.2 % (37.0-80.0); Red Cell Distribution Width 18.6 % (11.8-14.3); White Blood Cell 19.2 10^3/uL (4.4-10.8)
[2021-12-06] MEDS: LACTULOSE 20Gm/30ML SOLN PO SCH ×2 (10:00→21:45)
[2021-12-06 10:06] LABS: Anion Gap 12 (5-15); Blood Urea Nitrogen 3 mg/dL (7-18); Calcium 8.9 mg/dL (8.5-10.1); Carbon Dioxide 26 mmol/L (21-32); Chloride 99 mmol/L (98-107); Glucose 90 mg/dL (74-106); Sodium 137 mmol/L (136-145)
[2021-12-06] MEDS: LEVALBUTEROL HCL 1.25 MG/3 ML NEB NEB SCH ×3 (10:35→19:15)
[2021-12-06] MEDS: BUDESONIDE (INHALATION) 0.5 MG/2 ML NEB NEB SCH ×2 (10:36→19:16)
[2021-12-06] MEDS: ACETYLCYSTEINE 10 %(100MG/ML) SOL 4ML NEB SCH ×3 (10:36→19:16)
[2021-12-06] MEDS: PANTOPRAZOLE 40 MG/10 ML VIAL INJ IV SCH (10:47)
[2021-12-06] MEDS: VANCOMYCIN 1GM/250ML 250 ML IV SCH ×3 (10:47→17:48)
[2021-12-06 10:48] LABS: GFR African American 994 mL/min; GFR Non-African American 822 mL/min
[2021-12-06] MEDS: SODIUM CHLOR 0.9% PF (SALINE LOCK) 10ML VIAL/SYR IV SCH ×2 (10:48→21:45)
[2021-12-06 10:49] LABS: Potassium 2.9 mmol/L (3.5-5.1)
[2021-12-06] MEDS: ASCORBIC ACID 500 MG TAB PO SCH (10:50)
[2021-12-06] MEDS: ALPRAZolam 0.25 MG TAB PO SCH ×2 (10:50→21:46)
[2021-12-06] MEDS: METOPROLOL TARTRATE 25 MG TAB PO SCH ×2 (10:50→21:46)
[2021-12-06] MEDS: ENOXAPARIN SOD 40 MG/0.4 ML SYRINGE SC SCH (10:51)
[2021-12-06] MEDS: FLORASTOR (S. BOULARDII) 250 MG CAP PO SCH (10:53)
[2021-12-06] MEDS: fentaNYL Drip 2500mCg/250mlNS 250 ML IV SCH (13:00)
[2021-12-06] MEDS: POTASSIUM CHL 10MEQ/50ML 50 ML IV SCH ×5 (13:23→16:30)
[2021-12-06] MEDS: Ensure HIGH Protein Vanilla 8oz Bottle PO SCH (18:00)
[2021-12-07] VITALS (17 sets, daily range): BP systolic 111–140; BP diastolic 62–94
[2021-12-07] MEDS: VANCOMYCIN 1GM/250ML 250 ML IV SCH ×2 (02:46→12:35)
[2021-12-07 04:33] LABS: Basophils # (auto) 0.2 10 ^3/uL (0-0.2); Eosinophils # (auto) 0.9 10 ^3/uL (0-0.8); Eosinophils % (auto) 4.6 % (0.0-7.0); Lymphocytes # (auto) 1.8 10 ^3/uL (0.4-5.4); Monocytes # (auto) 1.6 10 ^3/uL (0-1.3); Nucleated Red Blood Cells % 0.1 %
[2021-12-07 04:44] LABS: Basophils % (auto) 1.1 % (0.0-2.0); Hematocrit 34.2 % (41.0-53.0); Hemoglobin 11.6 g/dL (13.5-17.5); Mean Corpuscular Hemoglobin 27.7 pg (28.0-32.0); Mean Corpuscular Volume 81.5 fL (80.0-100.0); Monocytes % (auto) 8.2 % (0.0-12.0); Neutrophils # (auto) 15.1 10 ^3/uL (1.6-8.6); Neutrophils % (auto) 77.1 % (37.0-80.0); Red Cell Distribution Width 18.7 % (11.8-14.3); White Blood Cell 19.6 10^3/uL (4.4-10.8)
[2021-12-07] MEDS: LEVALBUTEROL HCL 1.25 MG/3 ML NEB NEB SCH ×3 (06:02→21:38)
[2021-12-07] MEDS: BUDESONIDE (INHALATION) 0.5 MG/2 ML NEB NEB SCH ×2 (06:03→21:38)
[2021-12-07] MEDS: ACETYLCYSTEINE 10 %(100MG/ML) SOL 4ML NEB SCH ×3 (06:03→21:38)
[2021-12-07] MEDS: Ensure HIGH Protein Vanilla 8oz Bottle PO SCH ×3 (08:00→18:00)
[2021-12-07 08:05] LABS: Calcium 8.8 mg/dL (8.5-10.1); Potassium 3.1 mmol/L (3.5-5.1)
[2021-12-07] MEDS: cefTRIAXone 1GM/50ML D5W 50 ML IV SCH (09:45)
[2021-12-07] MEDS: LACTULOSE 20Gm/30ML SOLN PO SCH ×2 (09:45→22:00)
[2021-12-07] MEDS: FLORASTOR (S. BOULARDII) 250 MG CAP PO SCH (09:45)
[2021-12-07] MEDS: ASCORBIC ACID 500 MG TAB PO SCH (09:45)
[2021-12-07] MEDS: METOPROLOL TARTRATE 25 MG TAB PO SCH ×2 (09:46→23:00)
[2021-12-07] MEDS: ENOXAPARIN SOD 40 MG/0.4 ML SYRINGE SC SCH (09:47)
[2021-12-07] MEDS: SODIUM CHLOR 0.9% PF (SALINE LOCK) 10ML VIAL/SYR IV SCH ×2 (09:47→22:00)
[2021-12-07] MEDS: PANTOPRAZOLE 40 MG/10 ML VIAL INJ IV SCH (09:47)
[2021-12-07] MEDS: ALPRAZolam 0.25 MG TAB PO SCH ×2 (09:47→23:00)
[2021-12-07] MEDS: fentaNYL Drip 2500mCg/250mlNS 250 ML IV SCH (13:00)
[2021-12-07] MEDS ORDERED: CLINDAMYCIN 600MG IV 50 ML IV ONE (15:15)
[2021-12-07] MEDS ORDERED: POTASSIUM EFFERVESENT TAB 25 MEQ PO ONE (15:15)
[2021-12-07] MEDS ORDERED: VANCOMYCIN 1GM/250ML 250 ML IV SCH (20:35)
[2021-12-08] VITALS (16 sets, daily range): BP systolic 108–157; BP diastolic 75–96
[2021-12-08] MEDS: POTASSIUM CHL 10MEQ/50ML 50 ML IV SCH ×6 (01:35→23:00)
[2021-12-08 03:58] LABS: Eosinophils # (auto) 0.6 10 ^3/uL (0-0.8); Hemoglobin 11.6 g/dL (13.5-17.5)
[2021-12-08 04:00] LABS: Basophils # (auto) 0.2 10 ^3/uL (0-0.2); Basophils % (auto) 0.8 % (0.0-2.0); Hematocrit 34.8 % (41.0-53.0); Lymphocytes # (auto) 1.7 10 ^3/uL (0.4-5.4); Lymphocytes % (auto) 8.4 % (10.0-50.0); Mean Corpuscular Hemoglobin 27.1 pg (28.0-32.0); Mean Corpuscular Hgb Conc. 33.3 g/dL (32.0-36.0); Mean Corpuscular Volume 81.5 fL (80.0-100.0); Monocytes # (auto) 1.6 10 ^3/uL (0-1.3); Monocytes % (auto) 7.9 % (0.0-12.0); Neutrophils # (auto) 16.1 10 ^3/uL (1.6-8.6); Neutrophils % (auto) 79.9 % (37.0-80.0); Red Blood Cells 4.27 10^6/uL (4.5-5.90); Red Cell Distribution Width 18.4 % (11.8-14.3); White Blood Cell 20.2 10^3/uL (4.4-10.8)
[2021-12-08 04:10] LABS: BUN/Creatinine Ratio 11.1; Calcium 8.7 mg/dL (8.5-10.1)
[2021-12-08 05:03] LABS: Potassium 2.7 mmol/L (3.5-5.1)
[2021-12-08] MEDS ORDERED: POTASSIUM CHL 10MEQ/50ML 100 ML IV ONE (07:28)
[2021-12-08] MEDS: Ensure HIGH Protein Vanilla 8oz Bottle PO SCH ×3 (08:00→18:00)
[2021-12-08 08:31] LABS: Urine Bacteria NONE SEEN /hpf (None Seen); Urine Blood 2+ /uL (Negative); Urine Budding Yeast LOADED /hpf (None Seen); Urine Specific Gravity 1.023 (1.001-1.035); Urine WBC 25 /hpf (0 - 3); Urine WBC Clumps PRESENT /hpf (None Seen)
[2021-12-08] MEDS: PANTOPRAZOLE 40 MG/10 ML VIAL INJ IV SCH (09:18)
[2021-12-08] MEDS: ENOXAPARIN SOD 40 MG/0.4 ML SYRINGE SC SCH (09:18)
[2021-12-08] MEDS: CLINDAMYCIN 600MG IV 50 ML IV SCH ×2 (09:18)
[2021-12-08] MEDS: ASCORBIC ACID 500 MG TAB PO SCH (09:18)
[2021-12-08] MEDS: METOPROLOL TARTRATE 25 MG TAB PO SCH ×2 (09:19→22:00)
[2021-12-08] MEDS: LACTULOSE 20Gm/30ML SOLN PO SCH (09:20)
[2021-12-08] MEDS: SODIUM CHLOR 0.9% PF (SALINE LOCK) 10ML VIAL/SYR IV SCH ×2 (09:20→22:00)
[2021-12-08] MEDS: FLORASTOR (S. BOULARDII) 250 MG CAP PO SCH (09:20)
[2021-12-08] MEDS: ALPRAZolam 0.25 MG TAB PO SCH ×2 (09:22→22:00)
[2021-12-08] MEDS: cefTRIAXone 1GM/50ML D5W 50 ML IV SCH (09:22)
[2021-12-08] MEDS: LEVALBUTEROL HCL 1.25 MG/3 ML NEB NEB SCH ×2 (10:32→22:57)
[2021-12-08] MEDS: BUDESONIDE (INHALATION) 0.5 MG/2 ML NEB NEB SCH ×2 (10:33→22:57)
[2021-12-08] MEDS: ACETYLCYSTEINE 10 %(100MG/ML) SOL 4ML NEB SCH ×2 (10:34→22:57)
[2021-12-08] MEDS: LORazepam 2MG/ML-1ML VIAL IV PRN ×2 (11:48→13:37)
[2021-12-08] MEDS ORDERED: fentaNYL 50MCG/HR 50 MCG/HR PAT TD SCH (12:15)
[2021-12-08] MEDS ORDERED: LORazepam 2MG/ML-1ML VIAL IV PRN (13:30)
[2021-12-08] MEDS ORDERED: traZODone HCL 50 MG TAB PO SCH (22:00)
[2021-12-08] MEDS ORDERED: dilTIAZem 25 MG/5 ML VIAL IV ONE (23:15)
[2021-12-08] MEDS ORDERED: HALOPERIDOL LACTATE 5 MG/ML INJ VIAL IM ONE (23:15)
[2021-12-09] VITALS (9 sets, daily range): BP systolic 128–144; BP diastolic 77–95
[2021-12-09] MEDS: POTASSIUM CHL 10MEQ/50ML 50 ML IV SCH ×6 (00:10→14:00)
[2021-12-09] MEDS: Ensure HIGH Protein Vanilla 8oz Bottle PO SCH ×3 (08:00→18:00)
[2021-12-09] MEDS: PANTOPRAZOLE 40 MG/10 ML VIAL INJ IV SCH (09:19)
[2021-12-09] MEDS: SODIUM CHLOR 0.9% PF (SALINE LOCK) 10ML VIAL/SYR IV SCH ×2 (09:19→22:00)
[2021-12-09] MEDS: FLORASTOR (S. BOULARDII) 250 MG CAP PO SCH (09:19)
[2021-12-09] MEDS: ALPRAZolam 0.25 MG TAB PO SCH ×2 (09:20→22:00)
[2021-12-09] MEDS: METOPROLOL TARTRATE 25 MG TAB PO SCH ×2 (09:20→22:00)
[2021-12-09] MEDS: ENOXAPARIN SOD 40 MG/0.4 ML SYRINGE SC SCH (09:21)
[2021-12-09 10:25] LABS: Hemoglobin 11.7 g/dL (13.5-17.5); Mean Corpuscular Hemoglobin 27.3 pg (28.0-32.0); Mean Corpuscular Hgb Conc. 33.4 g/dL (32.0-36.0); Mean Corpuscular Volume 81.8 fL (80.0-100.0); Red Blood Cells 4.28 10^6/uL (4.5-5.90); Red Cell Distribution Width 18.3 % (11.8-14.3); White Blood Cell 25.4 10^3/uL (4.4-10.8)
[2021-12-09 10:35] LABS: Basophils % (manual) 0 (0.0-2.0); Blast Cells 0; Metamyelocytes % 0; Myelocytes % 0; Promyelocytes % 0; Reactive Lymphocytes 0
[2021-12-09 10:37] LABS: BUN/Creatinine Ratio 21.1; Calcium 8.4 mg/dL (8.5-10.1)
[2021-12-09] MEDS: ACETYLCYSTEINE 10 %(100MG/ML) SOL 4ML NEB SCH ×2 (10:50→17:59)
[2021-12-09] MEDS: LEVALBUTEROL HCL 1.25 MG/3 ML NEB NEB SCH ×2 (10:50→17:59)
[2021-12-09 10:54] LABS: Potassium 2.9 mmol/L (3.5-5.1)
[2021-12-09] MEDS ORDERED: POTASSIUM CHL 10MEQ/50ML 200 ML IV ONE (11:15)
[2021-12-09] MEDS ORDERED: POTASSIUM CHL 10MEQ/50ML 50 ML IV ONE (11:16)
[2021-12-09] MEDS ORDERED: FLUCONAZOLE 200MG/100ML 100 ML IV ONE (12:00)
[2021-12-09] MEDS ORDERED: POTASSIUM CHL 20 Meq TABLET PO ONE (12:00)
[2021-12-09 12:54] LABS: Band Neutrophils % (manual) 6; Eosinophils % (manual) 3 (0-7); Lymphocytes % (manual) 3 (10.0-50.0); Monocytes % (manual) 6 (0-12)
[2021-12-09] MEDS ORDERED: fentaNYL 25MCG/HR 25 MCG/HR PAT TD SCH (14:00)
[2021-12-09] MEDS: BUDESONIDE (INHALATION) 0.5 MG/2 ML NEB NEB SCH (17:59)
[2021-12-09] MEDS: OLANZapine 5 MG TAB PO SCH (22:00)
[2021-12-10] VITALS (18 sets, daily range): BP systolic 131–151; BP diastolic 79–109
[2021-12-10 03:59] LABS: Basophils # (auto) 0.3 10 ^3/uL (0-0.2); Basophils % (auto) 1.3 % (0.0-2.0); Eosinophils # (auto) 0.6 10 ^3/uL (0-0.8); Eosinophils % (auto) 2.5 % (0.0-7.0); Hematocrit 35.6 % (41.0-53.0); Hemoglobin 11.7 g/dL (13.5-17.5); Lymphocytes # (auto) 1.8 10 ^3/uL (0.4-5.4); Mean Corpuscular Hgb Conc. 32.9 g/dL (32.0-36.0); Mean Corpuscular Volume 81.8 fL (80.0-100.0); Monocytes # (auto) 2.3 10 ^3/uL (0-1.3); Monocytes % (auto) 10.2 % (0.0-12.0); Neutrophils # (auto) 17.7 10 ^3/uL (1.6-8.6); Red Blood Cells 4.35 10^6/uL (4.5-5.90); Red Cell Distribution Width 18.1 % (11.8-14.3); White Blood Cell 22.7 10^3/uL (4.4-10.8)
[2021-12-10 04:19] LABS: Anion Gap 8 (5-15); Blood Urea Nitrogen 2 mg/dL (7-18); Calcium 8.4 mg/dL (8.5-10.1); Carbon Dioxide 27 mmol/L (21-32); Chloride 104 mmol/L (98-107); Glucose 98 mg/dL (74-106); Potassium 3.6 mmol/L (3.5-5.1); Sodium 139 mmol/L (136-145)
[2021-12-10 04:25] LABS: BUN/Creatinine Ratio 13.3; GFR African American 994 mL/min; GFR Non-African American 822 mL/min
[2021-12-10] MEDS: ACETYLCYSTEINE 10 %(100MG/ML) SOL 4ML NEB SCH ×4 (06:02→23:14)
[2021-12-10] MEDS: BUDESONIDE (INHALATION) 0.5 MG/2 ML NEB NEB SCH ×2 (06:02→19:05)
[2021-12-10] MEDS: LEVALBUTEROL HCL 1.25 MG/3 ML NEB NEB SCH ×4 (06:03→23:14)
[2021-12-10] MEDS: Ensure HIGH Protein Vanilla 8oz Bottle PO SCH ×3 (08:00→18:16)
[2021-12-10] MEDS: FLUCONAZOLE 200MG/100ML 100 ML IV SCH (09:05)
[2021-12-10] MEDS: PANTOPRAZOLE 40 MG/10 ML VIAL INJ IV SCH (09:08)
[2021-12-10] MEDS: SODIUM CHLOR 0.9% PF (SALINE LOCK) 10ML VIAL/SYR IV SCH ×2 (09:08→21:24)
[2021-12-10] MEDS: FLORASTOR (S. BOULARDII) 250 MG CAP PO SCH (09:09)
[2021-12-10] MEDS: ENOXAPARIN SOD 40 MG/0.4 ML SYRINGE SC SCH (09:09)
[2021-12-10] MEDS: ALPRAZolam 0.25 MG TAB PO SCH ×2 (09:09→21:23)
[2021-12-10] MEDS: METOPROLOL TARTRATE 25 MG TAB PO SCH ×2 (10:00→21:23)
[2021-12-10] MEDS ORDERED: FUROSEMIDE 20 MG/2 ML VIAL IV ONE (12:30)
[2021-12-10] MEDS ORDERED: POTASSIUM CHL 20 Meq TABLET PO ONE (12:30)
[2021-12-10] MEDS ORDERED: ACETYLCYSTEINE 10 %(100MG/ML) SOL 4ML NEB SCH (18:00)
[2021-12-10] MEDS: OLANZapine 5 MG TAB PO SCH (21:24)
[2021-12-11] VITALS (44 sets, daily range): BP systolic 97–149; BP diastolic 46–102
[2021-12-11 04:14] LABS: Basophils # (auto) 0.1 10 ^3/uL (0-0.2); Basophils % (auto) 0.3 % (0.0-2.0); Eosinophils % (auto) 5.2 % (0.0-7.0); Hematocrit 35.1 % (41.0-53.0); Hemoglobin 11.6 g/dL (13.5-17.5); Lymphocytes # (auto) 2.3 10 ^3/uL (0.4-5.4); Lymphocytes % (auto) 12.1 % (10.0-50.0); Mean Corpuscular Hgb Conc. 32.9 g/dL (32.0-36.0); Mean Corpuscular Volume 82.1 fL (80.0-100.0); Monocytes # (auto) 2.2 10 ^3/uL (0-1.3); Monocytes % (auto) 11.7 % (0.0-12.0); Neutrophils # (auto) 13.3 10 ^3/uL (1.6-8.6); Neutrophils % (auto) 70.7 % (37.0-80.0); Red Blood Cells 4.28 10^6/uL (4.5-5.90); Red Cell Distribution Width 18.1 % (11.8-14.3); White Blood Cell 18.8 10^3/uL (4.4-10.8)
[2021-12-11 04:31] LABS: Calcium 8.8 mg/dL (8.5-10.1); Potassium 3.3 mmol/L (3.5-5.1)
[2021-12-11 04:34] LABS: BUN/Creatinine Ratio 7.1
[2021-12-11] MEDS: BUDESONIDE (INHALATION) 0.5 MG/2 ML NEB NEB SCH ×2 (05:50→18:42)
[2021-12-11] MEDS: ACETYLCYSTEINE 10 %(100MG/ML) SOL 4ML NEB SCH ×3 (05:58→18:42)
[2021-12-11] MEDS: LEVALBUTEROL HCL 1.25 MG/3 ML NEB NEB SCH ×3 (05:59→18:42)
[2021-12-11] MEDS: Ensure HIGH Protein Vanilla 8oz Bottle PO SCH ×3 (08:00→18:00)
[2021-12-11] MEDS ORDERED: MIDAZOLAM DRIP 50 mg/50mL 50 ML IV ONE (08:26)
[2021-12-11] MEDS ORDERED: MIDAZOLAM DRIP 50 mg/50mL 50 ML IV SCH (08:30)
[2021-12-11] MEDS ORDERED: ENOXAPARIN SOD 100 MG/1 ML SYRINGE SC ONE (09:00)
[2021-12-11] MEDS ORDERED: LORazepam 2MG/ML-1ML VIAL IV PRN (09:30)
[2021-12-11] MEDS ORDERED: IOHEXOL 350 MG/ML 100ML IJ ONE ×2 (09:34→14:30)
[2021-12-11] MEDS: PANTOPRAZOLE 40 MG/10 ML VIAL INJ IV SCH (10:00)
[2021-12-11] MEDS: METOPROLOL TARTRATE 25 MG TAB PO SCH ×2 (10:00→22:00)
[2021-12-11] MEDS: SODIUM CHLOR 0.9% PF (SALINE LOCK) 10ML VIAL/SYR IV SCH ×2 (10:00→22:00)
[2021-12-11] MEDS: FLORASTOR (S. BOULARDII) 250 MG CAP PO SCH (10:00)
[2021-12-11] MEDS: ENOXAPARIN SOD 100 MG/1 ML SYRINGE SC SCH ×2 (10:00→22:01)
[2021-12-11] MEDS: POTASSIUM CHL 10MEQ/50ML 50 ML IV SCH ×4 (10:30→12:30)
[2021-12-11] MEDS: FLUCONAZOLE 200MG/100ML 100 ML IV SCH (10:37)
[2021-12-11] MEDS: OLANZapine 5 MG TAB PO SCH (22:00)
[2021-12-11] MEDS: ACETAMINOPHEN 650 MG RECT SUPP PR PRN (22:54)
[2021-12-12] VITALS (37 sets, daily range): BP systolic 82–148; BP diastolic 43–125
[2021-12-12] MEDS: ACETYLCYSTEINE 10 %(100MG/ML) SOL 4ML NEB SCH ×4 (00:23→20:54)
[2021-12-12] MEDS: LEVALBUTEROL HCL 1.25 MG/3 ML NEB NEB SCH ×4 (00:24→20:54)
[2021-12-12] MEDS ORDERED: MORPHINE SULFATE INJECTION 2 MG/ML SYRG ONE (01:43)
[2021-12-12] MEDS: MORPHINE SULFATE INJECTION 2 MG/ML SYRG IV PRN ×2 (01:59→06:17)
[2021-12-12 04:16] LABS: Basophils # (auto) 0.3 10 ^3/uL (0-0.2); Basophils % (auto) 1.3 % (0.0-2.0); Eosinophils # (auto) 0.7 10 ^3/uL (0-0.8); Lymphocytes # (auto) 2.4 10 ^3/uL (0.4-5.4); Nucleated Red Blood Cells % 0.1 %
[2021-12-12 04:19] LABS: Eosinophils % (auto) 3.5 % (0.0-7.0); Hematocrit 36.5 % (41.0-53.0); Hemoglobin 11.8 g/dL (13.5-17.5); Mean Corpuscular Hemoglobin 26.7 pg (28.0-32.0); Mean Corpuscular Hgb Conc. 32.4 g/dL (32.0-36.0); Mean Corpuscular Volume 82.4 fL (80.0-100.0); Monocytes # (auto) 2.2 10 ^3/uL (0-1.3); Monocytes % (auto) 10.8 % (0.0-12.0); Neutrophils # (auto) 14.6 10 ^3/uL (1.6-8.6); Neutrophils % (auto) 72.4 % (37.0-80.0); Red Blood Cells 4.44 10^6/uL (4.5-5.90); Red Cell Distribution Width 17.8 % (11.8-14.3); White Blood Cell 20.2 10^3/uL (4.4-10.8)
[2021-12-12 04:25] LABS: Albumin 2.6 g/dL (3.4-5.0); Calcium 8.4 mg/dL (8.5-10.1); Potassium 3.8 mmol/L (3.5-5.1)
[2021-12-12 04:31] LABS: Bilirubin, Total 0.4 mg/dL (0.2-1.0); Total Protein 5.9 g/dL (6.4-8.2)
[2021-12-12] MEDS: BUDESONIDE (INHALATION) 0.5 MG/2 ML NEB NEB SCH ×2 (05:32→20:54)
[2021-12-12] MEDS: Ensure HIGH Protein Vanilla 8oz Bottle PO SCH ×3 (08:00→18:00)
[2021-12-12] MEDS ORDERED: HALOPERIDOL LACTATE 5 MG/ML INJ VIAL IM ONE (08:30)
[2021-12-12] MEDS ORDERED: MIDAZOLAM DRIP 50 mg/50mL 50 ML IV ONE (09:28)
[2021-12-12] MEDS: MIDAZOLAM DRIP 50 mg/50mL 50 ML IV SCH (09:45)
[2021-12-12] MEDS: FLUCONAZOLE 200MG/100ML 100 ML IV SCH (10:00)
[2021-12-12] MEDS: ENOXAPARIN SOD 100 MG/1 ML SYRINGE SC SCH ×2 (10:00→22:16)
[2021-12-12] MEDS: PANTOPRAZOLE 40 MG/10 ML VIAL INJ IV SCH (10:00)
[2021-12-12] MEDS: METOPROLOL TARTRATE 25 MG TAB PO SCH (10:00)
[2021-12-12] MEDS: SODIUM CHLOR 0.9% PF (SALINE LOCK) 10ML VIAL/SYR IV SCH ×2 (10:00→22:16)
[2021-12-12] MEDS ORDERED: HALOPERIDOL LACTATE 5 MG/ML INJ VIAL IM PRN (13:00)
[2021-12-12] MEDS ORDERED: LORazepam 2MG/ML-1ML VIAL IV PRN (13:00)
[2021-12-12] MEDS: D5W/SOD CHLO 0.9% 1,000 ML IV SCH (13:36)
[2021-12-12] MEDS: fentaNYL 50MCG/HR 50 MCG/HR PAT TD SCH (14:30)
[2021-12-13] VITALS (68 sets, daily range): BP systolic 87–155; BP diastolic 51–106
[2021-12-13 04:43] LABS: Basophils # (auto) 0.1 10 ^3/uL (0-0.2); Basophils % (auto) 1.4 % (0.0-2.0); Eosinophils # (auto) 1.1 10 ^3/uL (0-0.8); Eosinophils % (auto) 10.4 % (0.0-7.0); Hematocrit 32.1 % (41.0-53.0); Hemoglobin 10.4 g/dL (13.5-17.5); Lymphocytes # (auto) 2.2 10 ^3/uL (0.4-5.4); Lymphocytes % (auto) 20.6 % (10.0-50.0); Mean Corpuscular Hemoglobin 27.2 pg (28.0-32.0); Mean Corpuscular Hgb Conc. 32.5 g/dL (32.0-36.0); Mean Corpuscular Volume 83.5 fL (80.0-100.0); Monocytes # (auto) 1.3 10 ^3/uL (0-1.3); Monocytes % (auto) 12.1 % (0.0-12.0); Neutrophils # (auto) 5.9 10 ^3/uL (1.6-8.6); Neutrophils % (auto) 55.5 % (37.0-80.0); Red Blood Cells 3.84 10^6/uL (4.5-5.90); Red Cell Distribution Width 17.9 % (11.8-14.3); White Blood Cell 10.6 10^3/uL (4.4-10.8)
[2021-12-13] MEDS: D5W/SOD CHLO 0.9% 1,000 ML IV SCH ×2 (04:51→15:57)
[2021-12-13 05:24] LABS: Albumin 2.2 g/dL (3.4-5.0); BUN/Creatinine Ratio 20.8; Calcium 7.7 mg/dL (8.5-10.1)
[2021-12-13 05:27] LABS: Bilirubin, Total 0.2 mg/dL (0.2-1.0); Total Protein 5.1 g/dL (6.4-8.2)
[2021-12-13] MEDS: BUDESONIDE (INHALATION) 0.5 MG/2 ML NEB NEB SCH ×2 (06:59→19:05)
[2021-12-13] MEDS: ACETYLCYSTEINE 10 %(100MG/ML) SOL 4ML NEB SCH ×4 (06:59→19:03)
[2021-12-13] MEDS: LEVALBUTEROL HCL 1.25 MG/3 ML NEB NEB SCH ×4 (06:59→19:03)
[2021-12-13] MEDS: Ensure HIGH Protein Vanilla 8oz Bottle PO SCH ×3 (08:00→18:00)
[2021-12-13] MEDS: MIDAZOLAM DRIP 50 mg/50mL 50 ML IV SCH (09:45)
[2021-12-13] MEDS: PANTOPRAZOLE 40 MG/10 ML VIAL INJ IV SCH (10:00)
[2021-12-13] MEDS: FLUCONAZOLE 200MG/100ML 100 ML IV SCH (10:00)
[2021-12-13] MEDS: POTASSIUM CHL 10MEQ/50ML 50 ML IV SCH ×4 (10:00→13:00)
[2021-12-13] MEDS: SODIUM CHLOR 0.9% PF (SALINE LOCK) 10ML VIAL/SYR IV SCH ×2 (10:00→21:56)
[2021-12-13] MEDS: ENOXAPARIN SOD 100 MG/1 ML SYRINGE SC SCH (10:00)
[2021-12-13] MEDS ORDERED: IOHEXOL 350 MG/ML 100ML IJ ONE (11:29)
[2021-12-14] VITALS (28 sets, daily range): BP systolic 99–145; BP diastolic 58–105
[2021-12-14] MEDS: BUDESONIDE (INHALATION) 0.5 MG/2 ML NEB NEB SCH ×2 (06:14→18:35)
[2021-12-14] MEDS: LEVALBUTEROL HCL 1.25 MG/3 ML NEB NEB SCH ×4 (06:14→18:35)
[2021-12-14] MEDS: ACETYLCYSTEINE 10 %(100MG/ML) SOL 4ML NEB SCH ×4 (06:14→18:35)
[2021-12-14] MEDS: D5W/SOD CHLO 0.9% 1,000 ML IV SCH (06:19)
[2021-12-14] MEDS: Ensure HIGH Protein Vanilla 8oz Bottle PO SCH ×3 (08:00→18:00)
[2021-12-14 08:28] LABS: Basophils # (auto) 0.1 10 ^3/uL (0-0.2); Eosinophils % (auto) 13.2 % (0.0-7.0); Hemoglobin 9.1 g/dL (13.5-17.5); Lymphocytes # (auto) 1.2 10 ^3/uL (0.4-5.4); Monocytes # (auto) 0.8 10 ^3/uL (0-1.3); Neutrophils # (auto) 4.8 10 ^3/uL (1.6-8.6)
[2021-12-14 08:29] LABS: Basophils % (auto) 1.1 % (0.0-2.0); Hematocrit 29.4 % (41.0-53.0); Lymphocytes % (auto) 14.6 % (10.0-50.0); Mean Corpuscular Hgb Conc. 30.8 g/dL (32.0-36.0); Mean Corpuscular Volume 87.7 fL (80.0-100.0); Monocytes % (auto) 10.5 % (0.0-12.0); Neutrophils % (auto) 60.6 % (37.0-80.0); Red Blood Cells 3.35 10^6/uL (4.5-5.90); White Blood Cell 7.9 10^3/uL (4.4-10.8)
[2021-12-14 08:43] LABS: INR 1.36 (0.9-1.15)
[2021-12-14] MEDS: MIDAZOLAM DRIP 50 mg/50mL 50 ML IV SCH (09:45)
[2021-12-14] MEDS: FLUCONAZOLE 200MG/100ML 100 ML IV SCH (09:48)
[2021-12-14] MEDS: PANTOPRAZOLE 40 MG/10 ML VIAL INJ IV SCH (09:48)
[2021-12-14] MEDS: SODIUM CHLOR 0.9% PF (SALINE LOCK) 10ML VIAL/SYR IV SCH ×2 (09:49→21:40)
[2021-12-14] MEDS: ENOXAPARIN SOD 40 MG/0.4 ML SYRINGE SC SCH (09:51)
[2021-12-14 09:59] LABS: Albumin 2.3 g/dL (3.4-5.0); Calcium 8.2 mg/dL (8.5-10.1)
[2021-12-14 10:02] LABS: Bilirubin, Total 0.3 mg/dL (0.2-1.0); Total Protein 5.8 g/dL (6.4-8.2)
[2021-12-14] MEDS ORDERED: POTASSIUM EFFERVESENT TAB 25 MEQ PO ONE (13:00)
[2021-12-14] MEDS ORDERED: LIDOCAINE 2%HCL (LOCAL ANESTH.) INJ 20ML MDV ONE (15:07)
[2021-12-14] MEDS ORDERED: TEMAZEPAM 15 MG CAP PO ONE (23:30)
[2021-12-15] VITALS (23 sets, daily range): BP systolic 133–157; BP diastolic 85–111
[2021-12-15 05:47] LABS: Potassium 2.8 mmol/L (3.5-5.1)
[2021-12-15] MEDS: BUDESONIDE (INHALATION) 0.5 MG/2 ML NEB NEB SCH ×2 (07:30→18:23)
[2021-12-15] MEDS: LEVALBUTEROL HCL 1.25 MG/3 ML NEB NEB SCH ×3 (07:40→18:23)
[2021-12-15] MEDS: ACETYLCYSTEINE 10 %(100MG/ML) SOL 4ML NEB SCH ×3 (07:58→18:23)
[2021-12-15] MEDS: Ensure HIGH Protein Vanilla 8oz Bottle PO SCH ×3 (08:00→19:00)
[2021-12-15] MEDS: POTASSIUM CHL 10MEQ/50ML 50 ML IV SCH ×4 (08:00→11:22)
[2021-12-15] MEDS: PANTOPRAZOLE 40 MG/10 ML VIAL INJ IV SCH (10:22)
[2021-12-15] MEDS: FLUCONAZOLE 200MG/100ML 100 ML IV SCH (10:22)
[2021-12-15] MEDS: ENOXAPARIN SOD 40 MG/0.4 ML SYRINGE SC SCH (10:22)
[2021-12-15] MEDS: SODIUM CHLOR 0.9% PF (SALINE LOCK) 10ML VIAL/SYR IV SCH ×2 (10:22→21:21)
[2021-12-16] VITALS (24 sets, daily range): BP systolic 129–159; BP diastolic 91–115
[2021-12-16] MEDS: LEVALBUTEROL HCL 1.25 MG/3 ML NEB NEB SCH ×4 (00:30→19:53)
[2021-12-16] MEDS: ACETYLCYSTEINE 10 %(100MG/ML) SOL 4ML NEB SCH ×4 (00:30→19:54)
[2021-12-16 05:03] LABS: Hematocrit 33.9 % (41.0-53.0); Mean Corpuscular Hemoglobin 26.6 pg (28.0-32.0); Mean Corpuscular Hgb Conc. 32.5 g/dL (32.0-36.0); Mean Corpuscular Volume 81.6 fL (80.0-100.0); Red Blood Cells 4.15 10^6/uL (4.5-5.90); Red Cell Distribution Width 17.7 % (11.8-14.3); White Blood Cell 10.3 10^3/uL (4.4-10.8)
[2021-12-16 05:04] LABS: Chloride 101 mmol/L (98-107); Sodium 139 mmol/L (136-145)
[2021-12-16 05:10] LABS: Anion Gap 10 (5-15); BUN/Creatinine Ratio 13.3; Blood Urea Nitrogen 2 mg/dL (7-18); Calcium 8.3 mg/dL (8.5-10.1); Carbon Dioxide 28 mmol/L (21-32); GFR African American 994 mL/min; GFR Non-African American 822 mL/min; Glucose 77 mg/dL (74-106); Magnesium 1.7 mg/dL (1.6-2.6)
[2021-12-16 05:11] LABS: Basophils % (manual) 0 (0.0-2.0); Blast Cells 0; Metamyelocytes % 0; Promyelocytes % 0; Reactive Lymphocytes 0
[2021-12-16 05:42] LABS: Potassium 2.7 mmol/L (3.5-5.1)
[2021-12-16] MEDS ORDERED: POTASSIUM CHL 10MEQ/50ML 50 ML IV ONE (06:25)
[2021-12-16] MEDS: POTASSIUM CHL 10MEQ/50ML 50 ML IV SCH ×4 (06:28→13:00)
[2021-12-16 07:14] LABS: Band Neutrophils % (manual) 6; Eosinophils % (manual) 4 (0-7); Lymphocytes % (manual) 19 (10.0-50.0); Monocytes % (manual) 10 (0-12); Myelocytes % 2
[2021-12-16] MEDS: Ensure HIGH Protein Vanilla 8oz Bottle PO SCH ×3 (08:00→18:17)
[2021-12-16] MEDS: fentaNYL 50MCG/HR 50 MCG/HR PAT TD SCH (09:00)
[2021-12-16] MEDS: BUDESONIDE (INHALATION) 0.5 MG/2 ML NEB NEB SCH ×2 (09:02→19:54)
[2021-12-16] MEDS: SODIUM CHLOR 0.9% PF (SALINE LOCK) 10ML VIAL/SYR IV SCH ×2 (09:23→22:31)
[2021-12-16] MEDS: ENOXAPARIN SOD 40 MG/0.4 ML SYRINGE SC SCH (09:23)
[2021-12-16] MEDS: FLUCONAZOLE 200MG/100ML 100 ML IV SCH (09:23)
[2021-12-16] MEDS: PANTOPRAZOLE 40 MG/10 ML VIAL INJ IV SCH (09:23)
[2021-12-16] MEDS ORDERED: POTASSIUM CHL 20 Meq TABLET PO ONE (14:30)
[2021-12-16] MEDS: MAGNESIUM SULFATE 1GM/100ML 100 ML IV SCH ×2 (16:00→17:30)
[2021-12-17] VITALS (22 sets, daily range): BP systolic 130–163; BP diastolic 81–113
[2021-12-17] MEDS: ACETYLCYSTEINE 10 %(100MG/ML) SOL 4ML NEB SCH ×4 (01:58→18:31)
[2021-12-17] MEDS: LEVALBUTEROL HCL 1.25 MG/3 ML NEB NEB SCH ×4 (01:58→18:31)
[2021-12-17 04:37] LABS: Hemoglobin 11.6 g/dL (13.5-17.5)
[2021-12-17 04:42] LABS: Hematocrit 34.3 % (41.0-53.0); Mean Corpuscular Hemoglobin 27.2 pg (28.0-32.0); Mean Corpuscular Hgb Conc. 33.8 g/dL (32.0-36.0); Mean Corpuscular Volume 80.3 fL (80.0-100.0); Red Blood Cells 4.27 10^6/uL (4.5-5.90); Red Cell Distribution Width 17.2 % (11.8-14.3); White Blood Cell 11.5 10^3/uL (4.4-10.8)
[2021-12-17 04:50] LABS: Basophils % (manual) 0 (0.0-2.0); Blast Cells 0; Eosinophils % (manual) 0 (0-7); Myelocytes % 0; Promyelocytes % 0; Reactive Lymphocytes 0
[2021-12-17 05:03] LABS: Calcium 7.9 mg/dL (8.5-10.1); Potassium 3.7 mmol/L (3.5-5.1)
[2021-12-17 05:05] LABS: BUN/Creatinine Ratio 6.7
[2021-12-17] MEDS: Ensure HIGH Protein Vanilla 8oz Bottle PO SCH ×3 (08:00→18:00)
[2021-12-17 08:30] LABS: Band Neutrophils % (manual) 3; Lymphocytes % (manual) 11 (10.0-50.0); Metamyelocytes % 1; Monocytes % (manual) 16 (0-12)
[2021-12-17] MEDS: BUDESONIDE (INHALATION) 0.5 MG/2 ML NEB NEB SCH ×2 (08:30→18:32)
[2021-12-17] MEDS: ENOXAPARIN SOD 40 MG/0.4 ML SYRINGE SC SCH (10:00)
[2021-12-17] MEDS: FLORASTOR (S. BOULARDII) 250 MG CAP PO SCH (10:00)
[2021-12-17] MEDS: SODIUM CHLOR 0.9% PF (SALINE LOCK) 10ML VIAL/SYR IV SCH ×2 (10:29→21:55)
[2021-12-17] MEDS: FLUCONAZOLE 200MG/100ML 100 ML IV SCH (10:29)
[2021-12-17] MEDS: PANTOPRAZOLE 40 MG/10 ML VIAL INJ IV SCH (10:29)
[2021-12-17 15:50] LABS: INR 1.27 (0.9-1.15); Partial Thromboplastin Time 32.8 sec (23.6-33.0)
[2021-12-18] VITALS (17 sets, daily range): BP systolic 125–156; BP diastolic 88–112
[2021-12-18] MEDS: ACETYLCYSTEINE 10 %(100MG/ML) SOL 4ML NEB SCH ×4 (00:06→19:39)
[2021-12-18] MEDS: LEVALBUTEROL HCL 1.25 MG/3 ML NEB NEB SCH ×4 (00:06→19:39)
[2021-12-18 03:39] LABS: Hemoglobin 11.8 g/dL (13.5-17.5)
[2021-12-18 03:40] LABS: Hematocrit 36.8 % (41.0-53.0); Mean Corpuscular Hemoglobin 26.2 pg (28.0-32.0); Mean Corpuscular Hgb Conc. 32.1 g/dL (32.0-36.0); Mean Corpuscular Volume 81.7 fL (80.0-100.0); Red Blood Cells 4.51 10^6/uL (4.5-5.90); Red Cell Distribution Width 17.5 % (11.8-14.3); White Blood Cell 12.4 10^3/uL (4.4-10.8)
[2021-12-18 03:47] LABS: Basophils % (manual) 0 (0.0-2.0); Blast Cells 0; Metamyelocytes % 0; Promyelocytes % 0; Reactive Lymphocytes 0
[2021-12-18 03:56] LABS: Albumin 2.4 g/dL (3.4-5.0); BUN/Creatinine Ratio 11.8; Calcium 8.3 mg/dL (8.5-10.1); INR 1.27 (0.9-1.15); Partial Thromboplastin Time 31.9 sec (23.6-33.0); Potassium 3.3 mmol/L (3.5-5.1)
[2021-12-18 03:58] LABS: Bilirubin, Total 0.3 mg/dL (0.2-1.0)
[2021-12-18 04:34] LABS: Band Neutrophils % (manual) 5; Eosinophils % (manual) 1 (0-7); Lymphocytes % (manual) 20 (10.0-50.0); Monocytes % (manual) 9 (0-12); Myelocytes % 1
[2021-12-18] MEDS: Ensure HIGH Protein Vanilla 8oz Bottle PO SCH ×3 (08:00→18:00)
[2021-12-18] MEDS: FLORASTOR (S. BOULARDII) 250 MG CAP PO SCH (09:48)
[2021-12-18] MEDS: SODIUM CHLOR 0.9% PF (SALINE LOCK) 10ML VIAL/SYR IV SCH ×2 (09:48→20:27)
[2021-12-18] MEDS: PANTOPRAZOLE 40 MG/10 ML VIAL INJ IV SCH (09:48)
[2021-12-18] MEDS: FLUCONAZOLE 200MG/100ML 100 ML IV SCH (09:48)
[2021-12-18] MEDS: ENOXAPARIN SOD 40 MG/0.4 ML SYRINGE SC SCH ×2 (09:49→11:47)
[2021-12-18] MEDS ORDERED: POTASSIUM CHL 20 Meq TABLET PO ONE (11:30)
[2021-12-18] MEDS: fentaNYL 50MCG/HR 50 MCG/HR PAT TD SCH (14:24)
[2021-12-18] MEDS: BUDESONIDE (INHALATION) 0.5 MG/2 ML NEB NEB SCH ×2 (19:39→22:39)
[2021-12-19] VITALS (20 sets, daily range): BP systolic 125–154; BP diastolic 89–109
[2021-12-19] MEDS: ACETYLCYSTEINE 10 %(100MG/ML) SOL 4ML NEB SCH ×4 (00:29→18:31)
[2021-12-19] MEDS: LEVALBUTEROL HCL 1.25 MG/3 ML NEB NEB SCH ×4 (00:29→18:31)
[2021-12-19 05:01] LABS: Hematocrit 33.7 % (41.0-53.0); Hemoglobin 11.7 g/dL (13.5-17.5); Mean Corpuscular Hemoglobin 27.6 pg (28.0-32.0); Mean Corpuscular Hgb Conc. 34.8 g/dL (32.0-36.0); Mean Corpuscular Volume 79.3 fL (80.0-100.0); Potassium 3.4 mmol/L (3.5-5.1); Red Blood Cells 4.25 10^6/uL (4.5-5.90); Red Cell Distribution Width 17.8 % (11.8-14.3); White Blood Cell 14.3 10^3/uL (4.4-10.8)
[2021-12-19 05:06] LABS: Calcium 8.2 mg/dL (8.5-10.1)
[2021-12-19 05:08] LABS: Basophils % (manual) 0 (0.0-2.0); Blast Cells 0; Metamyelocytes % 0; Promyelocytes % 0; Reactive Lymphocytes 0
[2021-12-19 06:14] LABS: Band Neutrophils % (manual) 4; Eosinophils % (manual) 1 (0-7); Lymphocytes % (manual) 9 (10.0-50.0); Monocytes % (manual) 4 (0-12); Myelocytes % 1
[2021-12-19] MEDS: BUDESONIDE (INHALATION) 0.5 MG/2 ML NEB NEB SCH ×2 (07:31→18:31)
[2021-12-19] MEDS: Ensure HIGH Protein Vanilla 8oz Bottle PO SCH ×4 (08:30→17:58)
[2021-12-19] MEDS: PANTOPRAZOLE 40 MG/10 ML VIAL INJ IV SCH (09:42)
[2021-12-19] MEDS: FLUCONAZOLE 200MG/100ML 100 ML IV SCH (09:42)
[2021-12-19] MEDS: ENOXAPARIN SOD 40 MG/0.4 ML SYRINGE SC SCH (09:42)
[2021-12-19] MEDS: SODIUM CHLOR 0.9% PF (SALINE LOCK) 10ML VIAL/SYR IV SCH (09:43)
[2021-12-19] MEDS: FLORASTOR (S. BOULARDII) 250 MG CAP PO SCH (09:44)
[2021-12-19] MEDS: POTASSIUM CHL 10MEQ/50ML 50 ML IV SCH ×4 (14:40→17:30)
[2021-12-20] VITALS (20 sets, daily range): BP systolic 135–170; BP diastolic 56–102
[2021-12-20] MEDS: LEVALBUTEROL HCL 1.25 MG/3 ML NEB NEB SCH ×4 (00:15→18:35)
[2021-12-20] MEDS: ACETYLCYSTEINE 10 %(100MG/ML) SOL 4ML NEB SCH ×4 (00:15→18:35)
[2021-12-20] MEDS: BUDESONIDE (INHALATION) 0.5 MG/2 ML NEB NEB SCH ×2 (08:31→18:35)
[2021-12-20] MEDS: Ensure HIGH Protein Vanilla 8oz Bottle PO SCH ×3 (09:54→18:00)
[2021-12-20] MEDS: FLORASTOR (S. BOULARDII) 250 MG CAP PO SCH (09:54)
[2021-12-20] MEDS: PANTOPRAZOLE 40 MG/10 ML VIAL INJ IV SCH (09:54)
[2021-12-20] MEDS: FLUCONAZOLE 200MG/100ML 100 ML IV SCH (09:54)
[2021-12-20] MEDS: ENOXAPARIN SOD 40 MG/0.4 ML SYRINGE SC SCH (09:55)
[2021-12-21] VITALS (24 sets, daily range): BP systolic 131–174; BP diastolic 65–113
[2021-12-21] MEDS: LEVALBUTEROL HCL 1.25 MG/3 ML NEB NEB SCH ×4 (00:15→19:20)
[2021-12-21] MEDS: ACETYLCYSTEINE 10 %(100MG/ML) SOL 4ML NEB SCH ×4 (00:30→19:20)
[2021-12-21] MEDS: Ensure HIGH Protein Vanilla 8oz Bottle PO SCH ×3 (08:00→18:00)
[2021-12-21] MEDS: BUDESONIDE (INHALATION) 0.5 MG/2 ML NEB NEB SCH ×2 (08:07→19:20)
[2021-12-21] MEDS: ENOXAPARIN SOD 40 MG/0.4 ML SYRINGE SC SCH (10:00)
[2021-12-21] MEDS: FLORASTOR (S. BOULARDII) 250 MG CAP PO SCH (10:00)
[2021-12-21] MEDS: FLUCONAZOLE 200MG/100ML 100 ML IV SCH (10:00)
[2021-12-21] MEDS: PANTOPRAZOLE 40 MG/10 ML VIAL INJ IV SCH (10:00)
[2021-12-21] MEDS: METOCLOPRAMIDE HCL 5MG/ml INJ 2ml VIAL IV PRN (15:10)
[2021-12-21] MEDS: fentaNYL 25MCG/HR 25 MCG/HR PAT TD SCH (15:18)
[2021-12-22] VITALS (22 sets, daily range): BP systolic 127–159; BP diastolic 28–109
[2021-12-22] MEDS: ACETYLCYSTEINE 10 %(100MG/ML) SOL 4ML NEB SCH ×4 (01:31→19:15)
[2021-12-22] MEDS: LEVALBUTEROL HCL 1.25 MG/3 ML NEB NEB SCH ×4 (01:31→19:15)
[2021-12-22] MEDS: Ensure HIGH Protein Vanilla 8oz Bottle PO SCH ×3 (08:00→18:00)
[2021-12-22] MEDS: BUDESONIDE (INHALATION) 0.5 MG/2 ML NEB NEB SCH ×2 (09:10→19:15)
[2021-12-22] MEDS: FLORASTOR (S. BOULARDII) 250 MG CAP PO SCH (10:21)
[2021-12-22] MEDS: FLUCONAZOLE 200MG/100ML 100 ML IV SCH (10:21)
[2021-12-22] MEDS: ENOXAPARIN SOD 40 MG/0.4 ML SYRINGE SC SCH (10:21)
[2021-12-22] MEDS: PANTOPRAZOLE 40 MG/10 ML VIAL INJ IV SCH (10:21)
[2021-12-22] MEDS ORDERED: MORPHINE SULFATE INJECTION 2 MG/ML SYRG IV PRN (12:00)
[2021-12-23] VITALS (23 sets, daily range): BP systolic 127–153; BP diastolic 90–108
[2021-12-23] MEDS: LEVALBUTEROL HCL 1.25 MG/3 ML NEB NEB SCH ×5 (03:06→23:32)
[2021-12-23] MEDS: ACETYLCYSTEINE 10 %(100MG/ML) SOL 4ML NEB SCH ×5 (03:07→23:32)
[2021-12-23] MEDS: Ensure HIGH Protein Vanilla 8oz Bottle PO SCH ×3 (08:00→18:00)
[2021-12-23 09:10] LABS: Eosinophils # (auto) 0.2 10 ^3/uL (0-0.8); Hemoglobin 12.2 g/dL (13.5-17.5); Lymphocytes # (auto) 1.7 10 ^3/uL (0.4-5.4); Monocytes % (auto) 10.2 % (0.0-12.0); Neutrophils # (auto) 10.7 10 ^3/uL (1.6-8.6); Nucleated Red Blood Cells % 0.1 %
[2021-12-23 09:11] LABS: Basophils # (auto) 0.1 10 ^3/uL (0-0.2); Basophils % (auto) 1.1 % (0.0-2.0); Eosinophils % (auto) 1.6 % (0.0-7.0); Lymphocytes % (auto) 12.3 % (10.0-50.0); Mean Corpuscular Hemoglobin 26.9 pg (28.0-32.0); Mean Corpuscular Volume 79.2 fL (80.0-100.0); Monocytes # (auto) 1.4 10 ^3/uL (0-1.3); Neutrophils % (auto) 74.8 % (37.0-80.0); Red Blood Cells 4.54 10^6/uL (4.5-5.90); Red Cell Distribution Width 17.7 % (11.8-14.3); White Blood Cell 14.2 10^3/uL (4.4-10.8)
[2021-12-23 09:32] LABS: Calcium 8.5 mg/dL (8.5-10.1)
[2021-12-23] MEDS: ENOXAPARIN SOD 40 MG/0.4 ML SYRINGE SC SCH (09:32)
[2021-12-23] MEDS: PANTOPRAZOLE 40 MG TAB PO SCH (09:33)
[2021-12-23 09:37] LABS: Potassium 2.9 mmol/L (3.5-5.1)
[2021-12-23] MEDS ORDERED: MAGNESIUM OXIDE 400 MG TAB PO ONE (11:15)
[2021-12-23] MEDS ORDERED: POTASSIUM CHL 20 Meq TABLET PO ONE (11:15)
[2021-12-23] MEDS ORDERED: POTASSIUM EFFERVESENT TAB 25 MEQ PO ONE (12:00)
[2021-12-23] MEDS: BUDESONIDE (INHALATION) 0.5 MG/2 ML NEB NEB SCH ×2 (14:28→18:55)
[2021-12-23] MEDS ORDERED: MELATONIN 6 MG PO PRN ×2 (16:30)
[2021-12-23] MEDS ORDERED: traZODone HCL 50 MG TAB PO SCH (22:00)
[2021-12-23] MEDS: ACETAMINOPHEN 325 MG TAB PO PRN (22:42)
[2021-12-24] VITALS (17 sets, daily range): BP systolic 126–151; BP diastolic 81–105
[2021-12-24] MEDS: Ensure HIGH Protein Vanilla 8oz Bottle PO SCH ×3 (08:00→18:00)
[2021-12-24 08:12] LABS: Basophils # (auto) 0.1 10 ^3/uL (0-0.2); Hemoglobin 11.9 g/dL (13.5-17.5); Monocytes # (auto) 1.4 10 ^3/uL (0-1.3)
[2021-12-24 08:14] LABS: Basophils % (auto) 1.2 % (0.0-2.0); Eosinophils # (auto) 0.2 10 ^3/uL (0-0.8); Eosinophils % (auto) 1.8 % (0.0-7.0); Hematocrit 36.4 % (41.0-53.0); Lymphocytes # (auto) 2.1 10 ^3/uL (0.4-5.4); Lymphocytes % (auto) 17.3 % (10.0-50.0); Mean Corpuscular Hemoglobin 26.1 pg (28.0-32.0); Mean Corpuscular Hgb Conc. 32.8 g/dL (32.0-36.0); Mean Corpuscular Volume 79.5 fL (80.0-100.0); Monocytes % (auto) 11.5 % (0.0-12.0); Neutrophils # (auto) 8.3 10 ^3/uL (1.6-8.6); Neutrophils % (auto) 68.2 % (37.0-80.0); Red Blood Cells 4.58 10^6/uL (4.5-5.90); White Blood Cell 12.2 10^3/uL (4.4-10.8)
[2021-12-24 08:27] LABS: Calcium 8.3 mg/dL (8.5-10.1); Magnesium 1.9 mg/dL (1.6-2.6); Phosphorus 4.3 mg/dL (2.5-4.90)
[2021-12-24 08:36] LABS: Potassium 3.7 mmol/L (3.5-5.1)
[2021-12-24] MEDS: ENOXAPARIN SOD 40 MG/0.4 ML SYRINGE SC SCH (10:00)
[2021-12-24] MEDS: PANTOPRAZOLE 40 MG TAB PO SCH (10:00)
[2021-12-24] MEDS: fentaNYL 25MCG/HR 25 MCG/HR PAT TD SCH (14:00)
[2021-12-24] MEDS ORDERED: METOPROLOL TARTRATE 1MG/1ML-5ML VIAL IV ONE (15:15)
[2021-12-24] MEDS: ACETYLCYSTEINE 10 %(100MG/ML) SOL 4ML NEB SCH ×4 (16:33→22:24)
[2021-12-24] MEDS: BUDESONIDE (INHALATION) 0.5 MG/2 ML NEB NEB SCH (16:34)
[2021-12-24] MEDS: LEVALBUTEROL HCL 1.25 MG/3 ML NEB NEB SCH ×3 (16:34→22:23)
[2021-12-24] MEDS ORDERED: MAGNESIUM OXIDE 400 MG TAB PO ONE (16:45)
[2021-12-24] MEDS ORDERED: POTASSIUM CHL 10MEQ/50ML 50 ML IV ONE (16:45)
[2021-12-24] MEDS: METOPROLOL TARTRATE 1MG/1ML-5ML VIAL IV SCH (22:43)
[2021-12-24] MEDS: traZODone HCL 50 MG TAB PO PRN (22:44)
[2021-12-24] MEDS: ACETAMINOPHEN 325 MG TAB PO PRN (22:45)
[2021-12-25] VITALS: BP 140/96
[2021-12-25] MEDS: BUDESONIDE (INHALATION) 0.5 MG/2 ML NEB NEB SCH ×3 (02:23→18:34)
[2021-12-25] MEDS: ACETYLCYSTEINE 10 %(100MG/ML) SOL 4ML NEB SCH ×3 (06:10→18:33)
[2021-12-25] MEDS: LEVALBUTEROL HCL 1.25 MG/3 ML NEB NEB SCH ×3 (06:10→18:34)
[2021-12-25] MEDS: Ensure HIGH Protein Vanilla 8oz Bottle PO SCH ×3 (08:00→18:00)
[2021-12-25 09:00] VITALS: BP 121/80
[2021-12-25 09:35] LABS: Eosinophils # (auto) 0.2 10 ^3/uL (0-0.8); Eosinophils % (auto) 1.4 % (0.0-7.0); Hemoglobin 12.1 g/dL (13.5-17.5)
[2021-12-25 09:36] LABS: Basophils # (auto) 0.1 10 ^3/uL (0-0.2); Lymphocytes # (auto) 1.6 10 ^3/uL (0.4-5.4); Lymphocytes % (auto) 12.2 % (10.0-50.0); Mean Corpuscular Hemoglobin 26.7 pg (28.0-32.0); Mean Corpuscular Hgb Conc. 33.5 g/dL (32.0-36.0); Mean Corpuscular Volume 79.8 fL (80.0-100.0); Monocytes # (auto) 1.4 10 ^3/uL (0-1.3); Monocytes % (auto) 10.6 % (0.0-12.0); Neutrophils # (auto) 9.6 10 ^3/uL (1.6-8.6); Neutrophils % (auto) 74.8 % (37.0-80.0); Nucleated Red Blood Cells % 0.2 %; Red Blood Cells 4.51 10^6/uL (4.5-5.90); Red Cell Distribution Width 17.9 % (11.8-14.3); White Blood Cell 12.9 10^3/uL (4.4-10.8)
[2021-12-25] MEDS: PANTOPRAZOLE 40 MG TAB PO SCH (09:47)
[2021-12-25] MEDS: ENOXAPARIN SOD 40 MG/0.4 ML SYRINGE SC SCH (09:47)
[2021-12-25] MEDS: MAGNESIUM OXIDE 400 MG TAB PO SCH (09:47)
[2021-12-25 09:49] LABS: BUN/Creatinine Ratio 8.3; Calcium 8.1 mg/dL (8.5-10.1); Magnesium 2.2 mg/dL (1.6-2.6); Potassium 3.4 mmol/L (3.5-5.1)
[2021-12-25 10:00] VITALS: BP 123/88
[2021-12-25] MEDS: METOPROLOL TARTRATE 1MG/1ML-5ML VIAL IV SCH (10:06)
[2021-12-25 12:00] VITALS: BP 127/77
[2021-12-25 17:00] VITALS: BP 143/95
[2021-12-25] MEDS: POTASSIUM CHL 10MEQ/50ML 50 ML IV SCH ×4 (17:05→22:00)
[2021-12-25 22:00] VITALS: BP 142/94
[2021-12-25] MEDS: METOPROLOL TARTRATE 50 MG TAB PO SCH (22:00)
[2021-12-26] VITALS: BP 120/82
[2021-12-26] MEDS: ACETYLCYSTEINE 10 %(100MG/ML) SOL 4ML NEB SCH ×4 (00:03→19:15)
[2021-12-26] MEDS: LEVALBUTEROL HCL 1.25 MG/3 ML NEB NEB SCH ×4 (00:03→19:15)
[2021-12-26 04:00] VITALS: BP 117/74
[2021-12-26 07:55] LABS: Eosinophils # (auto) 0.2 10 ^3/uL (0-0.8); Hemoglobin 11.8 g/dL (13.5-17.5)
[2021-12-26 07:57] LABS: Basophils # (auto) 0.1 10 ^3/uL (0-0.2); Basophils % (auto) 0.4 % (0.0-2.0); Eosinophils % (auto) 0.8 % (0.0-7.0); Hematocrit 35.7 % (41.0-53.0); Lymphocytes # (auto) 1.4 10 ^3/uL (0.4-5.4); Lymphocytes % (auto) 6.1 % (10.0-50.0); Mean Corpuscular Hemoglobin 26.6 pg (28.0-32.0); Mean Corpuscular Hgb Conc. 33.1 g/dL (32.0-36.0); Mean Corpuscular Volume 80.3 fL (80.0-100.0); Monocytes # (auto) 1.8 10 ^3/uL (0-1.3); Monocytes % (auto) 7.9 % (0.0-12.0); Neutrophils # (auto) 19.1 10 ^3/uL (1.6-8.6); Neutrophils % (auto) 84.8 % (37.0-80.0); Red Blood Cells 4.45 10^6/uL (4.5-5.90); Red Cell Distribution Width 18.2 % (11.8-14.3); White Blood Cell 22.6 10^3/uL (4.4-10.8)
[2021-12-26 07:59] LABS: Calcium 8.2 mg/dL (8.5-10.1); Potassium 3.7 mmol/L (3.5-5.1)
[2021-12-26] MEDS: Ensure HIGH Protein Vanilla 8oz Bottle PO SCH ×3 (08:00→18:00)
[2021-12-26 08:02] LABS: Albumin 2.3 g/dL (3.4-5.0); BUN/Creatinine Ratio 6.7
[2021-12-26 08:10] LABS: Bilirubin, Total 0.4 mg/dL (0.2-1.0); Total Protein 5.6 g/dL (6.4-8.2)
[2021-12-26] MEDS: BUDESONIDE (INHALATION) 0.5 MG/2 ML NEB NEB SCH ×3 (10:00→19:15)
[2021-12-26] MEDS: MAGNESIUM OXIDE 400 MG TAB PO SCH (10:59)
[2021-12-26] MEDS: METOPROLOL TARTRATE 50 MG TAB PO SCH ×2 (10:59→22:20)
[2021-12-26] MEDS: ENOXAPARIN SOD 40 MG/0.4 ML SYRINGE SC SCH (11:00)
[2021-12-26] MEDS ORDERED: VANCOMYCIN 1GM/250ML 250 ML IV ONE (11:00)
[2021-12-26] MEDS: PANTOPRAZOLE 40 MG TAB PO SCH (11:00)
[2021-12-26] MEDS ORDERED: PIPERACILLIN-TAZO 4.5GM 100 ML IV ONE (11:00)
[2021-12-26 20:00] VITALS: BP 126/88
[2021-12-27] VITALS: BP 121/77
[2021-12-27] MEDS: LEVALBUTEROL HCL 1.25 MG/3 ML NEB NEB SCH ×5 (00:08→23:43)
[2021-12-27] MEDS: ACETYLCYSTEINE 10 %(100MG/ML) SOL 4ML NEB SCH ×5 (00:08→23:43)
[2021-12-27 04:00] VITALS: BP 132/82
[2021-12-27] MEDS: BUDESONIDE (INHALATION) 0.5 MG/2 ML NEB NEB SCH ×2 (06:16→18:20)
[2021-12-27] MEDS: Ensure HIGH Protein Vanilla 8oz Bottle PO SCH ×3 (08:00→18:00)
[2021-12-27 08:34] LABS: Albumin 2.1 g/dL (3.4-5.0); Calcium 7.6 mg/dL (8.5-10.1); Potassium 3.5 mmol/L (3.5-5.1)
[2021-12-27 08:38] LABS: Hematocrit 36.6 % (41.0-53.0); Hemoglobin 11.8 g/dL (13.5-17.5); Mean Corpuscular Hgb Conc. 32.4 g/dL (32.0-36.0); Mean Corpuscular Volume 80.2 fL (80.0-100.0); Red Blood Cells 4.56 10^6/uL (4.5-5.90); Red Cell Distribution Width 18.3 % (11.8-14.3); White Blood Cell 16.8 10^3/uL (4.4-10.8)
[2021-12-27 08:42] LABS: Band Neutrophils % (manual) 0; Basophils % (manual) 0 (0.0-2.0); Blast Cells 0; Metamyelocytes % 0; Myelocytes % 0; Promyelocytes % 0
[2021-12-27 08:43] LABS: BUN/Creatinine Ratio 16.7; Bilirubin, Total 0.4 mg/dL (0.2-1.0); CRP High Sensitivity 3.89 mg/dL (< 0.3); Total Protein 5.7 g/dL (6.4-8.2)
[2021-12-27 10:00] VITALS: BP 132/82
[2021-12-27] MEDS: PANTOPRAZOLE 40 MG TAB PO SCH (10:19)
[2021-12-27] MEDS: ENOXAPARIN SOD 40 MG/0.4 ML SYRINGE SC SCH (10:19)
[2021-12-27] MEDS: MAGNESIUM OXIDE 400 MG TAB PO SCH (10:19)
[2021-12-27] MEDS: METOPROLOL TARTRATE 50 MG TAB PO SCH ×2 (10:20→21:23)
[2021-12-27 12:46] LABS: Eosinophils % (manual) 2 (0-7); Lymphocytes % (manual) 13 (10.0-50.0); Monocytes % (manual) 16 (0-12); Reactive Lymphocytes 2
[2021-12-27] MEDS: fentaNYL 25MCG/HR 25 MCG/HR PAT TD SCH (15:21)
[2021-12-28] MEDS: BUDESONIDE (INHALATION) 0.5 MG/2 ML NEB NEB SCH ×2 (06:29→18:43)
[2021-12-28] MEDS: LEVALBUTEROL HCL 1.25 MG/3 ML NEB NEB SCH ×4 (06:29→23:34)
[2021-12-28] MEDS: ACETYLCYSTEINE 10 %(100MG/ML) SOL 4ML NEB SCH ×4 (06:29→23:34)
[2021-12-28 07:01] LABS: Eosinophils # (auto) 0.5 10 ^3/uL (0-0.8); Hematocrit 34.9 % (41.0-53.0); Lymphocytes # (auto) 1.9 10 ^3/uL (0.4-5.4); Neutrophils # (auto) 7.2 10 ^3/uL (1.6-8.6); Nucleated Red Blood Cells % 0.1 %
[2021-12-28 07:03] LABS: Basophils # (auto) 0.2 10 ^3/uL (0-0.2); Basophils % (auto) 1.4 % (0.0-2.0); Eosinophils % (auto) 4.6 % (0.0-7.0); Hemoglobin 11.5 g/dL (13.5-17.5); Lymphocytes % (auto) 16.9 % (10.0-50.0); Mean Corpuscular Hemoglobin 26.5 pg (28.0-32.0); Mean Corpuscular Hgb Conc. 33.1 g/dL (32.0-36.0); Mean Corpuscular Volume 80.3 fL (80.0-100.0); Monocytes # (auto) 1.3 10 ^3/uL (0-1.3); Monocytes % (auto) 11.7 % (0.0-12.0); Neutrophils % (auto) 65.4 % (37.0-80.0); Red Blood Cells 4.35 10^6/uL (4.5-5.90); Red Cell Distribution Width 17.8 % (11.8-14.3)
[2021-12-28 07:10] LABS: Albumin 2.1 g/dL (3.4-5.0); Calcium 8.3 mg/dL (8.5-10.1); Potassium 3.6 mmol/L (3.5-5.1)
[2021-12-28 07:13] LABS: Bilirubin, Total 0.4 mg/dL (0.2-1.0); Total Protein 5.5 g/dL (6.4-8.2)
[2021-12-28] MEDS: Ensure HIGH Protein Vanilla 8oz Bottle PO SCH ×3 (08:00→18:00)
[2021-12-28] MEDS: MAGNESIUM OXIDE 400 MG TAB PO SCH (10:08)
[2021-12-28] MEDS: METOPROLOL TARTRATE 50 MG TAB PO SCH ×2 (10:08→22:00)
[2021-12-28] MEDS: PANTOPRAZOLE 40 MG TAB PO SCH (10:08)
[2021-12-28] MEDS: ENOXAPARIN SOD 40 MG/0.4 ML SYRINGE SC SCH (10:09)
[2021-12-28 12:00] VITALS: BP 125/88
[2021-12-28 17:00] VITALS: BP 118/72
[2021-12-28] MEDS: CEPHALEXIN 250 MG CAP PO SCH ×2 (17:25→22:00)
[2021-12-29] MEDS: BUDESONIDE (INHALATION) 0.5 MG/2 ML NEB NEB SCH ×2 (05:52→18:46)
[2021-12-29] MEDS: ACETYLCYSTEINE 10 %(100MG/ML) SOL 4ML NEB SCH ×3 (05:52→18:46)
[2021-12-29] MEDS: LEVALBUTEROL HCL 1.25 MG/3 ML NEB NEB SCH ×3 (05:52→18:46)
[2021-12-29] MEDS: CEPHALEXIN 250 MG CAP PO SCH ×4 (06:00→21:58)
[2021-12-29] MEDS: Ensure HIGH Protein Vanilla 8oz Bottle PO SCH ×3 (08:00→17:19)
[2021-12-29] MEDS: PANTOPRAZOLE 40 MG TAB PO SCH (09:45)
[2021-12-29] MEDS: ENOXAPARIN SOD 40 MG/0.4 ML SYRINGE SC SCH (09:45)
[2021-12-29] MEDS: MAGNESIUM OXIDE 400 MG TAB PO SCH (09:45)
[2021-12-29] MEDS: METOPROLOL TARTRATE 50 MG TAB PO SCH ×2 (09:45→21:58)
[2021-12-29 09:46] LABS: Basophils # (auto) 0.1 10 ^3/uL (0-0.2); Basophils % (auto) 0.7 % (0.0-2.0); Eosinophils # (auto) 0.3 10 ^3/uL (0-0.8); Eosinophils % (auto) 2.3 % (0.0-7.0); Hematocrit 36.6 % (41.0-53.0); Hemoglobin 11.9 g/dL (13.5-17.5); Lymphocytes # (auto) 1.6 10 ^3/uL (0.4-5.4); Lymphocytes % (auto) 11.2 % (10.0-50.0); Mean Corpuscular Hgb Conc. 32.4 g/dL (32.0-36.0); Mean Corpuscular Volume 80.3 fL (80.0-100.0); Monocytes # (auto) 1.1 10 ^3/uL (0-1.3); Monocytes % (auto) 8.1 % (0.0-12.0); Neutrophils % (auto) 77.7 % (37.0-80.0); Nucleated Red Blood Cells % 0.1 %; Red Blood Cells 4.55 10^6/uL (4.5-5.90); Red Cell Distribution Width 17.6 % (11.8-14.3); White Blood Cell 14.1 10^3/uL (4.4-10.8)
[2021-12-29 10:00] VITALS: BP 121/78
[2021-12-29 10:11] LABS: BUN/Creatinine Ratio 5.9; Calcium 8.5 mg/dL (8.5-10.1); Potassium 3.2 mmol/L (3.5-5.1)
[2021-12-29 11:29] VITALS: BP 120/78
[2021-12-29 20:30] VITALS: BP 139/91
[2021-12-30] MEDS: ACETYLCYSTEINE 10 %(100MG/ML) SOL 4ML NEB SCH ×5 (03:07→23:44)
[2021-12-30] MEDS: LEVALBUTEROL HCL 1.25 MG/3 ML NEB NEB SCH ×5 (03:07→23:44)
[2021-12-30] MEDS: BUDESONIDE (INHALATION) 0.5 MG/2 ML NEB NEB SCH ×2 (07:08→18:46)
[2021-12-30 07:15] VITALS: BP 124/71
[2021-12-30] MEDS: Ensure HIGH Protein Vanilla 8oz Bottle PO SCH ×3 (08:28→17:33)
[2021-12-30] MEDS: MAGNESIUM OXIDE 400 MG TAB PO SCH (09:03)
[2021-12-30] MEDS: ENOXAPARIN SOD 40 MG/0.4 ML SYRINGE SC SCH (09:03)
[2021-12-30] MEDS: METOPROLOL TARTRATE 50 MG TAB PO SCH ×2 (09:03→21:13)
[2021-12-30] MEDS: PANTOPRAZOLE 40 MG TAB PO SCH (09:03)
[2021-12-30 09:45] LABS: Hematocrit 36.6 % (41.0-53.0); Mean Corpuscular Hemoglobin 26.1 pg (28.0-32.0); Mean Corpuscular Hgb Conc. 32.8 g/dL (32.0-36.0); Mean Corpuscular Volume 79.8 fL (80.0-100.0); Red Blood Cells 4.58 10^6/uL (4.5-5.90); Red Cell Distribution Width 17.5 % (11.8-14.3); White Blood Cell 24.2 10^3/uL (4.4-10.8)
[2021-12-30 09:53] LABS: Basophils % (manual) 0 (0.0-2.0); Blast Cells 0; Metamyelocytes % 0; Promyelocytes % 0
[2021-12-30] MEDS ORDERED: POTASSIUM CHL 20 Meq TABLET PO ONE (10:00)
[2021-12-30 10:35] LABS: Albumin 2.2 g/dL (3.4-5.0); Calcium 7.9 mg/dL (8.5-10.1); Potassium 3.5 mmol/L (3.5-5.1)
[2021-12-30 10:40] LABS: BUN/Creatinine Ratio 6.3; Bilirubin, Total 0.4 mg/dL (0.2-1.0); Total Protein 5.9 g/dL (6.4-8.2)
[2021-12-30 11:07] LABS: Band Neutrophils % (manual) 1; Eosinophils % (manual) 2 (0-7); Lymphocytes % (manual) 8 (10.0-50.0); Monocytes % (manual) 8 (0-12); Myelocytes % 1; Reactive Lymphocytes 1
[2021-12-30] MEDS ORDERED: VANCOMYCIN PER PHARMACY 0 MG IV SCH (11:15)
[2021-12-30 12:00] VITALS: BP 132/69
[2021-12-30] MEDS: fentaNYL 25MCG/HR 25 MCG/HR PAT TD SCH (13:07)
[2021-12-30] MEDS: VANCOMYCIN 1GM/250ML 250 ML IV SCH ×2 (13:07→21:12)
[2021-12-30 13:26] LABS: Urine Bacteria NONE SEEN /hpf (None Seen); Urine Blood Negative /uL (Negative); Urine Specific Gravity 1.002 (1.001-1.035); Urine WBC 1 /hpf (0 - 3)
[2021-12-30 15:00] VITALS: BP 119/70
[2021-12-30 19:30] VITALS: BP 110/76
[2021-12-31] MEDS: VANCOMYCIN 1GM/250ML 250 ML IV SCH ×2 (04:34→14:02)
[2021-12-31 07:08] LABS: Hematocrit 35.5 % (41.0-53.0); Hemoglobin 11.9 g/dL (13.5-17.5); Mean Corpuscular Hemoglobin 26.8 pg (28.0-32.0); Mean Corpuscular Hgb Conc. 33.6 g/dL (32.0-36.0); Mean Corpuscular Volume 79.6 fL (80.0-100.0); Red Blood Cells 4.46 10^6/uL (4.5-5.90); Red Cell Distribution Width 17.7 % (11.8-14.3); White Blood Cell 15.3 10^3/uL (4.4-10.8)
[2021-12-31 07:18] LABS: Basophils % (manual) 0 (0.0-2.0); Blast Cells 0; Reactive Lymphocytes 0
[2021-12-31 07:31] LABS: BUN/Creatinine Ratio 4.2; Calcium 8.3 mg/dL (8.5-10.1); Potassium 3.6 mmol/L (3.5-5.1)
[2021-12-31 08:00] VITALS: BP 144/88
[2021-12-31] MEDS: Ensure HIGH Protein Vanilla 8oz Bottle PO SCH ×3 (08:00→18:00)
[2021-12-31] MEDS: LEVALBUTEROL HCL 1.25 MG/3 ML NEB NEB SCH ×4 (08:35→23:05)
[2021-12-31] MEDS: BUDESONIDE (INHALATION) 0.5 MG/2 ML NEB NEB SCH ×2 (08:35→18:39)
[2021-12-31] MEDS: ACETYLCYSTEINE 10 %(100MG/ML) SOL 4ML NEB SCH ×4 (08:35→23:05)
[2021-12-31 08:49] LABS: Band Neutrophils % (manual) 1; Eosinophils % (manual) 5 (0-7); Lymphocytes % (manual) 8 (10.0-50.0); Metamyelocytes % 1; Monocytes % (manual) 9 (0-12); Myelocytes % 1; Promyelocytes % 1
[2021-12-31] MEDS: ENOXAPARIN SOD 40 MG/0.4 ML SYRINGE SC SCH (10:06)
[2021-12-31] MEDS: PANTOPRAZOLE 40 MG TAB PO SCH (10:06)
[2021-12-31] MEDS: METOPROLOL TARTRATE 50 MG TAB PO SCH ×2 (10:39→22:55)
[2021-12-31 12:00] VITALS: BP 124/85
[2021-12-31 15:07] LABS: Magnesium 2.2 mg/dL (1.6-2.6); Phosphorus 4.5 mg/dL (2.5-4.90)
[2021-12-31 16:00] VITALS: BP 121/81
[2021-12-31 20:00] VITALS: BP 132/93
[2021-12-31 23:00] VITALS: BP 134/96
[2022-01-01 02:00] VITALS: BP 130/88
[2022-01-01] MEDS: Ensure HIGH Protein Vanilla 8oz Bottle PO SCH ×3 (08:00→18:00)
[2022-01-01 08:01] LABS: Hematocrit 36.5 % (41.0-53.0); Hemoglobin 11.8 g/dL (13.5-17.5); Mean Corpuscular Hemoglobin 25.7 pg (28.0-32.0); Mean Corpuscular Hgb Conc. 32.4 g/dL (32.0-36.0); Mean Corpuscular Volume 79.2 fL (80.0-100.0); Red Blood Cells 4.61 10^6/uL (4.5-5.90); Red Cell Distribution Width 17.5 % (11.8-14.3); White Blood Cell 18.4 10^3/uL (4.4-10.8)
[2022-01-01 08:14] LABS: BUN/Creatinine Ratio 4.8; Calcium 8.4 mg/dL (8.5-10.1); Potassium 3.8 mmol/L (3.5-5.1)
[2022-01-01 08:19] LABS: Band Neutrophils % (manual) 0; Basophils % (manual) 0 (0.0-2.0); Blast Cells 0; Metamyelocytes % 0; Myelocytes % 0; Promyelocytes % 0; Reactive Lymphocytes 0
[2022-01-01] MEDS: BUDESONIDE (INHALATION) 0.5 MG/2 ML NEB NEB SCH ×2 (08:59→18:50)
[2022-01-01 09:00] VITALS: BP 129/94
[2022-01-01] MEDS: LEVALBUTEROL HCL 1.25 MG/3 ML NEB NEB SCH ×3 (09:00→18:50)
[2022-01-01] MEDS: ACETYLCYSTEINE 10 %(100MG/ML) SOL 4ML NEB SCH ×3 (09:00→18:50)
[2022-01-01] MEDS: VANCOMYCIN 1GM/250ML 250 ML IV SCH ×2 (10:16)
[2022-01-01] MEDS: METOPROLOL TARTRATE 50 MG TAB PO SCH ×2 (10:16→22:31)
[2022-01-01] MEDS: ENOXAPARIN SOD 40 MG/0.4 ML SYRINGE SC SCH (10:16)
[2022-01-01] MEDS: PANTOPRAZOLE 40 MG TAB PO SCH (10:16)
[2022-01-01 12:00] VITALS: BP 130/85
[2022-01-01] MEDS ORDERED: CYANOCOBALAMIN 500 MCG TAB PO ONE (13:00)
[2022-01-01] MEDS ORDERED: MULTIPLE VITAMINS W/ MINERALS TAB PO ONE (13:00)
[2022-01-01 14:53] LABS: Eosinophils % (manual) 2 (0-7); Lymphocytes % (manual) 16 (10.0-50.0); Monocytes % (manual) 6 (0-12)
[2022-01-01 18:00] VITALS: BP 121/82
[2022-01-01 20:00] VITALS: BP 123/83
[2022-01-01] MEDS: METOCLOPRAMIDE HCL 5MG/ml INJ 2ml VIAL IV PRN (22:31)
[2022-01-01] MEDS: ONDANSETRON HCL 4 MG/2 ML VIAL IV PRN (22:32)
[2022-01-02] VITALS: BP 130/88
[2022-01-02] MEDS: ACETYLCYSTEINE 10 %(100MG/ML) SOL 4ML NEB SCH ×2 (00:54→07:58)
[2022-01-02] MEDS: LEVALBUTEROL HCL 1.25 MG/3 ML NEB NEB SCH ×2 (00:55→07:58)
[2022-01-02 04:00] VITALS: BP 111/81
[2022-01-02 07:47] LABS: Hematocrit 34.1 % (41.0-53.0)
[2022-01-02 07:48] LABS: Hemoglobin 11.4 g/dL (13.5-17.5); Mean Corpuscular Hemoglobin 26.8 pg (28.0-32.0); Mean Corpuscular Hgb Conc. 33.5 g/dL (32.0-36.0); Mean Corpuscular Volume 80.1 fL (80.0-100.0); Red Blood Cells 4.26 10^6/uL (4.5-5.90); Red Cell Distribution Width 17.8 % (11.8-14.3); White Blood Cell 26.4 10^3/uL (4.4-10.8)
[2022-01-02 07:50] LABS: Basophils % (manual) 0 (0.0-2.0); Blast Cells 0; Metamyelocytes % 0; Myelocytes % 0; Promyelocytes % 0; Reactive Lymphocytes 0
[2022-01-02 07:52] LABS: BUN/Creatinine Ratio 8.8; Calcium 7.9 mg/dL (8.5-10.1); Potassium 3.7 mmol/L (3.5-5.1)
[2022-01-02] MEDS: Ensure HIGH Protein Vanilla 8oz Bottle PO SCH ×3 (08:00→17:29)
[2022-01-02] MEDS: BUDESONIDE (INHALATION) 0.5 MG/2 ML NEB NEB SCH (08:01)
[2022-01-02] MEDS: levoFLOXacin 250 MG TAB PO SCH (09:11)
[2022-01-02] MEDS: CYANOCOBALAMIN 500 MCG TAB PO SCH (09:12)
[2022-01-02] MEDS: MULTIPLE VITAMINS W/ MINERALS TAB PO SCH (09:12)
[2022-01-02] MEDS: PANTOPRAZOLE 40 MG TAB PO SCH (09:13)
[2022-01-02] MEDS: ENOXAPARIN SOD 40 MG/0.4 ML SYRINGE SC SCH (09:13)
[2022-01-02 10:31] LABS: Band Neutrophils % (manual) 3; Eosinophils % (manual) 1 (0-7); Lymphocytes % (manual) 9 (10.0-50.0); Monocytes % (manual) 9 (0-12)
[2022-01-02] MEDS: fentaNYL 25MCG/HR 25 MCG/HR PAT TD SCH (14:00)
[2022-01-02] MEDS: METOPROLOL TARTRATE 50 MG TAB PO SCH ×2 (16:30→23:30)
[2022-01-02] MEDS ORDERED: IOHEXOL 300 MG/ML 100ML BOTTLE IJ ONE (16:32)
[2022-01-02] MEDS: ACETYLCYSTEINE 10 %(100MG/ML) SOL 4ML NEB PRN (18:43)
[2022-01-02] MEDS: LEVALBUTEROL HCL 1.25 MG/3 ML NEB NEB PRN (18:43)
[2022-01-02 20:00] VITALS: BP 103/63
[2022-01-02] MEDS: ACETAMINOPHEN 325 MG TAB PO PRN (20:49)
[2022-01-03] MEDS: ACETYLCYSTEINE 10 %(100MG/ML) SOL 4ML NEB PRN (00:04)
[2022-01-03] MEDS: LEVALBUTEROL HCL 1.25 MG/3 ML NEB NEB PRN (00:04)
[2022-01-03 01:00] VITALS: BP 108/61
[2022-01-03 07:45] LABS: Hemoglobin 11.2 g/dL (13.5-17.5); Monocytes # (auto) 1.6 10 ^3/uL (0-1.3); Red Cell Distribution Width 17.5 % (11.8-14.3)
[2022-01-03 07:47] LABS: Basophils # (auto) 0.1 10 ^3/uL (0-0.2); Basophils % (auto) 0.5 % (0.0-2.0); Eosinophils # (auto) 0.2 10 ^3/uL (0-0.8); Hematocrit 34.3 % (41.0-53.0); Lymphocytes % (auto) 10.8 % (10.0-50.0); Mean Corpuscular Hemoglobin 26.3 pg (28.0-32.0); Mean Corpuscular Hgb Conc. 32.7 g/dL (32.0-36.0); Mean Corpuscular Volume 80.5 fL (80.0-100.0); Monocytes % (auto) 8.9 % (0.0-12.0); Neutrophils # (auto) 14.5 10 ^3/uL (1.6-8.6); Neutrophils % (auto) 78.8 % (37.0-80.0); Nucleated Red Blood Cells % 0.1 %; Red Blood Cells 4.26 10^6/uL (4.5-5.90); White Blood Cell 18.4 10^3/uL (4.4-10.8)
[2022-01-03 07:57] LABS: BUN/Creatinine Ratio 9.5; Calcium 8.2 mg/dL (8.5-10.1); Potassium 3.6 mmol/L (3.5-5.1)
[2022-01-03 08:00] VITALS: BP 110/78
[2022-01-03] MEDS: Ensure HIGH Protein Vanilla 8oz Bottle PO SCH ×3 (08:00→09:08)
[2022-01-03] MEDS: ACETAMINOPHEN 325 MG TAB PO PRN ×2 (10:00→22:12)
[2022-01-03] MEDS: MULTIPLE VITAMINS W/ MINERALS TAB PO SCH (10:00)
[2022-01-03] MEDS: METOPROLOL TARTRATE 50 MG TAB PO SCH ×2 (10:00→22:10)
[2022-01-03] MEDS: CYANOCOBALAMIN 500 MCG TAB PO SCH (10:00)
[2022-01-03] MEDS: ENOXAPARIN SOD 40 MG/0.4 ML SYRINGE SC SCH (10:00)
[2022-01-03] MEDS: levoFLOXacin 250 MG TAB PO SCH (10:00)
[2022-01-03] MEDS: PANTOPRAZOLE 40 MG TAB PO SCH (10:00)
[2022-01-03 12:00] VITALS: BP 100/68
[2022-01-03 16:00] VITALS: BP 116/80
[2022-01-03 20:30] VITALS: BP 111/71
[2022-01-03] MEDS ORDERED: LORazepam 2MG/ML-1ML VIAL IV PRN (21:15)
[2022-01-03] MEDS: METOCLOPRAMIDE HCL 5MG/ml INJ 2ml VIAL IV PRN (22:10)
[2022-01-03] MEDS: traZODone HCL 50 MG TAB PO PRN (22:11)
[2022-01-04] MEDS: LEVALBUTEROL HCL 1.25 MG/3 ML NEB NEB PRN (00:50)
[2022-01-04 01:00] VITALS: BP 111/63
[2022-01-04 02:07] VITALS: BP 106/63
[2022-01-04 03:45] VITALS: BP 120/64
[2022-01-04 04:57] LABS: BUN/Creatinine Ratio 9.5; Hemoglobin 10.8 g/dL (13.5-17.5); Mean Corpuscular Volume 80.4 fL (80.0-100.0); Potassium 3.6 mmol/L (3.5-5.1)
[2022-01-04 04:59] LABS: Hematocrit 32.5 % (41.0-53.0); Mean Corpuscular Hemoglobin 26.8 pg (28.0-32.0); Mean Corpuscular Hgb Conc. 33.4 g/dL (32.0-36.0); Red Blood Cells 4.04 10^6/uL (4.5-5.90); Red Cell Distribution Width 17.6 % (11.8-14.3); White Blood Cell 13.6 10^3/uL (4.4-10.8)
[2022-01-04 05:03] LABS: Band Neutrophils % (manual) 0; Basophils % (manual) 0 (0.0-2.0); Blast Cells 0; Metamyelocytes % 0; Myelocytes % 0; Promyelocytes % 0; Reactive Lymphocytes 0
[2022-01-04 06:58] LABS: Eosinophils % (manual) 3 (0-7); Lymphocytes % (manual) 20 (10.0-50.0); Monocytes % (manual) 8 (0-12)
[2022-01-04] MEDS: Ensure HIGH Protein Vanilla 8oz Bottle PO SCH ×3 (07:42→07:44)
[2022-01-04 08:00] VITALS: BP 131/79
[2022-01-04] MEDS: METOPROLOL TARTRATE 50 MG TAB PO SCH ×2 (08:00→22:00)
[2022-01-04] MEDS: MULTIPLE VITAMINS W/ MINERALS TAB PO SCH (08:21)
[2022-01-04] MEDS: PANTOPRAZOLE 40 MG TAB PO SCH (08:21)
[2022-01-04] MEDS: CYANOCOBALAMIN 500 MCG TAB PO SCH (08:21)
[2022-01-04] MEDS: ENOXAPARIN SOD 40 MG/0.4 ML SYRINGE SC SCH (08:22)
[2022-01-04] MEDS: ACETAMINOPHEN 325 MG TAB PO PRN (08:24)
[2022-01-04] MEDS: levoFLOXacin 250 MG TAB PO SCH (10:00)
[2022-01-04 20:30] VITALS: BP 127/76
[2022-01-05 04:00] VITALS: BP 136/85
[2022-01-05] MEDS: traZODone HCL 50 MG TAB PO PRN ×2 (04:00→22:35)
[2022-01-05 07:10] LABS: Basophils # (auto) 0.1 10 ^3/uL (0-0.2); Basophils % (auto) 0.8 % (0.0-2.0); Eosinophils # (auto) 0.5 10 ^3/uL (0-0.8); Hemoglobin 10.9 g/dL (13.5-17.5); Nucleated Red Blood Cells % 0.1 %
[2022-01-05 07:19] LABS: BUN/Creatinine Ratio 7.8; Calcium 7.9 mg/dL (8.5-10.1); Potassium 3.8 mmol/L (3.5-5.1)
[2022-01-05 07:21] LABS: Eosinophils % (auto) 3.3 % (0.0-7.0); Hematocrit 32.3 % (41.0-53.0); Lymphocytes # (auto) 2.3 10 ^3/uL (0.4-5.4); Lymphocytes % (auto) 16.7 % (10.0-50.0); Mean Corpuscular Hemoglobin 26.8 pg (28.0-32.0); Mean Corpuscular Hgb Conc. 33.7 g/dL (32.0-36.0); Mean Corpuscular Volume 79.5 fL (80.0-100.0); Monocytes % (auto) 6.9 % (0.0-12.0); Neutrophils # (auto) 10.1 10 ^3/uL (1.6-8.6); Neutrophils % (auto) 72.3 % (37.0-80.0); Red Blood Cells 4.06 10^6/uL (4.5-5.90); Red Cell Distribution Width 17.5 % (11.8-14.3); White Blood Cell 13.9 10^3/uL (4.4-10.8)
[2022-01-05 08:00] VITALS: BP 100/39
[2022-01-05] MEDS: Ensure HIGH Protein Vanilla 8oz Bottle PO SCH ×3 (08:00→18:00)
[2022-01-05] MEDS: ENOXAPARIN SOD 40 MG/0.4 ML SYRINGE SC SCH (10:22)
[2022-01-05] MEDS: CYANOCOBALAMIN 500 MCG TAB PO SCH (10:22)
[2022-01-05] MEDS: METOPROLOL TARTRATE 50 MG TAB PO SCH ×2 (10:22→22:34)
[2022-01-05] MEDS: PANTOPRAZOLE 40 MG TAB PO SCH (10:22)
[2022-01-05] MEDS: MULTIPLE VITAMINS W/ MINERALS TAB PO SCH (10:23)
[2022-01-05] MEDS: levoFLOXacin 250 MG TAB PO SCH (10:23)
[2022-01-05 12:00] VITALS: BP 118/75
[2022-01-05] MEDS: fentaNYL 25MCG/HR 25 MCG/HR PAT TD SCH (14:22)
[2022-01-05 16:00] VITALS: BP 120/75
[2022-01-05 20:00] VITALS: BP 134/71
[2022-01-05 23:00] VITALS: BP 144/83
[2022-01-06 08:00] VITALS: BP 126/72
[2022-01-06] MEDS: Ensure HIGH Protein Vanilla 8oz Bottle PO SCH ×3 (08:00→19:45)
[2022-01-06 08:35] LABS: Hemoglobin 10.7 g/dL (13.5-17.5); White Blood Cell 11.3 10^3/uL (4.4-10.8)
[2022-01-06 08:37] LABS: Hematocrit 31.6 % (41.0-53.0); Mean Corpuscular Hemoglobin 26.9 pg (28.0-32.0); Mean Corpuscular Hgb Conc. 33.7 g/dL (32.0-36.0); Mean Corpuscular Volume 79.8 fL (80.0-100.0); Red Blood Cells 3.96 10^6/uL (4.5-5.90); Red Cell Distribution Width 17.4 % (11.8-14.3)
[2022-01-06 08:50] LABS: BUN/Creatinine Ratio 9.8; Potassium 3.2 mmol/L (3.5-5.1)
[2022-01-06 09:11] LABS: Basophils % (manual) 0 (0.0-2.0); Blast Cells 0; Myelocytes % 0; Promyelocytes % 0; Reactive Lymphocytes 0
[2022-01-06] MEDS: PANTOPRAZOLE 40 MG TAB PO SCH (10:14)
[2022-01-06] MEDS: MULTIPLE VITAMINS W/ MINERALS TAB PO SCH (10:14)
[2022-01-06] MEDS: levoFLOXacin 250 MG TAB PO SCH (10:15)
[2022-01-06] MEDS: CYANOCOBALAMIN 500 MCG TAB PO SCH (10:15)
[2022-01-06] MEDS: METOPROLOL TARTRATE 50 MG TAB PO SCH ×2 (10:15→22:10)
[2022-01-06] MEDS: ENOXAPARIN SOD 40 MG/0.4 ML SYRINGE SC SCH (10:15)
[2022-01-06 11:13] LABS: Band Neutrophils % (manual) 2; Eosinophils % (manual) 9 (0-7); Lymphocytes % (manual) 13 (10.0-50.0); Metamyelocytes % 2; Monocytes % (manual) 2 (0-12)
[2022-01-06 12:00] VITALS: BP 124/79
[2022-01-06] MEDS ORDERED: POTASSIUM CHL 20 Meq TABLET PO ONE (15:45)
[2022-01-06 16:00] VITALS: BP 124/79
[2022-01-06] MEDS: LEVALBUTEROL HCL 1.25 MG/3 ML NEB NEB PRN (18:45)
[2022-01-06] MEDS: ACETYLCYSTEINE 10 %(100MG/ML) SOL 4ML NEB PRN (18:46)
[2022-01-06 20:00] VITALS: BP 122/80
[2022-01-06 22:00] VITALS: BP 117/84
[2022-01-07] VITALS (7 sets, daily range): BP systolic 120–140; BP diastolic 75–96
[2022-01-07 08:54] LABS: Calcium 8.1 mg/dL (8.5-10.1); Potassium 3.4 mmol/L (3.5-5.1)
[2022-01-07 08:56] LABS: Basophils # (auto) 0.1 10 ^3/uL (0-0.2); Eosinophils # (auto) 0.5 10 ^3/uL (0-0.8); Lymphocytes # (auto) 2.1 10 ^3/uL (0.4-5.4); Mean Corpuscular Volume 80.6 fL (80.0-100.0); Neutrophils # (auto) 7.3 10 ^3/uL (1.6-8.6)
[2022-01-07 08:58] LABS: BUN/Creatinine Ratio 2.9; Bilirubin, Total 0.3 mg/dL (0.2-1.0); Total Protein 5.8 g/dL (6.4-8.2)
[2022-01-07 09:00] LABS: Basophils % (auto) 0.7 % (0.0-2.0); Eosinophils % (auto) 4.8 % (0.0-7.0); Hematocrit 33.4 % (41.0-53.0); Hemoglobin 11.1 g/dL (13.5-17.5); Lymphocytes % (auto) 19.5 % (10.0-50.0); Mean Corpuscular Hemoglobin 26.9 pg (28.0-32.0); Mean Corpuscular Hgb Conc. 33.3 g/dL (32.0-36.0); Monocytes # (auto) 0.7 10 ^3/uL (0-1.3); Monocytes % (auto) 6.8 % (0.0-12.0); Neutrophils % (auto) 68.2 % (37.0-80.0); Red Blood Cells 4.14 10^6/uL (4.5-5.90); Red Cell Distribution Width 17.3 % (11.8-14.3); White Blood Cell 10.7 10^3/uL (4.4-10.8)
[2022-01-07] MEDS: Ensure HIGH Protein Vanilla 8oz Bottle PO SCH ×3 (09:41→18:44)
[2022-01-07] MEDS: ENOXAPARIN SOD 40 MG/0.4 ML SYRINGE SC SCH (09:54)
[2022-01-07] MEDS: PANTOPRAZOLE 40 MG TAB PO SCH (09:55)
[2022-01-07] MEDS: MULTIPLE VITAMINS W/ MINERALS TAB PO SCH (09:55)
[2022-01-07] MEDS: METOPROLOL TARTRATE 50 MG TAB PO SCH ×2 (09:55→21:04)
[2022-01-07] MEDS: CYANOCOBALAMIN 500 MCG TAB PO SCH (09:55)
[2022-01-07] MEDS: levoFLOXacin 250 MG TAB PO SCH (09:59)
[2022-01-07] MEDS: ONDANSETRON HCL 4 MG/2 ML VIAL IV PRN (10:08)
[2022-01-07] MEDS ORDERED: POTASSIUM CHL 20 Meq TABLET PO ONE (13:00)
[2022-01-07] MEDS: LEVALBUTEROL HCL 1.25 MG/3 ML NEB NEB PRN (18:30)
[2022-01-07] MEDS: ACETYLCYSTEINE 10 %(100MG/ML) SOL 4ML NEB PRN (18:30)
[2022-01-07] MEDS: MAGNESIUM OXIDE 400 MG TAB PO SCH (21:05)
[2022-01-08] VITALS (7 sets, daily range): BP systolic 113–127; BP diastolic 69–87
[2022-01-08] MEDS: LEVALBUTEROL HCL 1.25 MG/3 ML NEB NEB PRN ×2 (00:26→06:16)
[2022-01-08] MEDS: ACETYLCYSTEINE 10 %(100MG/ML) SOL 4ML NEB PRN ×2 (00:26→06:16)
[2022-01-08 06:54] LABS: Basophils # (auto) 0.1 10 ^3/uL (0-0.2); Hematocrit 32.9 % (41.0-53.0); Mean Corpuscular Hemoglobin 26.4 pg (28.0-32.0); Nucleated Red Blood Cells % 0.1 %
[2022-01-08 06:58] LABS: Basophils % (auto) 1.1 % (0.0-2.0); Eosinophils # (auto) 0.6 10 ^3/uL (0-0.8); Eosinophils % (auto) 5.1 % (0.0-7.0); Hemoglobin 10.8 g/dL (13.5-17.5); Lymphocytes # (auto) 2.5 10 ^3/uL (0.4-5.4); Lymphocytes % (auto) 20.4 % (10.0-50.0); Mean Corpuscular Hgb Conc. 32.8 g/dL (32.0-36.0); Mean Corpuscular Volume 80.6 fL (80.0-100.0); Monocytes # (auto) 1.1 10 ^3/uL (0-1.3); Monocytes % (auto) 8.9 % (0.0-12.0); Neutrophils # (auto) 7.9 10 ^3/uL (1.6-8.6); Neutrophils % (auto) 64.5 % (37.0-80.0); Red Blood Cells 4.08 10^6/uL (4.5-5.90); Red Cell Distribution Width 17.7 % (11.8-14.3); White Blood Cell 12.2 10^3/uL (4.4-10.8)
[2022-01-08 07:29] LABS: Calcium 7.8 mg/dL (8.5-10.1); Potassium 3.9 mmol/L (3.5-5.1)
[2022-01-08 07:32] LABS: BUN/Creatinine Ratio 6.7; Bilirubin, Total 0.2 mg/dL (0.2-1.0); Total Protein 5.6 g/dL (6.4-8.2)
[2022-01-08] MEDS: Ensure HIGH Protein Vanilla 8oz Bottle PO SCH ×3 (07:58→17:39)
[2022-01-08] MEDS: ENOXAPARIN SOD 40 MG/0.4 ML SYRINGE SC SCH (10:02)
[2022-01-08] MEDS: CYANOCOBALAMIN 500 MCG TAB PO SCH (10:04)
[2022-01-08] MEDS: PANTOPRAZOLE 40 MG TAB PO SCH (10:04)
[2022-01-08] MEDS: MAGNESIUM OXIDE 400 MG TAB PO SCH ×2 (10:04→21:09)
[2022-01-08] MEDS: MULTIPLE VITAMINS W/ MINERALS TAB PO SCH (10:04)
[2022-01-08] MEDS: METOPROLOL TARTRATE 50 MG TAB PO SCH ×2 (10:04→21:09)
[2022-01-08] MEDS: levoFLOXacin 250 MG TAB PO SCH (10:49)
[2022-01-08 15:06] LABS: Hemoglobin 10.9 g/dL (13.5-17.5); Mean Corpuscular Hemoglobin 26.2 pg (28.0-32.0); Mean Corpuscular Hgb Conc. 32.9 g/dL (32.0-36.0)
[2022-01-08 15:08] LABS: Hematocrit 33.2 % (41.0-53.0); Mean Corpuscular Volume 79.6 fL (80.0-100.0); Red Blood Cells 4.17 10^6/uL (4.5-5.90); Red Cell Distribution Width 17.6 % (11.8-14.3); White Blood Cell 14.2 10^3/uL (4.4-10.8)
[2022-01-08 15:25] LABS: Basophils % (manual) 0 (0.0-2.0); Blast Cells 0; Metamyelocytes % 0; Promyelocytes % 0; Reactive Lymphocytes 0
[2022-01-08] MEDS: fentaNYL 25MCG/HR 25 MCG/HR PAT TD SCH (16:11)
[2022-01-08 16:44] LABS: Band Neutrophils % (manual) 1; Eosinophils % (manual) 6 (0-7); Lymphocytes % (manual) 10 (10.0-50.0); Monocytes % (manual) 4 (0-12); Myelocytes % 1
[2022-01-09] VITALS (8 sets, daily range): BP systolic 116–143; BP diastolic 73–97
[2022-01-09 04:44] LABS: Basophils # (auto) 0.1 10 ^3/uL (0-0.2); Eosinophils # (auto) 0.7 10 ^3/uL (0-0.8); Eosinophils % (auto) 5.9 % (0.0-7.0); Hemoglobin 10.9 g/dL (13.5-17.5); Lymphocytes # (auto) 2.5 10 ^3/uL (0.4-5.4); Lymphocytes % (auto) 20.6 % (10.0-50.0); Mean Corpuscular Hemoglobin 26.4 pg (28.0-32.0); Mean Corpuscular Volume 80.1 fL (80.0-100.0); Monocytes % (auto) 8.2 % (0.0-12.0); Neutrophils # (auto) 7.9 10 ^3/uL (1.6-8.6); Neutrophils % (auto) 64.3 % (37.0-80.0); Nucleated Red Blood Cells % 0.1 %; Red Blood Cells 4.12 10^6/uL (4.5-5.90); Red Cell Distribution Width 17.1 % (11.8-14.3); White Blood Cell 12.3 10^3/uL (4.4-10.8)
[2022-01-09] MEDS: Ensure HIGH Protein Vanilla 8oz Bottle PO SCH ×3 (08:00→18:00)
[2022-01-09] MEDS: ENOXAPARIN SOD 40 MG/0.4 ML SYRINGE SC SCH (10:21)
[2022-01-09] MEDS: MAGNESIUM OXIDE 400 MG TAB PO SCH ×2 (10:21→21:32)
[2022-01-09] MEDS: PANTOPRAZOLE 40 MG TAB PO SCH (10:22)
[2022-01-09] MEDS: levoFLOXacin 250 MG TAB PO SCH (10:22)
[2022-01-09] MEDS: CYANOCOBALAMIN 500 MCG TAB PO SCH (10:23)
[2022-01-09] MEDS: METOPROLOL TARTRATE 50 MG TAB PO SCH ×2 (10:24→21:32)
[2022-01-09] MEDS: MULTIPLE VITAMINS W/ MINERALS TAB PO SCH (10:24)
[2022-01-10] VITALS: BP 120/80
[2022-01-10 08:00] VITALS: BP 126/86
[2022-01-10] MEDS: Ensure HIGH Protein Vanilla 8oz Bottle PO SCH ×3 (08:00→18:00)
[2022-01-10 09:11] LABS: Basophils # (auto) 0.1 10 ^3/uL (0-0.2); Eosinophils # (auto) 0.5 10 ^3/uL (0-0.8); Eosinophils % (auto) 4.3 % (0.0-7.0); Lymphocytes # (auto) 2.4 10 ^3/uL (0.4-5.4); Nucleated Red Blood Cells % 0.1 %; Red Cell Distribution Width 17.9 % (11.8-14.3)
[2022-01-10 09:13] LABS: Hematocrit 33.2 % (41.0-53.0); Lymphocytes % (auto) 20.1 % (10.0-50.0); Mean Corpuscular Hemoglobin 26.1 pg (28.0-32.0); Mean Corpuscular Hgb Conc. 32.9 g/dL (32.0-36.0); Mean Corpuscular Volume 79.2 fL (80.0-100.0); Monocytes # (auto) 1.1 10 ^3/uL (0-1.3); Neutrophils # (auto) 7.7 10 ^3/uL (1.6-8.6); Neutrophils % (auto) 65.6 % (37.0-80.0); White Blood Cell 11.8 10^3/uL (4.4-10.8)
[2022-01-10 09:29] LABS: BUN/Creatinine Ratio 10.7; Calcium 8.4 mg/dL (8.5-10.1); Potassium 3.3 mmol/L (3.5-5.1)
[2022-01-10] MEDS: ENOXAPARIN SOD 40 MG/0.4 ML SYRINGE SC SCH (09:32)
[2022-01-10] MEDS: MAGNESIUM OXIDE 400 MG TAB PO SCH ×2 (09:33→21:47)
[2022-01-10] MEDS: levoFLOXacin 250 MG TAB PO SCH (09:33)
[2022-01-10] MEDS: MULTIPLE VITAMINS W/ MINERALS TAB PO SCH (09:33)
[2022-01-10] MEDS: CYANOCOBALAMIN 500 MCG TAB PO SCH (09:33)
[2022-01-10] MEDS: PANTOPRAZOLE 40 MG TAB PO SCH (09:33)
[2022-01-10] MEDS: METOPROLOL TARTRATE 50 MG TAB PO SCH ×2 (09:34→21:47)
[2022-01-10] MEDS ORDERED: POTASSIUM EFFERVESENT TAB 25 MEQ PO ONE (10:00)
[2022-01-10] MEDS ORDERED: POTASSIUM CHL 20 Meq TABLET PO ONE (11:30)
[2022-01-10 12:00] VITALS: BP 116/76
[2022-01-10 16:00] VITALS: BP 118/78
[2022-01-10 21:04] VITALS: BP 125/82
[2022-01-11 06:05] VITALS: BP 123/76
[2022-01-11 07:33] LABS: Hemoglobin 11.1 g/dL (13.5-17.5); Red Cell Distribution Width 17.8 % (11.8-14.3); White Blood Cell 12.8 10^3/uL (4.4-10.8)
[2022-01-11 07:35] LABS: Hematocrit 33.8 % (41.0-53.0); Mean Corpuscular Hemoglobin 26.4 pg (28.0-32.0); Mean Corpuscular Hgb Conc. 32.9 g/dL (32.0-36.0); Mean Corpuscular Volume 80.1 fL (80.0-100.0); Red Blood Cells 4.22 10^6/uL (4.5-5.90)
[2022-01-11 07:46] LABS: Band Neutrophils % (manual) 0; Basophils % (manual) 0 (0.0-2.0); Blast Cells 0; Metamyelocytes % 0; Promyelocytes % 0
[2022-01-11] MEDS: Ensure HIGH Protein Vanilla 8oz Bottle PO SCH ×3 (08:00→18:29)
[2022-01-11 08:02] LABS: BUN/Creatinine Ratio 13.5; Calcium 8.4 mg/dL (8.5-10.1); Magnesium 2.4 mg/dL (1.6-2.6); Potassium 3.4 mmol/L (3.5-5.1)
[2022-01-11] MEDS: levoFLOXacin 250 MG TAB PO SCH (09:25)
[2022-01-11] MEDS: METOPROLOL TARTRATE 50 MG TAB PO SCH ×2 (09:27→22:26)
[2022-01-11] MEDS: MAGNESIUM OXIDE 400 MG TAB PO SCH ×2 (09:27→22:25)
[2022-01-11] MEDS: ENOXAPARIN SOD 40 MG/0.4 ML SYRINGE SC SCH (09:28)
[2022-01-11] MEDS: MULTIPLE VITAMINS W/ MINERALS TAB PO SCH (09:28)
[2022-01-11] MEDS: CYANOCOBALAMIN 500 MCG TAB PO SCH (09:28)
[2022-01-11] MEDS: PANTOPRAZOLE 40 MG TAB PO SCH (09:28)
[2022-01-11] MEDS ORDERED: POTASSIUM CHL 20 Meq TABLET PO ONE (11:00)
[2022-01-11] MEDS ORDERED: traMADol HCL 50 MG TAB PO PRN (11:00)
[2022-01-11 11:39] LABS: Eosinophils % (manual) 5 (0-7); Lymphocytes % (manual) 26 (10.0-50.0); Monocytes % (manual) 9 (0-12); Myelocytes % 1; Reactive Lymphocytes 2
[2022-01-11 11:59] VITALS: BP 118/80
[2022-01-11 16:20] VITALS: BP 113/73
[2022-01-12 08:33] VITALS: BP 131/77
[2022-01-12] MEDS: MULTIPLE VITAMINS W/ MINERALS TAB PO SCH (09:14)
[2022-01-12] MEDS: MAGNESIUM OXIDE 400 MG TAB PO SCH ×2 (09:14→21:58)
[2022-01-12] MEDS: Ensure HIGH Protein Vanilla 8oz Bottle PO SCH ×3 (09:14→19:10)
[2022-01-12] MEDS: PANTOPRAZOLE 40 MG TAB PO SCH (09:14)
[2022-01-12] MEDS: ENOXAPARIN SOD 40 MG/0.4 ML SYRINGE SC SCH (09:15)
[2022-01-12] MEDS: CYANOCOBALAMIN 500 MCG TAB PO SCH (09:15)
[2022-01-12] MEDS: levoFLOXacin 250 MG TAB PO SCH (09:16)
[2022-01-12] MEDS: METOPROLOL TARTRATE 50 MG TAB PO SCH (09:17)
[2022-01-12 12:52] VITALS: BP 95/67
[2022-01-12] MEDS ORDERED: SODIUM CHLORIDE 0.9% 250 ML IV SCH (13:45)
[2022-01-12] MEDS ORDERED: LABETALOL HCL 5 MG/ML 4ML SYRINGE IV PRN (14:30)
[2022-01-12 15:03] VITALS: BP 104/74
[2022-01-12 17:20] VITALS: BP 119/71
[2022-01-12 22:00] VITALS: BP 131/72
[2022-01-13 01:52] VITALS: BP 131/72
[2022-01-13 03:31] VITALS: BP 132/88
[2022-01-13 08:50] VITALS: BP 128/87
[2022-01-13] MEDS: Ensure HIGH Protein Vanilla 8oz Bottle PO SCH ×3 (09:48→19:15)
[2022-01-13] MEDS: levoFLOXacin 250 MG TAB PO SCH (09:49)
[2022-01-13] MEDS: MAGNESIUM OXIDE 400 MG TAB PO SCH ×2 (09:50→21:50)
[2022-01-13] MEDS: MULTIPLE VITAMINS W/ MINERALS TAB PO SCH (09:51)
[2022-01-13] MEDS: PANTOPRAZOLE 40 MG TAB PO SCH (09:54)
[2022-01-13] MEDS: ENOXAPARIN SOD 40 MG/0.4 ML SYRINGE SC SCH (09:56)
[2022-01-13] MEDS: ONDANSETRON HCL 4 MG/2 ML VIAL IV PRN (12:05)
[2022-01-13 12:31] VITALS: BP 133/93
[2022-01-13 13:19] VITALS: BP 130/93
[2022-01-13] MEDS ORDERED: GABAPENTIN 100 MG CAP PO ONE (13:30)
[2022-01-13 20:00] VITALS: BP 134/88
[2022-01-13] MEDS: GABAPENTIN 100 MG CAP PO SCH (21:50)
[2022-01-14] VITALS: BP 130/86
[2022-01-14 08:00] VITALS: BP 139/91
[2022-01-14] MEDS: Ensure HIGH Protein Vanilla 8oz Bottle PO SCH ×3 (08:00→17:06)
[2022-01-14] MEDS: GABAPENTIN 100 MG CAP PO SCH ×2 (09:26→21:50)
[2022-01-14] MEDS: levoFLOXacin 250 MG TAB PO SCH (09:26)
[2022-01-14] MEDS: MAGNESIUM OXIDE 400 MG TAB PO SCH ×2 (09:26→21:50)
[2022-01-14] MEDS: MULTIPLE VITAMINS W/ MINERALS TAB PO SCH (09:26)
[2022-01-14] MEDS: PANTOPRAZOLE 40 MG TAB PO SCH (09:26)
[2022-01-14] MEDS: ENOXAPARIN SOD 40 MG/0.4 ML SYRINGE SC SCH (09:27)
[2022-01-14 16:00] VITALS: BP 123/77
[2022-01-14 21:00] VITALS: BP 130/87
[2022-01-15 01:00] VITALS: BP 139/95
[2022-01-15 05:00] VITALS: BP 134/94
[2022-01-15] MEDS: Ensure HIGH Protein Vanilla 8oz Bottle PO SCH ×3 (08:00→17:48)
[2022-01-15 09:00] VITALS: BP 150/101
[2022-01-15] MEDS: MAGNESIUM OXIDE 400 MG TAB PO SCH ×2 (09:02→21:50)
[2022-01-15] MEDS: MULTIPLE VITAMINS W/ MINERALS TAB PO SCH (09:02)
[2022-01-15] MEDS: ENOXAPARIN SOD 40 MG/0.4 ML SYRINGE SC SCH (09:02)
[2022-01-15] MEDS: levoFLOXacin 250 MG TAB PO SCH (09:02)
[2022-01-15] MEDS: PANTOPRAZOLE 40 MG TAB PO SCH (09:03)
[2022-01-15] MEDS: GABAPENTIN 100 MG CAP PO SCH ×2 (09:03→21:51)
[2022-01-15 10:35] VITALS: BP 142/94
[2022-01-15] MEDS ORDERED: FUROSEMIDE 20 MG TAB PO ONE (11:30)
[2022-01-15] MEDS ORDERED: POTASSIUM CHL 20 Meq TABLET PO ONE (11:30)
[2022-01-15 16:00] VITALS: BP 132/84
[2022-01-15 20:00] VITALS: BP 143/85
[2022-01-16 03:24] VITALS: BP 132/75
[2022-01-16 07:20] LABS: Neutrophils # (auto) 7.2 10 ^3/uL (1.6-8.6); White Blood Cell 11.3 10^3/uL (4.4-10.8)
[2022-01-16 07:21] LABS: Basophils # (auto) 0.2 10 ^3/uL (0-0.2); Basophils % (auto) 1.5 % (0.0-2.0); Eosinophils # (auto) 0.4 10 ^3/uL (0-0.8); Eosinophils % (auto) 3.7 % (0.0-7.0); Hematocrit 32.5 % (41.0-53.0); Lymphocytes # (auto) 2.6 10 ^3/uL (0.4-5.4); Lymphocytes % (auto) 22.9 % (10.0-50.0); Mean Corpuscular Hgb Conc. 33.9 g/dL (32.0-36.0); Mean Corpuscular Volume 79.8 fL (80.0-100.0); Monocytes # (auto) 0.9 10 ^3/uL (0-1.3); Monocytes % (auto) 7.9 % (0.0-12.0); Red Blood Cells 4.07 10^6/uL (4.5-5.90); Red Cell Distribution Width 18.2 % (11.8-14.3)
[2022-01-16 07:37] LABS: Albumin 2.3 g/dL (3.4-5.0); Calcium 8.4 mg/dL (8.5-10.1); Potassium 3.6 mmol/L (3.5-5.1)
[2022-01-16 07:42] LABS: Bilirubin, Total 0.3 mg/dL (0.2-1.0); Total Protein 5.7 g/dL (6.4-8.2)
[2022-01-16 08:00] VITALS: BP 143/100
[2022-01-16] MEDS: Ensure HIGH Protein Vanilla 8oz Bottle PO SCH ×3 (08:00→18:00)
[2022-01-16] MEDS: MAGNESIUM OXIDE 400 MG TAB PO SCH ×2 (10:01→22:00)
[2022-01-16] MEDS: MULTIPLE VITAMINS W/ MINERALS TAB PO SCH (10:01)
[2022-01-16] MEDS: GABAPENTIN 100 MG CAP PO SCH ×2 (10:01→22:00)
[2022-01-16] MEDS: PANTOPRAZOLE 40 MG TAB PO SCH (10:01)
[2022-01-16] MEDS: ENOXAPARIN SOD 40 MG/0.4 ML SYRINGE SC SCH (10:02)
[2022-01-16 17:00] VITALS: BP 141/101
[2022-01-17 08:00] VITALS: BP 138/97
[2022-01-17] MEDS: Ensure HIGH Protein Vanilla 8oz Bottle PO SCH ×3 (08:00→18:00)
[2022-01-17] MEDS: MAGNESIUM OXIDE 400 MG TAB PO SCH ×2 (09:51→20:43)
[2022-01-17] MEDS: PANTOPRAZOLE 40 MG TAB PO SCH (09:51)
[2022-01-17] MEDS: GABAPENTIN 100 MG CAP PO SCH ×2 (09:54→20:43)
[2022-01-17] MEDS: ENOXAPARIN SOD 40 MG/0.4 ML SYRINGE SC SCH (09:56)
[2022-01-17] MEDS: MULTIPLE VITAMINS W/ MINERALS TAB PO SCH (09:57)
[2022-01-17 12:00] VITALS: BP 141/96
[2022-01-17 16:00] VITALS: BP 147/105
[2022-01-17 20:00] VITALS: BP 134/101
[2022-01-17] MEDS: ACETAMINOPHEN 325 MG TAB PO PRN (20:43)
[2022-01-18] MEDS: ACETAMINOPHEN 325 MG TAB PO PRN (07:04)
[2022-01-18 08:00] VITALS: BP 132/93
[2022-01-18] MEDS: Ensure HIGH Protein Vanilla 8oz Bottle PO SCH (08:00)
[2022-01-18] MEDS: ONDANSETRON HCL 4 MG/2 ML VIAL IV PRN (09:09)
[2022-01-18] MEDS: GABAPENTIN 100 MG CAP PO SCH (10:34)
[2022-01-18] MEDS: ENOXAPARIN SOD 40 MG/0.4 ML SYRINGE SC SCH (10:35)
[2022-01-18] MEDS: MULTIPLE VITAMINS W/ MINERALS TAB PO SCH (10:35)
[2022-01-18] MEDS: MAGNESIUM OXIDE 400 MG TAB PO SCH (10:35)
[2022-01-18] MEDS: PANTOPRAZOLE 40 MG TAB PO SCH (10:35)
== END 2022-01-18 13:25 | disposition home health service (06) | DRG 5 ==
LOC: ER 11:18 → EDBD 11:18 → OVERFLOW 18:01 → EAST 22:20 → ICU WEST 09-14 07:16
PROVIDERS: ADMIT Hospitalist; ATTEND Internal Medicine
PROC: XW033E5 Introduction of Remdesivir Anti-infective into Peripheral Vein, Percutaneous Approach, New Technology Group 5 (ICD-10-PCS; 2021-09-11)
PROC: 5A1955Z Respiratory Ventilation, Greater than 96 Consecutive Hours (ICD-10-PCS; 2021-09-14)
PROC: 0BH17EZ Insertion of Endotracheal Airway into Trachea, Via Natural or Artificial Opening (ICD-10-PCS; 2021-09-14)
PROC: 5A0935A Assistance with Respiratory Ventilation, Less than 24 Consecutive Hours, High Flow/Velocity Cannula (ICD-10-PCS; 2021-09-14)
PROC: 05HY33Z Insertion of Infusion Device into Upper Vein, Percutaneous Approach (ICD-10-PCS; 2021-09-15)
PROC: B54MZZA Ultrasonography of Right Upper Extremity Veins, Guidance (ICD-10-PCS; 2021-09-15)
PROC: XW033H5 Introduction of Tocilizumab into Peripheral Vein, Percutaneous Approach, New Technology Group 5 (ICD-10-PCS; 2021-09-16)
PROC: 3E0336Z Introduction of Nutritional Substance into Peripheral Vein, Percutaneous Approach (ICD-10-PCS; 2021-09-17)
PROC: 0B110F4 Bypass Trachea to Cutaneous with Tracheostomy Device, Open Approach (ICD-10-PCS; principal; 2021-09-20)
PROC: 0DJ08ZZ Inspection of Upper Intestinal Tract, Via Natural or Artificial Opening Endoscopic (ICD-10-PCS; 2021-09-20)
PROC: 0W9B30Z Drainage of Left Pleural Cavity with Drainage Device, Percutaneous Approach (ICD-10-PCS; 2021-10-08)
PROC: 0W9B30Z Drainage of Left Pleural Cavity with Drainage Device, Percutaneous Approach (ICD-10-PCS; 2021-10-09)
PROC: 05HY33Z Insertion of Infusion Device into Upper Vein, Percutaneous Approach (ICD-10-PCS; 2021-11-03)
PROC: B54NZZA Ultrasonography of Left Upper Extremity Veins, Guidance (ICD-10-PCS; 2021-11-03)
PROC: 05HY33Z Insertion of Infusion Device into Upper Vein, Percutaneous Approach (ICD-10-PCS; 2021-11-26)
PROC: B54MZZA Ultrasonography of Right Upper Extremity Veins, Guidance (ICD-10-PCS; 2021-11-26)
PROC: 0W9930Z Drainage of Right Pleural Cavity with Drainage Device, Percutaneous Approach (ICD-10-PCS; 2021-11-27)
PROC: 5A1935Z Respiratory Ventilation, Less than 24 Consecutive Hours (ICD-10-PCS; 2021-12-04)
PROC: 0BH17EZ Insertion of Endotracheal Airway into Trachea, Via Natural or Artificial Opening (ICD-10-PCS; 2021-12-04)
PROC: 5A1945Z Respiratory Ventilation, 24-96 Consecutive Hours (ICD-10-PCS; 2021-12-11)
PROC: 0BH17EZ Insertion of Endotracheal Airway into Trachea, Via Natural or Artificial Opening (ICD-10-PCS; 2021-12-11)
PROC: 05HB33Z Insertion of Infusion Device into Right Basilic Vein, Percutaneous Approach (ICD-10-PCS; 2021-12-11)
PROC: B54MZZA Ultrasonography of Right Upper Extremity Veins, Guidance (ICD-10-PCS; 2021-12-11)
PROC: 0W9B30Z Drainage of Left Pleural Cavity with Drainage Device, Percutaneous Approach (ICD-10-PCS; 2021-12-14)
PROC: 5A1935Z Respiratory Ventilation, Less than 24 Consecutive Hours (ICD-10-PCS; 2022-01-02)
PROC: 0BH17EZ Insertion of Endotracheal Airway into Trachea, Via Natural or Artificial Opening (ICD-10-PCS; 2022-01-02)
PROC: 05HB33Z Insertion of Infusion Device into Right Basilic Vein, Percutaneous Approach (ICD-10-PCS; 2022-01-02)
PROC: B54MZZA Ultrasonography of Right Upper Extremity Veins, Guidance (ICD-10-PCS; 2022-01-02)
DX: A41.89 Other specified sepsis (principal); J12.82 Pneumonia due to coronavirus disease 2019; I26.99 Other pulmonary embolism without acute cor pulmonale; J15.211 Pneumonia due to Methicillin susceptible Staphylococcus aureus; U07.1 COVID-19; D89.839 Cytokine release syndrome, grade unspecified; T79.7XXA Traumatic subcutaneous emphysema, initial encounter; J96.01 Acute respiratory failure with hypoxia; E87.6 Hypokalemia; E66.01 Morbid (severe) obesity due to excess calories; J93.9 Pneumothorax, unspecified; K29.70 Gastritis, unspecified, without bleeding; J93.82 Other air leak; Z99.11 Dependence on respirator [ventilator] status; Z68.28 Body mass index [BMI] 28.0-28.9, adult
CPT/HCPCS: 10005; 31500; 36415; 36569; 36600; 71045; 71250; 71260; 71275; 74018; 77012; 80048; 80053; 80202; 81001; 82040; 82248; 82550; 82565; 82728; 82805; 82962; 83036; 83605; 83615; 83735; 83880; 83930; 84100; 84132; 84295; 84443; 84478; 85007; 85014; 85018; 85025; 85027; 85379; 85610; 85652; 85730; 86141; 86850; 86900; 86901; 87040; 87070; 87077; 87081; 87086; 87186; 87205; 87493; 92610; 93005; 93306; 93970; 93971; 94002; 94003; 94640; 97110; 97116; 97163; 97530; 99291; A4223; A4605; A4618; C1729; C9113; G0378; J0330; J0690; J0696; J1100; J1450; J1815; J1956; J2001; J2185; J2248; J2250; J2405; J2543; J2704; J3480; J3490; J7042; J7060; J7131; P9047

== ENCOUNTER 2022-01-20 14:01 | Inpatient (IN) | payer MEDICAID ==
[~2022-01-20] VITALS: Ht 172.7 cm; Wt 84.7 kg
[2022-01-20] MEDS ORDERED: IOHEXOL 350 MG/ML 100ML IJ ONE (14:13)
[2022-01-20] MEDS ORDERED: LACTATED RINGER'S 1,000 ML IV ONE ×2 (14:15→18:00)
[2022-01-20 15:09] LABS: Hemoglobin 11.3 g/dL (13.5-17.5)
[2022-01-20 15:11] LABS: Hematocrit 33.6 % (41.0-53.0); Mean Corpuscular Hgb Conc. 33.6 g/dL (32.0-36.0); Mean Corpuscular Volume 80.2 fL (80.0-100.0); Red Blood Cells 4.19 10^6/uL (4.5-5.90); Red Cell Distribution Width 17.4 % (11.8-14.3)
[2022-01-20 15:17] LABS: White Blood Cell 35.5 10^3/uL (4.4-10.8)
[2022-01-20 15:19] LABS: Basophils % (manual) 0 (0.0-2.0); Blast Cells 0; Eosinophils % (manual) 0 (0-7); Metamyelocytes % 0; Myelocytes % 0; Promyelocytes % 0; Reactive Lymphocytes 0
[2022-01-20 15:25] LABS: Albumin 1.9 g/dL (3.4-5.0); Calcium 8.4 mg/dL (8.5-10.1); Potassium 3.5 mmol/L (3.5-5.1)
[2022-01-20 15:30] LABS: Bilirubin, Total 0.8 mg/dL (0.2-1.0); Total Protein 6.2 g/dL (6.4-8.2)
[2022-01-20 17:08] LABS: Band Neutrophils % (manual) 4; Lymphocytes % (manual) 3 (10.0-50.0); Monocytes % (manual) 8 (0-12)
[2022-01-20] MEDS ORDERED: MORPHINE SULFATE INJECTION 2 MG/ML SYRG IV PRN (17:30)
[2022-01-20] MEDS ORDERED: ALUM & MAG HYDROX-SIMETH LIQ(MAALOX) 30 ML PO PRN (17:30)
[2022-01-20] MEDS ORDERED: ONDANSETRON HCL 4 MG/2 ML VIAL IV PRN (17:30)
[2022-01-20] MEDS ORDERED: DOCUSATE SOD 100 MG CAP PO PRN (17:30)
[2022-01-20] MEDS ORDERED: ACETAMINOPHEN 325 MG TAB PO PRN (17:30)
[2022-01-20] MEDS ORDERED: NITROGLYCERIN 0.4 MG SL TAB SL PRN (17:30)
[2022-01-20 17:38] LABS: Urine Bacteria FEW /hpf (None Seen); Urine Blood Negative /uL (Negative); Urine Specific Gravity 1.007 (1.001-1.035); Urine WBC 2 /hpf (0 - 3)
[2022-01-20] MEDS ORDERED: dilTIAZem 25 MG/5 ML VIAL IV ONE ×2 (17:59→18:00)
[2022-01-20 19:00] VITALS: BP_SYST 140; BP_SYST 144; BP_DIAS 93; BP_DIAS 94
[2022-01-20] MEDS ORDERED: dilTIAZem 125mg/125ml BAG KIT 100 ML IV SCH (19:15)
[2022-01-20] MEDS: HYDROcodone-ACET 5/325MG TAB PO PRN (19:35)
[2022-01-20] MEDS ORDERED: METOPROLOL TARTRATE 25 MG TAB PO ONE (19:45)
[2022-01-20 20:30] VITALS: BP 141/92
[2022-01-20] MEDS: LINEZOLID 600MG/300ML 300 ML IV SCH (21:02)
[2022-01-20 21:30] VITALS: BP 131/89
[2022-01-20 23:00] VITALS: BP 126/87
[2022-01-20] MEDS: MEROPENEM 1GM IVPB 100 ML IV SCH (23:10)
[2022-01-21] MEDS: MEROPENEM 1GM IVPB 100 ML IV SCH ×3 (05:18→23:04)
[2022-01-21 06:15] VITALS: BP 126/95
[2022-01-21 08:29] LABS: Albumin 1.8 g/dL (3.4-5.0); Calcium 8.3 mg/dL (8.5-10.1); Magnesium 2.2 mg/dL (1.6-2.6)
[2022-01-21 08:34] LABS: Bilirubin, Total 0.8 mg/dL (0.2-1.0); Phosphorus 4.4 mg/dL (2.5-4.90); Total Protein 5.9 g/dL (6.4-8.2)
[2022-01-21 08:37] LABS: Eosinophils # (auto) 0.2 10 ^3/uL (0-0.8); Eosinophils % (auto) 0.8 % (0.0-7.0); Lymphocytes # (auto) 1.4 10 ^3/uL (0.4-5.4); White Blood Cell 23.4 10^3/uL (4.4-10.8)
[2022-01-21 08:38] LABS: Potassium 2.8 mmol/L (3.5-5.1)
[2022-01-21 08:39] LABS: Basophils # (auto) 0 10 ^3/uL (0-0.2); Basophils % (auto) 0.1 % (0.0-2.0); Hematocrit 32.6 % (41.0-53.0); Hemoglobin 10.9 g/dL (13.5-17.5); Lymphocytes % (auto) 5.9 % (10.0-50.0); Mean Corpuscular Hemoglobin 26.9 pg (28.0-32.0); Mean Corpuscular Hgb Conc. 33.4 g/dL (32.0-36.0); Mean Corpuscular Volume 80.6 fL (80.0-100.0); Monocytes # (auto) 1.6 10 ^3/uL (0-1.3); Monocytes % (auto) 6.7 % (0.0-12.0); Neutrophils # (auto) 20.3 10 ^3/uL (1.6-8.6); Neutrophils % (auto) 86.5 % (37.0-80.0); Red Blood Cells 4.04 10^6/uL (4.5-5.90); Red Cell Distribution Width 17.3 % (11.8-14.3)
[2022-01-21 09:00] VITALS: BP 127/88
[2022-01-21] MEDS ORDERED: POTASSIUM CHL 20 Meq TABLET PO ONE (09:00)
[2022-01-21 09:01] LABS: INR 1.21 (0.9-1.15); Partial Thromboplastin Time 38.5 sec (23.6-33.0)
[2022-01-21] MEDS: LINEZOLID 600MG/300ML 300 ML IV SCH ×2 (09:30→20:40)
[2022-01-21] MEDS ORDERED: METOPROLOL SUCCINATE XL 50 MG TAB PO SCH (10:00)
[2022-01-21] MEDS ORDERED: OPTISON 3ml Vial for INJ IV ONE ×2 (11:14→11:15)
[2022-01-21] MEDS: ERGOCALCIFEROL 50,000 UNIT(1.25MG) CAP PO SCH (11:41)
[2022-01-21 14:00] VITALS: BP 133/90
[2022-01-21] MEDS ORDERED: FAMOTIDINE (10MG/ML) 2ML VL IV ONE (15:15)
[2022-01-21] MEDS: SODIUM CHLORIDE 0.9% 1,000 ML IV SCH (15:56)
[2022-01-21 18:00] VITALS: BP 129/86
[2022-01-21 21:00] VITALS: BP 139/95
[2022-01-21] MEDS: METOPROLOL TARTRATE 25 MG TAB PO SCH (21:51)
[2022-01-22 01:00] VITALS: BP 132/93
[2022-01-22] MEDS: MEROPENEM 1GM IVPB 100 ML IV SCH ×3 (05:05→20:25)
[2022-01-22] MEDS: SODIUM CHLORIDE 0.9% 1,000 ML IV SCH ×2 (05:05→18:07)
[2022-01-22 07:00] VITALS: BP 127/81
[2022-01-22 07:32] LABS: Basophils # (auto) 0.1 10 ^3/uL (0-0.2); Eosinophils # (auto) 0.5 10 ^3/uL (0-0.8)
[2022-01-22 07:33] LABS: Basophils % (auto) 0.6 % (0.0-2.0); Eosinophils % (auto) 3.4 % (0.0-7.0); Hematocrit 29.5 % (41.0-53.0); Lymphocytes # (auto) 1.6 10 ^3/uL (0.4-5.4); Mean Corpuscular Hemoglobin 27.1 pg (28.0-32.0); Mean Corpuscular Hgb Conc. 33.9 g/dL (32.0-36.0); Mean Corpuscular Volume 79.9 fL (80.0-100.0); Monocytes # (auto) 1.3 10 ^3/uL (0-1.3); Monocytes % (auto) 8.6 % (0.0-12.0); Neutrophils # (auto) 11.4 10 ^3/uL (1.6-8.6); Neutrophils % (auto) 76.4 % (37.0-80.0); Nucleated Red Blood Cells % 0.1 %; Red Cell Distribution Width 17.4 % (11.8-14.3); White Blood Cell 14.9 10^3/uL (4.4-10.8)
[2022-01-22 07:55] LABS: Albumin 1.7 g/dL (3.4-5.0); Calcium 7.9 mg/dL (8.5-10.1); Potassium 3.1 mmol/L (3.5-5.1)
[2022-01-22 07:59] LABS: BUN/Creatinine Ratio 9.8; Bilirubin, Total 0.7 mg/dL (0.2-1.0); Total Protein 5.4 g/dL (6.4-8.2)
[2022-01-22 10:00] VITALS: BP 132/70
[2022-01-22] MEDS ORDERED: POTASSIUM CHL 20 Meq TABLET PO ONE (10:00)
[2022-01-22] MEDS: FAMOTIDINE (10MG/ML) 2ML VL IV SCH (10:04)
[2022-01-22] MEDS: METOPROLOL TARTRATE 25 MG TAB PO SCH ×2 (10:04→20:25)
[2022-01-22] MEDS: LINEZOLID 600MG/300ML 300 ML IV SCH (10:04)
[2022-01-22] MEDS: HYDROmorphone HCL 2 MG/ML VL IV PRN ×3 (10:10→20:24)
[2022-01-22 12:00] VITALS: BP 129/85
[2022-01-22] MEDS ORDERED: fentaNYL CITRATE 100 MCG/2 ML VL ONE (13:03)
[2022-01-22] MEDS ORDERED: MIDAZOLAM HCL 2MG/2ML 2ml VIAL (1mg/ml) ONE (13:03)
[2022-01-22] MEDS ORDERED: LIDOCAINE 2%HCL (LOCAL ANESTH.) INJ 10ml MDV ONE (13:03)
[2022-01-22] MEDS ORDERED: IODIXANOL 320MG/ML 100ML BTL IV ONE (13:30)
[2022-01-22 15:00] VITALS: BP 135/88
[2022-01-22 18:00] VITALS: BP 128/89
[2022-01-23] VITALS (7 sets, daily range): BP systolic 127–135; BP diastolic 79–95
[2022-01-23] MEDS: HYDROcodone-ACET 5/325MG TAB PO PRN ×2 (01:04→10:28)
[2022-01-23] MEDS ORDERED: KETOROLAC TROMETH 30 MG/ML 1ML VIAL IV ONE (01:45)
[2022-01-23] MEDS: MEROPENEM 1GM IVPB 100 ML IV SCH ×3 (06:31→21:14)
[2022-01-23] MEDS: SODIUM CHLORIDE 0.9% 1,000 ML IV SCH ×2 (07:36→11:15)
[2022-01-23 09:55] LABS: Mean Corpuscular Hgb Conc. 32.6 g/dL (32.0-36.0); Red Blood Cells 3.88 10^6/uL (4.5-5.90)
[2022-01-23 09:56] LABS: Hematocrit 31.1 % (41.0-53.0); Hemoglobin 10.2 g/dL (13.5-17.5); Mean Corpuscular Hemoglobin 26.2 pg (28.0-32.0); Mean Corpuscular Volume 80.2 fL (80.0-100.0); Red Cell Distribution Width 17.7 % (11.8-14.3)
[2022-01-23 09:58] LABS: White Blood Cell 30.1 10^3/uL (4.4-10.8)
[2022-01-23 09:59] LABS: Basophils % (manual) 0 (0.0-2.0); Blast Cells 0; Eosinophils % (manual) 0 (0-7); Metamyelocytes % 0; Myelocytes % 0; Promyelocytes % 0; Reactive Lymphocytes 0
[2022-01-23 10:12] LABS: BUN/Creatinine Ratio 18.9; Calcium 7.7 mg/dL (8.5-10.1); Potassium 3.4 mmol/L (3.5-5.1)
[2022-01-23] MEDS: FAMOTIDINE (10MG/ML) 2ML VL IV SCH (10:27)
[2022-01-23] MEDS: METOPROLOL TARTRATE 25 MG TAB PO SCH ×2 (10:27→21:13)
[2022-01-23] MEDS ORDERED: POTASSIUM CHL 20 Meq TABLET PO ONE (11:00)
[2022-01-23 13:38] LABS: Band Neutrophils % (manual) 5; Lymphocytes % (manual) 4 (10.0-50.0); Monocytes % (manual) 6 (0-12)
[2022-01-23] MEDS: LABETALOL HCL 5 MG/ML 4ML SYRINGE IV PRN ×2 (16:56→21:13)
[2022-01-23] MEDS: HYDROmorphone HCL 2 MG/ML VL IV PRN (21:14)
[2022-01-24] VITALS (10 sets, daily range): BP systolic 123–159; BP diastolic 80–99
[2022-01-24] MEDS: SODIUM CHLORIDE 0.9% 1,000 ML IV SCH ×2 (04:31→18:36)
[2022-01-24 04:51] LABS: Hemoglobin 11.1 g/dL (13.5-17.5); Mean Corpuscular Volume 81.2 fL (80.0-100.0)
[2022-01-24 04:55] LABS: Hematocrit 34.1 % (41.0-53.0); Mean Corpuscular Hemoglobin 26.3 pg (28.0-32.0); Mean Corpuscular Hgb Conc. 32.4 g/dL (32.0-36.0); Red Cell Distribution Width 17.9 % (11.8-14.3)
[2022-01-24 05:06] LABS: Basophils % (manual) 0 (0.0-2.0); Blast Cells 0; Metamyelocytes % 0; Myelocytes % 0; Promyelocytes % 0; Reactive Lymphocytes 0
[2022-01-24 05:07] LABS: Calcium 8.4 mg/dL (8.5-10.1); Magnesium 1.9 mg/dL (1.6-2.6); Potassium 4.2 mmol/L (3.5-5.1)
[2022-01-24 05:11] LABS: BUN/Creatinine Ratio 12.5
[2022-01-24] MEDS: HYDROcodone-ACET 5/325MG TAB PO PRN (05:32)
[2022-01-24] MEDS: LABETALOL HCL 5 MG/ML 4ML SYRINGE IV PRN ×3 (05:36→22:03)
[2022-01-24] MEDS: MEROPENEM 1GM IVPB 100 ML IV SCH ×3 (05:43→22:03)
[2022-01-24 06:28] LABS: Band Neutrophils % (manual) 2; Eosinophils % (manual) 2 (0-7); Lymphocytes % (manual) 10 (10.0-50.0); Monocytes % (manual) 5 (0-12)
[2022-01-24] MEDS ORDERED: SALINE 0.65 % NASAL SPRAY 45ML BOTTLE EACHNOSTRI PRN (09:00)
[2022-01-24] MEDS ORDERED: SALINE 0.65 % NASAL SPRAY 45ML BOTTLE EACHNOSTRI SCH (10:00)
[2022-01-24] MEDS: METOPROLOL TARTRATE 25 MG TAB PO SCH (10:10)
[2022-01-24] MEDS: FAMOTIDINE (10MG/ML) 2ML VL IV SCH (10:10)
[2022-01-24] MEDS ORDERED: MAGNESIUM SULFATE 1GM/100ML 100 ML IV ONE (12:00)
[2022-01-24] MEDS ORDERED: VANCOMYCIN PER PHARMACY 0 MG IV SCH (12:00)
[2022-01-24] MEDS ORDERED: VANCOMYCIN 1GM/250ML 250 ML IV ONE (12:15)
[2022-01-24] MEDS: VANCOMYCIN 1GM/250ML 250 ML IV SCH (20:48)
[2022-01-24] MEDS: HYDROmorphone HCL 2 MG/ML VL IV PRN (22:04)
[2022-01-24] MEDS: METOPROLOL TARTRATE 50 MG TAB PO SCH (22:04)
[2022-01-24] MEDS: TEMAZEPAM 15 MG CAP PO PRN (22:04)
[2022-01-25] VITALS (17 sets, daily range): BP systolic 92–138; BP diastolic 58–102
[2022-01-25] MEDS: LABETALOL HCL 5 MG/ML 4ML SYRINGE IV PRN ×2 (02:30→06:05)
[2022-01-25] MEDS: VANCOMYCIN 1GM/250ML 250 ML IV SCH (04:51)
[2022-01-25] MEDS: MEROPENEM 1GM IVPB 100 ML IV SCH (06:04)
[2022-01-25 08:52] LABS: Hematocrit 29.2 % (41.0-53.0); Hemoglobin 9.6 g/dL (13.5-17.5)
[2022-01-25 08:54] LABS: Mean Corpuscular Hemoglobin 26.4 pg (28.0-32.0); Mean Corpuscular Hgb Conc. 32.7 g/dL (32.0-36.0); Mean Corpuscular Volume 80.7 fL (80.0-100.0); Red Blood Cells 3.62 10^6/uL (4.5-5.90); Red Cell Distribution Width 17.5 % (11.8-14.3)
[2022-01-25] MEDS: FAMOTIDINE (10MG/ML) 2ML VL IV SCH (09:03)
[2022-01-25] MEDS: SODIUM CHLORIDE 0.9% 1,000 ML IV SCH ×2 (09:03→20:05)
[2022-01-25 09:10] LABS: Magnesium 2.2 mg/dL (1.6-2.6)
[2022-01-25 09:11] LABS: Basophils % (manual) 0 (0.0-2.0); Blast Cells 0; Promyelocytes % 0; Reactive Lymphocytes 0
[2022-01-25] MEDS: METOPROLOL TARTRATE 50 MG TAB PO SCH ×2 (09:23→21:31)
[2022-01-25 09:33] LABS: Potassium 2.9 mmol/L (3.5-5.1)
[2022-01-25] MEDS ORDERED: POTASSIUM CHL 20 Meq TABLET PO ONE (09:45)
[2022-01-25 13:36] LABS: Band Neutrophils % (manual) 1; Eosinophils % (manual) 2 (0-7); Lymphocytes % (manual) 8 (10.0-50.0); Metamyelocytes % 2; Monocytes % (manual) 8 (0-12); Myelocytes % 1
[2022-01-25] MEDS ORDERED: VANCOMYCIN HCL 125MG/5ML ORAL SOL PO ONE (14:00)
[2022-01-25] MEDS: metroNIDAZOLE 500 MG TAB PO SCH ×2 (15:23→21:30)
[2022-01-25] MEDS: VANCOMYCIN HCL 125MG/5ML ORAL SOL PO SCH (20:06)
[2022-01-25] MEDS: HYDROmorphone HCL 2 MG/ML VL IV PRN (21:32)
[2022-01-26] MEDS: VANCOMYCIN HCL 125MG/5ML ORAL SOL PO SCH ×4 (02:00→20:00)
[2022-01-26 04:00] VITALS: BP 129/87
[2022-01-26] MEDS: metroNIDAZOLE 500 MG TAB PO SCH ×3 (05:52→22:00)
[2022-01-26] MEDS: levoFLOXacin 500MG 100 ML IV SCH (08:53)
[2022-01-26] MEDS: METOPROLOL TARTRATE 50 MG TAB PO SCH ×2 (08:53→22:50)
[2022-01-26] MEDS: FLORASTOR (S. BOULARDII) 250 MG CAP PO SCH (08:53)
[2022-01-26 09:00] VITALS: BP 139/95
[2022-01-26 09:06] LABS: Hematocrit 28.6 % (41.0-53.0); Hemoglobin 9.2 g/dL (13.5-17.5); Mean Corpuscular Hgb Conc. 32.3 g/dL (32.0-36.0); Mean Corpuscular Volume 80.4 fL (80.0-100.0); Red Blood Cells 3.56 10^6/uL (4.5-5.90); Red Cell Distribution Width 17.5 % (11.8-14.3); White Blood Cell 17.2 10^3/uL (4.4-10.8)
[2022-01-26] MEDS: SODIUM CHLORIDE 0.9% 1,000 ML IV SCH ×2 (09:07→22:50)
[2022-01-26 09:08] LABS: Basophils % (manual) 0 (0.0-2.0); Blast Cells 0; Promyelocytes % 0; Reactive Lymphocytes 0
[2022-01-26] MEDS: FAMOTIDINE (10MG/ML) 2ML VL IV SCH (09:08)
[2022-01-26 09:12] LABS: Albumin 1.7 g/dL (3.4-5.0); Calcium 8.1 mg/dL (8.5-10.1); Potassium 3.5 mmol/L (3.5-5.1)
[2022-01-26 09:16] LABS: BUN/Creatinine Ratio 11.8; Bilirubin, Total 0.4 mg/dL (0.2-1.0)
[2022-01-26 10:29] LABS: Band Neutrophils % (manual) 1; Eosinophils % (manual) 2 (0-7); Lymphocytes % (manual) 13 (10.0-50.0); Metamyelocytes % 2; Monocytes % (manual) 8 (0-12); Myelocytes % 3
[2022-01-26 12:58] VITALS: BP 126/90
[2022-01-26 17:00] VITALS: BP 131/89
[2022-01-26 20:00] VITALS: BP 142/101
[2022-01-26] MEDS: HYDROmorphone HCL 2 MG/ML VL IV PRN (22:00)
[2022-01-26] MEDS: TEMAZEPAM 15 MG CAP PO PRN (22:00)
[2022-01-27] MEDS: VANCOMYCIN HCL 125MG/5ML ORAL SOL PO SCH (02:00)
[2022-01-27] MEDS: metroNIDAZOLE 500 MG TAB PO SCH ×3 (06:00→22:02)
[2022-01-27 08:14] LABS: Hematocrit 28.5 % (41.0-53.0); Mean Corpuscular Hemoglobin 25.5 pg (28.0-32.0); Mean Corpuscular Hgb Conc. 31.7 g/dL (32.0-36.0); Mean Corpuscular Volume 80.4 fL (80.0-100.0); Red Blood Cells 3.55 10^6/uL (4.5-5.90); Red Cell Distribution Width 17.4 % (11.8-14.3); White Blood Cell 14.9 10^3/uL (4.4-10.8)
[2022-01-27 08:17] LABS: Basophils % (manual) 0 (0.0-2.0); Blast Cells 0
[2022-01-27 08:20] LABS: Potassium 3.2 mmol/L (3.5-5.1)
[2022-01-27 08:30] VITALS: BP 140/87
[2022-01-27] MEDS: SODIUM CHLORIDE 0.9% 1,000 ML IV SCH (09:00)
[2022-01-27 11:00] VITALS: BP 131/84
[2022-01-27] MEDS: FLORASTOR (S. BOULARDII) 250 MG CAP PO SCH (11:00)
[2022-01-27] MEDS: METOPROLOL TARTRATE 50 MG TAB PO SCH ×2 (11:01→22:03)
[2022-01-27] MEDS: levoFLOXacin 500MG 100 ML IV SCH (11:01)
[2022-01-27 11:03] LABS: Band Neutrophils % (manual) 1; Eosinophils % (manual) 1 (0-7); Lymphocytes % (manual) 10 (10.0-50.0); Metamyelocytes % 2; Monocytes % (manual) 7 (0-12); Myelocytes % 5; Promyelocytes % 1; Reactive Lymphocytes 2
[2022-01-27] MEDS ORDERED: POTASSIUM CHL 20 Meq TABLET PO ONE (11:30)
[2022-01-27 12:00] VITALS: BP 142/95
[2022-01-27 14:00] VITALS: BP 133/95
[2022-01-27 16:30] VITALS: BP 118/62
[2022-01-27] MEDS: Ensure HIGH Protein Chocolate 8oz Bottle PO SCH (18:00)
[2022-01-27 20:00] VITALS: BP 128/93
[2022-01-27] MEDS: HYDROmorphone HCL 2 MG/ML VL IV PRN (22:07)
[2022-01-27] MEDS: TEMAZEPAM 15 MG CAP PO PRN (22:07)
[2022-01-28] VITALS (7 sets, daily range): BP systolic 112–139; BP diastolic 80–92
[2022-01-28] MEDS: metroNIDAZOLE 500 MG TAB PO SCH ×3 (06:18→20:53)
[2022-01-28] MEDS: Ensure HIGH Protein Chocolate 8oz Bottle PO SCH ×2 (08:00→18:00)
[2022-01-28 08:34] LABS: Red Blood Cells 3.59 10^6/uL (4.5-5.90)
[2022-01-28 08:36] LABS: Hematocrit 28.7 % (41.0-53.0); Hemoglobin 9.3 g/dL (13.5-17.5); Mean Corpuscular Hemoglobin 25.8 pg (28.0-32.0); Mean Corpuscular Hgb Conc. 32.3 g/dL (32.0-36.0); Mean Corpuscular Volume 79.9 fL (80.0-100.0); Red Cell Distribution Width 17.9 % (11.8-14.3); White Blood Cell 15.1 10^3/uL (4.4-10.8)
[2022-01-28 08:41] LABS: Basophils % (manual) 0 (0.0-2.0); Blast Cells 0; Promyelocytes % 0; Reactive Lymphocytes 0
[2022-01-28 08:59] LABS: Calcium 8.2 mg/dL (8.5-10.1); Potassium 3.3 mmol/L (3.5-5.1)
[2022-01-28] MEDS: FLORASTOR (S. BOULARDII) 250 MG CAP PO SCH (09:03)
[2022-01-28] MEDS: levoFLOXacin 500 MG TAB PO SCH (09:03)
[2022-01-28] MEDS: METOPROLOL TARTRATE 50 MG TAB PO SCH ×2 (09:06→20:54)
[2022-01-28 09:11] LABS: Band Neutrophils % (manual) 3; Eosinophils % (manual) 1 (0-7); Lymphocytes % (manual) 14 (10.0-50.0); Metamyelocytes % 4; Monocytes % (manual) 6 (0-12); Myelocytes % 2
[2022-01-28] MEDS: ERGOCALCIFEROL 50,000 UNIT(1.25MG) CAP PO SCH (10:12)
[2022-01-28] MEDS ORDERED: LORazepam 0.5 MG TAB ONE (12:43)
[2022-01-28] MEDS ORDERED: LORazepam 0.5 MG TAB PO ONE (12:45)
[2022-01-28] MEDS ORDERED: SERTRALINE HCL 50 MG TAB PO ONE (14:45)
[2022-01-28] MEDS ORDERED: LORazepam 2MG/ML-1ML VIAL IV ONE (14:45)
[2022-01-28] MEDS ORDERED: POTASSIUM CHL 20 Meq TABLET PO ONE (14:45)
[2022-01-28] MEDS: HYDROcodone-ACET 5/325MG TAB PO PRN (20:53)
[2022-01-28] MEDS: TEMAZEPAM 15 MG CAP PO PRN (20:53)
[2022-01-28] MEDS ORDERED: LORazepam 0.5 MG TAB PO PRN (22:00)
[2022-01-29] MEDS: metroNIDAZOLE 500 MG TAB PO SCH ×2 (06:57→15:20)
[2022-01-29 07:00] VITALS: BP 121/82
[2022-01-29] MEDS: Ensure HIGH Protein Chocolate 8oz Bottle PO SCH (08:00)
[2022-01-29] MEDS: FLORASTOR (S. BOULARDII) 250 MG CAP PO SCH (09:55)
[2022-01-29] MEDS: levoFLOXacin 500 MG TAB PO SCH (09:56)
[2022-01-29] MEDS: METOPROLOL TARTRATE 50 MG TAB PO SCH (09:56)
[2022-01-29 10:00] VITALS: BP 129/85
[2022-01-29] MEDS ORDERED: SERTRALINE HCL 50 MG TAB PO SCH (10:00)
[2022-01-29 10:16] LABS: Hematocrit 29.9 % (41.0-53.0); Hemoglobin 9.6 g/dL (13.5-17.5); Mean Corpuscular Hemoglobin 25.7 pg (28.0-32.0); Mean Corpuscular Hgb Conc. 32.2 g/dL (32.0-36.0); Mean Corpuscular Volume 79.8 fL (80.0-100.0); Red Blood Cells 3.75 10^6/uL (4.5-5.90); Red Cell Distribution Width 17.1 % (11.8-14.3); White Blood Cell 16.6 10^3/uL (4.4-10.8)
[2022-01-29 10:24] LABS: Calcium 8.5 mg/dL (8.5-10.1); Potassium 3.8 mmol/L (3.5-5.1)
[2022-01-29 10:28] LABS: BUN/Creatinine Ratio 7.7; Bilirubin, Total 0.2 mg/dL (0.2-1.0); Total Protein 6.8 g/dL (6.4-8.2)
[2022-01-29 10:46] LABS: Band Neutrophils % (manual) 0; Basophils % (manual) 0 (0.0-2.0)
[2022-01-29 10:47] LABS: Blast Cells 0; Promyelocytes % 0; Reactive Lymphocytes 0
[2022-01-29 11:48] LABS: Eosinophils % (manual) 1 (0-7); Lymphocytes % (manual) 14 (10.0-50.0); Metamyelocytes % 1; Monocytes % (manual) 8 (0-12); Myelocytes % 1
[2022-01-29 12:00] VITALS: BP 131/90
[2022-01-29] MEDS ORDERED: SERT50TA PO (12:23)
[2022-01-29] MEDS ORDERED: MET500T PO (12:23)
[2022-01-29] MEDS ORDERED: LEVO-28 PO (12:23)
[2022-01-29] MEDS ORDERED: MET50T PO (12:23)
== END 2022-01-29 17:54 | disposition home health service (06) | DRG 720 ==
LOC: ER 14:01 → TELE 17:26 → ICU WEST 18:53
PROVIDERS: ADMIT Internal Medicine; ATTEND Internal Medicine
PROC: 05HB33Z Insertion of Infusion Device into Right Basilic Vein, Percutaneous Approach (ICD-10-PCS; 2022-01-20)
PROC: B54MZZA Ultrasonography of Right Upper Extremity Veins, Guidance (ICD-10-PCS; 2022-01-20)
PROC: 0F943ZZ Drainage of Gallbladder, Percutaneous Approach (ICD-10-PCS; principal; 2022-01-22)
DX: A41.9 Sepsis, unspecified organism (principal); J96.20 Acute and chronic respiratory failure, unspecified whether with hypoxia or hypercapnia; E43 Unspecified severe protein-calorie malnutrition; K81.0 Acute cholecystitis; E87.6 Hypokalemia; F32.A Depression, unspecified; F43.20 Adjustment disorder, unspecified; Z86.16 Personal history of COVID-19; Z87.01 Personal history of pneumonia (recurrent); Z68.29 Body mass index [BMI] 29.0-29.9, adult
CPT/HCPCS: 36415; 47532; 71045; 71260; 74177; 76705; 76942; 78226; 80048; 80053; 80202; 81001; 82150; 82306; 83605; 83690; 83735; 83880; 84100; 84132; 84436; 84439; 84443; 84480; 84484; 85007; 85025; 85027; 85379; 85610; 85652; 85730; 86141; 87040; 87081; 87086; 87205; 87493; 93005; 93306; 94003; 96361; 96374; 97110; 97116; 97530; 99152; C1729; G0378; J1885; J1956; J2001; J2185; J2250; J3490; Q9956; Q9967

== ENCOUNTER → 2022-02-23 | Outpatient (CLI) | payer MEDICAID ==
[~2022-02-23] MED LIST: LEVO-28 PO; MET500T PO; MET50T PO; SERT50TA PO
[2022-02-23 12:42] LABS: Eosinophils # (auto) 0.5 10 ^3/uL (0-0.8); Hematocrit 41.1 % (41.0-53.0); Monocytes # (auto) 1.1 10 ^3/uL (0-1.3)
[2022-02-23 12:43] LABS: Basophils # (auto) 0.2 10 ^3/uL (0-0.2); Basophils % (auto) 1.2 % (0.0-2.0); Hemoglobin 13.5 g/dL (13.5-17.5); Lymphocytes # (auto) 2.3 10 ^3/uL (0.4-5.4); Lymphocytes % (auto) 14.8 % (10.0-50.0); Mean Corpuscular Hemoglobin 26.7 pg (28.0-32.0); Mean Corpuscular Hgb Conc. 32.9 g/dL (32.0-36.0); Mean Corpuscular Volume 81.1 fL (80.0-100.0); Monocytes % (auto) 7.1 % (0.0-12.0); Neutrophils # (auto) 11.3 10 ^3/uL (1.6-8.6); Neutrophils % (auto) 73.9 % (37.0-80.0); Red Blood Cells 5.06 10^6/uL (4.5-5.90); Red Cell Distribution Width 16.2 % (11.8-14.3); White Blood Cell 15.3 10^3/uL (4.4-10.8)
[2022-02-23 13:16] LABS: Albumin 3.3 g/dL (3.4-5.0); Calcium 9.7 mg/dL (8.5-10.1)
[2022-02-23 13:20] LABS: BUN/Creatinine Ratio 13.4; Bilirubin, Total 0.3 mg/dL (0.2-1.0); Total Protein 7.6 g/dL (6.4-8.2)
== END | disposition home or self-care (01) ==
LOC: LAB 12:13
PROVIDERS: ATTEND Internal Medicine
DX: K81.9 Cholecystitis, unspecified (principal)
CPT/HCPCS: 36415; 80053; 85025

== ENCOUNTER 2022-03-01 11:46 | Inpatient (IN) | payer MEDICAID ==
[~2022-03-01] VITALS: Ht 172.7 cm; Wt 68.0 kg
[2022-03-01] VITALS (9 sets, daily range): BP systolic 99–119; BP diastolic 69–77
[2022-03-01] MEDS ORDERED: MORPHINE SULFATE 4 MG/ML SYR/VIAL IV ONE (12:15)
[2022-03-01] MEDS ORDERED: ONDANSETRON HCL 4 MG/2 ML VIAL IV ONE (12:15)
[2022-03-01 13:40] LABS: Basophils # (auto) 0.1 10 ^3/uL (0-0.2); Basophils % (auto) 0.8 % (0.0-2.0); Eosinophils # (auto) 0.4 10 ^3/uL (0-0.8); Eosinophils % (auto) 2.2 % (0.0-7.0); Hemoglobin 13.4 g/dL (13.5-17.5); Lymphocytes # (auto) 2.3 10 ^3/uL (0.4-5.4); Lymphocytes % (auto) 12.8 % (10.0-50.0); Mean Corpuscular Hemoglobin 26.5 pg (28.0-32.0); Mean Corpuscular Hgb Conc. 32.7 g/dL (32.0-36.0); Mean Corpuscular Volume 81.1 fL (80.0-100.0); Monocytes # (auto) 1.1 10 ^3/uL (0-1.3); Monocytes % (auto) 6.1 % (0.0-12.0); Neutrophils # (auto) 14.1 10 ^3/uL (1.6-8.6); Neutrophils % (auto) 78.1 % (37.0-80.0); Red Blood Cells 5.05 10^6/uL (4.5-5.90); Red Cell Distribution Width 15.6 % (11.8-14.3); White Blood Cell 18.1 10^3/uL (4.4-10.8)
[2022-03-01 13:56] LABS: Albumin 3.2 g/dL (3.4-5.0); Potassium 4.1 mmol/L (3.5-5.1)
[2022-03-01 13:58] LABS: BUN/Creatinine Ratio 13.9
[2022-03-01 14:01] LABS: Bilirubin, Total 0.2 mg/dL (0.2-1.0); Total Protein 7.5 g/dL (6.4-8.2)
[2022-03-01] MEDS ORDERED: IOHEXOL 350 MG/ML 100ML IJ ONE ×2 (14:47→15:47)
[2022-03-01] MEDS ORDERED: HYDROcodone-ACET 5/325MG TAB PO PRN (15:15)
[2022-03-01] MEDS ORDERED: ONDANSETRON HCL 4 MG/2 ML VIAL IV PRN (15:15)
[2022-03-01] MEDS ORDERED: MORPHINE SULFATE INJECTION 2 MG/ML SYRG IV PRN (15:15)
[2022-03-01] MEDS ORDERED: NITROGLYCERIN 0.4 MG SL TAB SL PRN (15:15)
[2022-03-01] MEDS ORDERED: cefTRIAXone 1GM/50ML D5W 50 ML IV ONE (15:15)
[2022-03-01] MEDS ORDERED: FAMOTIDINE (10MG/ML) 2ML VL IV ONE (15:15)
[2022-03-01] MEDS ORDERED: IOHEXOL 300 MG/ML 100ML BOTTLE IJ ONE (16:29)
[2022-03-01] MEDS: SODIUM CHLORIDE 0.9% 1,000 ML IV SCH (17:10)
[2022-03-01 20:36] LABS: Urine Bacteria FEW /hpf (None Seen); Urine Blood Negative /uL (Negative); Urine Hyaline Cast FEW /lpf (0 - 2); Urine Mucus FEW (None Seen); Urine WBC 2 /hpf (0 - 3)
[2022-03-01 20:38] LABS: Urine Specific Gravity > 1.055 (1.001-1.035)
[2022-03-01] MEDS: metroNIDAZOLE 500MG/100ML 100 ML IV SCH (21:46)
[2022-03-01] MEDS: MORPHINE SULFATE INJECTION 2 MG/ML SYRG IV PRN (21:50)
[2022-03-02 04:30] VITALS: BP 119/76
[2022-03-02 05:47] LABS: Partial Thromboplastin Time 23.5 sec (23.6-33.0)
[2022-03-02 05:51] LABS: Basophils # (auto) 0.1 10 ^3/uL (0-0.2); Basophils % (auto) 0.6 % (0.0-2.0); Eosinophils # (auto) 0.8 10 ^3/uL (0-0.8); Eosinophils % (auto) 5.7 % (0.0-7.0); Hematocrit 40.1 % (41.0-53.0); Lymphocytes # (auto) 2.4 10 ^3/uL (0.4-5.4); Lymphocytes % (auto) 16.8 % (10.0-50.0); Mean Corpuscular Hemoglobin 26.9 pg (28.0-32.0); Mean Corpuscular Hgb Conc. 32.5 g/dL (32.0-36.0); Mean Corpuscular Volume 82.7 fL (80.0-100.0); Monocytes # (auto) 1.1 10 ^3/uL (0-1.3); Monocytes % (auto) 8.1 % (0.0-12.0); Neutrophils # (auto) 9.6 10 ^3/uL (1.6-8.6); Neutrophils % (auto) 68.8 % (37.0-80.0); Nucleated Red Blood Cells % 0.1 %; Red Blood Cells 4.84 10^6/uL (4.5-5.90)
[2022-03-02] MEDS: metroNIDAZOLE 500MG/100ML 100 ML IV SCH ×3 (05:54→21:46)
[2022-03-02] MEDS: MORPHINE SULFATE INJECTION 2 MG/ML SYRG IV PRN (05:55)
[2022-03-02 05:56] LABS: Albumin 2.9 g/dL (3.4-5.0); BUN/Creatinine Ratio 20.7; Bilirubin, Total 0.3 mg/dL (0.2-1.0); Calcium 8.9 mg/dL (8.5-10.1); Total Protein 7.1 g/dL (6.4-8.2)
[2022-03-02] MEDS: SODIUM CHLORIDE 0.9% 1,000 ML IV SCH (07:55)
[2022-03-02 10:00] VITALS: BP 112/70
[2022-03-02] MEDS ORDERED: cefTRIAXone 1GM/50ML D5W 50 ML IV ONE (10:19)
[2022-03-02] MEDS: FAMOTIDINE (10MG/ML) 2ML VL IV SCH (10:21)
[2022-03-02] MEDS: cefTRIAXone 1GM/50ML D5W 50 ML IV SCH ×2 (10:21→18:31)
[2022-03-02 12:00] VITALS: BP 112/69
[2022-03-02 14:00] VITALS: BP 122/74
[2022-03-02 16:00] VITALS: BP 118/71
[2022-03-02 22:00] VITALS: BP 125/81
[2022-03-03 00:30] VITALS: BP 122/79
[2022-03-03 02:00] VITALS: BP 120/74
[2022-03-03] MEDS: metroNIDAZOLE 500MG/100ML 100 ML IV SCH (05:09)
[2022-03-03 06:34] LABS: Hematocrit 34.5 % (41.0-53.0); Hemoglobin 11.6 g/dL (13.5-17.5); Mean Corpuscular Hemoglobin 27.3 pg (28.0-32.0); Mean Corpuscular Hgb Conc. 33.7 g/dL (32.0-36.0); Red Blood Cells 4.25 10^6/uL (4.5-5.90); Red Cell Distribution Width 15.1 % (11.8-14.3); White Blood Cell 10.9 10^3/uL (4.4-10.8)
[2022-03-03 06:40] LABS: Basophils % (manual) 0 (0.0-2.0); Blast Cells 0; Metamyelocytes % 0; Myelocytes % 0; Promyelocytes % 0; Reactive Lymphocytes 0
[2022-03-03 08:00] VITALS: BP 118/70
[2022-03-03] MEDS: SODIUM CHLORIDE 0.9% 1,000 ML IV SCH (08:00)
[2022-03-03 08:46] LABS: Band Neutrophils % (manual) 2; Eosinophils % (manual) 8 (0-7); Lymphocytes % (manual) 21 (10.0-50.0); Monocytes % (manual) 14 (0-12)
[2022-03-03] MEDS: FAMOTIDINE (10MG/ML) 2ML VL IV SCH (08:49)
[2022-03-03] MEDS ORDERED: METR500T PO (10:16)
[2022-03-03] MEDS ORDERED: LEVO500T31 PO (10:16)
[2022-03-03 11:37] VITALS: BP 118/70
== END 2022-03-03 15:22 | disposition home health service (06) | DRG 720 ==
LOC: ER 11:46 → TELE 15:13 → DOU IN ICU 18:05
PROVIDERS: ADMIT Internal Medicine; ATTEND Internal Medicine
PROC: 0F943ZZ Drainage of Gallbladder, Percutaneous Approach (ICD-10-PCS; principal; 2022-03-01)
DX: A41.9 Sepsis, unspecified organism (principal); J96.10 Chronic respiratory failure, unspecified whether with hypoxia or hypercapnia; K81.0 Acute cholecystitis; Z20.822 Contact with and (suspected) exposure to COVID-19; R73.9 Hyperglycemia, unspecified; Z86.16 Personal history of COVID-19
CPT/HCPCS: 36415; 71046; 71275; 74176; 74300; 76705; 80053; 81001; 82150; 83690; 85007; 85025; 85027; 85379; 85610; 85730; 96365; 96375; G0378; J0696; J2405; J3490

== ENCOUNTER → 2022-03-18 | Outpatient (CLI) | payer MEDICAID ==
[~2022-03-18] MED LIST changes: +LEVO500T31 PO; +METR500T PO
[2022-03-18 13:58] LABS: Hematocrit 39.9 % (41.0-53.0); Hemoglobin 13.6 g/dL (13.5-17.5); Mean Corpuscular Volume 79.5 fL (80.0-100.0); Red Blood Cells 5.02 10^6/uL (4.5-5.90); Red Cell Distribution Width 15.1 % (11.8-14.3); White Blood Cell 13.1 10^3/uL (4.4-10.8)
[2022-03-18 14:17] LABS: Basophils % (manual) 0 (0.0-2.0); Blast Cells 0; Metamyelocytes % 0; Promyelocytes % 0; Reactive Lymphocytes 0
[2022-03-18 14:48] LABS: Potassium 3.9 mmol/L (3.5-5.1)
[2022-03-18 14:49] LABS: Bilirubin, Total 0.2 mg/dL (0.2-1.0); Calcium 8.5 mg/dL (8.5-10.1)
[2022-03-18 14:50] LABS: Total Protein 7.3 g/dL (6.4-8.2)
[2022-03-18 14:51] LABS: BUN/Creatinine Ratio 16.4
[2022-03-18 14:55] LABS: Band Neutrophils % (manual) 2; Eosinophils % (manual) 4 (0-7); Lymphocytes % (manual) 24 (10.0-50.0); Monocytes % (manual) 6 (0-12); Myelocytes % 1
== END | disposition home or self-care (01) ==
LOC: LAB 13:37
PROVIDERS: ATTEND Internal Medicine
DX: K81.0 Acute cholecystitis (principal)
CPT/HCPCS: 36415; 80053; 85007; 85027

== ENCOUNTER → 2022-05-19 | Outpatient (CLI) | payer MEDICAID ==
[2022-05-19 15:30] LABS: Calcium 9.1 mg/dL (8.5-10.1)
[2022-05-19 15:32] LABS: BUN/Creatinine Ratio 17.2
== END | disposition home or self-care (01) ==
LOC: LAB 14:27
PROVIDERS: ATTEND Internal Medicine
DX: I10 Essential (primary) hypertension (principal)
CPT/HCPCS: 36415; 80048; 82306

== ENCOUNTER 2022-09-23 23:58 | Emergency (ER) | payer MEDICAID ==
[~2022-09-23] VITALS: Ht 182.9 cm; Wt 110.0 kg
[2022-09-24 01:17] LABS: Basophils # (auto) 0.1 10 ^3/uL (0-0.2); Basophils % (auto) 0.7 % (0.0-2.0); Eosinophils # (auto) 0.4 10 ^3/uL (0-0.8); Eosinophils % (auto) 2.5 % (0.0-7.0); Hematocrit 49.6 % (41.0-53.0); Hemoglobin 16.5 g/dL (13.5-17.5); Lymphocytes # (auto) 2.9 10 ^3/uL (0.4-5.4); Lymphocytes % (auto) 17.9 % (10.0-50.0); Mean Corpuscular Hemoglobin 27.8 pg (28.0-32.0); Mean Corpuscular Hgb Conc. 33.4 g/dL (32.0-36.0); Mean Corpuscular Volume 83.4 fL (80.0-100.0); Monocytes # (auto) 0.8 10 ^3/uL (0-1.3); Neutrophils # (auto) 11.8 10 ^3/uL (1.6-8.6); Neutrophils % (auto) 73.9 % (37.0-80.0); Nucleated Red Blood Cells % 0.2 %; Red Blood Cells 5.94 10^6/uL (4.5-5.90); Red Cell Distribution Width 13.8 % (11.8-14.3)
[2022-09-24 01:49] LABS: Sodium 138 mmol/L (136-145)
[2022-09-24 01:50] LABS: Albumin 3.6 g/dL (3.4-5.0); Anion Gap 10 (5-15); BUN/Creatinine Ratio 15.2; Blood Urea Nitrogen 19 mg/dL (7-18); Carbon Dioxide 21 mmol/L (21-32); Chloride 107 mmol/L (98-107); GFR African American 86 mL/min; GFR Non-African American 71 mL/min; Glucose 95 mg/dL (74-106); Potassium 3.9 mmol/L (3.5-5.1)
[2022-09-24 01:58] LABS: Alanine Aminotransferase 22 U/L (16-61); Alkaline Phosphatase 156 U/L (45-117); Aspartate Aminotransferase 22 U/L (15-37); Bilirubin, Total 0.4 mg/dL (0.2-1.0); Total Protein 8.4 g/dL (6.4-8.2)
[2022-09-24] MEDS ORDERED: ONDANSETRON HCL 4 MG/2 ML VIAL IV ONE (17:15)
[2022-09-24] MEDS ORDERED: MORPHINE SULFATE 4 MG/ML SYR/VIAL IV ONE (17:15)
[2022-09-24 18:51] VITALS: BP 124/82
== END 2022-09-24 19:01 | disposition short-term general hospital (02) ==
LOC: EDBD 23:58 → ER 23:58
DX: J98.2 Interstitial emphysema (principal); J93.9 Pneumothorax, unspecified; R00.0 Tachycardia, unspecified; R07.9 Chest pain, unspecified; R05.9 Cough, unspecified; Z20.822 Contact with and (suspected) exposure to COVID-19
CPT/HCPCS: 36415; 36600; 71045; 71250; 80053; 82805; 83880; 84484; 85025; 87426; 87804; 96374; 96375; 99291; J2270; J2405

== ENCOUNTER → 2022-11-08 | Outpatient (CLI) | payer MEDICAID | END | disposition home or self-care (01) | LOC: LAB 11:25 | PROVIDERS: ATTEND Internal Medicine Pulmonary Disease | DX: Z01.812 Encounter for preprocedural laboratory examination (principal); Z20.822 Contact with and (suspected) exposure to COVID-19 | CPT/HCPCS: 36415; 87426 ==

== ENCOUNTER → 2022-11-09 | Outpatient (CLI) | payer MEDICAID | END | disposition home or self-care (01) | LOC: RT 08:38 | PROVIDERS: ATTEND Internal Medicine Pulmonary Disease | DX: J98.2 Interstitial emphysema (principal) | CPT/HCPCS: 94060 ==

== ENCOUNTER → 2023-11-28 | Outpatient (CLI) | payer OTHER ==
[~2023-11-28] MED LIST changes: -LEVO-28 PO; +LEVO500T91 PO
[2023-11-28 07:25] LABS: Basophils # (auto) 0.1 10 ^3/uL (0-0.2); Eosinophils # (auto) 0.4 10 ^3/uL (0-0.8); Eosinophils % (auto) 3.2 % (0.0-7.0); Hematocrit 50.6 % (41.0-53.0); Hemoglobin 17.1 g/dL (13.5-17.5); Lymphocytes % (auto) 25.2 % (10.0-50.0); Mean Corpuscular Hemoglobin 28.2 pg (28.0-32.0); Mean Corpuscular Hgb Conc. 33.7 g/dL (32.0-36.0); Mean Corpuscular Volume 83.6 fL (80.0-100.0); Monocytes # (auto) 0.6 10 ^3/uL (0-1.3); Monocytes % (auto) 5.3 % (0.0-12.0); Neutrophils # (auto) 7.8 10 ^3/uL (1.6-8.6); Neutrophils % (auto) 65.3 % (37.0-80.0); Nucleated Red Blood Cells % 0.1 %; Red Blood Cells 6.06 10^6/uL (4.5-5.90); Red Cell Distribution Width 14.4 % (11.8-14.3); White Blood Cell 11.9 10^3/uL (4.4-10.8)
[2023-11-28 07:47] LABS: Alanine Aminotransferase 17 U/L (7-40); Albumin 4.5 g/dL (3.2-4.8); Alkaline Phosphatase 146 U/L (46-116); Anion Gap 7 (5-15); Aspartate Aminotransferase 22 U/L (13-40); BUN/Creatinine Ratio 8.3 (10.0-20.0); Bilirubin, Total 0.7 mg/dL (0.2-1.0); Blood Urea Nitrogen 8 mg/dL (9-23); Calcium 9.5 mg/dL (8.5-10.1); Carbon Dioxide 26 mmol/L (20-30); Chloride 106 mmol/L (98-107); Cholesterol 161 mg/dL (< 200); Glucose 90 mg/dL (74-106); HDL Cholesterol 40 mg/dL (40-59); LDL Cholesterol 109 mg/dL (< 100); Sodium 139 mmol/L (136-145); Total Protein 7.9 g/dL (5.7-8.2); Triglycerides 175 mg/dL (< 150)
== END | disposition home or self-care (01) ==
LOC: LAB 06:54
PROVIDERS: ATTEND Internal Medicine
DX: J84.10 Pulmonary fibrosis, unspecified (principal); E55.9 Vitamin D deficiency, unspecified
CPT/HCPCS: 36415; 80053; 80061; 82306; 83036; 85025

== ENCOUNTER → 2024-04-13 | Outpatient (CLI) | payer OTHER ==
[2024-04-13 08:42] LABS: Alanine Aminotransferase 12 U/L (7-40); Alkaline Phosphatase 130 U/L (46-116); Anion Gap 8 (5-15); BUN/Creatinine Ratio 7.4 (10.0-20.0); Blood Urea Nitrogen 7 mg/dL (9-23); Calcium 9.4 mg/dL (8.5-10.1); Carbon Dioxide 22 mmol/L (20-30); Chloride 109 mmol/L (98-107); Glucose 96 mg/dL (74-106); Potassium 3.7 mmol/L (3.5-5.1); Sodium 139 mmol/L (136-145)
[2024-04-13 08:43] LABS: Albumin 4.4 g/dL (3.2-4.8); Aspartate Aminotransferase 10 U/L (13-40)
[2024-04-13 08:44] LABS: Bilirubin, Total 0.8 mg/dL (0.2-1.0); Total Protein 7.2 g/dL (5.7-8.2)
[2024-04-13 08:46] LABS: Basophils # (auto) 0.1 10 ^3/uL (0-0.2); Basophils % (auto) 0.7 % (0.0-2.0); Eosinophils # (auto) 0.2 10 ^3/uL (0-0.8); Eosinophils % (auto) 2.5 % (0.0-7.0); Hematocrit 50.2 % (41.0-53.0); Hemoglobin 17.2 g/dL (13.5-17.5); Lymphocytes # (auto) 2.1 10 ^3/uL (0.4-5.4); Mean Corpuscular Hgb Conc. 34.3 g/dL (32.0-36.0); Mean Corpuscular Volume 84.4 fL (80.0-100.0); Monocytes # (auto) 0.6 10 ^3/uL (0-1.3); Monocytes % (auto) 6.8 % (0.0-12.0); Neutrophils # (auto) 6.1 10 ^3/uL (1.6-8.6); Nucleated Red Blood Cells % 0.4 %; Red Blood Cells 5.95 10^6/uL (4.5-5.90); Red Cell Distribution Width 14.2 % (11.8-14.3); White Blood Cell 9.1 10^3/uL (4.4-10.8)
[2024-04-13 08:55] LABS: Free T4 (Free Thyroxine) 1.37 ng/dL (0.89-1.76)
== END | disposition home or self-care (01) ==
LOC: LAB 07:46
PROVIDERS: ATTEND Internal Medicine
DX: E55.9 Vitamin D deficiency, unspecified (principal)
CPT/HCPCS: 36415; 80053; 82306; 82607; 83036; 84403; 84439; 84443; 85025

== ENCOUNTER 2025-05-27 06:28 | Outpatient (CLI) | payer OTHER, MEDICAID ==
[2025-05-27 08:05] LABS: Urine Protein, UAD Negative (Negative)
[2025-05-27 08:18] LABS: Alanine Aminotransferase 16 U/L (7-40); Albumin 4.6 g/dL (3.2-4.8); Alkaline Phosphatase 112 U/L (46-116); Anion Gap 8 (5-15); BUN/Creatinine Ratio 12.4 (10.0-20.0); Blood Urea Nitrogen 12 mg/dL (9-23); Calcium 10.0 mg/dL (8.7-10.4); Carbon Dioxide 29 mmol/L (20-31); Chloride 104 mmol/L (98-107); Cholesterol 153 mg/dL (< 200); Glucose 88 mg/dL (74-106); HDL Cholesterol 47 mg/dL (40-59); Potassium 4.6 mmol/L (3.5-5.1); Sodium 141 mmol/L (136-145); Total Protein 7.1 g/dL (5.7-8.2); Triglycerides 125 mg/dL (< 150)
[2025-05-27 08:19] LABS: Bilirubin, Total 0.7 mg/dL (0.2-1.0)
[2025-05-27 11:00] LABS: Free T4 (Free Thyroxine) 1.32 ng/dL (0.89-1.76)
== END 2025-05-27 17:00 | disposition home or self-care (01) ==
LOC: LAB 06:28
PROVIDERS: ATTEND Internal Medicine
DX: J84.10 Pulmonary fibrosis, unspecified (principal); R73.9 Hyperglycemia, unspecified; Z79.899 Other long term (current) drug therapy
CPT/HCPCS: 36415; 80053; 80061; 81001; 82607; 83036; 84403; 84439; 84443; 86780

== ENCOUNTER 2025-09-14 12:39 | Emergency (ER) | payer MEDICARE, MEDICAID ==
[~2025-09-14] VITALS: Ht 175.3 cm; Wt 102.4 kg
[2025-09-14 12:45] VITALS: BP 135/88; PULSE 77; RESP 18; TEMP 98.2; O2SAT 100
[2025-09-14] MEDS ORDERED: IBUP-1456 PO (13:24)
[2025-09-14] MEDS ORDERED: METH-1182 PO (13:24)
--- NOTE | 2025-09-14 13:25 | DVH ---
INDICATION: LOWER BACK PAIN TO LEG TECHNIQUE: 4 views of the lumbar spine were obtained. COMPARISON: None FINDINGS: There are no acute fractures or subluxations. Intervertebral discs are maintained. Facet articulations are maintained. SI joints are unremarkable. IMPRESSION: No acute abnormality
--- NOTE | 2025-09-14 13:26 | ED.PDOC ---
Back pain HPI HPI Comments A 34 YEAR OLD FEMALE PRESENTS TO THE ED WITH COMPLAINT OF BACK PAIN. PATIENT STATES ON TUESDAY FIVE DAYS PRIOR HE WAS LIFTING A HEAVY BAG OF CEMENT AND STATES AFTERWARDS HE STARTED TO HAVE LOWER BACK PAIN RADIATING DOWN THE RIGHT LEG. PATIENT STATES SINCE HE HAS BEEN HAVING INCREASED PAIN AND CAME TODAY FOR EVALUATION. PATIENT DENIES FEVER, CHILLS, SHORTNESS OF BREATH, CHEST PAIN, ABDOMINAL PAIN, NAUSEA, VOMITING, HEADACHE, OR OTHER COMPLAINTS. NO OTHER SYMPTOMS OR MODIFYING FACTORS AT THIS TIME. PATIENT IS ALERT, ORIENTED X 4, AND HAS STEADY GAIT. Chief Complaint: Back Pain Time Seen by MD: 13:24 Primary Care Provider: NONE Reviewed Notes: Nurses Notes, Medications, Allergies Allergies: Coded Allergies: NO KNOWN ALLERGIES (Unverified , 03/01/22) Home Meds Active Scripts Methocarbamol (Methocarbamol) 750 Mg Tab, 750 MG PO BID, #20 TAB Prov:JOEL JOHNSON 09/14/25 Ibuprofen (Ibuprofen) 800 Mg Tab, 1 TAB PO TID, #30 TAB Prov:JOEL JOHNSON 09/14/25 Metronidazole (Flagyl) 500 Mg Tab, 500 MG PO TID for 7 Days, #21 TAB Prov:CRYSTAL MARIA MD 03/03/22 Levofloxacin (Levaquin) 500 Mg Tab, 500 MG PO DAILY for 7 Days, #7 TAB Prov:CRYSTAL MARIA MD 03/03/22 Metronidazole (Metronidazole) 500 Mg Tab, 500 MG PO Q8HR for 7 Days, #21 TAB Prov:CRYSTAL MARIA MD 01/29/22 Sertraline Hcl (Zoloft) 50 Mg Tab, 50 MG PO DAILY for 30 Days, #30 TAB 4 Refills Prov:CRYSTAL MARIA MD 01/29/22 Metoprolol Tartrate (LOPRESSOR TABLET) 50 Mg Tb, 50 MG PO BID for 30 Days, #60 TAB 1 Refill Prov:CRYSTAL MARIA MD 01/29/22 Levofloxacin Hemihydrate (LEVOFLOXACIN) 500 Mg Tab, 500 MG PO DAILY for 7 Days, #7 TAB Prov:CRYSTAL MARIA MD 01/29/22 Information Source: Patient Mode of Arrival: Ambulatory Brought in by: SELF Timing: Days Duration: Days Location of Back pain: (B) Lower back Radiates to: Posterior: (R) Buttocks, (R) Thigh Radiates to: Medial: (R) Buttocks, (R) Thigh Radiates to: Lateral: (R) Buttocks, (R) Thigh Severity: Moderate Prehospital treatment: None Quality: Aching, Cramping Onset: Bending, Lifing Modifying Factors: Movement, Twisting Associated signs and symptoms: None Past Medical History PAST MEDICAL HISTORY: Denies Surgical History: Denies all surgeries Family History Family History: Reviewed,noncontributory to illness Social History Smoker: Non-Smoker Alcohol: Denies ETOH Use Drugs: Denies Drug Use Lives In: Home Constitutional: denies: chills, diaphoresis, fatigue, fever, malaise, sweats, weakness, others EENTM: denies: blurred vision, double vision, ear bleeding, ear discharge, ear drainage, ear pain, ear ringing, eye pain, eye redness, hearing loss, mouth pain, mouth swelling, nasal discharge, nose bleeding, nose congestion, nose pain, photophobia, tearing, throat pain, throat swelling, voice changes, others Respiratory: denies: cough, hemoptysis, orthopnea, SOB at rest, shortness of breath, SOB with excertion, stridor, wheezing, others Cardiovascular: denies: chest pain, dizzy spells, diaphoresis, Dyspnea on exertion, edema, irregular heart beat, left arm pain, lightheadedness, palpitations, PND, syncope, others Gastrointestinal: denies: abdomen distended, abdominal pain, blood streaked bowels, constipated, diarrhea, dysphagia, difficulty swallowing, hematemesis, melena, nausea, poor appetite, poor fluid intake, rectal bleeding, rectal pain, vomiting, others Genitourinary: denies: burning, dysuria, flank pain, frequency, hematuria, incontinence, penile discharge, penile sore, pain, testicle pain, testicle swelling, urgency, others Neurological: denies: dizziness, fainting, headache, left sided numbness, left sided weakness, numbness, paresthesia, pre-existing deficit, right sided numbness, right sided weakness, seizure, speech problems, tingling, tremors, weakness, others Musculoskeletal: reports: back pain, muscle pain; denies: gout, joint pain, joint swelling, muscle stiffness, neck pain, others Integumetry: denies: bruises, change in color, change in hair/nails, dryness, laceration, lesions, lumps, rash, wounds, others Allergic/Immunocompromised: denies: Difficulty Healing, Frequent Infections, Hives, Itching, others Hematologic/Lymphatic: denies: anemia, blood clots, easy bleeding, easy bruising, swollen glands, others Endocrine: denies: excessive hunger, excessive sweating, excessive thirst, excessive urination, flushing, intolerance to cold, intolerance to heat, unexplained weight gain, unexplained weight loss, others Psychiatric: denies: anxiety, bipolar disorder, depression, hopeless, panic disorder, schizophrenia, sleepless, suicidal, others All Other Systems: Reviewed and Negative Physical Exam General Appearance: No Apparent Distress, Normal HEENT: Normal ENT Inspection, PERRL/EOMI, Pharynx Normal, TMs Normal Neck: Full Range of Motion, Non-Tender, Normal, Normal Inspection Respiratory: Chest Non-Tender, Lungs Clear, No Accessory Muscle Use, No Respiratory Distress, Normal Breath Sounds Cardiovascular: No Edema, No JVD, No Murmur, No Gallop, Normal Peripheral Pulses, Regular Rate/Rhythm Breast Exam: Deferred Gastrointestinal: No Organomegaly, Non Tender, No Pulsatile Mass, Normal Bowel Sounds, Soft Genitalia: Deferred Pelvic: Deferred Rectal: Deferred Extremities: No calf tenderness, Normal capillary refill, Normal inspection, Normal range of motion, Non-tender, No pedal edema Musculoskeletal : Location: Bilateral Extremity Location: Back Apperance: Tenderness: Moderate (MUSCLE SPASM, NO BONY TENDERNESS, SWELLING AND DEFORMITY. 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 Was a procedure done?: No Back Pain Differential Dx Differential Diagnosis: Musculoskeletal Pain Other Differential Diagnosis LUMBAR RADICULOPATHY, SCIATICA, DJD MUSCLE SPASM MUSCLE STRAIN X-Ray, Labs, Meds, VS Vital Signs Date Time Temp Pulse Resp B/P (MAP) Pulse Ox O2 Delivery O2 Flow Rate FiO2 09/14/25 12:45 98.2 77 18 135/88 100 98.2 Current Medications Medications (Trade) Dose Ordered Sig/Leonardo Route Start Time Stop Time Status Last Admin Ketorolac Tromethamine (Toradol Injection) 60 mg ONCE ONCE IM 09/14/25 13:30 09/14/25 13:31 DC 09/14/25 13:28 X-Ray, Labs, Meds, VS Comment COURSE: EXTERNAL MEDICAL RECORDS REVIEWED: [NONE] INDEPENDENT HISTORIANS: [NONE] SOCIAL DETERMINANTS OF HEALTH: [NONE] LABS ORDERED: NONE REVIEWED AND INTERPRETED RESULTS: NONE IMAGING ORDERED: LUMBAR SPINE X-RAY TREATMENTS ORDERED: TORADOL 60 MG IM INJECTION ONCE PROCEDURES PERFORMED: NONE CRITICAL CARE TIME: NONE I HAVE DISCUSSED THE PATIENT WITH THE ATTENDING PHYSICIAN DR. KEITH AND HE AGREES WITH THE PATIENT'S PLAN OF CARE AND DISPOSITION. BASED ON HISTORY OF PRESENT ILLNESS, AND PHYSICAL EXAM, PATIENT WILL BE DISCHARG ED HOME. DISCUSSED PLAN FOR DISCHARGE HOME WITH RX []. MEDICATION WARNINGS GIVEN. SHARED DECISION MAKING: DISCUSSED WITH PATIENT THAT THEIR WORKUP WAS NORMAL. PATIENT INSTRUCTED TO FOLLOW UP WITH PRIMARY CARE PROVIDER IN 1-2 DAYS FOR RE- EVALUATION OF SYMPTOMS. PATIENT VERBALIZES UNDERSTANDING TO RETURN TO ED FOR NEW OR WORSENING SYMPTOMS OR IF FOLLOW UP WITH PCP CANNOT BE OBTAINED. PATIENT FEELS COMFORTABLE GOING HOME AT THIS TIME. ALL QUESTIONS ADDRESSED AT TIME OF DISCHARGE. Time of 1ST Reevaluation: 13:47 Reevaluation 1ST: Unchanged Patient Education/Counseling: Diagnosis, Treatment, Need For Follow Up Family Education/Counseling: Diagnosis, Treatment, No Family Present Medical Screening: No EMC Exist At This Time SEPSIS Sepsis Screen Date sepsis recognized/suspect: Sep 14, 2025 Time Sepsis recognized/suspect: 1247 Recent Procedure: No On Antibiotic Therapy: No Respiratory Rate >20: No Heart Rate >90: No Temp<36 C (96.8 F) or >38.3 C: No SBP <90 or MAP <65 mmHG: No New Acute Mental Status Change: No Is the patient on CPAP, BIPAP,: No Physician Orders Lumbar Spine 3 View (09/14/25 12:59) Vital Signs Date Time Temp Pulse Resp B/P (MAP) Pulse Ox O2 Delivery O2 Flow Rate FiO2 09/14/25 12:45 98.2 77 18 135/88 100 98.2 Medications Medications Dose Ordered Sig/Leonardo Route Start Time Stop Time Status Last Admin Dose Admin Ketorolac Tromethamine 60 mg ONCE ONCE IM 09/14/25 13:30 09/14/25 13:31 DC 09/14/25 13:28 Departure 1 Departure Time of Disposition: 13:48 Impression: Primary Impression: Low back strain Qualified Codes: S39.012A - Strain of muscle, fascia and tendon of lower back, initial encounter Disposition: HOME / SELF CARE / HOMELESS Condition: Stable Additional Instructions: INSTRUCTIONS: FOLLOW-UP WITH PCP IN 1 TO 2 DAYS. TAKE MEDICATIONS PRESCRIBED. RETURN TO ED FOR ANY NEW OR WORSENING SYMPTOMS. e-Prescriptions Methocarbamol (Methocarbamol) 750 Mg Tab 750 MG PO BID, #20 TAB Prov: JOEL JOHNSON 09/14/25 Ibuprofen (Ibuprofen) 800 Mg Tab 1 TAB PO TID, #30 TAB Prov: JOEL JOHNSON 09/14/25 Discharged With: Self Critical Care Note Critical Care Time?: No Stability Stability form required: No Heart Score Heart Score: Heart Score Response (Comments) Value History N/A 0 EKG N/A 0 Age N/A 0 Risk Factors N/A 0 Troponin N/A 0 Total 0 I personally scribed for JOEL JOHNSON ([email or web address]) on 09/14/25 at 13:26. Electronically submitted by George CHU). JOEL JOHNSON Sep 14, 2025 13:26
[2025-09-14] MEDS: KETOROLAC TROMETH 60MG/2ML VIAL IM ONE (13:28)
== END 2025-09-14 13:46 | disposition home or self-care (01) ==
LOC: ER 12:39
DX: S39.012A Strain of muscle, fascia and tendon of lower back, initial encounter (principal); Z79.899 Other long term (current) drug therapy; Z79.1 Long term (current) use of non-steroidal anti-inflammatories (NSAID); X50.0XXA Overexertion from strenuous movement or load, initial encounter; Y93.89 Activity, other specified; Y92.89 Other specified places as the place of occurrence of the external cause; Y99.8 Other external cause status
CPT/HCPCS: 72100; 96372; 99283; J1885